=== PATIENT | male | born 1935 | race Caucasian/White ===

== ENCOUNTER 2016-07-10 10:49 | Outpatient (CLI) | payer MEDICARE, OTHER ==
[2016-07-10 12:33] LABS: HEMATOCRIT 23.4 % (37.9-51.0); HGB HCT DIFFERENCE 0.3; MEAN CORPUSCULAR HEMOGLOBIN 34.2 pg (27.0-33.4); MEAN CORPUSCULAR HGB CONC 33.7 g/dL (32.0-36.0); MEAN CORPUSCULAR VOLUME 101 fl (80-97); RED BLOOD COUNT 2.31 10^6/uL (4.35-5.55); RED CELL DISTRIBUTION WIDTH 24.7 % (11.5-14.0)
[2016-07-10 12:42] LABS: ANION GAP 11 (5-19); BLOOD UREA NITROGEN 20 mg/dL (7-20); CALCIUM 9.1 mg/dL (8.4-10.2); CARBON DIOXIDE 27 mmol/L (22-30); CHLORIDE 107 mmol/L (98-107); CREATININE RESULT 0.95 mg/dL (0.52-1.25); GLUCOSE 103 mg/dL (75-110); POTASSIUM 4.7 mmol/L (3.6-5.0); SODIUM 144.7 mmol/L (137-145)
[2016-07-10 12:49] LABS: HEMOGLOBIN 7.9 g/dL (13.5-17.0); WHITE BLOOD COUNT 1.2 10^3/uL (4.0-10.5)
[2016-07-11] MEDS ORDERED: ACETAMINOPHEN 325 MG TABLET PO PRN (05:00)
[2016-07-11] MEDS ORDERED: FUROSEMIDE INJ/PF 20 MG/2 ML SDV IV PRN (05:00)
[2016-07-11] MEDS ORDERED: NORMAL SALINE 250 ML IV PRN (07:00)
[2016-07-11] MEDS ORDERED: DIPHENHYDRAMINE HCL 25 MG CAPSULE PO PRN (07:00)
[2016-07-11] MEDS ORDERED: ACETAMINOPHEN 325 MG TABLET ONE (10:00)
[2016-07-11] MEDS ORDERED: DIPHENHYDRAMINE HCL 25 MG CAPSULE ONE (10:00)
[2016-07-11 13:34] VITALS: BP 100/41
== END 2016-07-11 13:54 | disposition hospice, home (50) ==
LOC: OD 10:49 → 5TH 07-11 08:51 → II 07-11 13:54
PROVIDERS: ATTEND Internal Medicine
PROC: 30233N1 Transfusion of Nonautologous Red Blood Cells into Peripheral Vein, Percutaneous Approach (ICD-10-PCS; principal; 2016-07-10)
DX: D64.81 Anemia due to antineoplastic chemotherapy (principal)
CPT/HCPCS: 86900; 86901; 36415; 36430; 86850; 82728; 83540; 83550; 80048; 86920; P9016; A9270 ×2

== ENCOUNTER 2016-08-21 11:22 | Outpatient (CLI) | payer MEDICARE, OTHER ==
[2016-08-21 12:03] LABS: HEMATOCRIT 21.3 % (37.9-51.0); HGB HCT DIFFERENCE 0.3; MEAN CORPUSCULAR HEMOGLOBIN 33.6 pg (27.0-33.4); MEAN CORPUSCULAR HGB CONC 33.8 g/dL (32.0-36.0); MEAN CORPUSCULAR VOLUME 99 fl (80-97); RED BLOOD COUNT 2.14 10^6/uL (4.35-5.55); RED CELL DISTRIBUTION WIDTH 25.2 % (11.5-14.0)
[2016-08-21] MEDS ORDERED: DIPHENHYDRAMINE HCL 25 MG CAPSULE PO PRN (12:04)
[2016-08-21] MEDS ORDERED: ACETAMINOPHEN 325 MG TABLET PO PRN (12:04)
[2016-08-21] MEDS ORDERED: FUROSEMIDE INJ/PF 20 MG/2 ML SDV IV PRN (12:04)
[2016-08-21 12:38] LABS: HEMOGLOBIN 7.2 g/dL (13.5-17.0)
[2016-08-22 08:19] VITALS: BP 112/51
== END 2016-08-22 09:10 | disposition home or self-care (01) ==
LOC: II 11:22 → 2N 11:25 → II 08-22 09:10
PROVIDERS: ATTEND Specialist
PROC: 30243N1 Transfusion of Nonautologous Red Blood Cells into Central Vein, Percutaneous Approach (ICD-10-PCS; principal; 2016-08-21)
DX: D64.81 Anemia due to antineoplastic chemotherapy (principal); C92.00 Acute myeloblastic leukemia, not having achieved remission
CPT/HCPCS: 86900; 86901; 36415; 36430; 86850; 86920; P9016; A9270 ×2; J1940

== ENCOUNTER 2016-09-25 13:34 | Inpatient (IN) | payer MEDICARE, OTHER ==
--- NOTE | 2016-09-25 14:06 | ER Document Report ---
ED Medical Screen (RME) - General Chief Complaint: Chest Congestion Stated Complaint: COUGH,CONGESTION,WHEEZING,FEVER Notes: This 81-year-old male with history of leukemia, receiving chemotherapy for the past year or more, last dose chemotherapy last week. He is frequently neutropenic and anemic. One week ago he began having URI symptoms which got much worse 3 days ago. He had a chest x-ray today at [facility] reportedly showing pneumonia and was referred here by Dr. Schneider. I have greeted and performed a rapid initial assessment of this patient. A comprehensive ED assessment and evaluation of the patient, analysis of test results and completion of the medical decision making process will be conducted by additional ED providers. TRAVEL OUTSIDE OF THE [place] 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 Denies: Hx Cerebrovascular Accident Renal/ Medical History: Reports: Hx Benign Prostatic Hyperplasia. Denies: Hx Peritoneal Dialysis Malignancy Medical History: Reports Hx Leukemia GI Medical History: Reports: Hx Gastroesophageal Reflux Disease. 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 Denies: Hx Open Heart Surgery, Hx Pacemaker - Immunizations Hx Diphtheria, Pertussis, Tetanus Vaccination: No Physical Exam - Vital signs Vitals: Temp Pulse Resp BP Pulse Ox 99.0 F 71 16 106/52 L 95 09/25/16 13:39 09/25/16 13:39 09/25/16 13:39 09/25/16 13:39 09/25/16 13:39 Course - Vital Signs Vital signs: Temp Pulse Resp BP Pulse Ox 99.0 F 71 16 106/52 L 95 09/25/16 13:39 09/25/16 13:39 09/25/16 13:39 09/25/16 13:39 09/25/16 13:39
[2016-09-25 14:48] LABS: HEMOGLOBIN 8.5 g/dL (13.5-17.0); HGB HCT DIFFERENCE 1.5; MEAN CORPUSCULAR HEMOGLOBIN 32.9 pg (27.0-33.4); MEAN CORPUSCULAR HGB CONC 35.2 g/dL (32.0-36.0); MEAN CORPUSCULAR VOLUME 94 fl (80-97); RED BLOOD COUNT 2.57 10^6/uL (4.35-5.55)
[2016-09-25 15:02] LABS: APPEARANCE,URINE CLEAR; BILIRUBIN,URINE NEGATIVE (NEGATIVE); GLUCOSE, URINE NEGATIVE (NEGATIVE); KETONES,URINE NEGATIVE (NEGATIVE); LEUKOCYTE ESTERASE,URINE NEGATIVE (NEGATIVE); NITRITE,URINE NEGATIVE (NEGATIVE); PROTEIN,URINE NEGATIVE (NEGATIVE); URINE SPECIFIC GRAVITY 1.016; UROBILINOGEN,URINE NEGATIVE mg/dL (<2.0)
[2016-09-25 15:05] LABS: ALANINE AMINOTRANSFERASE 50 U/L (21-72); ALBUMIN 4.3 g/dL (3.5-5.0); ALKALINE PHOSPHATASE 96 U/L (38-126); ANION GAP 13 (5-19); ASPARTATE AMINO TRANSFERASE 35 U/L (17-59); BILIRUBIN,DIRECT 0.3 mg/dL (0.0-0.4); BILIRUBIN,TOTAL 1.4 mg/dL (0.2-1.3); BLOOD UREA NITROGEN 16 mg/dL (7-20); CALCIUM 9.2 mg/dL (8.4-10.2); CARBON DIOXIDE 26 mmol/L (22-30); CHLORIDE 104 mmol/L (98-107); CREATININE RESULT 0.99 mg/dL (0.52-1.25); GLUCOSE 100 mg/dL (75-110); POTASSIUM 4.6 mmol/L (3.6-5.0); SODIUM 142.9 mmol/L (137-145); TOTAL PROTEIN 6.8 g/dL (6.3-8.2)
[2016-09-25 15:29] LABS: BAND NEUTROPHILS % (MANUAL) 3 % (3-5); BASOPHILS % (MANUAL) 0 % (0-2); EOSINOPHILS % (MANUAL) 2 % (0-6); TOTAL CELLS COUNTED 100
[2016-09-25 15:31] LABS: ANISOCYTOSIS 3+; HYPOCHROMASIA SLIGHT; OVALOCYTES 2+; POIKILOCYTOSIS 2+; POLYCHROMASIA 1+; SCHISTOCYTES 1+; TEAR DROP CELLS 1+
--- NOTE | 2016-09-25 16:06 | ER Document Report ---
ED Respiratory Problem - General Chief Complaint: Chest Congestion Stated Complaint: COUGH,CONGESTION,WHEEZING,FEVER Time seen by provider: 16:05 Mode of Arrival: Ambulatory Information source: Patient TRAVEL OUTSIDE OF THE [place] IN LAST 30 DAYS: No - HPI Patient complains to provider of: Cough, Short of breath Onset: Last week Duration: Worse/persistent Quality of pain: Achy Severity: Mild Pain Level: 1 Short of Breath: Mild Chest pain/discomfort: Tightness Cough: Productive Sputum amount: Small Sputum color: Yellow Sputum consistency: Mucoid Associated symptoms: Congestion, Cough, Fever, Short of breath Notes: Patient is an 81-year-old male who was sent by his oncologist for complaints of fever with productive cough and body aches 1 week, he had an x-ray performed at as an outpatient which reported pneumonia bilaterally, he is a history of leukemia and is currently getting weekly chemotherapy, he denies any shortness of breath at present time, no vomiting or diarrhea - Related Data Allergies/Adverse Reactions: adenosine * [adenosine] Allergy (Verified 09/25/16 13:38) Passed out Past Medical History - General Information source: Patient - Social History Smoking Status: Unknown if Ever Smoked Family History: Reviewed & Not Pertinent Patient has suicidal ideation: No Patient has homicidal ideation: No - Past Medical History Cardiac Medical History: Reports: Hx Congestive Heart Failure, Hx Hypercholesterolemia, Hx Hypertension Denies: Hx Coronary Artery Disease, Hx Heart Attack Pulmonary Medical History: Denies: Hx Asthma, Hx Bronchitis, Hx COPD, Hx Pneumonia Neurological Medical History: Reports: 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 Denies: Hx Cerebrovascular Accident Renal/ Medical History: Reports: Hx Benign Prostatic Hyperplasia. Denies: Hx Peritoneal Dialysis Malignancy Medical History: Reports Hx Leukemia GI Medical History: Reports: Hx Gastroesophageal Reflux Disease. 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 Denies: Hx Open Heart Surgery, Hx Pacemaker - Immunizations Hx Diphtheria, Pertussis, Tetanus Vaccination: No Hx Pneumococcal Vaccination: 05/11/12 Review of Systems - Review of Systems Constitutional: Fever EENT: No symptoms reported Cardiovascular: No symptoms reported Respiratory: See HPI Gastrointestinal: No symptoms reported Genitourinary: No symptoms reported Male Genitourinary: No symptoms reported Musculoskeletal: No symptoms reported Skin: No symptoms reported Hematologic/Lymphatic: No symptoms reported Neurological/Psychological: No symptoms reported -: Yes All other systems reviewed and negative Physical Exam - Vital signs Vitals: Temp Pulse Resp BP Pulse Ox 99.0 F 71 16 106/52 L 95 09/25/16 13:39 09/25/16 13:39 09/25/16 13:39 09/25/16 13:39 09/25/16 13:39 Interpretation: Normal - General General appearance: Appears well, Alert - HEENT Head: Normocephalic, Atraumatic Eyes: Normal Pupils: PERRL - Respiratory Respiratory status: No respiratory distress Chest status: Nontender Breath sounds: Normal Chest palpation: Normal - Cardiovascular Rhythm: Regular Heart sounds: Normal auscultation Murmur: No - Abdominal Inspection: Normal Distension: No distension Bowel sounds: Normal Tenderness: Nontender Organomegaly: No organomegaly - Back Back: Normal, Nontender - Extremities General upper extremity: Normal inspection, Nontender, Normal color, Normal ROM , Normal temperature General lower extremity: Normal inspection, Nontender, Normal color, Normal ROM , Normal temperature, Normal weight bearing. No: Jodi's sign - Neurological Neuro grossly intact: Yes Cognition: Normal Orientation: AAOx4 Arrey Coma Scale Eye Opening: Spontaneous Arrey Coma Scale Verbal: Oriented Lee Coma Scale Motor: Obeys Commands Arrey Coma Scale Total: 15 Speech: Normal Motor strength normal: LUE, RUE, LLE, RLE Sensory: Normal - Psychological Associated symptoms: Normal affect, Normal mood - Skin Skin Temperature: Warm Skin Moisture: Dry Skin Color: Normal Course - Re-evaluation Re-evalutation: 09/25/16 18:35 Patient lab work with pancytopenia, x-ray does not show evidence of pneumonia, however clinically patient appears to have pneumonia versus bronchitis, since he is pancytopenic, currently active with chemotherapy and febrile, he was discussed with the hospitalist who agrees to admit for further evaluation and treatment - Vital Signs Vital signs: Temp Pulse Resp BP Pulse Ox 99.0 F 71 18 141/68 H 96 09/25/16 13:39 09/25/16 13:39 09/25/16 18:13 09/25/16 18:13 09/25/16 18:13 - Laboratory Result Diagrams: 09/25/16 14:22 09/25/16 14:22 Laboratory results interpreted by me: 09/25/16 09/25/16 09/25/16 14:22 14:22 14:22 WBC 1.0 L* RBC 2.57 L Hgb 8.5 L Hct 24.0 L RDW 27.0 H Plt Count 61 L Seg Neuts % (Manual) 31 L Lymphocytes % (Manual) 55 H Abs Neuts (Manual) 0.3 L Total Bilirubin 1.4 H Urine Blood SMALL H Urine Ascorbic Acid 20 H - Diagnostic Test Radiology reviewed: Image reviewed, Reports reviewed Discharge - Discharge Clinical Impression: Pancytopenia Pneumonia Qualifiers: Pneumonia type: due to unspecified organism Laterality: bilateral Lung location : unspecified part of lung Qualified Code(s): J18.9 - Pneumonia, unspecified organism Condition: Fair Disposition: ADMITTED INPATIENT Admitting Provider: Hospitalist Unit Admitted: [facility]
[2016-09-25] MEDS ORDERED: VANCOMYCIN HCL INJ 1000 MG VIAL IV ONE (16:07)
[2016-09-25] MEDS ORDERED: CEFEPIME 2 GM/D5W RTU 50 ML IV ONE (16:07)
--- NOTE | 2016-09-25 17:38 | PDOC H&P ---
History of Present Illness Admission Date/PCP: 09/25/16 17:03 DALIA MENDOZA MD Patient complains of: Cough and wheezing History of Present Illness: DAVIDR Gladys JOSHUA is a 81 year old male Who is undergoing chemotherapy for leukemia presents in [facility] today with fever and cough The white blood count was extremely low at 1000 He was referred to the emergency room for admission and further care Upon questioning patient states that he has no shortness of breath he admits to cough is persistent hacking nonproductive He has no nausea vomiting or diarrhea , Past Medical History Cardiac Medical History: Reports: Congestive Heart Failure, Hyperlipidema, Hypertension Denies: Coronary Artery Disease, Myocardial Infarction Pulmonary Medical History: Denies: Asthma, Bronchitis, Chronic Obstructive Pulmonary Disease (COPD), Pneumonia Neurological Medical History: Reports: Seizures - CHILD Malignancy Medical History: Reports: Leukemia GI Medical History: Reports: Gastroesophageal Reflux Disease Denies: Hepatitis, Hiatal Hernia Musculoskeltal Medical History: 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 Psychiatric Medical History: Denies: Depression Hematology: Reports: Anemia, Bleeding Tendencies Denies: Sickle Cell Disease Past Surgical History Past Surgical History: Reports: Appendectomy, Cardiac Catheterization, Orthopedic Surgery Denies: Pacemaker Social History Smoking Status: Never Smoker Frequency of Alcohol Use: None Hx Recreational Drug Use: No Drugs: None Hx Prescription Drug Abuse: No - Advance Directive Resuscitation Status: Do Not Resuscitate Surrogate healthcare decision maker:: Geraldine Pickett Family History Family History: Reviewed & Not Pertinent Parental Family History Reviewed: Yes Children Family History Reviewed: Yes Sibling(s) Family History Reviewed.: Yes Medication/Allergy Allergies/Adverse Reactions: adenosine * [adenosine] Allergy (Verified 09/25/16 13:38) Passed out Physical Exam Vital Signs: Temp Pulse Resp BP Pulse Ox 99.0 F 71 14 122/75 94 09/25/16 13:39 09/25/16 13:39 09/25/16 17:01 09/25/16 17:01 09/25/16 17:01 General appearance: PRESENT: no acute distress, cooperative, well-nourished Head exam: PRESENT: atraumatic, normocephalic Eye exam: PRESENT: conjunctiva pink, EOMI, PERRLA. ABSENT: scleral icterus Neck exam: ABSENT: carotid bruit, JVD, lymphadenopathy, thyromegaly Respiratory exam: PRESENT: wheezes - end expiratory bilaterally. ABSENT: rales , rhonchi Cardiovascular exam: PRESENT: RRR. ABSENT: diastolic murmur, rubs, systolic murmur Vascular exam: PRESENT: normal capillary refill GI/Abdominal exam: PRESENT: normal bowel sounds, soft. ABSENT: distended, guarding, mass, organolmegaly, rebound, tenderness Rectal exam: PRESENT: deferred Musculoskeletal exam: PRESENT: ambulatory, full ROM, normal inspection. ABSENT : deformity Neurological exam: PRESENT: alert, awake, oriented to person, oriented to place , oriented to time, oriented to situation, CN II-XII grossly intact. ABSENT: motor sensory deficit Skin exam: PRESENT: dry, intact, warm. ABSENT: cyanosis, rash Results Laboratory Results: 09/25/16 14:22 09/25/16 14:22 MCV 94 fl (80-97) 09/25/16 14:22 MCH 32.9 pg (27.0-33.4) 09/25/16 14:22 MCHC 35.2 g/dL (32.0-36.0) 09/25/16 14:22 RDW 27.0 % (11.5-14.0) H 09/25/16 14:22 Seg Neutrophils % Not Reportable 09/25/16 14:22 Lymphocytes % Not Reportable 09/25/16 14:22 Monocytes % Not Reportable 09/25/16 14:22 Eosinophils % Not Reportable 09/25/16 14:22 Basophils % Not Reportable 09/25/16 14:22 Absolute Neutrophils Not Reportable 09/25/16 14:22 Absolute Lymphocytes Not Reportable 09/25/16 14:22 Absolute Monocytes Not Reportable 09/25/16 14:22 Absolute Eosinophils Not Reportable 09/25/16 14:22 Absolute Basophils Not Reportable 09/25/16 14:22 Chloride 104 mmol/L (98-107) 09/25/16 14:22 Carbon Dioxide 26 mmol/L (22-30) 09/25/16 14:22 Anion Gap 13 (5-19) 09/25/16 14:22 Est GFR ( Amer) > 60 (>60) 09/25/16 14:22 Est GFR (Non-Af Amer) > 60 (>60) 09/25/16 14:22 Glucose 100 mg/dL (75-110) 09/25/16 14:22 Calcium 9.2 mg/dL (8.4-10.2) 09/25/16 14:22 Total Bilirubin 1.4 mg/dL (0.2-1.3) H 09/25/16 14:22 AST 35 U/L (17-59) 09/25/16 14:22 ALT 50 U/L (21-72) 09/25/16 14:22 Alkaline Phosphatase 96 U/L (38-126) 09/25/16 14:22 Total Protein 6.8 g/dL (6.3-8.2) 09/25/16 14:22 Albumin 4.3 g/dL (3.5-5.0) 09/25/16 14:22 Urine Color YELLOW 09/25/16 14:22 Urine Appearance CLEAR 09/25/16 14:22 Urine pH 5.0 (5.0-9.0) 09/25/16 14:22 Ur Specific [place] 1.016 09/25/16 14:22 Urine Protein NEGATIVE mg/dL (NEGATIVE) 09/25/16 14:22 Urine Glucose (UA) NEGATIVE mg/dL (NEGATIVE) 09/25/16 14:22 Urine Ketones NEGATIVE mg/dL (NEGATIVE) 09/25/16 14:22 Urine Blood SMALL (NEGATIVE) H 09/25/16 14:22 Urine Nitrite NEGATIVE (NEGATIVE) 09/25/16 14:22 Ur Leukocyte Esterase NEGATIVE (NEGATIVE) 09/25/16 14:22 Urine WBC (Auto) 1 /HPF 09/25/16 14:22 Urine RBC (Auto) 1 /HPF 09/25/16 14:22 Impressions: Chest X-Ray 09/25/16 14:03 IMPRESSION: NO SIGNIFICANT RADIOGRAPHIC FINDING IN THE CHEST. Assessment & Plan - Diagnosis (1) Neutropenia Qualifiers: Neutropenia type: secondary to cancer chemotherapy Qualified Code(s) : D70.1 - Agranulocytosis secondary to cancer chemotherapy Is this a current diagnosis for this admission?: YesPlan: We will place the patient on reverse isolation Initiate broad-spectrum antibiotic coverage (2) Pneumonia Qualifiers: Pneumonia type: due to unspecified organism Laterality: bilateral Lung location: unspecified part of lung Qualified Code(s): J18.9 - Pneumonia, unspecified organism Is this a current diagnosis for this admission?: YesPlan: Treat with cefepime and vancomycin (3) Bronchospasm with bronchitis, acute Is this a current diagnosis for this admission?: YesPlan: We will treat with nebs Cough suppressants (4) Thrombocytopenia Is this a current diagnosis for this admission?: YesPlan: Follow up closely There is no evidence of bleeding No need to transfuse platelets (5) Anemia Qualifiers: Other causes of anemia: antineoplastic chemotherapy Is this a current diagnosis for this admission?: YesPlan: Follow-up H&H - Time Time Spent: 50 to 70 Minutes
[2016-09-25] MEDS ORDERED: VANCOMYCIN HCL 0 MG in DEXTROSE 5%-WATER 250 ML IV NR (17:45)
[2016-09-25] MEDS: NORMAL SALINE 1000 ML 1,000 ML IV PRN ×2 (20:30→22:03)
[2016-09-25] MEDS: IPRATROPIUM/ALBUTEROL 0.5-2.5 MG/3 ML AMPUL NEB SCH (20:35)
[2016-09-25 20:52] LABS: APPEARANCE,URINE CLEAR; BILIRUBIN,URINE NEGATIVE (NEGATIVE); GLUCOSE, URINE NEGATIVE (NEGATIVE); KETONES,URINE NEGATIVE (NEGATIVE); LEUKOCYTE ESTERASE,URINE NEGATIVE (NEGATIVE); NITRITE,URINE NEGATIVE (NEGATIVE); PROTEIN,URINE NEGATIVE (NEGATIVE); URINE SPECIFIC GRAVITY 1.015; UROBILINOGEN,URINE NEGATIVE mg/dL (<2.0)
[2016-09-25] MEDS: CEFEPIME 1 GM/D5W RTU 50 ML IV SCH (22:02)
[2016-09-25] MEDS: FAMOTIDINE INJ/PF 20 MG/2 ML SDV IV SCH (22:03)
[2016-09-26] MEDS: ACETAMINOPHEN 325 MG TABLET PO PRN (05:35)
[2016-09-26] MEDS: VANCOMYCIN HCL 1,500 MG in DEXTROSE 5%-WATER 250 ML IV SCH ×2 (06:12→17:19)
[2016-09-26 06:43] LABS: HGB HCT DIFFERENCE 0.8; MEAN CORPUSCULAR HEMOGLOBIN 31.7 pg (27.0-33.4); MEAN CORPUSCULAR HGB CONC 34.5 g/dL (32.0-36.0); MEAN CORPUSCULAR VOLUME 92 fl (80-97); RED BLOOD COUNT 2.39 10^6/uL (4.35-5.55); RED CELL DISTRIBUTION WIDTH 26.3 % (11.5-14.0)
[2016-09-26 06:44] LABS: ANION GAP 11 (5-19); BLOOD UREA NITROGEN 15 mg/dL (7-20); CALCIUM 8.6 mg/dL (8.4-10.2); CARBON DIOXIDE 24 mmol/L (22-30); CHLORIDE 106 mmol/L (98-107); CREATININE RESULT 0.79 mg/dL (0.52-1.25); GLUCOSE 103 mg/dL (75-110); POTASSIUM 4.3 mmol/L (3.6-5.0); SODIUM 140.9 mmol/L (137-145)
[2016-09-26 07:30] LABS: HEMOGLOBIN 7.6 g/dL (13.5-17.0)
[2016-09-26 07:44] LABS: BAND NEUTROPHILS % (MANUAL) 3 % (3-5); BASOPHILS % (MANUAL) 0 % (0-2); EOSINOPHILS % (MANUAL) 3 % (0-6); LYMPHOCYTES % (MANUAL) 59 % (13-45); NUCLEATED RED BLOOD CELLS 18 /100 WBC (0); OVALOCYTES 2+; POIKILOCYTOSIS 3+; POLYCHROMASIA SLIGHT; SCHISTOCYTES SLIGHT; TEAR DROP CELLS SLIGHT; TOTAL CELLS COUNTED 100
[2016-09-26] MEDS: IPRATROPIUM/ALBUTEROL 0.5-2.5 MG/3 ML AMPUL NEB SCH ×3 (08:16→20:57)
--- NOTE | 2016-09-26 08:47 | PDOC CONSULTATION ---
Consultation Consult Date: 09/26/16 Attending physician:: NISHI RECIO Consult reason:: Neutropenia, MDS/AML, severe bilateral pneumonia History of Present Illness Admission Date/PCP: 09/25/16 17:38 DALIA MENDOZA MD Patient complains of: Cough, congestion, shortness of breath, pneumonia History of Present Illness: 81-year-old male who we have been following now for about 2 years in our oncology clinic with diagnosis of MDS/AML. Initially, he was on a drug called VIDAZA, unfortunately this did not improve his transfusion requirements and he continues to require blood transfusion about every 4-6 weeks. Therefore, we decided on his continuation of drug now about 4 months ago. He has seemed to done better off drug. He has had some mild infections over the last 2 years that only required outpatient antibiotic therapy. I actually saw him last week he seemed to be doing quite well but her over the preceding 72 hours prior to admission he began having cough congestion likely it began causing distinct shortness of breath. Yesterday, he went to an urgent care center, he had chest x-ray which indicated bilateral infiltrates right greater than left. We saw him in our office yesterday, and he appeared short of breath, weak, dehydrated. In review of his blood counts he was neutropenic with an ANC of 300, hemoglobin was in the 8 range and platelets were in the 70 range. We sent and the ED for direct admission for IV antibiotics. He received blood cultures and was started on broad-spectrum antibiotics with cefepime and vancomycin. Past Medical History Cardiac Medical History: Reports: Congestive Heart Failure, Hyperlipidema, Hypertension Denies: Coronary Artery Disease, Myocardial Infarction Pulmonary Medical History: Denies: Asthma, Bronchitis, Chronic Obstructive Pulmonary Disease (COPD), Pneumonia Neurological Medical History: Reports: Seizures - CHILD Malignancy Medical History: Reports: Leukemia GI Medical History: Reports: Gastroesophageal Reflux Disease Denies: Hepatitis, Hiatal Hernia Musculoskeltal Medical History: 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 Psychiatric Medical History: Denies: Depression Hematology: Reports: Anemia, Bleeding Tendencies Denies: Sickle Cell Disease Past Surgical History Past Surgical History: Reports: Appendectomy, Cardiac Catheterization, Orthopedic Surgery Denies: Pacemaker Social History Smoking Status: Never Smoker Frequency of Alcohol Use: None Hx Recreational Drug Use: No Drugs: None Hx Prescription Drug Abuse: No - Advance Directive Resuscitation Status: Do Not Resuscitate Family History Family History: Reviewed & Not Pertinent Parental Family History Reviewed: Yes Children Family History Reviewed: Yes Sibling(s) Family History Reviewed.: Yes Medication/Allergy Home Medications: Alfuzosin HCl [Uroxatral] 10 mg PO QPM 09/25/16 Allopurinol [Zyloprim 300 mg Tablet] 300 mg PO QHS 09/25/16 Atorvastatin Calcium [Lipitor 20 mg Tablet] 20 mg PO QHS 09/25/16 Docusate Sodium [Colace 100 mg Capsule] 100 mg PO BID 09/25/16 Finasteride [Proscar 5 mg Tablet] 5 mg PO DAILY 09/25/16 Gabapentin [Neurontin 300 mg Capsule] 300 mg PO Q8HP PRN 09/25/16 Metoprolol Tartrate [Lopressor 25 mg Tablet] 12.5 mg PO Q12 09/25/16 Allergies/Adverse Reactions: adenosine * [adenosine] Allergy (Verified 09/25/16 13:38) Passed out Review of Systems Constitutional: PRESENT: chills, weakness Cardiovascular: PRESENT: dyspnea on exertion Respiratory: PRESENT: cough, dyspnea, sputum Gastrointestinal: ABSENT: abdominal pain, constipation, diarrhea, hematemesis, hematochezia, nausea, vomiting Musculoskeletal: ABSENT: joint swelling Neurological: ABSENT: abnormal gait, abnormal speech, confusion, dizziness, focal weakness, syncope Physical Exam Vital Signs: Temp Pulse Resp BP Pulse Ox 98.4 F 71 24 H 130/70 H 97 09/26/16 06:10 09/26/16 06:34 09/26/16 06:10 09/26/16 06:10 09/26/16 06:10 Intake & Output 09/25/16 09/26/16 09/27/16 06:59 06:59 06:59 Intake Total 930 Output Total 100 Balance 830 Weight 89.1 kg General appearance: PRESENT: no acute distress, well-developed, well-nourished Head exam: PRESENT: atraumatic, normocephalic Eye exam: PRESENT: conjunctiva pink, EOMI, PERRLA. ABSENT: scleral icterus Ear exam: PRESENT: normal external ear exam Mouth exam: PRESENT: moist, tongue midline Neck exam: ABSENT: carotid bruit, JVD, lymphadenopathy, thyromegaly Respiratory exam: PRESENT: clear to auscultation jane. ABSENT: rales, rhonchi, wheezes Cardiovascular exam: PRESENT: RRR. ABSENT: diastolic murmur, rubs, systolic murmur Pulses: PRESENT: normal dorsalis pedis pul Vascular exam: PRESENT: normal capillary refill GI/Abdominal exam: PRESENT: normal bowel sounds, soft. ABSENT: distended, guarding, mass, organolmegaly, rebound, tenderness Rectal exam: PRESENT: deferred Extremities exam: PRESENT: full ROM. ABSENT: calf tenderness, clubbing, pedal edema Neurological exam: PRESENT: alert, awake, oriented to person, oriented to place , oriented to time, oriented to situation, CN II-XII grossly intact. ABSENT: motor sensory deficit Psychiatric exam: PRESENT: appropriate affect, normal mood. ABSENT: homicidal ideation, suicidal ideation Skin exam: PRESENT: dry, intact, warm. ABSENT: cyanosis, rash Results Laboratory Results: 09/26/16 06:21 09/26/16 06:21 09/25/16 09/26/16 09/26/16 20:20 06:21 06:21 WBC 1.0 L* RBC 2.39 L Hgb 7.6 L Hct 22.0 L MCV 92 MCH 31.7 MCHC 34.5 RDW 26.3 H Plt Count 68 L Seg Neutrophils % Not Reportable Lymphocytes % Not Reportable Monocytes % Not Reportable Eosinophils % Not Reportable Basophils % Not Reportable Absolute Neutrophils Not Reportable Absolute Lymphocytes Not Reportable Absolute Monocytes Not Reportable Absolute Eosinophils Not Reportable Absolute Basophils Not Reportable Sodium 140.9 Potassium 4.3 Chloride 106 Carbon Dioxide 24 Anion Gap 11 BUN 15 Creatinine 0.79 Est GFR ( Amer) > 60 Est GFR (Non-Af Amer) > 60 Glucose 103 Calcium 8.6 TSH Urine Color YELLOW Urine Appearance CLEAR Urine pH 5.0 Ur Specific [place] 1.015 Urine Protein NEGATIVE Urine Glucose (UA) NEGATIVE Urine Ketones NEGATIVE Urine Blood NEGATIVE Urine Nitrite NEGATIVE Ur Leukocyte Esterase NEGATIVE Urine WBC (Auto) 0 09/26/16 06:21 WBC RBC Hgb Hct MCV MCH MCHC RDW Plt Count Seg Neutrophils % Lymphocytes % Monocytes % Eosinophils % Basophils % Absolute Neutrophils Absolute Lymphocytes Absolute Monocytes Absolute Eosinophils Absolute Basophils Sodium Potassium Chloride Carbon Dioxide Anion Gap BUN Creatinine Est GFR ( Amer) Est GFR (Non-Af Amer) Glucose Calcium TSH 2.24 Urine Color Urine Appearance Urine pH Ur Specific [place] Urine Protein Urine Glucose (UA) Urine Ketones Urine Blood Urine Nitrite Ur Leukocyte Esterase Urine WBC (Auto) Impressions: Chest X-Ray 09/25/16 14:03 IMPRESSION: NO SIGNIFICANT RADIOGRAPHIC FINDING IN THE CHEST. Assessment & Plan - Diagnosis (1) Pneumonia Qualifiers: Pneumonia type: due to unspecified organism Laterality: bilateral Lung location: lower lobe of lung Qualified Code(s): J18.9 - Pneumonia, unspecified organism Is this a current diagnosis for this admission?: YesPlan: Patient does have what appears to be pneumonia, most likely bacterial, blood cultures are pending. At present we would hold on growth factor support, he does have splenic megaly in patients with MDS can have splenic infarcts and splenic rupture when we give growth factor support. To that extent we would hold on that. Continue both with cefepime and vancomycin until we have negative cultures for 48 hours. Then the vancomycin could be discontinued and continue cefepime alone until we decide to transition to oral antibiotics. I believe and another 24-48 hours of IV antibiotics are necessary. (2) Pancytopenia Is this a current diagnosis for this admission?: YesPlan: Related to MDS/AML, at present we would like to hold on transfusion hemoglobin is in the 7 range as he will be hospitalized for another 24-48 hours we can transfuse as the hemoglobin gets lower. 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 - Time Time Spent: Greater than 70 Minutes Critical Time spent with patient: 35 or more minutes - Inpatient Certification Based on my medical assessment, after consideration of the patient's comorbidities, presenting symptoms, or acuity I expect that the services needed warrant INPATIENT care.: Yes I certify that my determination is in accordance with my understanding of Medicare's requirements for reasonable and necessary INPATIENT services [42 CFR 412.3e].: Yes Medical Necessity: Need For Continuous Telemetry Monitoring, Need for IV Antibiotics
[2016-09-26] MEDS: FAMOTIDINE INJ/PF 20 MG/2 ML SDV IV SCH ×2 (09:40→21:23)
[2016-09-26] MEDS: CEFEPIME 1 GM/D5W RTU 50 ML IV SCH ×2 (09:42→21:23)
[2016-09-26] MEDS ORDERED: BENZONATATE 100 MG CAPSULE PO PRN (14:47)
[2016-09-26 14:53] LABS: LYMPHOCYTES % (MANUAL) 60 % (13-45); NUCLEATED RED BLOOD CELLS 9 /100 WBC (0)
[2016-09-26 14:55] LABS: PATH REVIEW PATHOLOGIST REVIEWED
[2016-09-26] MEDS: NORMAL SALINE 1000 ML 1,000 ML IV PRN (15:26)
--- NOTE | 2016-09-26 16:53 | PDOC PROGRESS REPORT ---
Subjective Progress Note for:: 09/26/16 Physical Exam Vital Signs: Temp Pulse Resp BP Pulse Ox 98.5 F 80 16 122/55 L 96 09/26/16 11:29 09/26/16 14:18 09/26/16 14:18 09/26/16 11:29 09/26/16 14:18 Intake & Output 09/25/16 09/26/16 09/27/16 06:59 06:59 06:59 Intake Total 930 600 Output Total 100 Balance 830 600 Weight 89.1 kg General appearance: PRESENT: no acute distress, well-developed, well-nourished Head exam: PRESENT: atraumatic, normocephalic Eye exam: PRESENT: conjunctiva pale. ABSENT: scleral icterus Mouth exam: PRESENT: moist Respiratory exam: PRESENT: decreased breath sounds - At the bases bilaterally. Repeated coughing at the bedside. No sputum brought up, unlabored. ABSENT: rhonchi, wheezes Cardiovascular exam: PRESENT: RRR. ABSENT: gallop, rubs Pulses: PRESENT: +1 pedal pulses bilateral GI/Abdominal exam: PRESENT: normal bowel sounds, soft. ABSENT: distended, tenderness Extremities exam: ABSENT: clubbing - No cyanosis, pedal edema Neurological exam: PRESENT: alert, awake, oriented to person, oriented to place , oriented to time, oriented to situation, CN II-XII grossly intact Psychiatric exam: PRESENT: normal mood Skin exam: PRESENT: dry, pallor, warm Results Laboratory Results: 09/26/16 06:21 09/26/16 06:21 09/25/16 09/26/16 09/26/16 20:20 06:21 06:21 WBC 1.0 L* RBC 2.39 L Hgb 7.6 L Hct 22.0 L MCV 92 MCH 31.7 MCHC 34.5 RDW 26.3 H Plt Count 68 L Seg Neutrophils % Not Reportable Lymphocytes % Not Reportable Monocytes % Not Reportable Eosinophils % Not Reportable Basophils % Not Reportable Absolute Neutrophils Not Reportable Absolute Lymphocytes Not Reportable Absolute Monocytes Not Reportable Absolute Eosinophils Not Reportable Absolute Basophils Not Reportable Sodium 140.9 Potassium 4.3 Chloride 106 Carbon Dioxide 24 Anion Gap 11 BUN 15 Creatinine 0.79 Est GFR ( Amer) > 60 Est GFR (Non-Af Amer) > 60 Glucose 103 Calcium 8.6 TSH Urine Color YELLOW Urine Appearance CLEAR Urine pH 5.0 Ur Specific Beggs 1.015 Urine Protein NEGATIVE Urine Glucose (UA) NEGATIVE Urine Ketones NEGATIVE Urine Blood NEGATIVE Urine Nitrite NEGATIVE Ur Leukocyte Esterase NEGATIVE Urine WBC (Auto) 0 09/26/16 06:21 WBC RBC Hgb Hct MCV MCH MCHC RDW Plt Count Seg Neutrophils % Lymphocytes % Monocytes % Eosinophils % Basophils % Absolute Neutrophils Absolute Lymphocytes Absolute Monocytes Absolute Eosinophils Absolute Basophils Sodium Potassium Chloride Carbon Dioxide Anion Gap BUN Creatinine Est GFR ( Amer) Est GFR (Non-Af Amer) Glucose Calcium TSH 2.24 Urine Color Urine Appearance Urine pH Ur Specific Beggs Urine Protein Urine Glucose (UA) Urine Ketones Urine Blood Urine Nitrite Ur Leukocyte Esterase Urine WBC (Auto) Impressions: Chest X-Ray 09/25/16 14:03 IMPRESSION: NO SIGNIFICANT RADIOGRAPHIC FINDING IN THE CHEST. Assessment & Plan - Diagnosis (1) Bronchospasm with bronchitis, acute Is this a current diagnosis for this admission?: YesPlan: Continue current antibiotic therapy. Add on Tessalon Perles for cough. 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 (3) Pancytopenia Is this a current diagnosis for this admission?: YesPlan: Secondary to #2. Continue neutropenic precautions. ANC today is 300. Will monitor. Hold any transfusions for now. If H&H of fall below 7 and we can consider this then., Cytopenia stable for now will monitor. - Time Time Spent with patient: 15-24 minutes - Inpatient Certification Medical Necessity: Need for IV Antibiotics
[2016-09-27] MEDS ORDERED: DIPHENHYDRAMINE HCL 25 MG CAPSULE PO PRN ×2 (05:00→08:20)
[2016-09-27] MEDS ORDERED: FUROSEMIDE INJ/PF 20 MG/2 ML SDV IV PRN (05:00)
[2016-09-27] MEDS ORDERED: ACETAMINOPHEN 325 MG TABLET PO PRN (05:00)
[2016-09-27] MEDS: VANCOMYCIN HCL 1,500 MG in DEXTROSE 5%-WATER 250 ML IV SCH ×2 (05:45→17:10)
[2016-09-27 06:22] LABS: ANION GAP 10 (5-19); BLOOD UREA NITROGEN 12 mg/dL (7-20); CALCIUM 8.4 mg/dL (8.4-10.2); CARBON DIOXIDE 25 mmol/L (22-30); CHLORIDE 106 mmol/L (98-107); CREATININE RESULT 0.76 mg/dL (0.52-1.25); GLUCOSE 97 mg/dL (75-110); MAGNESIUM 1.8 mg/dL (1.6-2.3); POTASSIUM 4.2 mmol/L (3.6-5.0); SODIUM 140.5 mmol/L (137-145)
[2016-09-27 06:30] LABS: HEMATOCRIT 20.7 % (37.9-51.0); HGB HCT DIFFERENCE 0.9; MEAN CORPUSCULAR HEMOGLOBIN 32.1 pg (27.0-33.4); MEAN CORPUSCULAR HGB CONC 34.7 g/dL (32.0-36.0); MEAN CORPUSCULAR VOLUME 93 fl (80-97); RED BLOOD COUNT 2.24 10^6/uL (4.35-5.55); RED CELL DISTRIBUTION WIDTH 27.6 % (11.5-14.0)
[2016-09-27 06:56] LABS: BASOPHILS % (MANUAL) 0 % (0-2); EOSINOPHILS % (MANUAL) 4 % (0-6); LYMPHOCYTES % (MANUAL) 50 % (13-45); TOTAL CELLS COUNTED 50
[2016-09-27 06:57] LABS: ANISOCYTOSIS 4+; HYPOCHROMASIA SLIGHT; POLYCHROMASIA SLIGHT; TOXIC GRANULATION SLIGHT
[2016-09-27 06:58] LABS: BURR CELLS SLIGHT; OVALOCYTES SLIGHT; POIKILOCYTOSIS SLIGHT; SCHISTOCYTES SLIGHT; TEAR DROP CELLS SLIGHT
[2016-09-27 07:00] LABS: WHITE BLOOD COUNT 1.1 10^3/uL (4.0-10.5)
[2016-09-27 07:02] LABS: HEMOGLOBIN 7.2 g/dL (13.5-17.0)
[2016-09-27] MEDS ORDERED: GABAPENTIN 300 MG CAPSULE PO PRN (07:36)
[2016-09-27] MEDS: IPRATROPIUM/ALBUTEROL 0.5-2.5 MG/3 ML AMPUL NEB SCH ×3 (08:03→20:15)
--- NOTE | 2016-09-27 08:46 | PDOC PROGRESS REPORT ---
Subjective Progress Note for:: 09/27/16 Subjective:: Feeling better but still w significant cough Physical Exam Vital Signs: Temp Pulse Resp BP Pulse Ox 97.8 F 87 18 147/63 H 95 09/27/16 07:03 09/27/16 08:03 09/27/16 08:03 09/27/16 07:03 09/27/16 08:03 Intake & Output 09/26/16 09/27/16 09/28/16 06:59 06:59 06:59 Intake Total 930 3159 Output Total 100 Balance 830 3159 Weight 89.1 kg 90.1 kg General appearance: PRESENT: no acute distress, well-developed, well-nourished Head exam: PRESENT: atraumatic, normocephalic Eye exam: PRESENT: conjunctiva pink, EOMI, PERRLA. ABSENT: scleral icterus Ear exam: PRESENT: normal external ear exam Mouth exam: PRESENT: moist, tongue midline Neck exam: ABSENT: carotid bruit, JVD, lymphadenopathy, thyromegaly Respiratory exam: PRESENT: clear to auscultation jane. ABSENT: rales, rhonchi, wheezes Cardiovascular exam: PRESENT: RRR. ABSENT: diastolic murmur, rubs, systolic murmur Pulses: PRESENT: normal dorsalis pedis pul Vascular exam: PRESENT: normal capillary refill GI/Abdominal exam: PRESENT: normal bowel sounds, soft. ABSENT: distended, guarding, mass, organolmegaly, rebound, tenderness Rectal exam: PRESENT: deferred Extremities exam: PRESENT: full ROM. ABSENT: calf tenderness, clubbing, pedal edema Neurological exam: PRESENT: alert, awake, oriented to person, oriented to place , oriented to time, oriented to situation, CN II-XII grossly intact. ABSENT: motor sensory deficit Psychiatric exam: PRESENT: appropriate affect, normal mood. ABSENT: homicidal ideation, suicidal ideation Skin exam: PRESENT: dry, intact, warm. ABSENT: cyanosis, rash Results Laboratory Results: 09/27/16 05:40 09/27/16 05:40 09/27/16 09/27/16 09/27/16 05:40 05:40 05:40 WBC 1.1 L* RBC 2.24 L Hgb 7.2 L Hct 20.7 L MCV 93 MCH 32.1 MCHC 34.7 RDW 27.6 H Plt Count 53 L Seg Neutrophils % Not Reportable Lymphocytes % Not Reportable Monocytes % Not Reportable Eosinophils % Not Reportable Basophils % Not Reportable Absolute Neutrophils Not Reportable Absolute Lymphocytes Not Reportable Absolute Monocytes Not Reportable Absolute Eosinophils Not Reportable Absolute Basophils Not Reportable Sodium 140.5 Potassium 4.2 Chloride 106 Carbon Dioxide 25 Anion Gap 10 BUN 12 Creatinine 0.76 Cancelled Est GFR ( Amer) > 60 Cancelled Est GFR (Non-Af Amer) > 60 Cancelled Glucose 97 Calcium 8.4 Magnesium 1.8 Impressions: Chest X-Ray 09/25/16 14:03 IMPRESSION: NO SIGNIFICANT RADIOGRAPHIC FINDING IN THE CHEST. Assessment & Plan - Diagnosis (1) Pneumonia Qualifiers: Pneumonia type: due to unspecified organism Laterality: bilateral Lung location: lower lobe of lung Qualified Code(s): J18.9 - Pneumonia, unspecified organism Is this a current diagnosis for this admission?: YesPlan: Improving, con't IV atbx x 24 more hours and reassess tomorrow, added incentive spirometry (2) Pancytopenia Is this a current diagnosis for this admission?: YesPlan: Hb drop to 7.2, transfuse today 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 Qualified Code(s ): C92.00 - Acute myeloblastic leukemia, not having achieved remission Is this a current diagnosis for this admission?: YesPlan: Con't to monitor (4) Anemia Qualifiers: Anemia type: other cause Other causes of anemia: chronic disease, neoplastic Qualified Code(s): D63.0 - Anemia in neoplastic disease Is this a current diagnosis for this admission?: YesPlan: 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 - Time Time Spent with patient: 35 or more minutes Critical Time spent with patient: 35 or more minutes - Inpatient Certification Based on my medical assessment, after consideration of the patient's comorbidities, presenting symptoms, or acuity I expect that the services needed warrant INPATIENT care.: Yes I certify that my determination is in accordance with my understanding of Medicare's requirements for reasonable and necessary INPATIENT services [42 CFR 412.3e].: Yes Medical Necessity: Need for IV Antibiotics
[2016-09-27] MEDS: FAMOTIDINE INJ/PF 20 MG/2 ML SDV IV SCH ×2 (09:09→21:13)
[2016-09-27] MEDS: DOCUSATE SODIUM 100 MG CAPSULE PO SCH ×2 (09:10→17:09)
[2016-09-27] MEDS: METOPROLOL TARTRATE 25 MG TABLET PO SCH ×2 (09:10→21:14)
[2016-09-27] MEDS: CEFEPIME 1 GM/D5W RTU 50 ML IV SCH ×2 (09:10→21:13)
[2016-09-27] MEDS: FINASTERIDE 5 MG TABLET PO SCH (09:10)
[2016-09-27] MEDS ORDERED: CODEINE SULF 30 MG TABLET PO PRN (13:11)
[2016-09-27] MEDS: TAMSULOSIN HCL 0.4 MG CAP.SR.24H PO SCH (17:09)
[2016-09-27 20:12] LABS: HEMATOCRIT 25.6 % (37.9-51.0); HEMOGLOBIN 8.8 g/dL (13.5-17.0); HGB HCT DIFFERENCE 0.8; MEAN CORPUSCULAR HEMOGLOBIN 30.9 pg (27.0-33.4); MEAN CORPUSCULAR HGB CONC 34.4 g/dL (32.0-36.0); MEAN CORPUSCULAR VOLUME 90 fl (80-97); RED BLOOD COUNT 2.86 10^6/uL (4.35-5.55)
[2016-09-27 20:52] LABS: WHITE BLOOD COUNT 1.4 10^3/uL (4.0-10.5)
[2016-09-27] MEDS: ALLOPURINOL 300 MG TABLET PO SCH (21:13)
[2016-09-27] MEDS: ATORVASTATIN CALCIUM 20 MG TABLET PO SCH (21:13)
[2016-09-28] MEDS: VANCOMYCIN HCL 1,500 MG in DEXTROSE 5%-WATER 250 ML IV SCH (05:31)
[2016-09-28 06:44] LABS: ANION GAP 13 (5-19); BLOOD UREA NITROGEN 17 mg/dL (7-20); CALCIUM 8.6 mg/dL (8.4-10.2); CARBON DIOXIDE 23 mmol/L (22-30); CHLORIDE 105 mmol/L (98-107); CREATININE RESULT 0.79 mg/dL (0.52-1.25); GLUCOSE 95 mg/dL (75-110); SODIUM 141.1 mmol/L (137-145)
[2016-09-28 06:49] LABS: HEMATOCRIT 25.6 % (37.9-51.0); HEMOGLOBIN 8.8 g/dL (13.5-17.0); HGB HCT DIFFERENCE 0.8; MEAN CORPUSCULAR HGB CONC 34.4 g/dL (32.0-36.0); MEAN CORPUSCULAR VOLUME 90 fl (80-97); RED BLOOD COUNT 2.85 10^6/uL (4.35-5.55); RED CELL DISTRIBUTION WIDTH 25.6 % (11.5-14.0)
--- NOTE | 2016-09-28 08:01 | PDOC PROGRESS REPORT ---
Subjective Progress Note for:: 09/28/16 Subjective:: Patient feeling better, still having significant cough, reviewed microbiology and urine culture did come back as GPC's Physical Exam Vital Signs: Temp Pulse Resp BP Pulse Ox 97.9 F 61 20 112/42 L 97 09/28/16 04:13 09/28/16 04:13 09/28/16 04:13 09/28/16 04:13 09/28/16 04:13 Intake & Output 09/27/16 09/28/16 09/29/16 06:59 06:59 06:59 Intake Total 3159 3295 Output Total 700 Balance 3159 2595 Weight 90.1 kg 88.1 kg General appearance: PRESENT: no acute distress, well-developed, well-nourished Head exam: PRESENT: atraumatic, normocephalic Eye exam: PRESENT: conjunctiva pink, EOMI, PERRLA. ABSENT: scleral icterus Ear exam: PRESENT: normal external ear exam Mouth exam: PRESENT: moist, tongue midline Neck exam: ABSENT: carotid bruit, JVD, lymphadenopathy, thyromegaly Respiratory exam: PRESENT: clear to auscultation jane. ABSENT: rales, rhonchi, wheezes Cardiovascular exam: PRESENT: RRR. ABSENT: diastolic murmur, rubs, systolic murmur Pulses: PRESENT: normal dorsalis pedis pul Vascular exam: PRESENT: normal capillary refill GI/Abdominal exam: PRESENT: normal bowel sounds, soft. ABSENT: distended, guarding, mass, organolmegaly, rebound, tenderness Rectal exam: PRESENT: deferred Extremities exam: PRESENT: full ROM. ABSENT: calf tenderness, clubbing, pedal edema Neurological exam: PRESENT: alert, awake, oriented to person, oriented to place , oriented to time, oriented to situation, CN II-XII grossly intact. ABSENT: motor sensory deficit Psychiatric exam: PRESENT: appropriate affect, normal mood. ABSENT: homicidal ideation, suicidal ideation Skin exam: PRESENT: dry, intact, warm. ABSENT: cyanosis, rash Results Laboratory Results: 09/28/16 05:15 09/27/16 09/28/16 20:03 05:15 WBC 1.4 L* RBC 2.86 L Hgb 8.8 L Hct 25.6 L MCV 90 MCH 30.9 MCHC 34.4 RDW 24.0 H Plt Count 62 L Sodium 141.1 Potassium 4.0 Chloride 105 Carbon Dioxide 23 Anion Gap 13 BUN 17 Creatinine 0.79 Est GFR ( Amer) > 60 Est GFR (Non-Af Amer) > 60 Glucose 95 Calcium 8.6 Impressions: Chest X-Ray 09/25/16 14:03 IMPRESSION: NO SIGNIFICANT RADIOGRAPHIC FINDING IN THE CHEST. Assessment & Plan - Diagnosis (1) Pneumonia Qualifiers: Pneumonia type: due to group B Streptococcus Laterality: bilateral Lung location: lower lobe of lung Qualified Code(s): J15.3 - Pneumonia due to streptococcus, group B Is this a current diagnosis for this admission?: YesPlan: GPC's in urine, so probable source is a gram-positive organism, continue on current therapy with both cefepime and vancomycin until we have id of organism. (2) Pancytopenia Is this a current diagnosis for this admission?: YesPlan: Stable, transfusion yesterday 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 Qualified Code(s ): C92.00 - Acute myeloblastic leukemia, not having achieved remission Is this a current diagnosis for this admission?: YesPlan: This is the cause of pancytopenia and immunosuppression probably resulting in the severe pneumonia, continue to monitor (4) Anemia Qualifiers: Anemia type: other cause Other causes of anemia: chronic disease, neoplastic Qualified Code(s): D63.0 - Anemia in neoplastic disease Is this a current diagnosis for this admission?: YesPlan: Secondary to bone marrow failure, transfusion given yesterday awaiting CBC from today. - Time Time Spent with patient: 25-34 minutes Critical Time spent with patient: 25-34 minutes - Inpatient Certification Based on my medical assessment, after consideration of the patient's comorbidities, presenting symptoms, or acuity I expect that the services needed warrant INPATIENT care.: Yes I certify that my determination is in accordance with my understanding of Medicare's requirements for reasonable and necessary INPATIENT services [42 CFR 412.3e].: Yes Medical Necessity: Need for IV Antibiotics
[2016-09-28 08:19] LABS: WHITE BLOOD COUNT 1.2 10^3/uL (4.0-10.5)
[2016-09-28] MEDS: IPRATROPIUM/ALBUTEROL 0.5-2.5 MG/3 ML AMPUL NEB SCH ×3 (08:25→20:19)
[2016-09-28 08:27] LABS: ANISOCYTOSIS 3+; BAND NEUTROPHILS % (MANUAL) 2 % (3-5); BASOPHILS % (MANUAL) 3 % (0-2); EOSINOPHILS % (MANUAL) 1 % (0-6); LYMPHOCYTES % (MANUAL) 56 % (13-45); NUCLEATED RED BLOOD CELLS 13 /100 WBC (0); OVALOCYTES 2+; POIKILOCYTOSIS 3+; POLYCHROMASIA 1+; SCHISTOCYTES 1+; TEAR DROP CELLS 1+; TOTAL CELLS COUNTED 100; TOXIC GRANULATION SLIGHT
--- NOTE | 2016-09-28 09:52 | PDOC PROGRESS REPORT ---
Subjective Progress Note for:: 09/27/16 Subjective:: Patient was seen and still complains of cough at bedside. He was seen by oncology earlier this morning and is preparing to be transfused today. He denies any chest pain or shortness of breath Physical Exam Vital Signs: Temp Pulse Resp BP Pulse Ox 98.7 F 79 16 121/61 94 09/27/16 14:19 09/27/16 14:19 09/27/16 14:19 09/27/16 14:19 09/27/16 14:19 Intake & Output 09/26/16 09/27/16 09/28/16 06:59 06:59 06:59 Intake Total 930 3159 300 Output Total 100 Balance 830 3159 300 Weight 89.1 kg 90.1 kg PHYSICAL EXAM: GENERAL: This is a well-developed well-nourished white male resting in no acute distress. HEART: Regular rate and rhythm. No murmurs rubs or gallops. LUNGS: Diminished at the bases bilaterally with equal rise and fall of the chest. ABDOMEN: Soft, nontender, nondistended with normoactive bowel sounds EXTREMITIES: No clubbing cyanosis or edema. 2+ peripheral pulses. NEURO: Awake, alert, oriented x-3. Cranial nerves II through XII grossly intact. PSYCH: Normal affect. Results Laboratory Results: 09/27/16 05:40 09/27/16 05:40 09/27/16 09/27/16 09/27/16 05:40 05:40 05:40 WBC 1.1 L* RBC 2.24 L Hgb 7.2 L Hct 20.7 L MCV 93 MCH 32.1 MCHC 34.7 RDW 27.6 H Plt Count 53 L Seg Neutrophils % Not Reportable Lymphocytes % Not Reportable Monocytes % Not Reportable Eosinophils % Not Reportable Basophils % Not Reportable Absolute Neutrophils Not Reportable Absolute Lymphocytes Not Reportable Absolute Monocytes Not Reportable Absolute Eosinophils Not Reportable Absolute Basophils Not Reportable Sodium 140.5 Potassium 4.2 Chloride 106 Carbon Dioxide 25 Anion Gap 10 BUN 12 Creatinine 0.76 Cancelled Est GFR ( Amer) > 60 Cancelled Est GFR (Non-Af Amer) > 60 Cancelled Glucose 97 Calcium 8.4 Magnesium 1.8 Impressions: Chest X-Ray 09/25/16 14:03 IMPRESSION: NO SIGNIFICANT RADIOGRAPHIC FINDING IN THE CHEST. Assessment & Plan - Diagnosis (1) Bronchospasm with bronchitis, acute Is this a current diagnosis for this admission?: YesPlan: Continue current antibiotic therapy. Add on Tessalon Perles for cough. Chest x -ray done does not support presence of pneumonia. There is no infiltrate seen. Likely this is acute bronchitis. Will add on codeine sulfate when necessary for cough. 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 Patient's anemia is secondary to this diagnosis (3) Pancytopenia Is this a current diagnosis for this admission?: YesPlan: Secondary to #2. Continue neutropenic precautions. ANC today is 400. Will monitor. Transfuse as per oncology orders. Thrombocytopenia stable for now will monitor. (4) Anemia Qualifiers: Anemia type: other cause Other causes of anemia: chronic disease, neoplastic Qualified Code(s): D63.0 - Anemia in neoplastic disease Is this a current diagnosis for this admission?: YesPlan: Secondary to AML. Patient is being transfused as above. (5) UTI (urinary tract infection) Qualifiers: Urinary tract infection type: acute cystitis Plan: Gram-positive cocci seen in chains. 20-30 colony-forming units. Patient is already on empiric antibiotics. Will await finalization of cultures. - Time Time Spent with patient: 15-24 minutes - Inpatient Certification Medical Necessity: Need Close Monitoring Due to Risk of Patient Decompensation
[2016-09-28] MEDS: CEFEPIME 1 GM/D5W RTU 50 ML IV SCH (10:52)
[2016-09-28] MEDS: METOPROLOL TARTRATE 25 MG TABLET PO SCH ×2 (10:56→21:59)
[2016-09-28] MEDS: FINASTERIDE 5 MG TABLET PO SCH (10:57)
[2016-09-28] MEDS: DOCUSATE SODIUM 100 MG CAPSULE PO SCH ×2 (10:57→16:31)
[2016-09-28] MEDS: FAMOTIDINE INJ/PF 20 MG/2 ML SDV IV SCH ×2 (11:17→21:58)
--- NOTE | 2016-09-28 14:16 | PDOC PROGRESS REPORT ---
Subjective Progress Note for:: 09/28/16 Subjective:: Patient was seen and still complains of cough at bedside. It has gotten a little bit better. He denies any chest pain or shortness of breath Physical Exam Vital Signs: Temp Pulse Resp BP Pulse Ox 98.1 F 74 18 142/64 H 94 09/28/16 07:54 09/28/16 08:25 09/28/16 08:25 09/28/16 07:54 09/28/16 08:25 Intake & Output 09/27/16 09/28/16 09/29/16 06:59 06:59 06:59 Intake Total 3159 3295 Output Total 700 Balance 3159 2595 Weight 90.1 kg 88.1 kg PHYSICAL EXAM: GENERAL: This is a well-developed well-nourished white male resting in no acute distress. HEART: Regular rate and rhythm. No murmurs rubs or gallops. LUNGS: Diminished at the bases bilaterally with equal rise and fall of the chest. ABDOMEN: Soft, nontender, nondistended with normoactive bowel sounds EXTREMITIES: No clubbing cyanosis or edema. 2+ peripheral pulses. NEURO: Awake, alert, oriented x-3. Cranial nerves II through XII grossly intact. PSYCH: Normal affect. Results Laboratory Results: 09/28/16 05:15 09/28/16 05:15 09/27/16 09/28/16 09/28/16 20:03 05:15 05:15 WBC 1.4 L* 1.2 L* RBC 2.86 L 2.85 L Hgb 8.8 L 8.8 L Hct 25.6 L 25.6 L MCV 90 90 MCH 30.9 31.0 MCHC 34.4 34.4 RDW 24.0 H 25.6 H Plt Count 62 L 60 L Seg Neutrophils % Not Reportable Lymphocytes % Not Reportable Monocytes % Not Reportable Eosinophils % Not Reportable Basophils % Not Reportable Absolute Neutrophils Not Reportable Absolute Lymphocytes Not Reportable Absolute Monocytes Not Reportable Absolute Eosinophils Not Reportable Absolute Basophils Not Reportable Sodium 141.1 Potassium 4.0 Chloride 105 Carbon Dioxide 23 Anion Gap 13 BUN 17 Creatinine 0.79 Est GFR ( Amer) > 60 Est GFR (Non-Af Amer) > 60 Glucose 95 Calcium 8.6 09/25/16 20:20 Clean Catch Midstream Urine Culture - Final Enterococcus Faecalis(Group D) Impressions: Chest X-Ray 09/25/16 14:03 IMPRESSION: NO SIGNIFICANT RADIOGRAPHIC FINDING IN THE CHEST. Assessment & Plan - Diagnosis (1) Bronchospasm with bronchitis, acute Plan: Continue current antibiotic therapy. Continue Tessalon Perles and codeine for cough. Chest x-ray done does not support presence of pneumonia. There is no infiltrate seen. Likely this is acute bronchitis. Enterococcus was grown on and sputum samples we will narrow antibiotic coverage to ampicillin. 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 Patient's anemia is secondary to this diagnosis. He is status post transfusion yesterday (3) Pancytopenia Is this a current diagnosis for this admission?: YesPlan: Secondary to #2. Continue neutropenic precautions. ANC today is 500. Will monitor. Thrombocytopenia stable for now will monitor. (4) Anemia Qualifiers: Anemia type: other cause Other causes of anemia: chronic disease, neoplastic Qualified Code(s): D63.0 - Anemia in neoplastic disease Plan: Secondary to AML. Improved hemoglobin. (5) UTI (urinary tract infection) Qualifiers: Urinary tract infection type: acute cystitis Plan: Enterococcus faecalis UTI. Change to ampicillin with plans for Augmentin as an outpatient. - Time Time Spent with patient: 15-24 minutes - Inpatient Certification Medical Necessity: Need Close Monitoring Due to Risk of Patient Decompensation - Hopefully we can discharge in the morning.
[2016-09-28] MEDS: AMPICILLIN SODIUM 500 MG in NORMAL SALINE 25 ML IV SCH ×2 (15:53→21:57)
[2016-09-28] MEDS: TAMSULOSIN HCL 0.4 MG CAP.SR.24H PO SCH (16:32)
[2016-09-28] MEDS: ACETAMINOPHEN 325 MG TABLET PO PRN (16:32)
[2016-09-28] MEDS: ATORVASTATIN CALCIUM 20 MG TABLET PO SCH (21:58)
[2016-09-28] MEDS: ALLOPURINOL 300 MG TABLET PO SCH (21:58)
[2016-09-29] MEDS: AMPICILLIN SODIUM 500 MG in NORMAL SALINE 25 ML IV SCH ×2 (03:23→09:53)
[2016-09-29] MEDS: IPRATROPIUM/ALBUTEROL 0.5-2.5 MG/3 ML AMPUL NEB SCH (07:46)
--- NOTE | 2016-09-29 07:55 | PDOC PROGRESS REPORT ---
Subjective Progress Note for:: 09/29/16 Subjective:: Patient doing well today, we have cultures back now, urine culture and indicated Enterococcus faecalis. Pansensitive. Physical Exam Vital Signs: Temp Pulse Resp BP Pulse Ox 98.0 F 65 20 116/50 L 97 09/29/16 04:25 09/29/16 04:25 09/29/16 04:25 09/29/16 04:25 09/29/16 04:25 Intake & Output 09/28/16 09/29/16 09/30/16 06:59 06:59 06:59 Intake Total 3295 2616 Output Total 700 250 Balance 2595 2366 Weight 88.1 kg 91.4 kg General appearance: PRESENT: no acute distress, well-developed, well-nourished Head exam: PRESENT: atraumatic, normocephalic Eye exam: PRESENT: conjunctiva pink, EOMI, PERRLA. ABSENT: scleral icterus Ear exam: PRESENT: normal external ear exam Mouth exam: PRESENT: moist, tongue midline Neck exam: ABSENT: carotid bruit, JVD, lymphadenopathy, thyromegaly Respiratory exam: PRESENT: clear to auscultation jane. ABSENT: rales, rhonchi, wheezes Cardiovascular exam: PRESENT: RRR. ABSENT: diastolic murmur, rubs, systolic murmur Pulses: PRESENT: normal dorsalis pedis pul Vascular exam: PRESENT: normal capillary refill GI/Abdominal exam: PRESENT: normal bowel sounds, soft. ABSENT: distended, guarding, mass, organolmegaly, rebound, tenderness Rectal exam: PRESENT: deferred Extremities exam: PRESENT: full ROM. ABSENT: calf tenderness, clubbing, pedal edema Neurological exam: PRESENT: alert, awake, oriented to person, oriented to place , oriented to time, oriented to situation, CN II-XII grossly intact. ABSENT: motor sensory deficit Psychiatric exam: PRESENT: appropriate affect, normal mood. ABSENT: homicidal ideation, suicidal ideation Skin exam: PRESENT: dry, intact, warm. ABSENT: cyanosis, rash Results Laboratory Results: 09/28/16 05:15 09/28/16 05:15 09/28/16 05:15 WBC 1.2 L* RBC 2.85 L Hgb 8.8 L Hct 25.6 L MCV 90 MCH 31.0 MCHC 34.4 RDW 25.6 H Plt Count 60 L Seg Neutrophils % Not Reportable Lymphocytes % Not Reportable Monocytes % Not Reportable Eosinophils % Not Reportable Basophils % Not Reportable Absolute Neutrophils Not Reportable Absolute Lymphocytes Not Reportable Absolute Monocytes Not Reportable Absolute Eosinophils Not Reportable Absolute Basophils Not Reportable 09/25/16 20:20 Clean Catch Midstream Urine Culture - Final Enterococcus Faecalis(Group D) Impressions: Chest X-Ray 09/25/16 14:03 IMPRESSION: NO SIGNIFICANT RADIOGRAPHIC FINDING IN THE CHEST. Assessment & Plan - Diagnosis (1) Pneumonia Qualifiers: Pneumonia type: due to group B Streptococcus Laterality: bilateral Lung location: lower lobe of lung Qualified Code(s): J15.3 - Pneumonia due to streptococcus, group B Is this a current diagnosis for this admission?: YesPlan: Secondary to enterococcus, patient is doing well enough to go home now. We can discharge him with Levaquin as well as Tessalon Perles for cough. (2) Pancytopenia Is this a current diagnosis for this admission?: YesPlan: Secondary to AML and MDS, 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 Qualified Code(s ): C92.00 - Acute myeloblastic leukemia, not having achieved remission Is this a current diagnosis for this admission?: YesPlan: Plan for follow-up in our office in one week (4) Anemia Qualifiers: Anemia type: other cause Other causes of anemia: chronic disease, neoplastic Qualified Code(s): D63.0 - Anemia in neoplastic disease Is this a current diagnosis for this admission?: YesPlan: Hemoglobin stable after transfusion, we will monitor in our office next week. - Time Time Spent with patient: 25-34 minutes Critical Time spent with patient: 25-34 minutes Anticipated discharge: Home
[2016-09-29] MEDS: DOCUSATE SODIUM 100 MG CAPSULE PO SCH (09:54)
[2016-09-29] MEDS: FINASTERIDE 5 MG TABLET PO SCH (09:54)
[2016-09-29] MEDS: METOPROLOL TARTRATE 25 MG TABLET PO SCH (09:54)
[2016-09-29 10:31] LABS: HEMATOCRIT 25.1 % (37.9-51.0); HEMOGLOBIN 8.6 g/dL (13.5-17.0); HGB HCT DIFFERENCE 0.7; MEAN CORPUSCULAR HEMOGLOBIN 31.2 pg (27.0-33.4); MEAN CORPUSCULAR HGB CONC 34.1 g/dL (32.0-36.0); MEAN CORPUSCULAR VOLUME 91 fl (80-97); RED BLOOD COUNT 2.75 10^6/uL (4.35-5.55)
[2016-09-29 11:13] LABS: BAND NEUTROPHILS % (MANUAL) 7 % (3-5); BASOPHILS % (MANUAL) 0 % (0-2); EOSINOPHILS % (MANUAL) 2 % (0-6); LYMPHOCYTES % (MANUAL) 48 % (13-45); NUCLEATED RED BLOOD CELLS 6 /100 WBC (0); TOTAL CELLS COUNTED 100
[2016-09-29 11:20] LABS: ANISOCYTOSIS 3+; OVALOCYTES 1+; POIKILOCYTOSIS 2+; POLYCHROMASIA SLIGHT; TARGET CELLS SLIGHT; TEAR DROP CELLS 1+
[2016-09-29 11:23] LABS: TOXIC GRANULATION SLIGHT
--- NOTE | 2016-09-29 12:05 | PDOC DISCHARGE SUMMARY ---
General - Admit/Disc Date/PCP Admission Date/Primary Care Provider: 09/25/16 17:38 DALIA MENDOZA MD Discharge Date: 09/29/16 - Discharge Diagnosis (1) Bronchospasm with bronchitis, acute Summary: Infiltrates on chest x-ray. Unfortunately he was not able to produce any sputum. Discharged on Levaquin for UTI. Hopefully this will cover any organisms in the lung. Follow-up with PCP next week as instructed. (2) AML (acute myeloid leukemia) Summary: Patient neutropenic while here. He is to follow-up with his oncologist next week. (3) Pancytopenia Summary: ANC 500 yesterday and 400 at discharge. Seen his oncologist this morning already and the plan is for him to be discharged to follow-up in the office next week. (4) Anemia Summary: He is status post transfusion and is stable. (5) UTI (urinary tract infection) Summary: He will have 7-10 days of Levaquin. - Additional Information Resuscitation Status: Do Not Resuscitate Discharge Diet: Regular Discharge Activity: Activity As Tolerated, Balance Activity w/Rest, Energy Conservation Home Medications: Alfuzosin HCl [Uroxatral] 10 mg PO QPM 09/25/16 Allopurinol [Zyloprim 300 mg Tablet] 300 mg PO QHS 09/25/16 Atorvastatin Calcium [Lipitor 20 mg Tablet] 20 mg PO QHS 09/25/16 Docusate Sodium [Colace 100 mg Capsule] 100 mg PO BID 09/25/16 Finasteride [Proscar 5 mg Tablet] 5 mg PO DAILY 09/25/16 Gabapentin [Neurontin 300 mg Capsule] 300 mg PO Q8HP PRN 09/25/16 Metoprolol Tartrate [Lopressor 25 mg Tablet] 12.5 mg PO Q12 09/25/16 Benzonatate [Tessalon Perles 100 mg Capsule] 200 mg PO TIDP PRN #30 capsule Levofloxacin [Levaquin 750 mg Tablet] 750 mg PO DAILY #10 tab 09/29/16 History of Present Illness History of Present Illness: This is the patient's history of present illness as per Dr. Wilkerson: Patient complains of: Cough and wheezing History of Present Illness: HOMER Gladys JOSHUA is a 81 year old male Who is undergoing chemotherapy for leukemia presents in [facility] today with fever and cough The white blood count was extremely low at 1000 He was referred to the emergency room for admission and further care Upon questioning patient states that he has no shortness of breath he admits to cough is persistent hacking nonproductive He has no nausea vomiting or diarrhea Hospital Course Hospital Course: patient did well while here in the hospital. He was placed on neutropenic precautions. His A1c came up as high as 500. He was treated with IV vancomycin and Zosyn. Ulcers of his urine ultimately grew out Enterococcus faecalis. Patient was changed to 1. Ultimately he was discharged on Levaquin as per oncology request. He was here was followed by his outpatient oncologist. Chest x-ray was done which did not show any infiltrate and is presumed that he likely had acute bronchitis. He did have a cough which was treated with Tessalon Perles and codeine. He is provided a prescription for both Levaquin and Tessalon Perles. He will need to follow-up with his oncologist next week as scheduled. Physical Exam Vital Signs: Temp Pulse Resp BP Pulse Ox 98.5 F 82 18 141/48 H 91 L 09/29/16 11:39 09/29/16 11:39 09/29/16 11:39 09/29/16 11:39 09/29/16 11:39 Intake & Output 09/28/16 09/29/16 09/30/16 06:59 06:59 06:59 Intake Total 3295 2616 Output Total 700 250 Balance 2595 2366 Weight 88.1 kg 91.4 kg PHYSICAL EXAM: GENERAL: This is a well-developed well-nourished white male resting in no acute distress. HEART: Regular rate and rhythm. No murmurs rubs or gallops. LUNGS: Diminished at the bases bilaterally with equal rise and fall of the chest. ABDOMEN: Soft, nontender, nondistended with normoactive bowel sounds EXTREMITIES: No clubbing cyanosis or edema. 2+ peripheral pulses. NEURO: Awake, alert, oriented x-3. Cranial nerves II through XII grossly intact. PSYCH: Normal affect. Results Laboratory Results: 09/29/16 10:12 09/28/16 05:15 09/29/16 10:12 WBC 1.0 L* RBC 2.75 L Hgb 8.6 L Hct 25.1 L MCV 91 MCH 31.2 MCHC 34.1 RDW 25.0 H Plt Count 58 L Seg Neutrophils % Not Reportable Lymphocytes % Not Reportable Monocytes % Not Reportable Eosinophils % Not Reportable Basophils % Not Reportable Absolute Neutrophils Not Reportable Absolute Lymphocytes Not Reportable Absolute Monocytes Not Reportable Absolute Eosinophils Not Reportable Absolute Basophils Not Reportable 09/25/16 20:20 Clean Catch Midstream Urine Culture - Final Enterococcus Faecalis(Group D) Impressions: Chest X-Ray 09/25/16 14:03 IMPRESSION: NO SIGNIFICANT RADIOGRAPHIC FINDING IN THE CHEST. Qualifiers PATEINT BEING DISCHARGED WITH ANY OF THE FOLLOWING DIAGNOSIS?: No Plan Discharge Plan: FU with Triage Rn as directed next week. Time Spent: Less than 30 Minutes
[2016-09-29] MEDS: FAMOTIDINE INJ/PF 20 MG/2 ML SDV IV SCH (12:50)
[2016-09-29 13:33] VITALS: BP 132/61
== END 2016-09-29 13:33 | disposition home or self-care (01) | DRG 808 ==
LOC: ER 13:34 → EH 17:03 → UNDOADMIN 17:03 → EH 17:38 → 3W 09-26 05:50
PROC: 3E0F73Z Introduction of Anti-inflammatory into Respiratory Tract, Via Natural or Artificial Opening (ICD-10-PCS; 2016-09-25)
PROC: 30233N1 Transfusion of Nonautologous Red Blood Cells into Peripheral Vein, Percutaneous Approach (ICD-10-PCS; principal; 2016-09-26)
DX: D70.1 Agranulocytosis secondary to cancer chemotherapy (principal); J15.3 Pneumonia due to streptococcus, group B; C92.00 Acute myeloblastic leukemia, not having achieved remission; N30.00 Acute cystitis without hematuria; R50.81 Fever presenting with conditions classified elsewhere; J20.9 Acute bronchitis, unspecified; I50.9 Heart failure, unspecified; I11.0 Hypertensive heart disease with heart failure; E78.5 Hyperlipidemia, unspecified; K21.9 Gastro-esophageal reflux disease without esophagitis; D64.81 Anemia due to antineoplastic chemotherapy; M46.90 Unspecified inflammatory spondylopathy, site unspecified; N40.0 Benign prostatic hyperplasia without lower urinary tract symptoms; Z66 Do not resuscitate; Z79.899 Other long term (current) drug therapy; Z88.8 Allergy status to other drugs, medicaments and biological substances
CPT/HCPCS: 36415; 36430; 71020; 80048; 80053; 80202; 81001; 83735; 84443; 85025; 85027; 86850; 86900; 86901; 86920; 87040; 87086; 87088; 87186; 94799; 99284; J0290; J0692; J1940; J3370; J3490; J7030; J7050; J7060; J7620; P9016; S0028

== ENCOUNTER → 2016-10-12 | Outpatient (CLI) | payer MEDICARE, OTHER | LOC: RAD 09:51 | PROVIDERS: ATTEND Family Medicine | DX: J15.4 Pneumonia due to other streptococci (principal); M79.604 Pain in right leg; C92.00 Acute myeloblastic leukemia, not having achieved remission; R91.8 Other nonspecific abnormal finding of lung field | CPT/HCPCS: 36415; 71250; 85379 ==

== ENCOUNTER 2016-10-19 10:33 | Outpatient (CLI) | payer MEDICARE, OTHER ==
[2016-10-19 11:17] LABS: HEMATOCRIT 21.3 % (37.9-51.0); HGB HCT DIFFERENCE 0.3; MEAN CORPUSCULAR HEMOGLOBIN 31.5 pg (27.0-33.4); MEAN CORPUSCULAR HGB CONC 33.7 g/dL (32.0-36.0); MEAN CORPUSCULAR VOLUME 93 fl (80-97); RED BLOOD COUNT 2.28 10^6/uL (4.35-5.55); RED CELL DISTRIBUTION WIDTH 25.7 % (11.5-14.0)
[2016-10-19] MEDS ORDERED: NORMAL SALINE 250 ML IV PRN (11:30)
[2016-10-19] MEDS ORDERED: DIPHENHYDRAMINE HCL 25 MG CAPSULE PO PRN (11:31)
[2016-10-19] MEDS ORDERED: ACETAMINOPHEN 325 MG TABLET PO PRN (11:31)
[2016-10-19] MEDS ORDERED: FUROSEMIDE INJ/PF 20 MG/2 ML SDV IV PRN (11:32)
[2016-10-19 11:59] LABS: HEMOGLOBIN 7.2 g/dL (13.5-17.0)
[2016-10-19 14:43] VITALS: BP 122/52
== END 2016-10-19 15:23 | disposition home or self-care (01) ==
LOC: II 10:33 → 5TH 10:59 → II 15:23
PROVIDERS: ATTEND Internal Medicine
PROC: 30233N1 Transfusion of Nonautologous Red Blood Cells into Peripheral Vein, Percutaneous Approach (ICD-10-PCS; principal; 2016-10-19)
DX: D64.81 Anemia due to antineoplastic chemotherapy (principal); C92.00 Acute myeloblastic leukemia, not having achieved remission
CPT/HCPCS: 86900; 86901; 36415; 36430; 86850; 86920; P9016; A9270 ×2

== ENCOUNTER → 2016-10-25 | Outpatient (CLI) | payer MEDICARE, OTHER | LOC: RAD 10:26 | PROVIDERS: ATTEND Family Medicine | DX: M54.5 Low back pain (principal) | CPT/HCPCS: 72110; 72170 ==

== ENCOUNTER → 2016-10-26 | Outpatient (CLI) | payer MEDICARE, OTHER | LOC: RAD 08:23 | PROVIDERS: ATTEND Family Medicine | DX: M54.5 Low back pain (principal) | CPT/HCPCS: 72148; 72195 ==

== ENCOUNTER 2016-11-13 21:13 | Inpatient (IN) | payer MEDICARE, OTHER ==
--- NOTE | 2016-11-13 21:26 | ER Document Report ---
ED Fever - General Chief Complaint: Nausea/Vomiting/Diarrhea Stated Complaint: WEAKNESS Time Seen by Provider: 11/13/16 21:25 Notes: The patient is an 81-year-old male, past medical history leukemia (follower by Dr. Schneider, last chemo 2 weeks ago), presents with 2 days of nausea, vomiting, dry cough and fever up to 102.7. He was given 1 L normal saline bolus, 4 mg Zofran, 25 mg of Phenergan and 1 g of Tylenol by EMS. He vomited up the Tylenol prior to arrival. Denies hematemesis, rash, urinary symptoms, chest pain or shortness of breath. TRAVEL OUTSIDE OF THE [place] IN LAST 30 DAYS: No - Related Data Allergies/Adverse Reactions: adenosine * [adenosine] Allergy (Verified 09/25/16 13:38) Passed out Past Medical History - General Information source: Patient - Social History Smoking Status: Unknown if Ever Smoked Family History: Reviewed & Not Pertinent - Past Medical History Cardiac Medical History: Reports: Hx Congestive Heart Failure, Hx Hypercholesterolemia, Hx Hypertension Denies: Hx Coronary Artery Disease, Hx Heart Attack Pulmonary Medical History: Denies: Hx Asthma, Hx Bronchitis, Hx COPD, Hx Pneumonia Neurological Medical History: Reports: 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 Denies: Hx Cerebrovascular Accident Renal/ Medical History: Reports: Hx Benign Prostatic Hyperplasia. Denies: Hx Peritoneal Dialysis Malignancy Medical History: Reports Hx Leukemia GI Medical History: Reports: Hx Gastroesophageal Reflux Disease. 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 Denies: Hx Open Heart Surgery, Hx Pacemaker - Immunizations Hx Diphtheria, Pertussis, Tetanus Vaccination: No Hx Pneumococcal Vaccination: 05/11/12 Review of Systems - Review of Systems Notes: REVIEW OF SYSTEMS: CONSTITUTIONAL: +fevers, -chills EENT: -eye pain, -difficulty swallowing, -nasal congestion CARDIOVASCULAR:-chest pain, -syncope. RESPIRATORY: +cough, -SOB GASTROINTESTINAL: +abdominal pain, +nausea, +vomiting, +diarrhea GENITOURINARY: -dysuria, -hematuria MUSCULOSKELETAL: -back pain, -neck pain SKIN: -rash or skin lesions. HEMATOLOGIC: -easy bruising or bleeding. LYMPHATIC: -swollen, enlarged glands. NEUROLOGICAL: -altered mental status or loss of consciousness, -headache, - neurologic symptoms PSYCHIATRIC: -anxiety, -depression. ALL OTHER SYSTEMS REVIEWED AND NEGATIVE. Physical Exam - Vital signs Vitals: Resp Pulse Ox 23 H 95 11/13/16 21:19 11/13/16 21:19 - Notes Notes: PHYSICAL EXAMINATION: GENERAL: Well-appearing, well-nourished and in no acute distress. HEAD: Atraumatic, normocephalic. EYES: Pupils equal round and reactive to light, extraocular movements intact, sclera anicteric, conjunctiva are normal. ENT: nares patent, oropharynx clear without exudates. Moist mucous membranes. NECK: Normal range of motion, supple without lymphadenopathy LUNGS: No respiratory distress. Crackles in left lower lobe. HEART: Tachycardic. Regular rhythm. ABDOMEN: Soft, mild lower abdominal tenderness, normoactive bowel sounds. No guarding, no rebound. No masses appreciated. EXTREMITIES: Normal range of motion, no pitting or edema. No cyanosis. NEUROLOGICAL: Cranial nerves grossly intact. Normal speech, normal gait. Normal sensory and motor exams. PSYCH: Normal mood, normal affect. SKIN: Warm, Dry, normal turgor, no rashes or lesions noted. Course - Re-evaluation Re-evalutation: Pt with fever and neutropenia. Chest x-ray/CT A/P shows a possible infiltrate and no acute pathology in his abdomen or pelvis. He has had no nausea or vomiting while in the emergency room. His pulse ox has remained >92% on RA and he is mildly tachypneic, but does not appear to be in any respiratory distress. Broad-spectrum antibiotics started. His primary care physician is Jyoti Burgos and his Oncologist is Dr. Schneider. Dr. Cynthia Chun is aware patient is in the ED. Will admit patient as Inpatient for further evaluation and treatment of his pneumonia and neutropenic fever. 11/14/16 01:[address] Chavez and will admit patient to Inpatient Tele. - Vital Signs Vital signs: Temp Pulse Resp BP Pulse Ox 99.8 F 107 H 30 H 120/56 L 95 11/13/16 21:24 11/13/16 21:24 11/13/16 23:01 11/13/16 23:00 11/13/16 23:01 - Laboratory Result Diagrams: 11/13/16 22:00 11/13/16 22:00 Laboratory results interpreted by me: 11/13/16 11/13/16 11/13/16 22:00 22:00 22:00 WBC 0.5 L* RBC 2.36 L Hgb 7.4 L Hct 22.3 L RDW 23.0 H Plt Count 67 L Absolute Neutrophils 0.2 L Absolute Lymphocytes 0.2 L PT 17.1 H Carbon Dioxide 21 L BUN 23 H Glucose 132 H Creatine Kinase 28 L Urine Blood 11/13/16 23:35 WBC RBC Hgb Hct RDW Plt Count Absolute Neutrophils Absolute Lymphocytes PT Carbon Dioxide BUN Glucose Creatine Kinase Urine Blood SMALL H - Diagnostic Test Radiology reviewed: Image reviewed, Reports reviewed Radiology results interpreted by me: CT A/P: 1. Worsened small airspace opacity and nodularity of the left lower lobe. Infectious, inflammatory, and neoplastic processes are in the differential diagnosis. Surveillance CT of the chest recommended within 7-12 weeks with clinically warranted therapy. 2. No acute lkxho-qrctoelqy-uehmjx finding. - EKG Interpretation by Me EKG shows normal: Sinus rhythm, [place], Intervals, QRS Complexes, ST-T Waves Rate: Tachycardia Additional EKG results interpreted by me: ST Depressions in lateral leads Critical Care Note - Critical Care Note Total time excluding time spent on procedures (mins): 40 Discharge - Discharge Clinical Impression: Neutropenic fever, Nausea vomiting and diarrhea, Infiltrate of lung present on imaging of chest, Pancytopenia Condition: Stable Disposition: ADMITTED INPATIENT Admitting Provider: [facility] Admitted: Telemetry
[2016-11-13] MEDS ORDERED: NORMAL SALINE 1000 ML 1,000 ML IV ONE (21:49)
[2016-11-13] MEDS ORDERED: CEFEPIME 2 GM/D5W RTU 50 ML IV ONE (21:57)
[2016-11-13] MEDS ORDERED: VANCOMYCIN HCL INJ 1000 MG VIAL IV ONE (21:58)
--- NOTE | 2016-11-13 22:11 | RADIOLOGY REPORT (SQ) ---
EXAM DESCRIPTION: CHEST SINGLE VIEW COMPLETED DATE/TIME: 11/13/2016 9:47 pm REASON FOR STUDY: fever COMPARISON: Chest CT scan 10/12/2016 EXAM PARAMETERS: NUMBER OF VIEWS: One view. TECHNIQUE: Single frontal radiographic view of the chest acquired. RADIATION DOSE: NA LIMITATIONS: None. FINDINGS: LUNGS AND PLEURA: There is some increased density in the left retrocardiac area which coul d represent atelectatic changes or minimal infiltrate. Remaining lung espinosa are clear. MEDIASTINUM AND HILAR STRUCTURES: There is some prominence of the superior mediastinum which is due t o tortuous brachiocephalic vessels on the basis of the CT scan. HEART AND VASCULAR STRUCTURES: Heart normal in size. Normal vasculature. BONES: No acute findings. HARDWARE: None in the chest. OTHER: No other significant finding. IMPRESSION: Increased density in the left retrocardiac area which could represent atelectatic change s or a minimal infiltrate. Remaining lung espinosa are clear. TECHNICAL DOCUMENTATION: JOB ID: [id number]
[2016-11-13 22:22] LABS: ABSOLUTE LYMPHOCYTES (AUTO) 0.2 10^3/uL (0.5-4.7); ABSOLUTE MONOCYTES (AUTO) 0.1 10^3/uL (0.1-1.4); ABSOLUTE NEUT (AUTO) 0.2 10^3/uL (1.7-8.2); EOSINOPHILS % (AUTO) 2.1 % (0-6); HEMATOCRIT 22.3 % (37.9-51.0); HGB HCT DIFFERENCE -0.1; MEAN CORPUSCULAR HEMOGLOBIN 31.3 pg (27.0-33.4); MEAN CORPUSCULAR VOLUME 95 fl (80-97); MONOCYTES % (AUTO) 10.7 % (3-13); RED BLOOD COUNT 2.36 10^6/uL (4.35-5.55); SEGMENTED NEUTROPHILS % (AUTO) 44.2 % (42-78)
[2016-11-13 22:25] LABS: PROTHROMBIN TIME 17.1 SEC (11.4-15.4)
[2016-11-13 22:32] LABS: ALANINE AMINOTRANSFERASE 64 U/L (21-72); ALBUMIN 3.8 g/dL (3.5-5.0); ALKALINE PHOSPHATASE 87 U/L (38-126); ANION GAP 14 (5-19); ASPARTATE AMINO TRANSFERASE 43 U/L (17-59); BILIRUBIN,DIRECT 0.2 mg/dL (0.0-0.4); BILIRUBIN,TOTAL 1.3 mg/dL (0.2-1.3); BLOOD UREA NITROGEN 23 mg/dL (7-20); CALCIUM 8.8 mg/dL (8.4-10.2); CARBON DIOXIDE 21 mmol/L (22-30); CHLORIDE 106 mmol/L (98-107); CREATINE KINASE 28 U/L (55-170); CREATININE RESULT 0.93 mg/dL (0.52-1.25); GLUCOSE 132 mg/dL (75-110); POTASSIUM 3.8 mmol/L (3.6-5.0); SODIUM 141.4 mmol/L (137-145); TOTAL PROTEIN 6.5 g/dL (6.3-8.2)
[2016-11-13 23:00] LABS: HEMOGLOBIN 7.4 g/dL (13.5-17.0); WHITE BLOOD COUNT 0.5 10^3/uL (4.0-10.5)
[2016-11-13 23:07] LABS: ANISOCYTOSIS 3+; OVALOCYTES 1+; POIKILOCYTOSIS 1+; POLYCHROMASIA SLIGHT; TARGET CELLS SLIGHT; TEAR DROP CELLS 1+
[2016-11-13 23:26] LABS: VENOUS BLOOD BASE EXCESS -1.4 mmol/L; VENOUS BLOOD HCO3 23.2 mmol/L (20-32); VENOUS BLOOD PCO2 38.3 mmHg (35-63); VENOUS BLOOD PH 7.4 (7.30-7.42)
--- NOTE | 2016-11-14 00:20 | RADIOLOGY REPORT (SQ) ---
EXAM DESCRIPTION: CT ABD/PELVIS WITH IV ONLY COMPLETED DATE/TIME: 11/13/2016 11:53 pm REASON FOR STUDY: lower abdominal pain; N/V COMPARISON: None. TECHNIQUE: CT scan of the abdomen and pelvis performed using helical scanning technique with dynamic intravenous contrast injection. No oral contrast. Images reviewed with lung, soft tissue, and bone windows. Reconstructed coronal and sagittal MPR images reviewed. Delayed images for evaluation of the urinary system also acquired. All images stored on PACS. All CT scanners at this facility use dose modulation, iterative reconstruction, and/or weight based d osing when appropriate to reduce radiation dose to as low as reasonably achievable (ALARA). [facility]: Dose Right [facility]: CareDose [facility]: Dose Right [facility]: Teradose 4D [facility]: LIQUITY CONTRAST TYPE AND DOSE: 100mL Isovue 370- low osmolar. RENAL FUNCTION: Cr 0.9 RADIATION DOSE: 25.72mGy. LIMITATIONS: None. FINDINGS: LOWER CHEST: Small airspace opacity of the left lung base, new compared with prior CT from 10/12/2016. Small atelectasis or scar bilateral lower lobes. 0.3 cm likely benign noncalcified nodul e of the right lung base stable compared with prior CT from 10/12/2016 new 0.6 cm noncalcified pleural- based pulmonary nodule of the left lower lobe, image 22 of series 3. LIVER: 2 low-attenuation lesions of the liver, likely benign not definitively characterized. Nodular contour of the liver surface may indicate cirrhosis. SPLEEN: Normal size. No focal lesions. PANCREAS: No masses. No significant calcifications. No adjacent inflammation or peripancreatic fluid collections. Pancreatic duct not dilated. GALLBLADDER: No identified stones by CT criteria. No inflammatory changes to suggest cholecystitis. ADRENAL GLANDS: No significant masses or asymmetry. RIGHT KIDNEY AND URETER: No solid masses. No significant calcifications. No hydronephrosis or hyd roureter. LEFT KIDNEY AND URETER: No solid masses. No significant calcifications. No hydronephrosis or hydr oureter. AORTA AND VESSELS: No aneurysm. No dissection. Renal arteries, SMA, celiac without stenosis. RETROPERITONEUM: No retroperitoneal adenopathy, hemorrhage or masses. BOWEL AND PERITONEAL CAVITY: No masses or inflammatory changes. No free fluid or peritoneal masses. APPENDIX: No evidence of appendicitis. PELVIS: 7 cm diameter prostate. ABDOMINAL WALL: No masses. No hernias. BONES: 0.2 cm degenerative L4 anterolisthesis. Moderate -severe multilevel thoracolumbar disc desicc ation. Moderate anterior bridging osteophytes. Bilateral L5 spondylolysis. Euur-lk-qacununj osteoa rthritis. Small avulsive fragmentation at the posterior ischium bilaterally. OTHER: No other significant finding. IMPRESSION: 1. Worsened small airspace opacity and nodularity of the left lower lobe. Infectious, inflammatory, and neoplastic processes are in the differential diagnosis. Surveillance CT of the jes st recommended within 7-12 weeks with clinically warranted therapy. 2. No acute miptr-smfgsslnl-oor julia finding. TECHNICAL DOCUMENTATION: JOB ID: [id number] Quality ID # [id number]: Final reports with documentation of one or more dose reduction techniques (e.g., Au tomated exposure control, adjustment of the mA and/or kV according to patient size, use of iterative reconstruction technique) 2010 [employer]- All Rights Reserved
[2016-11-14 00:27] LABS: APPEARANCE,URINE CLEAR; BILIRUBIN,URINE NEGATIVE (NEGATIVE); GLUCOSE, URINE NEGATIVE (NEGATIVE); KETONES,URINE NEGATIVE (NEGATIVE); LEUKOCYTE ESTERASE,URINE NEGATIVE (NEGATIVE); NITRITE,URINE NEGATIVE (NEGATIVE); PROTEIN,URINE NEGATIVE (NEGATIVE); URINE SPECIFIC GRAVITY 1.013; UROBILINOGEN,URINE NEGATIVE mg/dL (<2.0)
[2016-11-14] MEDS ORDERED: ACETAMINOPHEN 325 MG TABLET PO ONE (01:18)
[2016-11-14 02:16] LABS: ADD ON TESTING BLD IN LAB ACKNOWLEDGE
[2016-11-14 02:40] LABS: MAGNESIUM 1.6 mg/dL (1.6-2.3)
[2016-11-14] MEDS ORDERED: GUAIFENESIN SYRP 200 MG/10 ML UDC PO PRN (02:44)
[2016-11-14] MEDS ORDERED: ACETAMINOPHEN 325 MG TABLET PO PRN ×2 (02:44→07:51)
[2016-11-14] MEDS ORDERED: IPRATROPIUM/ALBUTEROL 0.5-2.5 MG/3 ML AMPUL NEB PRN (02:44)
[2016-11-14] MEDS ORDERED: POTASSI CL 20 MEQ/NS 1L 1,000 ML IV PRN (02:50)
[2016-11-14] MEDS ORDERED: VANCOMYCIN HCL 0 MG in DEXTROSE 5%-WATER 250 ML IV NR (03:00)
--- NOTE | 2016-11-14 03:08 | PDOC H&P ---
History of Present Illness Admission Date/PCP: 11/14/16 01:[address] 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 He spoke to on-call physician for his oncologist, Dr. Chun, who told him to come to the emergency room. Denies hematemesis, dysuria, rash, chest pain, or shortness of breath. Fever to 103 in the emergency room. Patient has been discussed with emergency room physician who evaluated the patient. . Laboratory results are listed in [facility] and are reviewed. X-ray summary results are listed below, with full report(s) reviewed. . Social history/personal habits: . Lives alone. Retired. Has children. Never smoked. No alcohol or illicit drug use. Allergies/adverse reactions are listed in [facility] and are reviewed. Home medications initially autopopulated into [facility] may not accurately reflect patient's true medications, dosages, and/or frequencies. mri tech to reconcile medications. Unfortunately, patient not certain of all medications/dosages/frequencies. REVIEW OF SYSTEMS: Constitutional: See history and present illness. Eyes: Wears glasses ENT: No swallowing problems or complaints. Denies hearing loss. Pulmonary: See history and present illness. Cardiovascular: No current complaints, including chest pain. Gastrointestinal: See history and present illness. Skin: No current complaints, including rashes. Hematologic: Easy bruising. Neurologic: No current complaints, including numbness or tingling. Musculoskeletal: Joint pain from arthritis. Psychiatric: Denies anxiety or depression. Endocrine: No current complaints, including polyuria. Genitourinary: No current complaints, including dysuria. PHYSICAL EXAMINATION: 5 feet 11 inches tall. 88.5 kg. BMI 27.2 kg/m. Blood pressure 121/53. Pulse 110 and regular. 92% saturation on 1 L oxygen per nasal cannula. Temperature 103.0. Slightly overweight otherwise well-nourished well-developed male who appears a fair number of years younger than his stated age. Appears not to feel very well. Otherwise, pleasant awake alert and cooperative. Female emergency room [employer] is present. Skin is warm and dry. No grossly obvious evidence of rash in areas of skin examined. No subcutaneous nodules palpated. ENT: Hearing grossly normal to normal conversation. Tongue midline on protrusion pink and slightly tacky. Eyes: No scleral icterus. Pupils equal and reactive to light at 4 mm. [place] conjunctivae. Neck is supple and nontender to gentle active range of motion and palpation. Midline trachea. No palpable thyroid nodule mass enlargement or tenderness. Lymphatic: No palpable cervical or clavicular nodes. Neck and lymphatic exams limited by patient body habitus. Psychiatric: Reasonable insight into acute and chronic medical issues. Oriented to time location and why here. Lungs: Auscultation reveals clear and equal breath sounds bilaterally. No use of accessory respiratory muscles. Cardiovascular: Heart regular rate and rhythm, without gallop murmur or rub. No carotid or abdominal aortic bruits. No ankle or pedal edema. Faintly palpable dorsalis pedis pulses. Abdomen:soft slightly distended nontender with positive bowel sounds. Unable to adequately evaluate abdomen for masses or organomegaly due to distention. Extremities: Feet are warm and dry. No calf tenderness to compression. No grossly obvious visual evidence of calf swelling. Gentle manipulation of lower extremities fails to reveal any obvious evidence of injury or instability to knees hips or ankles. Neurologic: Moves upper extremities grossly normally. Patellar reflexes absent. Absent Babinski. Light touch is intact at feet. Dorsiflexion and plantarflexion of feet 5 / 5 and symmetric. Past Medical History Cardiac Medical History: Reports: Hyperlipidema, Hypertension Denies: Congestive Heart Failure, Coronary Artery Disease, DVT, Myocardial Infarction, Pulmonary Embolism Pulmonary Medical History: Denies: Asthma, Bronchitis, Chronic Obstructive Pulmonary Disease (COPD), Pneumonia, Sleep Apnea EENT Medical History: Reports: Eyes - Glasses Denies: Ears, Throat Neurological Medical History: Reports: Seizures - CHILD Denies: Hemorrhagic CVA, Ischemic CVA, Migraine Endocrine Medical History: Denies: Diabetes Mellitus Type 1, Diabetes Mellitus Type 2, Hyperthyroidism, Hypothyroidism Renal/ Medical History: Reports: Other - Prostatic hypertrophy. 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 Skin Medical History: Reports: None Psychiatric Medical History: Denies: Alcohol Dependency, Depression, General Anxiety Disorder, Substance Abuse, Tobacco Dependency Hematology: Reports: Anemia - Chronic pancytopenia, Bleeding Tendencies, Other - Easy bruising Denies: Sickle Cell Disease Infectious Medical History: Denies: Clostridium Difficile, Hepatitis B, Hepatitis C, Methicillin- Resistant Staph Aureus Past Surgical History Past Surgical History: Reports: Appendectomy, Cardiac Catheterization, Orthopedic Surgery Denies: Pacemaker Social History Information Source: Patient, Emergency Med Personnel, [facility] Records Lives with: Alone Smoking Status: Never Smoker Frequency of Alcohol Use: None Hx Recreational Drug Use: No Drugs: None Hx Prescription Drug Abuse: No - Advance Directive Resuscitation Status: Do Not Resuscitate Surrogate healthcare decision maker:: His children Family History Family History: Reviewed & Not Pertinent Parental Family History Reviewed: Yes - Parents of cancer Children Family History Reviewed: Yes - Healthy Sibling(s) Family History Reviewed.: Yes - Medication/Allergy Home Medications: RX: Alfuzosin HCl [Uroxatral] 10 mg PO DAILY 11/14/16 RX: Allopurinol [Zyloprim 300 mg Tablet] 300 mg PO DAILY 11/14/16 RX: Docusate Sodium [Colace 100 mg Capsule] 100 mg PO BID 11/14/16 RX: Esomeprazole Magnesium [Nexium] 40 mg PO ASDIR PRN 11/14/16 RX: Finasteride [Proscar 5 mg Tablet] 5 mg PO DAILY 11/14/16 RX: Gabapentin [Neurontin 300 mg Capsule] 300 mg PO Q8HP PRN 11/14/16 RX: Metoprolol Tartrate [Lopressor 25 mg Tablet] 25 mg PO Q12 11/14/16 RX: Montelukast Sodium [Singulair 10 mg Tablet] 10 mg PO QHS 11/14/16 RX: [place] Xtr/Zinc Picolin [[place] Ext 160 mg Cap] 200 mg PO DAILY 11/14/16 RX: Sertraline HCl [Zoloft] 25 mg PO DAILY 11/14/16 RX: Tramadol HCl [Ultram 50 mg Tablet] 50 mg PO ASDIR PRN 11/14/16 RX: Vitamin B Complex [B Complex] 1 each PO DAILY 11/14/16 RX: Docusate Sodium [Colace 100 mg Capsule] 100 mg PO BID capsule 11/17/16 RX: Polyethylene Glycol 3350 [Miralax Powder 17 gm/Packet] 17 gm PO DAILYP PRN powd.pack 11/17/16 Allergies/Adverse Reactions: adenosine * [adenosine] Allergy (Verified 09/25/16 13:38) Passed out Physical Exam Vital Signs: Temp Pulse Resp BP Pulse Ox 103.0 F H 107 H 24 H 121/53 L 89 L 11/14/16 01:24 11/13/16 21:24 11/14/16 01:01 11/14/16 01:01 11/14/16 01:01 Intake & Output 11/13/16 11/14/16 11/15/16 00:59 00:59 00:59 Weight 88.451 kg Results Laboratory Results: 11/14/16 11/14/16 02:09 02:09 Lactic Acid 2.5 H Magnesium 1.6 Impressions: Chest X-Ray 11/13/16 21:15 IMPRESSION: Increased density in the left retrocardiac area which could represent atelectatic changes or a minimal infiltrate. Remaining lung espinosa are clear. Abdomen/Pelvis CT 11/13/16 21:49 IMPRESSION: 1. Worsened small airspace opacity and nodularity of the left lower lobe. Infectious, inflammatory, and neoplastic processes are in the differential diagnosis. Surveillance CT of the chest recommended within 7-12 weeks with clinically warranted therapy. 2. No acute zsgbu-xbewhxgvy-fvfufq finding. Assessment & Plan - Diagnosis (1) DNR (do not resuscitate) Is this a current diagnosis for this admission?: YesPlan: Implications of DO NOT RESUSCITATE/DO NOT INTUBATE status discussed with patient. Discussed in layperson's terms. Implications understood. Patient is the health care decision maker. Patient conversation is lucid and appropriate. Patient desires DO NOT RESUSCITATE/DO NOT INTUBATE status. Will honor patient wishes. (2) Nodule of left lung Is this a current diagnosis for this admission?: YesPlan: Outpatient follow-up (3) LLL pneumonia Qualifiers: Pneumonia type: due to Pseudomonas Qualified Code(s): J15.1 - Pneumonia due to Pseudomonas Is this a current diagnosis for this admission?: YesPlan: Patient will be admitted under pneumonia protocol. Incentive spirometry twice a day. As needed DuoNeb's. Oncology consult. Antibiotics will consist of cefepime, vancomycin, and intravenous doxycycline. I strongly encouraged patient to notify staff should patient feel that breathing is worsening. Patient is a full code. I have strongly encouraged patient not to get out of bed without notifying staff , to avoid a fall with injury. Knee high SCDs for DVT prophylaxis; we will forego Lovenox or heparin given his thrombocytopenia. Impression and plans were discussed with patient who concurs. Time spent in evaluation and management of patient: 65 minutes. (4) Pancytopenia Is this a current diagnosis for this admission?: YesPlan: Neutropenic precautions. Oncology consult. (5) AML (acute myeloid leukemia) Qualifiers: Leukemia Active/Remission status: without remission Qualified Code(s ): C92.00 - Acute myeloblastic leukemia, not having achieved remission Is this a current diagnosis for this admission?: Yes (6) Neutropenic fever Is this a current diagnosis for this admission?: Yes (7) Nausea vomiting and diarrhea Is this a current diagnosis for this admission?: YesPlan: Stool for C. difficile. - Inpatient Certification Based on my medical assessment, after consideration of the patient's comorbidities, presenting symptoms, or acuity I expect that the services needed warrant INPATIENT care.: Yes I certify that my determination is in accordance with my understanding of Medicare's requirements for reasonable and necessary INPATIENT services [42 CFR 412.3e].: Yes Medical Necessity: Significant Comorbidiites Make Outpatient Treatment Too Risky , Need Close Monitoring Due to Risk of Patient Decompensation, Need For IV Fluids, Need for IV Antibiotics, Risk of Complication if Not Cared For in Hospital, Risk of Diagnosis Which Will Require Inpatient Eval/Care/Monitoring Post Hospital Care: D/C or Transfer Summary
[2016-11-14] MEDS ORDERED: DOXYCYCLINE HYCLATE INJ 100 MG VIAL IV PRN (03:52)
[2016-11-14] MEDS ORDERED: DOXYCYCLINE HYCLATE 100 MG in DEXTROSE 5%-WATER 250 ML IV ONE (04:00)
[2016-11-14] MEDS ORDERED: DOXYCYCLINE HYCLATE INJ 100 MG VIAL ONE (06:04)
[2016-11-14 06:32] LABS: HEMATOCRIT 22.6 % (37.9-51.0); HGB HCT DIFFERENCE -0.1; MEAN CORPUSCULAR HEMOGLOBIN 31.5 pg (27.0-33.4); MEAN CORPUSCULAR HGB CONC 33.1 g/dL (32.0-36.0); MEAN CORPUSCULAR VOLUME 95 fl (80-97); RED BLOOD COUNT 2.38 10^6/uL (4.35-5.55); RED CELL DISTRIBUTION WIDTH 23.7 % (11.5-14.0)
[2016-11-14 06:46] LABS: ANION GAP 11 (5-19); BLOOD UREA NITROGEN 24 mg/dL (7-20); CALCIUM 8.6 mg/dL (8.4-10.2); CARBON DIOXIDE 22 mmol/L (22-30); CHLORIDE 108 mmol/L (98-107); CREATININE RESULT 1.03 mg/dL (0.52-1.25); GLUCOSE 112 mg/dL (75-110); POTASSIUM 4.1 mmol/L (3.6-5.0)
[2016-11-14 07:17] LABS: BAND NEUTROPHILS % (MANUAL) 4 % (3-5); BASOPHILS % (MANUAL) 0 % (0-2); EOSINOPHILS % (MANUAL) 0 % (0-6); LYMPHOCYTES % (MANUAL) 42 % (13-45); TOTAL CELLS COUNTED 50
[2016-11-14 07:31] LABS: NUCLEATED RED BLOOD CELLS 16 /100 WBC (0)
[2016-11-14] MEDS ORDERED: NORMAL SALINE 1000 ML 1,000 ML IV PRN (07:31)
[2016-11-14] MEDS ORDERED: LEVALBUTEROL HCL NEB 1.25 MG/3 ML AMPUL NEB PRN (07:32)
[2016-11-14 07:34] LABS: HEMOGLOBIN 7.5 g/dL (13.5-17.0)
[2016-11-14] MEDS ORDERED: DIPHENHYDRAMINE HCL 25 MG CAPSULE PO PRN (07:50)
[2016-11-14] MEDS ORDERED: FUROSEMIDE INJ/PF 20 MG/2 ML SDV IV PRN (07:56)
[2016-11-14 08:03] LABS: WHITE BLOOD COUNT 1.2 10^3/uL (4.0-10.5)
--- NOTE | 2016-11-14 08:36 | PDOC CONSULTATION ---
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 He has had several bouts of severe pneumonia, because he has been persistently neutropenic now for almost 2 years. Once again he presented with fever chills weakness, increasing shortness of breath, chest x-ray indicated new opacities, consistent with a pneumonia, he is currently on broad-spectrum antibiotics, his hemoglobin 7.4. He is feeling better today already. Past Medical History Cardiac Medical History: Reports: Hyperlipidema, Hypertension Denies: Congestive Heart Failure, Coronary Artery Disease, DVT, Myocardial Infarction, Pulmonary Embolism Pulmonary Medical History: Denies: Asthma, Bronchitis, Chronic Obstructive Pulmonary Disease (COPD), Pneumonia, Sleep Apnea EENT Medical History: Reports: Eyes - Glasses, Other - Easy bruising Denies: Ears, Throat Neurological Medical History: Reports: Seizures - CHILD Denies: Hemorrhagic CVA, Ischemic CVA, Migraine Endocrine Medical History: Denies: Diabetes Mellitus Type 1, Diabetes Mellitus Type 2, Hyperthyroidism, Hypothyroidism Renal/ Medical History: Reports: Other - Prostatic hypertrophy. 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 Skin Medical History: Reports: None Psychiatric Medical History: Denies: Alcohol Dependency, Depression, General Anxiety Disorder, Substance Abuse, Tobacco Dependency Hematology: Reports: Anemia - Chronic pancytopenia, Bleeding Tendencies, Other - Easy bruising Denies: Sickle Cell Disease Infectious Medical History: Denies: Clostridium Difficile, Hepatitis B, Hepatitis C, Methicillin- Resistant Staph Aureus Past Surgical History Past Surgical History: Reports: Appendectomy, Cardiac Catheterization, Orthopedic Surgery Denies: Pacemaker Social History Lives with: Alone Smoking Status: Never Smoker Frequency of Alcohol Use: None Hx Recreational Drug Use: No Drugs: None Hx Prescription Drug Abuse: No - Advance Directive Resuscitation Status: Do Not Resuscitate Family History Family History: Reviewed & Not Pertinent Parental Family History Reviewed: Yes Children Family History Reviewed: Yes Sibling(s) Family History Reviewed.: Yes Medication/Allergy Allergies/Adverse Reactions: adenosine * [adenosine] Allergy (Verified 09/25/16 13:38) Passed out Review of Systems Constitutional: ABSENT: chills, fever(s), headache(s), weight gain, weight loss Eyes: ABSENT: visual disturbances Ears: ABSENT: hearing changes Cardiovascular: ABSENT: chest pain, dyspnea on exertion, edema, orthropnea, palpitations Respiratory: ABSENT: cough, hemoptysis Gastrointestinal: ABSENT: abdominal pain, constipation, diarrhea, hematemesis, hematochezia, nausea, vomiting Genitourinary: ABSENT: dysuria, hematuria Musculoskeletal: ABSENT: joint swelling Integumentary: ABSENT: rash, wounds Neurological: ABSENT: abnormal gait, abnormal speech, confusion, dizziness, focal weakness, syncope Psychiatric: ABSENT: anxiety, depression, homidical ideation, suicidal ideation Endocrine: ABSENT: cold intolerance, heat intolerance, polydipsia, polyuria Hematologic/Lymphatic: ABSENT: easy bleeding, easy bruising Physical Exam Vital Signs: Temp Pulse Resp BP Pulse Ox 99.7 F 92 17 111/48 L 100 11/14/16 03:30 11/14/16 07:00 11/14/16 03:30 11/14/16 03:30 11/14/16 03:30 Intake & Output 11/13/16 11/14/16 11/15/16 06:59 06:59 06:59 Intake Total 10 Balance 10 Weight 88.451 kg General appearance: PRESENT: no acute distress, well-developed, well-nourished Head exam: PRESENT: atraumatic, normocephalic Eye exam: PRESENT: conjunctiva pink, EOMI, PERRLA. ABSENT: scleral icterus Ear exam: PRESENT: normal external ear exam Mouth exam: PRESENT: moist, tongue midline Neck exam: ABSENT: carotid bruit, JVD, lymphadenopathy, thyromegaly Respiratory exam: PRESENT: clear to auscultation jane. ABSENT: rales, rhonchi, wheezes Cardiovascular exam: PRESENT: RRR. ABSENT: diastolic murmur, rubs, systolic murmur Pulses: PRESENT: normal dorsalis pedis pul Vascular exam: PRESENT: normal capillary refill GI/Abdominal exam: PRESENT: normal bowel sounds, soft. ABSENT: distended, guarding, mass, organolmegaly, rebound, tenderness Rectal exam: PRESENT: deferred Extremities exam: PRESENT: full ROM. ABSENT: calf tenderness, clubbing, pedal edema Neurological exam: PRESENT: alert, awake, oriented to person, oriented to place , oriented to time, oriented to situation, CN II-XII grossly intact. ABSENT: motor sensory deficit Psychiatric exam: PRESENT: appropriate affect, normal mood. ABSENT: homicidal ideation, suicidal ideation Skin exam: PRESENT: dry, intact, warm. ABSENT: cyanosis, rash Results Laboratory Results: 11/14/16 06:22 11/14/16 06:22 11/14/16 11/14/16 11/14/16 03:30 06:22 06:22 WBC 1.2 L* RBC 2.38 L Hgb 7.5 L Hct 22.6 L MCV 95 MCH 31.5 MCHC 33.1 RDW 23.7 H Plt Count 65 L Seg Neutrophils % Not Reportable Lymphocytes % Not Reportable Monocytes % Not Reportable Eosinophils % Not Reportable Basophils % Not Reportable Absolute Neutrophils Not Reportable Absolute Lymphocytes Not Reportable Absolute Monocytes Not Reportable Absolute Eosinophils Not Reportable Absolute Basophils Not Reportable Sodium 141.0 Potassium 4.1 Chloride 108 H Carbon Dioxide 22 Anion Gap 11 BUN 24 H Creatinine 1.03 Est GFR ( Amer) > 60 Est GFR (Non-Af Amer) > 60 Glucose 112 H Calcium 8.6 Blood Type B NEGATIVE Antibody Screen NEGATIVE Impressions: Chest X-Ray 11/13/16 21:15 IMPRESSION: Increased density in the left retrocardiac area which could represent atelectatic changes or a minimal infiltrate. Remaining lung espinosa are clear. Abdomen/Pelvis CT 11/13/16 21:49 IMPRESSION: 1. Worsened small airspace opacity and nodularity of the left lower lobe. Infectious, inflammatory, and neoplastic processes are in the differential diagnosis. Surveillance CT of the chest recommended within 7-12 weeks with clinically warranted therapy. 2. No acute rabus-imshefvgj-cazkgz finding. Assessment & Plan - Diagnosis (1) Neutropenic fever Is this a current diagnosis for this admission?: YesPlan: History of AML, here with neutropenic fever, continue with broad-spectrum antibiotics, patient is doing a little bit better today. We will not use growth factor support as this can stimulate the leukemia. Await cultures, adjust antibiotics based upon cultures. (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 Qualified Code(s ): C92.00 - Acute myeloblastic leukemia, not having achieved remission Is this a current diagnosis for this admission?: YesPlan: Patient with known history of AML, not on current therapy, on supportive measures only, will follow. (3) Anemia Qualifiers: Anemia type: other cause Other causes of anemia: chronic disease, neoplastic Qualified Code(s): D63.0 - Anemia in neoplastic disease Plan: Anemia secondary to cancer, will transfuse 2 units of packed red blood cells today, he is on growth factor support as well with Procrit. - Time Time Spent: Greater than 70 Minutes Critical Time spent with patient: 35 or more minutes - Inpatient Certification Based on my medical assessment, after consideration of the patient's comorbidities, presenting symptoms, or acuity I expect that the services needed warrant INPATIENT care.: Yes I certify that my determination is in accordance with my understanding of Medicare's requirements for reasonable and necessary INPATIENT services [42 CFR 412.3e].: Yes Medical Necessity: Need for IV Antibiotics
[2016-11-14] MEDS: IPRATROPIUM/ALBUTEROL 0.5-2.5 MG/3 ML AMPUL NEB SCH ×2 (09:08→17:08)
[2016-11-14] MEDS ORDERED: CEFEPIME 2 GM/D5W RTU 50 ML IV SCH (10:00)
[2016-11-14] MEDS ORDERED: DOXYCYCLINE HYCLATE 100 MG in DEXTROSE 5%-WATER 250 ML IV SCH (10:00)
[2016-11-14] MEDS ORDERED: VANCOMYCIN HCL 750 MG in DEXTROSE 5%-WATER 250 ML IV SCH (10:00)
[2016-11-14] MEDS: GUAIFENESIN 600 MG TABLET.SA PO SCH ×2 (10:06→22:22)
[2016-11-14] MEDS: CEFEPIME HCL 2 GM in DEXTROSE 5%-WATER 50 ML IV SCH ×2 (10:07→22:21)
[2016-11-14] MEDS: DOCUSATE SODIUM 100 MG CAPSULE PO SCH ×2 (10:07→19:32)
[2016-11-14 11:34] LABS: PATH REVIEW PATHOLOGIST REVIEWED
--- NOTE | 2016-11-14 12:16 | EKG REPORT ---
SEVERITY:- ABNORMAL ECG - SINUS TACHYCARDIA LOW VOLTAGE IN FRONTAL LEADS REPOL ABNRM SUGGESTS ISCHEMIA, ANT-LAT LEADS : Confirmed by: Raven Beard MD 14-Nov-2016 12:14:59
[2016-11-14] MEDS ORDERED: SODIUM CHLORIDE 3% FOR INHALATION 15 ML AMPUL NEB ONE (12:21)
[2016-11-14] MEDS: GABAPENTIN 300 MG CAPSULE PO SCH ×2 (14:10→22:21)
[2016-11-14] MEDS: TAMSULOSIN HCL 0.4 MG CAP.SR.24H PO SCH (19:31)
[2016-11-14] MEDS: DOXYCYCLINE HYCLATE 100 MG in DEXTROSE 5%-WATER 250 ML IV SCH (19:54)
--- NOTE | 2016-11-14 21:51 | PDOC PROGRESS REPORT ---
Subjective Progress Note for:: 11/14/16 Subjective:: Patient reports he is feeling improved. Patient denies chest pain, shortness of breath, abdominal pain, diarrhea, lower extremity swelling, rash. Nursing reports a soft stool. Physical Exam Vital Signs: Temp Pulse Resp BP Pulse Ox 99.7 F 92 17 111/48 L 100 11/14/16 03:30 11/14/16 07:00 11/14/16 03:30 11/14/16 03:30 11/14/16 03:30 Intake & Output 11/13/16 11/14/16 11/15/16 06:59 06:59 06:59 Intake Total 10 Balance 10 Weight 88.451 kg Exam: General:, Alert, awake, oriented 3 in no acute distress HEENT: AT/NC, PERRL, oropharynx is moist, pink, no scleral icterus, no conjunctival injection Neck: No JVD, trachea midline Chest: LLL rhonchi CV: regular rate and rhythm, normal S1 and S2, no rub, or gallop Abdomen: Soft, nontender to palpation, nondistended, hyperactive bowel sounds; no rebound, rigidity, or guarding Extremities: No cyanosis, clubbing or edema Neuro: Cranial nerves are grossly intact without focal deficits, alert and oriented to person/place/year Psych: Normal mood and affect Skin: No rash or lesion Results Laboratory Results: 11/14/16 06:22 11/14/16 11/14/16 11/14/16 03:30 06:22 06:22 Seg Neutrophils % Not Reportable Lymphocytes % Not Reportable Monocytes % Not Reportable Eosinophils % Not Reportable Basophils % Not Reportable Absolute Neutrophils Not Reportable Absolute Lymphocytes Not Reportable Absolute Monocytes Not Reportable Absolute Eosinophils Not Reportable Absolute Basophils Not Reportable Sodium 141.0 Potassium 4.1 Chloride 108 H Carbon Dioxide 22 Anion Gap 11 BUN 24 H Creatinine 1.03 Est GFR ( Amer) > 60 Est GFR (Non-Af Amer) > 60 Glucose 112 H Calcium 8.6 Blood Type B NEGATIVE Antibody Screen NEGATIVE Impressions: Chest X-Ray 11/13/16 21:15 IMPRESSION: Increased density in the left retrocardiac area which could represent atelectatic changes or a minimal infiltrate. Remaining lung espinosa are clear. Abdomen/Pelvis CT 11/13/16 21:49 IMPRESSION: 1. Worsened small airspace opacity and nodularity of the left lower lobe. Infectious, inflammatory, and neoplastic processes are in the differential diagnosis. Surveillance CT of the chest recommended within 7-12 weeks with clinically warranted therapy. 2. No acute xmehh-ezbnzdubz-bxhaab finding. Assessment & Plan - Diagnosis (1) LLL pneumonia Qualifiers: Pneumonia type: due to unspecified organism Qualified Code(s): J18.1 - Lobar pneumonia, unspecified organism Is this a current diagnosis for this admission?: YesPlan: Broad-spectrum antibiotic coverage pending culture and sensitivity. Continue nebulized treatments. (2) Neutropenic fever Is this a current diagnosis for this admission?: YesPlan: Plan broad-spectrum antibiotic coverage pending cultures. Continue reverse isolation precautions (3) Nodule of left lung Is this a current diagnosis for this admission?: Yes (4) Pancytopenia Is this a current diagnosis for this admission?: YesPlan: Beta MDS (5) Hypotension Is this a current diagnosis for this admission?: YesPlan: Antihypertensives and continue gentle hydration (6) MDS (myelodysplastic syndrome) Is this a current diagnosis for this admission?: YesPlan: Defer to hematology oncology (7) DNR (do not resuscitate) Is this a current diagnosis for this admission?: Yes - Time Time Spent with patient: 35 or more minutes Medications reviewed and adjusted accordingly: Yes Anticipated discharge: Home with Homehealth
[2016-11-14] MEDS ORDERED: ATORVASTATIN CALCIUM 10 MG TABLET PO SCH (22:00)
[2016-11-14] MEDS: MONTELUKAST SODIUM 10 MG TABLET PO SCH (22:21)
[2016-11-14] MEDS: METOPROLOL TARTRATE 25 MG TABLET PO SCH (22:22)
[2016-11-14] MEDS: SERTRALINE HCL 50 MG TABLET PO SCH (22:23)
[2016-11-15] MEDS: IPRATROPIUM/ALBUTEROL 0.5-2.5 MG/3 ML AMPUL NEB SCH ×4 (00:59→23:54)
[2016-11-15] MEDS: DOXYCYCLINE HYCLATE 100 MG in DEXTROSE 5%-WATER 250 ML IV SCH (05:10)
[2016-11-15] MEDS: GABAPENTIN 300 MG CAPSULE PO SCH ×3 (05:18→23:12)
--- NOTE | 2016-11-15 08:25 | PDOC PROGRESS REPORT ---
Subjective Progress Note for:: 11/15/16 Subjective:: No fevers for 24 hours, BCx x 2 with GNRs, pt feels better Physical Exam Vital Signs: Temp Pulse Resp BP Pulse Ox 97.9 F 70 14 113/60 95 11/15/16 07:26 11/15/16 07:59 11/15/16 07:59 11/15/16 07:26 11/15/16 07:59 Intake & Output 11/14/16 11/15/16 11/16/16 06:59 06:59 06:59 Intake Total 10 450 300 Output Total 900 Balance 10 -450 300 Weight 88.451 kg General appearance: PRESENT: no acute distress, well-developed, well-nourished Head exam: PRESENT: atraumatic, normocephalic Eye exam: PRESENT: conjunctiva pink, EOMI, PERRLA. ABSENT: scleral icterus Ear exam: PRESENT: normal external ear exam Mouth exam: PRESENT: moist, tongue midline Neck exam: ABSENT: carotid bruit, JVD, lymphadenopathy, thyromegaly Respiratory exam: PRESENT: clear to auscultation jane. ABSENT: rales, rhonchi, wheezes Cardiovascular exam: PRESENT: RRR. ABSENT: diastolic murmur, rubs, systolic murmur Pulses: PRESENT: normal dorsalis pedis pul Vascular exam: PRESENT: normal capillary refill GI/Abdominal exam: PRESENT: normal bowel sounds, soft. ABSENT: distended, guarding, mass, organolmegaly, rebound, tenderness Rectal exam: PRESENT: deferred Extremities exam: PRESENT: full ROM. ABSENT: calf tenderness, clubbing, pedal edema Neurological exam: PRESENT: alert, awake, oriented to person, oriented to place , oriented to time, oriented to situation, CN II-XII grossly intact. ABSENT: motor sensory deficit Psychiatric exam: PRESENT: appropriate affect, normal mood. ABSENT: homicidal ideation, suicidal ideation Skin exam: PRESENT: dry, intact, warm. ABSENT: cyanosis, rash Results Laboratory Results: 11/14/16 06:22 11/14/16 06:22 11/14/16 11/14/16 03:30 06:22 WBC 1.2 L* RBC 2.38 L Hgb 7.5 L Hct 22.6 L MCV 95 MCH 31.5 MCHC 33.1 RDW 23.7 H Plt Count 65 L Blood Type B NEGATIVE Antibody Screen NEGATIVE Impressions: Chest X-Ray 11/13/16 21:15 IMPRESSION: Increased density in the left retrocardiac area which could represent atelectatic changes or a minimal infiltrate. Remaining lung espinosa are clear. Abdomen/Pelvis CT 11/13/16 21:49 IMPRESSION: 1. Worsened small airspace opacity and nodularity of the left lower lobe. Infectious, inflammatory, and neoplastic processes are in the differential diagnosis. Surveillance CT of the chest recommended within 7-12 weeks with clinically warranted therapy. 2. No acute xbgsl-hrruntpix-nadyjl finding. Assessment & Plan - Diagnosis (1) Neutropenic fever Is this a current diagnosis for this admission?: YesPlan: Con't cefepime but could d/c vanc now that we have GNRs noted in blood. 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 - Time Time Spent with patient: 15-24 minutes Critical Time spent with patient: 15-24 minutes Anticipated discharge: Home - Inpatient Certification Based on my medical assessment, after consideration of the patient's comorbidities, presenting symptoms, or acuity I expect that the services needed warrant INPATIENT care.: Yes I certify that my determination is in accordance with my understanding of Medicare's requirements for reasonable and necessary INPATIENT services [42 CFR 412.3e].: Yes Medical Necessity: Need for IV Antibiotics
[2016-11-15] MEDS: CEFEPIME HCL 2 GM in DEXTROSE 5%-WATER 50 ML IV SCH ×2 (09:24→23:13)
[2016-11-15] MEDS: DOCUSATE SODIUM 100 MG CAPSULE PO SCH ×2 (09:24→16:58)
[2016-11-15] MEDS: METOPROLOL TARTRATE 25 MG TABLET PO SCH ×2 (09:25→23:13)
[2016-11-15] MEDS: FINASTERIDE 5 MG TABLET PO SCH (09:25)
[2016-11-15] MEDS: ALLOPURINOL 300 MG TABLET PO SCH (09:25)
[2016-11-15] MEDS: GUAIFENESIN 600 MG TABLET.SA PO SCH ×2 (09:26→23:13)
[2016-11-15 09:27] LABS: HEMATOCRIT 23.7 % (37.9-51.0); HEMOGLOBIN 8.2 g/dL (13.5-17.0); HGB HCT DIFFERENCE 0.9; MEAN CORPUSCULAR HEMOGLOBIN 31.9 pg (27.0-33.4); MEAN CORPUSCULAR HGB CONC 34.5 g/dL (32.0-36.0); MEAN CORPUSCULAR VOLUME 93 fl (80-97); RED BLOOD COUNT 2.56 10^6/uL (4.35-5.55); RED CELL DISTRIBUTION WIDTH 20.1 % (11.5-14.0)
[2016-11-15 09:45] LABS: ANION GAP 9 (5-19); BLOOD UREA NITROGEN 22 mg/dL (7-20); CALCIUM 8.3 mg/dL (8.4-10.2); CARBON DIOXIDE 23 mmol/L (22-30); CHLORIDE 107 mmol/L (98-107); GLUCOSE 105 mg/dL (75-110); POTASSIUM 3.4 mmol/L (3.6-5.0); SODIUM 138.9 mmol/L (137-145)
[2016-11-15] MEDS ORDERED: ZINC PICOLIN PO SCH (10:00)
[2016-11-15] MEDS ORDERED: SAW PALMETTO XTR PO SCH (10:00)
[2016-11-15] MEDS ORDERED: (PENDING PHARMACY ID) (Sertraline Hcl [Zoloft] 25 MG) PO SCH (10:00)
[2016-11-15 10:17] LABS: WHITE BLOOD COUNT 1.2 10^3/uL (4.0-10.5)
[2016-11-15 10:27] LABS: TOTAL CELLS COUNTED 50
[2016-11-15 10:28] LABS: BAND NEUTROPHILS % (MANUAL) 10 % (3-5); BASOPHILS % (MANUAL) 0 % (0-2); EOSINOPHILS % (MANUAL) 2 % (0-6); LYMPHOCYTES % (MANUAL) 52 % (13-45)
[2016-11-15 10:33] LABS: ANISOCYTOSIS 2+; BURR CELLS SLIGHT; OVALOCYTES 1+; POIKILOCYTOSIS 1+; POLYCHROMASIA SLIGHT; TARGET CELLS SLIGHT; TEAR DROP CELLS SLIGHT; TOXIC GRANULATION SLIGHT
--- NOTE | 2016-11-15 14:18 | PDOC PROGRESS REPORT ---
Subjective Progress Note for:: 11/15/16 Subjective:: Patient reports he is feeling improved. Patient denies chest pain, shortness of breath, abdominal pain, diarrhea, lower extremity swelling, rash. Physical Exam Vital Signs: Temp Pulse Resp BP Pulse Ox 98.0 F 73 17 107/48 L 94 11/15/16 03:58 11/15/16 03:58 11/15/16 03:58 11/15/16 03:58 11/15/16 03:58 Intake & Output 11/14/16 11/15/16 11/16/16 06:59 06:59 06:59 Intake Total 10 450 Output Total 900 Balance 10 -450 Weight 88.451 kg Exam: General:, Alert, awake, oriented 3 in no acute distress HEENT: AT/NC, PERRL, oropharynx is moist, pink, no scleral icterus, no conjunctival injection Neck: No JVD, trachea midline Chest: LLL rhonchi CV: regular rate and rhythm, normal S1 and S2, no rub, or gallop Abdomen: Soft, nontender to palpation, nondistended, hyperactive bowel sounds; no rebound, rigidity, or guarding Extremities: No cyanosis, clubbing or edema Neuro: Cranial nerves are grossly intact without focal deficits, alert and oriented to person/place/year Psych: Normal mood and affect Skin: No rash or lesion Results Laboratory Results: 11/14/16 06:22 11/14/16 06:22 11/14/16 11/14/16 03:30 06:22 WBC 1.2 L* RBC 2.38 L Hgb 7.5 L Hct 22.6 L MCV 95 MCH 31.5 MCHC 33.1 RDW 23.7 H Plt Count 65 L Blood Type B NEGATIVE Antibody Screen NEGATIVE Impressions: Chest X-Ray 11/13/16 21:15 IMPRESSION: Increased density in the left retrocardiac area which could represent atelectatic changes or a minimal infiltrate. Remaining lung espinosa are clear. Abdomen/Pelvis CT 11/13/16 21:49 IMPRESSION: 1. Worsened small airspace opacity and nodularity of the left lower lobe. Infectious, inflammatory, and neoplastic processes are in the differential diagnosis. Surveillance CT of the chest recommended within 7-12 weeks with clinically warranted therapy. 2. No acute rljff-gmpjjezqu-qibxea finding. Assessment & Plan - Diagnosis (1) LLL pneumonia Qualifiers: Pneumonia type: due to unspecified organism Qualified Code(s): J18.1 - Lobar pneumonia, unspecified organism Is this a current diagnosis for this admission?: YesPlan: Patient currently with gram-negative rods in both bottles of blood culture. Have discontinued vancomycin and doxycycline. Continue nebulized treatments and cefepime pending ID and sensitivity. Patient on cefepime day #2. Pending sputum culture. Continue incentive spirometry and flutter valve. Encourage patient out of bed to chair 3 times daily. (2) Neutropenic fever Is this a current diagnosis for this admission?: YesPlan: Continue reverse isolation precautions (3) Nodule of left lung Is this a current diagnosis for this admission?: Yes (4) Pancytopenia Is this a current diagnosis for this admission?: Yes (5) Hypotension Is this a current diagnosis for this admission?: YesPlan: Improving not yet back to baseline. We will re-add antihypertensives as tolerated. Stop IV fluids. (6) MDS (myelodysplastic syndrome) Is this a current diagnosis for this admission?: YesPlan: Defer to hematology oncology (7) DNR (do not resuscitate) Is this a current diagnosis for this admission?: Yes - Time Time Spent with patient: 25-34 minutes Medications reviewed and adjusted accordingly: Yes Anticipated discharge: Home with Homehealth Within: within 48 hours - Inpatient Certification Based on my medical assessment, after consideration of the patient's comorbidities, presenting symptoms, or acuity I expect that the services needed warrant INPATIENT care.: Yes I certify that my determination is in accordance with my understanding of Medicare's requirements for reasonable and necessary INPATIENT services [42 CFR 412.3e].: Yes Medical Necessity: Need for IV Antibiotics, Risk of Complication if Not Cared For in Hospital Post Hospital Care: D/C Life Support Technician Documentation
[2016-11-15] MEDS: TAMSULOSIN HCL 0.4 MG CAP.SR.24H PO SCH (16:58)
[2016-11-15] MEDS: MONTELUKAST SODIUM 10 MG TABLET PO SCH (23:13)
[2016-11-15] MEDS: SERTRALINE HCL 50 MG TABLET PO SCH (23:14)
--- NOTE | 2016-11-16 05:51 | Physician Advisory Note ---
Physician Advisor ProgressNote .: Pursuant to the plan for [facility], I have reviewed the medical record for this patient. Physician Advisor Statement: Please: 1. explicitly state you feel the LLL PNA is due to GNR 2. explicitly state the cause of pancytopenia Thanks! CK
[2016-11-16] MEDS: GABAPENTIN 300 MG CAPSULE PO SCH ×3 (06:52→21:26)
[2016-11-16] MEDS: IPRATROPIUM/ALBUTEROL 0.5-2.5 MG/3 ML AMPUL NEB SCH ×2 (08:21→16:09)
--- NOTE | 2016-11-16 08:48 | PDOC PROGRESS REPORT ---
Subjective Progress Note for:: 11/16/16 Subjective:: No acute events overnight Physical Exam Vital Signs: Temp Pulse Resp BP Pulse Ox 98.3 F 62 16 139/62 H 95 11/16/16 07:33 11/16/16 08:21 11/16/16 08:21 11/16/16 07:33 11/16/16 08:21 Intake & Output 11/15/16 11/16/16 11/17/16 06:59 06:59 06:59 Intake Total 450 1126 Output Total 900 Balance -450 1126 Weight 88.5 kg General appearance: PRESENT: no acute distress, well-developed, well-nourished Head exam: PRESENT: atraumatic, normocephalic Eye exam: PRESENT: conjunctiva pink, EOMI, PERRLA. ABSENT: scleral icterus Ear exam: PRESENT: normal external ear exam Mouth exam: PRESENT: moist, tongue midline Neck exam: ABSENT: carotid bruit, JVD, lymphadenopathy, thyromegaly Respiratory exam: PRESENT: clear to auscultation jane. ABSENT: rales, rhonchi, wheezes Cardiovascular exam: PRESENT: RRR. ABSENT: diastolic murmur, rubs, systolic murmur Pulses: PRESENT: normal dorsalis pedis pul Vascular exam: PRESENT: normal capillary refill GI/Abdominal exam: PRESENT: normal bowel sounds, soft. ABSENT: distended, guarding, mass, organolmegaly, rebound, tenderness Rectal exam: PRESENT: deferred Extremities exam: PRESENT: full ROM. ABSENT: calf tenderness, clubbing, pedal edema Neurological exam: PRESENT: alert, awake, oriented to person, oriented to place , oriented to time, oriented to situation, CN II-XII grossly intact. ABSENT: motor sensory deficit Psychiatric exam: PRESENT: appropriate affect, normal mood. ABSENT: homicidal ideation, suicidal ideation Skin exam: PRESENT: dry, intact, warm. ABSENT: cyanosis, rash Results Laboratory Results: 11/15/16 08:36 11/15/16 08:36 11/15/16 11/15/16 08:36 08:36 WBC 1.2 L* RBC 2.56 L Hgb 8.2 L Hct 23.7 L MCV 93 MCH 31.9 MCHC 34.5 RDW 20.1 H Plt Count 42 L Seg Neutrophils % Not Reportable Lymphocytes % Not Reportable Monocytes % Not Reportable Eosinophils % Not Reportable Basophils % Not Reportable Absolute Neutrophils Not Reportable Absolute Lymphocytes Not Reportable Absolute Monocytes Not Reportable Absolute Eosinophils Not Reportable Absolute Basophils Not Reportable Sodium 138.9 Potassium 3.4 L Chloride 107 Carbon Dioxide 23 Anion Gap 9 BUN 22 H Creatinine 0.90 Est GFR ( Amer) > 60 Est GFR (Non-Af Amer) > 60 Glucose 105 Calcium 8.3 L Impressions: Chest X-Ray 11/13/16 21:15 IMPRESSION: Increased density in the left retrocardiac area which could represent atelectatic changes or a minimal infiltrate. Remaining lung espinosa are clear. Abdomen/Pelvis CT 11/13/16 21:49 IMPRESSION: 1. Worsened small airspace opacity and nodularity of the left lower lobe. Infectious, inflammatory, and neoplastic processes are in the differential diagnosis. Surveillance CT of the chest recommended within 7-12 weeks with clinically warranted therapy. 2. No acute mizev-tffrepzqd-vnsyxa finding. 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 Qualified Code(s ): C92.00 - Acute myeloblastic leukemia, not having achieved remission Is this a current diagnosis for this admission?: YesPlan: This is cause of pancytopenia, no treatment for now, supportive care only (3) Anemia Qualifiers: Anemia type: other cause Other causes of anemia: chronic disease, neoplastic Qualified Code(s): D63.0 - Anemia in neoplastic disease Plan: 2nd to AML, s/p tx, good response, hold on further tx for now - Time Time Spent with patient: 35 or more minutes Critical Time spent with patient: 35 or more minutes Within: within 48 hours Disposition: Spent >35 min updating daughter on pts progress. Will be here until ID on org noted and abx can by tapered to oral - Inpatient Certification Based on my medical assessment, after consideration of the patient's comorbidities, presenting symptoms, or acuity I expect that the services needed warrant INPATIENT care.: Yes I certify that my determination is in accordance with my understanding of Medicare's requirements for reasonable and necessary INPATIENT services [42 CFR 412.3e].: Yes Medical Necessity: Need for IV Antibiotics
[2016-11-16] MEDS: METOPROLOL TARTRATE 25 MG TABLET PO SCH ×2 (10:12→21:26)
[2016-11-16] MEDS: ALLOPURINOL 300 MG TABLET PO SCH (10:12)
[2016-11-16] MEDS: FINASTERIDE 5 MG TABLET PO SCH (10:12)
[2016-11-16] MEDS: DOCUSATE SODIUM 100 MG CAPSULE PO SCH ×2 (10:13→17:59)
[2016-11-16] MEDS: CEFEPIME HCL 2 GM in DEXTROSE 5%-WATER 50 ML IV SCH ×2 (10:13→21:26)
[2016-11-16] MEDS: GUAIFENESIN 600 MG TABLET.SA PO SCH ×2 (10:13→21:26)
[2016-11-16 10:20] LABS: HEMATOCRIT 23.7 % (37.9-51.0); HGB HCT DIFFERENCE 0.3; MEAN CORPUSCULAR HEMOGLOBIN 31.3 pg (27.0-33.4); MEAN CORPUSCULAR HGB CONC 33.7 g/dL (32.0-36.0); MEAN CORPUSCULAR VOLUME 93 fl (80-97); RED BLOOD COUNT 2.55 10^6/uL (4.35-5.55); RED CELL DISTRIBUTION WIDTH 20.4 % (11.5-14.0)
[2016-11-16 11:34] LABS: ANISOCYTOSIS 2+; BURR CELLS SLIGHT; OVALOCYTES 2+; POIKILOCYTOSIS 1+; POLYCHROMASIA SLIGHT; TARGET CELLS SLIGHT; TEAR DROP CELLS 1+
--- NOTE | 2016-11-16 11:35 | RADIOLOGY REPORT (SQ) ---
EXAM DESCRIPTION: PICC INSERTION; U/S GUIDE FOR VASCULAR ACCESS; FLUORO/CV PLACEMENT; CHEST PA/LAT COMPLETED DATE/TIME: 11/16/2016 11:16 am REASON FOR STUDY: pseudomonas bacteremia, neutropenia; IV ABX; LLL pna COMPARISON: None. FLUOROSCOPY TIME: 10 seconds 2 Images saved to PACS. TECHNIQUE: Fluoroscopic and ultrasound guided PICC placement. LIMITATIONS: None. PROCEDURE: After written consent and assessment were obtained, the patient was brought into the fluo roscopy room and place supine on the table. Ultrasound was used on the patient's left arm for PICC a ccess. The left arm was prepped and draped in a sterile fashion along with the ultrasound probe. The entry site was anesthetized with 1% lidocaine. A 21 gauge 7 cm needle was advanced through the skin a nd into the basilic vein under live ultrasound guidance. An ultrasound image was saved to PACS confi rming access site. A .018 guide wire was then inserted through the needle and into the venous system . The needle was the removed and an 11 blade scalpel was used to make a 1cm skin incision. A 5 fr pe el-away sheath was advanced over the wire and into the venous system. A measurement was then made usi ng the existing wire and live fluoroscopic guidance. The wire was then removed and the trimmed. The P ICC was advanced through the peel-away sheath and into the venous system. The peel-away sheath was re moved and the catheter was adhered to the patients arm with a stat lock. The catheter was then aspira faraz and flushed and a sterile bandage was placed over the access site. A fluoroscopic spot image was saved to PACS confirming the catheter tip within the SVC. IMPRESSION: SUCCESSFUL PLACEMENT OF A 5 FR DUAL LUMEN 44 CM PICC IN THE left basilic VEIN. COMMENT: Patient medication list reviewed: Yes- Quality ID# [id number]:Eligible professional attests to doc umenting in the medical record they obtained, updated, or reviewed the patient's current medications. . Quality ID 145: Final reports for procedures using fluoroscopy that document radiation exposure marcia nany, or exposure time and number of fluorographic images (if radiation exposure indices are not avail able) Quality ID #76: The patient was prepped and draped using maximum sterile barrier technique including cap, mask, sterile gown, sterile gloves, a large sterile sheet, hand hygiene, and 2% Chlorhexidine fo r cutaneous antisepsis. When ultrasound is used, sterile ultrasound techniques are followed requiring sterile gel and sterile probes. TECHNICAL DOCUMENTATION: JOB ID: [id number] 1700 [employer]- All Rights Reserved
[2016-11-16 11:42] LABS: BASOPHILS % (MANUAL) 1 % (0-2); EOSINOPHILS % (MANUAL) 1 % (0-6); LYMPHOCYTES % (MANUAL) 44 % (13-45); TOTAL CELLS COUNTED 100
[2016-11-16 11:44] LABS: WHITE BLOOD COUNT 0.9 10^3/uL (4.0-10.5)
--- NOTE | 2016-11-16 16:49 | PDOC PROGRESS REPORT ---
Subjective Progress Note for:: 11/16/16 Subjective:: Patient reports he is feeling improved. Patient denies chest pain, shortness of breath, abdominal pain, diarrhea, lower extremity swelling, rash. Patient reports that he is slightly constipated. Physical Exam Vital Signs: Temp Pulse Resp BP Pulse Ox 98.2 F 61 17 117/60 98 11/16/16 12:01 11/16/16 14:00 11/16/16 12:01 11/16/16 12:01 11/16/16 12:01 Intake & Output 11/15/16 11/16/16 11/17/16 06:59 06:59 06:59 Intake Total 450 1126 Output Total 900 Balance -450 1126 Weight 88.5 kg Exam: General:, Alert, awake, oriented 3 in no acute distress HEENT: AT/NC, PERRL, oropharynx is moist, pink, no scleral icterus, no conjunctival injection Neck: No JVD, trachea midline Chest: Clear to Auscultation bilaterally CV: regular rate and rhythm, normal S1 and S2, no rub, or gallop Abdomen: Soft, nontender to palpation, nondistended, active bowel sounds; no rebound, rigidity, or guarding Extremities: No cyanosis, clubbing or edema Neuro: Cranial nerves are grossly intact without focal deficits, alert and oriented to person/place/year Psych: Normal mood and affect Skin: No rash or lesion Results Laboratory Results: 11/16/16 09:53 11/15/16 08:36 11/16/16 09:53 WBC 0.9 L* RBC 2.55 L Hgb 8.0 L Hct 23.7 L MCV 93 MCH 31.3 MCHC 33.7 RDW 20.4 H Plt Count 53 L Seg Neutrophils % Not Reportable Lymphocytes % Not Reportable Monocytes % Not Reportable Eosinophils % Not Reportable Basophils % Not Reportable Absolute Neutrophils Not Reportable Absolute Lymphocytes Not Reportable Absolute Monocytes Not Reportable Absolute Eosinophils Not Reportable Absolute Basophils Not Reportable Impressions: Abdomen/Pelvis CT 11/13/16 21:49 IMPRESSION: 1. Worsened small airspace opacity and nodularity of the left lower lobe. Infectious, inflammatory, and neoplastic processes are in the differential diagnosis. Surveillance CT of the chest recommended within 7-12 weeks with clinically warranted therapy. 2. No acute ymsfd-iylgmmwjd-sboicw finding. Chest X-Ray 11/16/16 00:00 IMPRESSION: SUCCESSFUL PLACEMENT OF A 5 FR DUAL LUMEN 44 CM PICC IN THE left basilic VEIN. Guidance Fluoroscopy 11/16/16 00:00 IMPRESSION: SUCCESSFUL PLACEMENT OF A 5 FR DUAL LUMEN 44 CM PICC IN THE left basilic VEIN. Interventional Vascular Procedure 11/16/16 00:00 IMPRESSION: SUCCESSFUL PLACEMENT OF A 5 FR DUAL LUMEN 44 CM PICC IN THE left basilic VEIN. PICC Line Insertion 11/16/16 00:00 IMPRESSION: SUCCESSFUL PLACEMENT OF A 5 FR DUAL LUMEN 44 CM PICC IN THE left basilic VEIN. Assessment & Plan - Diagnosis (1) LLL pneumonia Qualifiers: Pneumonia type: due to Pseudomonas Qualified Code(s): J15.1 - Pneumonia due to Pseudomonas Is this a current diagnosis for this admission?: YesPlan: Patient currently with Pseudomonas aeruginosa in both bottles of blood culture. Patient on cefepime day #2/14. Patient is unable to provide a sputum. Continue incentive spirometry and flutter valve. Encourage patient out of bed to chair 3 times daily. There is a likely source for bacteremia given that patient has no wounds or indwelling catheters. Discussed this with Dr. Loera, ID fellow of [facility], is in agreement with this plan. (2) Neutropenic fever Is this a current diagnosis for this admission?: YesPlan: Continue reverse isolation precautions (3) Nodule of left lung Is this a current diagnosis for this admission?: Yes (4) Pancytopenia Is this a current diagnosis for this admission?: YesPlan: Due to MDS and infection (5) MDS (myelodysplastic syndrome) Is this a current diagnosis for this admission?: YesPlan: Defer to hematology oncology (6) DNR (do not resuscitate) Is this a current diagnosis for this admission?: Yes - Time Time Spent with patient: 25-34 minutes Medications reviewed and adjusted accordingly: Yes
[2016-11-16] MEDS: TAMSULOSIN HCL 0.4 MG CAP.SR.24H PO SCH (17:59)
[2016-11-16] MEDS: SERTRALINE HCL 50 MG TABLET PO SCH (21:26)
[2016-11-16] MEDS: MONTELUKAST SODIUM 10 MG TABLET PO SCH (21:26)
[2016-11-17] MEDS: IPRATROPIUM/ALBUTEROL 0.5-2.5 MG/3 ML AMPUL NEB SCH ×3 (00:15→16:22)
[2016-11-17] MEDS: GABAPENTIN 300 MG CAPSULE PO SCH ×2 (06:03→14:58)
[2016-11-17 06:29] LABS: PROTHROMBIN TIME 15.8 SEC (11.4-15.4)
[2016-11-17 06:30] LABS: HEMATOCRIT 21.7 % (37.9-51.0); HGB HCT DIFFERENCE 0.2; MEAN CORPUSCULAR HEMOGLOBIN 31.3 pg (27.0-33.4); MEAN CORPUSCULAR HGB CONC 33.5 g/dL (32.0-36.0); MEAN CORPUSCULAR VOLUME 94 fl (80-97); RED BLOOD COUNT 2.32 10^6/uL (4.35-5.55); RED CELL DISTRIBUTION WIDTH 20.4 % (11.5-14.0)
[2016-11-17 06:31] LABS: PARTIAL THROMBOPLASTIN TIME 42.4 SEC (23.5-35.8)
[2016-11-17 06:35] LABS: ANION GAP 8 (5-19); BLOOD UREA NITROGEN 19 mg/dL (7-20); CALCIUM 8.5 mg/dL (8.4-10.2); CARBON DIOXIDE 22 mmol/L (22-30); CHLORIDE 109 mmol/L (98-107); CREATININE RESULT 0.77 mg/dL (0.52-1.25); GLUCOSE 92 mg/dL (75-110); MAGNESIUM 1.9 mg/dL (1.6-2.3)
[2016-11-17 06:46] LABS: BAND NEUTROPHILS % (MANUAL) 4 % (3-5); BASOPHILS % (MANUAL) 0 % (0-2); EOSINOPHILS % (MANUAL) 2 % (0-6); LYMPHOCYTES % (MANUAL) 52 % (13-45); NUCLEATED RED BLOOD CELLS 4 /100 WBC (0); TOTAL CELLS COUNTED 50
[2016-11-17 06:49] LABS: ANISOCYTOSIS 2+; OVALOCYTES 1+; POIKILOCYTOSIS 1+; POLYCHROMASIA SLIGHT; TEAR DROP CELLS SLIGHT
[2016-11-17 06:50] LABS: WHITE BLOOD COUNT 0.9 10^3/uL (4.0-10.5)
[2016-11-17 06:51] LABS: HEMOGLOBIN 7.3 g/dL (13.5-17.0)
[2016-11-17] MEDS: ALLOPURINOL 300 MG TABLET PO SCH (09:26)
[2016-11-17] MEDS: DOCUSATE SODIUM 100 MG CAPSULE PO SCH ×2 (09:26→18:02)
[2016-11-17] MEDS: FINASTERIDE 5 MG TABLET PO SCH (09:26)
[2016-11-17] MEDS: GUAIFENESIN 600 MG TABLET.SA PO SCH (09:27)
[2016-11-17] MEDS: METOPROLOL TARTRATE 25 MG TABLET PO SCH (09:27)
[2016-11-17] MEDS: CEFEPIME HCL 2 GM in DEXTROSE 5%-WATER 50 ML IV SCH ×2 (09:28→18:24)
[2016-11-17] MEDS ORDERED: NORMAL SALINE 250 ML IV PRN ×2 (09:52)
--- NOTE | 2016-11-17 10:18 | PDOC PROGRESS REPORT ---
Subjective Progress Note for:: 11/17/16 Subjective:: Patient doing well this morning, cultures came back and he has 2 of 2 positive cultures for Pseudomonas. Pansensitive. He had a PICC line placed and this plan for IV antibiotics with cefepime twice daily at home. Physical Exam Vital Signs: Temp Pulse Resp BP Pulse Ox 98.2 F 78 16 134/95 H 97 11/17/16 08:19 11/17/16 08:19 11/17/16 08:19 11/17/16 08:19 11/17/16 08:19 Intake & Output 11/16/16 11/17/16 11/18/16 06:59 06:59 06:59 Intake Total 1126 940 Balance 1126 940 Weight 88.5 kg General appearance: PRESENT: no acute distress, well-developed, well-nourished Head exam: PRESENT: atraumatic, normocephalic Eye exam: PRESENT: conjunctiva pink, EOMI, PERRLA. ABSENT: scleral icterus Ear exam: PRESENT: normal external ear exam Mouth exam: PRESENT: moist, tongue midline Neck exam: ABSENT: carotid bruit, JVD, lymphadenopathy, thyromegaly Respiratory exam: PRESENT: clear to auscultation jane. ABSENT: rales, rhonchi, wheezes Cardiovascular exam: PRESENT: RRR. ABSENT: diastolic murmur, rubs, systolic murmur Pulses: PRESENT: normal dorsalis pedis pul Vascular exam: PRESENT: normal capillary refill GI/Abdominal exam: PRESENT: normal bowel sounds, soft. ABSENT: distended, guarding, mass, organolmegaly, rebound, tenderness Rectal exam: PRESENT: deferred Extremities exam: PRESENT: full ROM. ABSENT: calf tenderness, clubbing, pedal edema Neurological exam: PRESENT: alert, awake, oriented to person, oriented to place , oriented to time, oriented to situation, CN II-XII grossly intact. ABSENT: motor sensory deficit Psychiatric exam: PRESENT: appropriate affect, normal mood. ABSENT: homicidal ideation, suicidal ideation Skin exam: PRESENT: dry, intact, warm. ABSENT: cyanosis, rash Results Laboratory Results: 11/17/16 06:00 11/17/16 06:00 11/16/16 11/17/16 11/17/16 09:53 06:00 06:00 WBC 0.9 L* 0.9 L* RBC 2.55 L 2.32 L Hgb 8.0 L 7.3 L Hct 23.7 L 21.7 L MCV 93 94 MCH 31.3 31.3 MCHC 33.7 33.5 RDW 20.4 H 20.4 H Plt Count 53 L 49 L Seg Neutrophils % Not Reportable Not Reportable Lymphocytes % Not Reportable Not Reportable Monocytes % Not Reportable Not Reportable Eosinophils % Not Reportable Not Reportable Basophils % Not Reportable Not Reportable Absolute Neutrophils Not Reportable Not Reportable Absolute Lymphocytes Not Reportable Not Reportable Absolute Monocytes Not Reportable Not Reportable Absolute Eosinophils Not Reportable Not Reportable Absolute Basophils Not Reportable Not Reportable Sodium 139.0 Potassium 4.0 Chloride 109 H Carbon Dioxide 22 Anion Gap 8 BUN 19 Creatinine 0.77 Est GFR ( Amer) > 60 Est GFR (Non-Af Amer) > 60 Glucose 92 Calcium 8.5 Magnesium 1.9 Impressions: Abdomen/Pelvis CT 11/13/16 21:49 IMPRESSION: 1. Worsened small airspace opacity and nodularity of the left lower lobe. Infectious, inflammatory, and neoplastic processes are in the differential diagnosis. Surveillance CT of the chest recommended within 7-12 weeks with clinically warranted therapy. 2. No acute fqhlw-aiodmliqt-doztuu finding. Chest X-Ray 11/16/16 00:00 IMPRESSION: SUCCESSFUL PLACEMENT OF A 5 FR DUAL LUMEN 44 CM PICC IN THE left basilic VEIN. Guidance Fluoroscopy 11/16/16 00:00 IMPRESSION: SUCCESSFUL PLACEMENT OF A 5 FR DUAL LUMEN 44 CM PICC IN THE left basilic VEIN. Interventional Vascular Procedure 11/16/16 00:00 IMPRESSION: SUCCESSFUL PLACEMENT OF A 5 FR DUAL LUMEN 44 CM PICC IN THE left basilic VEIN. PICC Line Insertion 11/16/16 00:00 IMPRESSION: SUCCESSFUL PLACEMENT OF A 5 FR DUAL LUMEN 44 CM PICC IN THE left basilic VEIN. Assessment & Plan - Diagnosis (1) Neutropenic fever Is this a current diagnosis for this admission?: YesPlan: He has neutropenic sepsis, now resolving, Pseudomonas, will need IV antibiotics at home, arrangements are being made. 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 - Time Time Spent with patient: 25-34 minutes Critical Time spent with patient: 25-34 minutes - Inpatient Certification Based on my medical assessment, after consideration of the patient's comorbidities, presenting symptoms, or acuity I expect that the services needed warrant INPATIENT care.: Yes I certify that my determination is in accordance with my understanding of Medicare's requirements for reasonable and necessary INPATIENT services [42 CFR 412.3e].: Yes Medical Necessity: Need for IV Antibiotics
[2016-11-17] MEDS ORDERED: FUROSEMIDE 20 MG TABLET PO ONE ×2 (11:00→16:00)
[2016-11-17] MEDS ORDERED: ACETAMINOPHEN 325 MG TABLET PO ONE (11:00)
[2016-11-17] MEDS ORDERED: DIPHENHYDRAMINE HCL 25 MG CAPSULE PO ONE (11:00)
[2016-11-17 14:17] LABS: PATH REVIEW PATHOLOGIST REVIEWED
[2016-11-17] MEDS ORDERED: POLYETHYLENE GLYCOL 3350 POWDER 17 GM/1 PACKET PO ONE (14:35)
[2016-11-17] MEDS ORDERED: POLYETHYLENE GLYCOL 3350 POWDER 17 GM/1 PACKET PO PRN (14:35)
--- NOTE | 2016-11-17 14:40 | PDOC PROGRESS REPORT ---
Subjective Progress Note for:: 11/17/16 Subjective:: Patient reports he is feeling improved. Patient denies chest pain, shortness of breath, abdominal pain, diarrhea, lower extremity swelling, rash. Patient reports that he is slightly constipated still. Patient dyspnea on exertion and generalized fatigue, neither of which are new or worse per normal. Physical Exam Vital Signs: Temp Pulse Resp BP Pulse Ox 97.8 F 68 16 129/62 H 96 11/17/16 06:00 11/17/16 06:00 11/17/16 06:00 11/17/16 06:00 11/17/16 06:00 Intake & Output 11/16/16 11/17/16 11/18/16 06:59 06:59 06:59 Intake Total 1126 940 Balance 1126 940 Weight 88.5 kg Exam: General:, Alert, awake, oriented 3 in no acute distress HEENT: AT/NC, PERRL, oropharynx is moist, pink, no scleral icterus, no conjunctival injection Neck: No JVD, trachea midline Chest: Clear to Auscultation bilaterally CV: regular rate and rhythm, normal S1 and S2, no rub, or gallop Abdomen: Soft, nontender to palpation, nondistended, active bowel sounds; no rebound, rigidity, or guarding Extremities: No cyanosis, clubbing or edema Neuro: Cranial nerves are grossly intact without focal deficits, alert and oriented to person/place/year Psych: Normal mood and affect Skin: No rash or lesion Results Laboratory Results: 11/17/16 06:00 11/17/16 06:00 11/16/16 11/17/16 11/17/16 09:53 06:00 06:00 WBC 0.9 L* 0.9 L* RBC 2.55 L 2.32 L Hgb 8.0 L 7.3 L Hct 23.7 L 21.7 L MCV 93 94 MCH 31.3 31.3 MCHC 33.7 33.5 RDW 20.4 H 20.4 H Plt Count 53 L 49 L Seg Neutrophils % Not Reportable Not Reportable Lymphocytes % Not Reportable Not Reportable Monocytes % Not Reportable Not Reportable Eosinophils % Not Reportable Not Reportable Basophils % Not Reportable Not Reportable Absolute Neutrophils Not Reportable Not Reportable Absolute Lymphocytes Not Reportable Not Reportable Absolute Monocytes Not Reportable Not Reportable Absolute Eosinophils Not Reportable Not Reportable Absolute Basophils Not Reportable Not Reportable Sodium 139.0 Potassium 4.0 Chloride 109 H Carbon Dioxide 22 Anion Gap 8 BUN 19 Creatinine 0.77 Est GFR ( Amer) > 60 Est GFR (Non-Af Amer) > 60 Glucose 92 Calcium 8.5 Magnesium 1.9 Impressions: Abdomen/Pelvis CT 11/13/16 21:49 IMPRESSION: 1. Worsened small airspace opacity and nodularity of the left lower lobe. Infectious, inflammatory, and neoplastic processes are in the differential diagnosis. Surveillance CT of the chest recommended within 7-12 weeks with clinically warranted therapy. 2. No acute cfwpc-zjafftmcm-cquhxz finding. Chest X-Ray 11/16/16 00:00 IMPRESSION: SUCCESSFUL PLACEMENT OF A 5 FR DUAL LUMEN 44 CM PICC IN THE left basilic VEIN. Guidance Fluoroscopy 11/16/16 00:00 IMPRESSION: SUCCESSFUL PLACEMENT OF A 5 FR DUAL LUMEN 44 CM PICC IN THE left basilic VEIN. Interventional Vascular Procedure 11/16/16 00:00 IMPRESSION: SUCCESSFUL PLACEMENT OF A 5 FR DUAL LUMEN 44 CM PICC IN THE left basilic VEIN. PICC Line Insertion 11/16/16 00:00 IMPRESSION: SUCCESSFUL PLACEMENT OF A 5 FR DUAL LUMEN 44 CM PICC IN THE left basilic VEIN. Assessment & Plan - Diagnosis (1) LLL pneumonia Qualifiers: Pneumonia type: due to Pseudomonas Qualified Code(s): J15.1 - Pneumonia due to Pseudomonas Is this a current diagnosis for this admission?: YesPlan: Patient currently with Pseudomonas aeruginosa in both bottles of blood culture. Patient on cefepime day #3/14. Patient is unable to provide a sputum. Continue incentive spirometry and flutter valve. Encourage patient out of bed to chair 3 times daily. There is a likely source for bacteremia given that patient has no wounds or indwelling catheters. Discussed this with Dr. Loera, ID fellow of [facility], is in agreement with this plan. PICC line in place. (2) Neutropenic fever Is this a current diagnosis for this admission?: YesPlan: Continue reverse isolation precautions (3) Nodule of left lung Is this a current diagnosis for this admission?: Yes (4) Pancytopenia Is this a current diagnosis for this admission?: Yes (5) MDS (myelodysplastic syndrome) Is this a current diagnosis for this admission?: Yes (6) DNR (do not resuscitate) Is this a current diagnosis for this admission?: Yes (7) Anemia Qualifiers: Anemia type: other cause Other causes of anemia: chronic disease, neoplastic Qualified Code(s): D63.0 - Anemia in neoplastic disease Is this a current diagnosis for this admission?: YesPlan: Give an additional unit of PRBC today (8) Constipation Is this a current diagnosis for this admission?: YesPlan: on colace initiate miralax - Time Time Spent with patient: 25-34 minutes Medications reviewed and adjusted accordingly: Yes Anticipated discharge: Home Within: when bed available
[2016-11-17] MEDS: TAMSULOSIN HCL 0.4 MG CAP.SR.24H PO SCH (18:02)
[2016-11-17 18:29] LABS: HEMATOCRIT 24.7 % (37.9-51.0); HEMOGLOBIN 8.3 g/dL (13.5-17.0); HGB HCT DIFFERENCE 0.2; MEAN CORPUSCULAR HEMOGLOBIN 31.1 pg (27.0-33.4); MEAN CORPUSCULAR HGB CONC 33.7 g/dL (32.0-36.0); MEAN CORPUSCULAR VOLUME 92 fl (80-97); RED BLOOD COUNT 2.68 10^6/uL (4.35-5.55); RED CELL DISTRIBUTION WIDTH 18.9 % (11.5-14.0)
[2016-11-17 19:03] LABS: WHITE BLOOD COUNT 1.1 10^3/uL (4.0-10.5)
[2016-11-17 20:06] VITALS: BP 140/82
--- NOTE | 2016-12-03 17:15 | PDOC DISCHARGE SUMMARY ---
General - Admit/Disc Date/PCP Admission Date/Primary Care Provider: 11/14/16 02:44 Discharge Date: 11/17/16 - Discharge Diagnosis (1) LLL pneumonia Is this a current diagnosis for this admission?: Yes (2) Neutropenic fever Is this a current diagnosis for this admission?: Yes (3) Nodule of left lung Is this a current diagnosis for this admission?: Yes (4) Pancytopenia Is this a current diagnosis for this admission?: Yes (5) MDS (myelodysplastic syndrome) Is this a current diagnosis for this admission?: Yes (6) Anemia Is this a current diagnosis for this admission?: Yes (7) Constipation Is this a current diagnosis for this admission?: Yes - Additional Information Resuscitation Status: Do Not Resuscitate Discharge Diet: Regular Discharge Activity: Activity As Tolerated Home Medications: Alfuzosin HCl [Uroxatral] 10 mg PO DAILY 11/14/16 Allopurinol [Zyloprim 300 mg Tablet] 300 mg PO DAILY 11/14/16 Docusate Sodium [Colace 100 mg Capsule] 100 mg PO BID 11/14/16 Esomeprazole Magnesium [Nexium] 40 mg PO ASDIR PRN 11/14/16 Finasteride [Proscar 5 mg Tablet] 5 mg PO DAILY 11/14/16 Gabapentin [Neurontin 300 mg Capsule] 300 mg PO Q8HP PRN 11/14/16 Metoprolol Tartrate [Lopressor 25 mg Tablet] 25 mg PO Q12 11/14/16 Montelukast Sodium [Singulair 10 mg Tablet] 10 mg PO QHS 11/14/16 Saw Counce Xtr/Zinc Picolin [Saw Counce Ext 160 mg Cap] 200 mg PO DAILY 11/25 Sertraline HCl [Zoloft] 25 mg PO DAILY 11/14/16 Tramadol HCl [Ultram 50 mg Tablet] 50 mg PO ASDIR PRN 11/14/16 Vitamin B Complex [B Complex] 1 each PO DAILY 11/14/16 Docusate Sodium [Colace 100 mg Capsule] 100 mg PO BID capsule 11/17/16 Polyethylene Glycol 3350 [Miralax Powder 17 gm/Packet] 17 gm PO DAILYP PRN powd.pack 11/17/16 History of Present Illness History of Present Illness: See H&P for full HPI Hospital Course Hospital Course: Patient is a 81yo WM with a history of MDS/AML who presented with neutropenia and fever 102.7. Patient was found to have a left lower lobe pneumonia by CXR. Patient's blood cultures grew out Pseudomonas aeruginosa in both sets. Patient had already been empirically started on Cefepime. Patient had a PICC line placed and has had home health established for 14 total days of antibiotics ending on 11/27/16. Patient received several blood transfusions for his anemia which is chronic due to his MDS. Patient is feeling improved and requesting discharge. Physical Exam Vital Signs: Temp Pulse Resp BP Pulse Ox 98.8 F 54 L 18 129/57 H 100 11/17/16 15:00 11/17/16 16:22 11/17/16 16:22 11/17/16 15:00 11/17/16 16:22 Intake & Output 11/16/16 11/17/16 11/18/16 06:59 06:59 06:59 Intake Total 8709 725 3336 Output Total 300 Balance 1126 940 840 Weight 88.5 kg Exam: General:, Alert, awake, oriented 3 in no acute distress HEENT: AT/NC, PERRL, oropharynx is moist, pink, no scleral icterus, no conjunctival injection Neck: No JVD, trachea midline Chest: Clear to Auscultation bilaterally CV: regular rate and rhythm, normal S1 and S2, no rub, or gallop Abdomen: Soft, nontender to palpation, nondistended, active bowel sounds; no rebound, rigidity, or guarding Extremities: No cyanosis, clubbing or edema Neuro: Cranial nerves are grossly intact without focal deficits, alert and oriented to person/place/year Psych: Normal mood and affect Skin: No rash or lesion Results Laboratory Results: 11/17/16 06:00 11/17/16 06:00 11/14/16 11/15/16 11/17/16 03:30 08:36 06:00 WBC 1.2 L* RBC 2.56 L Hgb 8.2 L Hct 23.7 L MCV 93 MCH 31.9 MCHC 34.5 RDW 20.1 H Plt Count 42 L Seg Neutrophils % Lymphocytes % Monocytes % Eosinophils % Basophils % Absolute Neutrophils Absolute Lymphocytes Absolute Monocytes Absolute Eosinophils Absolute Basophils Sodium 139.0 Potassium 4.0 Chloride 109 H Carbon Dioxide 22 Anion Gap 8 BUN 19 Creatinine 0.77 Est GFR ( Amer) > 60 Est GFR (Non-Af Amer) > 60 Glucose 92 Calcium 8.5 Magnesium 1.9 Blood Type B NEGATIVE Antibody Screen NEGATIVE 11/17/16 11/17/16 06:00 10:33 WBC 0.9 L* RBC 2.32 L Hgb 7.3 L Hct 21.7 L MCV 94 MCH 31.3 MCHC 33.5 RDW 20.4 H Plt Count 49 L Seg Neutrophils % Not Reportable Lymphocytes % Not Reportable Monocytes % Not Reportable Eosinophils % Not Reportable Basophils % Not Reportable Absolute Neutrophils Not Reportable Absolute Lymphocytes Not Reportable Absolute Monocytes Not Reportable Absolute Eosinophils Not Reportable Absolute Basophils Not Reportable Sodium Potassium Chloride Carbon Dioxide Anion Gap BUN Creatinine Est GFR ( Amer) Est GFR (Non-Af Amer) Glucose Calcium Magnesium Blood Type B NEGATIVE Antibody Screen NEGATIVE Impressions: Abdomen/Pelvis CT 11/13/16 21:49 IMPRESSION: 1. Worsened small airspace opacity and nodularity of the left lower lobe. Infectious, inflammatory, and neoplastic processes are in the differential diagnosis. Surveillance CT of the chest recommended within 7-12 weeks with clinically warranted therapy. 2. No acute yqzxv-gprxtwbwo-ghnjgf finding. Chest X-Ray 11/16/16 00:00 IMPRESSION: SUCCESSFUL PLACEMENT OF A 5 FR DUAL LUMEN 44 CM PICC IN THE left basilic VEIN. Guidance Fluoroscopy 11/16/16 00:00 IMPRESSION: SUCCESSFUL PLACEMENT OF A 5 FR DUAL LUMEN 44 CM PICC IN THE left basilic VEIN. Interventional Vascular Procedure 11/16/16 00:00 IMPRESSION: SUCCESSFUL PLACEMENT OF A 5 FR DUAL LUMEN 44 CM PICC IN THE left basilic VEIN. PICC Line Insertion 11/16/16 00:00 IMPRESSION: SUCCESSFUL PLACEMENT OF A 5 FR DUAL LUMEN 44 CM PICC IN THE left basilic VEIN. Qualifiers PATEINT BEING DISCHARGED WITH ANY OF THE FOLLOWING DIAGNOSIS?: No Plan Time Spent: Less than 30 Minutes
== END 2016-11-17 20:00 | disposition home health service (06) | DRG 177 ==
LOC: ER 21:13 → EH 11-14 01:25 → UNDOADMIN 11-14 01:25 → EH 11-14 02:44 → 4N 11-14 03:22 → EH 11-14 03:22
PROVIDERS: ADMIT Family Medicine; ATTEND Family Medicine
PROC: 02HV33Z Insertion of Infusion Device into Superior Vena Cava, Percutaneous Approach (ICD-10-PCS; principal; 2016-11-16)
PROC: B548ZZA Ultrasonography of Superior Vena Cava, Guidance (ICD-10-PCS; 2016-11-16)
DX: J15.1 Pneumonia due to Pseudomonas (principal); D61.810 Antineoplastic chemotherapy induced pancytopenia; C92.00 Acute myeloblastic leukemia, not having achieved remission; R91.1 Solitary pulmonary nodule; D63.0 Anemia in neoplastic disease; E78.5 Hyperlipidemia, unspecified; I10 Essential (primary) hypertension; M46.90 Unspecified inflammatory spondylopathy, site unspecified; Z79.899 Other long term (current) drug therapy; Z88.8 Allergy status to other drugs, medicaments and biological substances; Z66 Do not resuscitate
CPT/HCPCS: 36415; 36430; 36569; 71010; 71020; 74177; 76937; 77001; 80048; 80053; 80202; 81001; 82550; 82803; 83605; 83735; 84484; 85025; 85027; 85610; 85730; 86850; 86900; 86901; 86920; 87040; 87077; 87086; 87186; 93005; 93010; 94640; 94799; 96365; 96366; 96368; 99291; J0692; J1642; J1940; J3370; J3480; J3490; J7030; J7060; J7620; P9016

== ENCOUNTER → 2016-11-27 | Outpatient (CLI) | payer MEDICARE, OTHER ==
--- NOTE | 2016-11-27 15:36 | RADIOLOGY REPORT (SQ) ---
EXAM DESCRIPTION: CHEST PA/LAT COMPLETED DATE/TIME: 11/27/2016 3:25 pm REASON FOR STUDY: PNEUMONIA DUE TO PSEUDOMONAS COMPARISON: 11/16/2016. EXAM PARAMETERS: NUMBER OF VIEWS: two views TECHNIQUE: Digital Frontal and Lateral radiographic views of the chest acquired. RADIATION DOSE: NA LIMITATIONS: none FINDINGS: LUNGS AND PLEURA: Improved aeration in the left base with decrease in size of the retrocar diac infiltrate. Right lung clear. Incidental azygos lobe. No pleural effusion or pneumothorax. MEDIASTINUM AND HILAR STRUCTURES: No masses or contour abnormalities. HEART AND VASCULAR STRUCTURES: Heart normal size. No evidence for failure. BONES: No acute findings. HARDWARE: PICC line. OTHER: No other significant finding. IMPRESSION: LEFT BASILAR INFILTRATE HAS IMPROVED. TECHNICAL DOCUMENTATION: JOB ID: [id number] [employer]- All Rights Reserved
== END ==
LOC: RAD 15:07
PROVIDERS: ATTEND Family Medicine
DX: J15.1 Pneumonia due to Pseudomonas (principal)
CPT/HCPCS: 71020; 80069; 85025

== ENCOUNTER 2016-12-07 11:41 | Outpatient (CLI) | payer MEDICARE, OTHER ==
[~2016-12-07 11:41] MED LIST: ACETAMINOPHEN 325 MG TABLET PO PRN; DIPHENHYDRAMINE HCL 25 MG CAPSULE PO PRN; FUROSEMIDE INJ/PF 20 MG/2 ML SDV IV PRN
[2016-12-07 12:06] LABS: HEMATOCRIT 20.4 % (37.9-51.0); HGB HCT DIFFERENCE 0.3; MEAN CORPUSCULAR HEMOGLOBIN 30.9 pg (27.0-33.4); MEAN CORPUSCULAR HGB CONC 33.7 g/dL (32.0-36.0); MEAN CORPUSCULAR VOLUME 92 fl (80-97); RED BLOOD COUNT 2.22 10^6/uL (4.35-5.55); RED CELL DISTRIBUTION WIDTH 18.7 % (11.5-14.0)
[2016-12-07 12:59] LABS: HEMOGLOBIN 6.9 g/dL (13.5-17.0); WHITE BLOOD COUNT 0.6 10^3/uL (4.0-10.5)
[2016-12-07] MEDS ORDERED: NORMAL SALINE 250 ML IV PRN (12:59)
[2016-12-07] MEDS ORDERED: DIPHENHYDRAMINE HCL 25 MG CAPSULE ONE (13:00)
[2016-12-07] MEDS ORDERED: ACETAMINOPHEN 325 MG TABLET ONE (13:00)
[2016-12-07 16:49] VITALS: BP 126/57
== END 2016-12-07 16:49 | disposition home or self-care (01) ==
LOC: II 11:41 → 5TH 11:44 → II 16:49
PROVIDERS: ATTEND Internal Medicine
PROC: 30233N1 Transfusion of Nonautologous Red Blood Cells into Peripheral Vein, Percutaneous Approach (ICD-10-PCS; principal; 2016-12-07)
DX: D64.9 Anemia, unspecified (principal)
CPT/HCPCS: 86900; 86901; 36415; 36430; 86850; 86920; P9016; A9270 ×2

== ENCOUNTER 2016-12-21 13:58 | Outpatient (CLI) | payer MEDICARE, OTHER ==
[2016-12-21] MEDS ORDERED: NORMAL SALINE 250 ML IV PRN (14:44)
[2016-12-21 14:54] LABS: HEMATOCRIT 21.3 % (37.9-51.0); HGB HCT DIFFERENCE 0.3; MEAN CORPUSCULAR HEMOGLOBIN 30.4 pg (27.0-33.4); MEAN CORPUSCULAR HGB CONC 33.6 g/dL (32.0-36.0); MEAN CORPUSCULAR VOLUME 90 fl (80-97); RED BLOOD COUNT 2.36 10^6/uL (4.35-5.55); RED CELL DISTRIBUTION WIDTH 17.7 % (11.5-14.0)
[2016-12-21 15:32] LABS: WHITE BLOOD COUNT 1.1 10^3/uL (4.0-10.5)
[2016-12-21 15:37] LABS: HEMOGLOBIN 7.2 g/dL (13.5-17.0)
[2016-12-21 22:15] VITALS: BP 154/60
== END 2016-12-21 22:20 | disposition home or self-care (01) ==
LOC: II 13:58 → 3N 14:03 → II 22:20
PROVIDERS: ATTEND Internal Medicine
PROC: 30233N1 Transfusion of Nonautologous Red Blood Cells into Peripheral Vein, Percutaneous Approach (ICD-10-PCS; principal; 2016-12-21)
DX: D64.81 Anemia due to antineoplastic chemotherapy (principal); C92.00 Acute myeloblastic leukemia, not having achieved remission
CPT/HCPCS: 96374; 86900; 86901; 36415; 36430; 86850; 86920; P9016; A9270 ×2; J1940

== ENCOUNTER 2017-01-04 10:43 | Outpatient (CLI) | payer MEDICARE, OTHER ==
[2017-01-04 11:21] LABS: HEMATOCRIT 21.6 % (37.9-51.0); HGB HCT DIFFERENCE 0.6; MEAN CORPUSCULAR HEMOGLOBIN 31.6 pg (27.0-33.4); MEAN CORPUSCULAR HGB CONC 34.2 g/dL (32.0-36.0); MEAN CORPUSCULAR VOLUME 92 fl (80-97); RED BLOOD COUNT 2.34 10^6/uL (4.35-5.55); RED CELL DISTRIBUTION WIDTH 17.1 % (11.5-14.0)
[2017-01-04 12:04] LABS: HEMOGLOBIN 7.4 g/dL (13.5-17.0); WHITE BLOOD COUNT 0.8 10^3/uL (4.0-10.5)
[2017-01-04] MEDS ORDERED: NORMAL SALINE 250 ML IV PRN (12:28)
[2017-01-04 18:57] VITALS: BP 138/62
== END 2017-01-04 19:46 | disposition home or self-care (01) ==
LOC: II 10:43 → 5 10:44 → II 19:46
PROVIDERS: ATTEND Internal Medicine
PROC: 30233N1 Transfusion of Nonautologous Red Blood Cells into Peripheral Vein, Percutaneous Approach (ICD-10-PCS; principal; 2017-01-04)
DX: D64.9 Anemia, unspecified (principal)
CPT/HCPCS: 86900; 86901; 36415; 36430; 86850; 86920; P9016; A9270 ×2; J1940; 96374

== ENCOUNTER 2017-01-17 11:05 | Outpatient (CLI) | payer MEDICARE, OTHER ==
[2017-01-17] MEDS ORDERED: NORMAL SALINE 250 ML IV PRN (11:50)
[2017-01-17 12:12] LABS: HEMATOCRIT 22.3 % (37.9-51.0); HGB HCT DIFFERENCE 1.1; MEAN CORPUSCULAR HEMOGLOBIN 32.2 pg (27.0-33.4); MEAN CORPUSCULAR HGB CONC 34.7 g/dL (32.0-36.0); MEAN CORPUSCULAR VOLUME 93 fl (80-97); RED BLOOD COUNT 2.41 10^6/uL (4.35-5.55); RED CELL DISTRIBUTION WIDTH 15.9 % (11.5-14.0)
[2017-01-17 12:32] LABS: HEMOGLOBIN 7.8 g/dL (13.5-17.0); WHITE BLOOD COUNT 0.7 10^3/uL (4.0-10.5)
[2017-01-17 19:17] VITALS: BP 136/59
[2017-01-18 10:03] LABS: PATH REVIEW PATHOLOGIST REVIEWED
== END 2017-01-17 19:33 | disposition home or self-care (01) ==
LOC: II 11:05 → 2N 11:10 → II 19:33
PROVIDERS: ATTEND Internal Medicine
PROC: 30233N1 Transfusion of Nonautologous Red Blood Cells into Peripheral Vein, Percutaneous Approach (ICD-10-PCS; principal; 2017-01-17)
DX: D64.9 Anemia, unspecified (principal)
CPT/HCPCS: 86900; 86901; 36415; 36430; 86850; 86920; P9016; J1940

== ENCOUNTER 2017-01-29 10:38 | Inpatient (IN) | payer MEDICARE, OTHER ==
--- NOTE | 2017-01-29 11:19 | ER Document Report ---
ED Medical Screen (RME) - General Chief Complaint: Productive Cough Stated Complaint: COUGH/SHORTNESS OF BREATH Time Seen by Provider: 01/29/17 11:10 Notes: The patient is an 81-year-old male, past medical history leukemia (last chemo ~ 1 year ago), chronic anemia (receives transfusions about every 2 weeks) ( followed by Dr. Hancock), presents with a few days of increasing shortness of breath and dry cough. He has had multiple episodes of pseudomonal pneumonia. He only has chest pain when he coughs. He denies fevers, leg swelling, nausea, vomiting, rash or headache. PE: No respiratory distress. Coarse breath sounds in LLL. Frequent coughing. RRR. No peripheral edema. I have greeted and performed a rapid initial assessment of this patient. A comprehensive ED assessment and evaluation of the patient, analysis of test results and completion of the medical decision making process will be conducted by additional ED providers. TRAVEL OUTSIDE OF THE [place] IN LAST 30 DAYS: No - Related Data Allergies/Adverse Reactions: adenosine * [adenosine] Allergy (Verified 09/25/16 13:38) Passed out Past Medical History - Past Medical History Cardiac Medical History: Reports: Hx Hypercholesterolemia, Hx Hypertension Denies: Hx Congestive Heart Failure, Hx Coronary Artery Disease, Hx DVT, Hx Heart Attack, Hx Pulmonary Embolism Pulmonary Medical History: Denies: Hx Asthma, Hx Bronchitis, Hx COPD, Hx Pneumonia, Hx Sleep Apnea Neurological Medical History: Reports: 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 Denies: Hx Cerebrovascular Accident, Hx Migraine Endocrine Medical History: Denies: Hx Diabetes Mellitus Type 1, Hx Diabetes Mellitus Type 2, Hx Hyperthyroidism, Hx Hypothyroidism Renal/ Medical History: Reports: Hx Benign Prostatic Hyperplasia. 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 Denies: Hx Open Heart Surgery, Hx Pacemaker - Immunizations Hx Diphtheria, Pertussis, Tetanus Vaccination: No Physical Exam - Vital signs Vitals: Temp Pulse Resp BP Pulse Ox 98.1 F 97 20 104/60 97 01/29/17 10:54 01/29/17 10:54 01/29/17 10:54 01/29/17 10:54 01/29/17 10:54 Course - Vital Signs Vital signs: Temp Pulse Resp BP Pulse Ox 98.1 F 97 20 104/60 97 01/29/17 10:54 01/29/17 10:54 01/29/17 10:54 01/29/17 10:54 01/29/17 10:54
[2017-01-29 11:52] LABS: HEMATOCRIT 26.1 % (37.9-51.0); HEMOGLOBIN 8.9 g/dL (13.5-17.0); HGB HCT DIFFERENCE 0.6; MEAN CORPUSCULAR HEMOGLOBIN 31.5 pg (27.0-33.4); MEAN CORPUSCULAR HGB CONC 34.3 g/dL (32.0-36.0); MEAN CORPUSCULAR VOLUME 92 fl (80-97); RED BLOOD COUNT 2.84 10^6/uL (4.35-5.55); RED CELL DISTRIBUTION WIDTH 14.8 % (11.5-14.0)
--- NOTE | 2017-01-29 12:03 | ER Document Report ---
ED Respiratory Problem - General Mode of Arrival: Wheelchair Information source: Patient TRAVEL OUTSIDE OF THE [place] IN LAST 30 DAYS: No - HPI Patient complains to provider of: Cough, Short of breath Cough: Productive Sputum color: Yellow Associated symptoms: Wheezing - see above, Other <DHARMESH MORGAN - Last Filed: 01/29/17 13:16> <MARY TOURE - Last Filed: 01/29/17 13:24> - General Chief Complaint: Productive Cough Stated Complaint: COUGH/SHORTNESS OF BREATH Time Seen by Provider: 01/29/17 11:10 Notes: Patient is an 81 year old male who presents to the ED with complaints of worsening productive cough and SOB. Patient states he has yellow sputum production and states he has some chest pain when he coughs. Patient is weak and states his appetite is not great. Patient denies a fever. Patient was admitted to the hospital on November 14, 2016 with left lower lobe pneumonia and blood cultures grew out pseudomonas. Patient states his symptoms resolved after treatment an this is a new problems. Patient had AML and his last chemo was sometime last year. He receives blood transfusions every 2 weeks due to chronic anemia. (DHARMESH MORGAN) - Related Data Allergies/Adverse Reactions: adenosine * [adenosine] Allergy (Verified 09/25/16 13:38) Passed out Past Medical History - General Information source: Patient - Social History Smoking Status: Unknown if Ever Smoked Family History: Reviewed & Not Pertinent - Past Medical History Cardiac Medical History: Reports: Hx Hypercholesterolemia, Hx Hypertension Pulmonary Medical History: Reports: Hx Pneumonia - pseudomonas Neurological Medical History: Reports: Hx Seizures - CHILD Renal/ Medical History: Reports: Hx Benign Prostatic Hyperplasia Malignancy Medical History: 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 denies: Fever EENT: No symptoms reported Cardiovascular: See HPI, Chest pain - with coughing Respiratory: See HPI, Cough, Short of breath, Sputum Gastrointestinal: See HPI, Poor appetite Genitourinary: No symptoms reported Male Genitourinary: No symptoms reported Musculoskeletal: No symptoms reported Skin: No symptoms reported Hematologic/Lymphatic: No symptoms reported Neurological/Psychological: No symptoms reported <DHARMESH MORGAN - Last Filed: 01/29/17 13:16> Physical Exam - General General appearance: Appears well, Alert - HEENT Head: Normocephalic, Atraumatic Eyes: Normal Extraocular movements intact: Yes Pupils: PERRL - Respiratory Respiratory status: Other - breathing a little fast Breath sounds: Rales - in right lung base and some in left lung base, Rhonchi - in bases - Cardiovascular Rhythm: Regular Heart sounds: Normal auscultation Murmur: No - Abdominal Inspection: Normal Distension: No distension Tenderness: Nontender - Back Back: Normal - Extremities General upper extremity: Normal inspection, Normal ROM General lower extremity: Normal inspection, Normal ROM. No: Edema - Neurological Neuro grossly intact: Yes - Psychological Associated symptoms: Normal affect, Normal mood - Skin Skin Temperature: Warm Skin Moisture: Dry Skin Color: Normal <DHARMESH MORGAN - Last Filed: 01/29/17 13:16> - Vital signs Vitals: Temp Pulse Resp BP Pulse Ox 98.1 F 97 20 104/60 97 01/29/17 10:54 01/29/17 10:54 01/29/17 10:54 01/29/17 10:54 01/29/17 10:54 Course - Laboratory Result Diagrams: 01/29/17 11:30 01/29/17 11:30 - Consults Dr. Stringer Time consulted: 13:16 Consulted provider: will come to ER, follow-up in office, will see as inpatient <DHARMESH MORGAN - Last Filed: 01/29/17 13:16> - Laboratory Result Diagrams: 01/29/17 11:30 01/29/17 11:30 - Diagnostic Test Radiology reviewed: Image reviewed, Reports reviewed - Bibasilar densities, subsegmental atelectasis versus infiltrates - EKG Interpretation by [facility] EKG shows normal: Sinus rhythm, [place], Intervals, QRS Complexes, ST-T Waves Rate: Normal - 78 Rhythm: NSR Voltage: Decreased voltage <MARY TOURE - Last Filed: 01/29/17 13:24> - Vital Signs Vital signs: Temp Pulse Resp BP Pulse Ox 98.1 F 97 20 104/60 97 01/29/17 10:54 01/29/17 10:54 01/29/17 10:54 01/29/17 10:54 01/29/17 10:54 - Laboratory Laboratory results interpreted by me: 01/29/17 01/29/17 11:30 11:30 WBC 0.9 L* RBC 2.84 L Hgb 8.9 L Hct 26.1 L RDW 14.8 H Plt Count 77 L Seg Neuts % (Manual) 28 L Lymphocytes % (Manual) 60 H Abs Neuts (Manual) 0.3 L Total Bilirubin 1.7 H Creatine Kinase < 20 L - Consults Dr. Stringer Reason for consultation: 01/29/17 13:16 Discussed patient. Patient accepted for admission. (DHARMESH MORGAN) 01/29/17 13:23 Telemetry admit, start cefepime, vancomycin, and Levaquin. (MARY TOURE) Discharge <DHARMESH MORGAN - Last Filed: 01/29/17 13:16> - Discharge Admitting Provider: Hospitalist Unit Admitted: Telemetry <MARY TOURE - Last Filed: 01/29/17 13:24> - Discharge Clinical Impression: Thrombocytopenia, Pancytopenia Neutropenia Qualifiers: Neutropenia type: unspecified Qualified Code(s): D70.9 - Neutropenia, unspecified Pneumonia Qualifiers: Pneumonia type: due to unspecified organism Laterality: bilateral Lung location : lower lobe of lung Qualified Code(s): J18.9 - Pneumonia, unspecified organism AML (acute myeloid leukemia) Qualifiers: Leukemia Active/Remission status: in remission Qualified Code(s): C92.01 - Acute myeloblastic leukemia, in remission; C92.61 - Acute myeloid leukemia with [id number] in remission; 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 (MARY TOURE) Scribe Documentation - Scribe Written by Raegan:: raegan Mahmood, 01/29/2017, 1207 acting as scribe for :: Guillermina <DHARMESH MORGAN - Last Filed: 01/29/17 13:16>
[2017-01-29 12:05] LABS: ALANINE AMINOTRANSFERASE 49 U/L (21-72); ALBUMIN 4.4 g/dL (3.5-5.0); ALKALINE PHOSPHATASE 102 U/L (38-126); ANION GAP 13 (5-19); ASPARTATE AMINO TRANSFERASE 33 U/L (17-59); BILIRUBIN,DIRECT 0.4 mg/dL (0.0-0.4); BILIRUBIN,TOTAL 1.7 mg/dL (0.2-1.3); BLOOD UREA NITROGEN 18 mg/dL (7-20); CALCIUM 9.1 mg/dL (8.4-10.2); CARBON DIOXIDE 25 mmol/L (22-30); CHLORIDE 103 mmol/L (98-107); CREATININE RESULT 0.82 mg/dL (0.52-1.25); GLUCOSE 107 mg/dL (75-110); POTASSIUM 4.1 mmol/L (3.6-5.0); SODIUM 141.3 mmol/L (137-145); TOTAL PROTEIN 7.1 g/dL (6.3-8.2)
[2017-01-29 12:06] LABS: CREATINE KINASE < 20 U/L (55-170)
[2017-01-29 12:18] LABS: TROPONIN I < 0.012 ng/mL
[2017-01-29 12:28] LABS: BASOPHILS % (MANUAL) 0 % (0-2); EOSINOPHILS % (MANUAL) 0 % (0-6); LYMPHOCYTES % (MANUAL) 60 % (13-45); NUCLEATED RED BLOOD CELLS 4 /100 WBC (0); TOTAL CELLS COUNTED 50
[2017-01-29 12:30] LABS: ANISOCYTOSIS SLIGHT; OVALOCYTES 1+; POIKILOCYTOSIS 1+; SCHISTOCYTES SLIGHT; TEAR DROP CELLS SLIGHT
--- NOTE | 2017-01-29 12:33 | RADIOLOGY REPORT (SQ) ---
EXAM DESCRIPTION: CHEST PA/LAT COMPLETED DATE/TIME: 01/29/2017 11:53 am REASON FOR STUDY: SOB COMPARISON: None. EXAM PARAMETERS: NUMBER OF VIEWS: two views TECHNIQUE: Digital Frontal and Lateral radiographic views of the chest acquired. RADIATION DOSE: NA LIMITATIONS: none FINDINGS: LUNGS AND PLEURA: There are some minimal predominately linear basilar densities which coul d represent subsegmental atelectasis or minimal infiltrates. The there is some blunting of the costo phrenic angles which could represent tiny effusions or pleural reaction. The remaining lung espinosa a re clear. MEDIASTINUM AND HILAR STRUCTURES: No masses or contour abnormalities. HEART AND VASCULAR STRUCTURES: Heart normal size. No evidence for failure. BONES: No acute findings. HARDWARE: None in the chest. OTHER: No other significant finding. IMPRESSION: Bibasilar densities as noted above TECHNICAL DOCUMENTATION: JOB ID: [id number] [employer]- All Rights Reserved
[2017-01-29 12:35] LABS: WHITE BLOOD COUNT 0.9 10^3/uL (4.0-10.5)
[2017-01-29] MEDS ORDERED: LEVOFLOXACIN 750 MG/D5W RTU 750 MG/150 ML RTUPB IV ONE (13:19)
[2017-01-29] MEDS ORDERED: VANCOMYCIN HCL INJ 1000 MG VIAL IV ONE (13:19)
[2017-01-29] MEDS ORDERED: CEFEPIME 1 GM/D5W RTU 1 GM/50 ML RTUPB IV ONE (13:19)
[2017-01-29] MEDS ORDERED: IPRATROPIUM/ALBUTEROL 0.5-2.5 MG/3 ML AMPUL NEB PRN (13:20)
[2017-01-29] MEDS ORDERED: LEVALBUTEROL HCL NEB 1.25 MG/3 ML AMPUL NEB PRN (13:20)
[2017-01-29] MEDS ORDERED: ACETAMINOPHEN 325 MG TABLET PO PRN (13:20)
[2017-01-29] MEDS ORDERED: GENTAMICIN SULFATE 0 MG in DEXTROSE 5%-WATER 100 ML IV NR (13:30)
[2017-01-29] MEDS ORDERED: VANCOMYCIN HCL 0 MG in DEXTROSE 5%-WATER 250 ML IV NR (13:30)
[2017-01-29] MEDS ORDERED: BACITRACIN ZINC OINTMENT 15 GM TP ONE (15:00)
[2017-01-29] MEDS ORDERED: POLYETHYLENE GLYCOL 3350 POWDER 17 GM/1 PACKET PO PRN (16:46)
[2017-01-29] MEDS: NORMAL SALINE 1000 ML 1,000 ML IV PRN (16:49)
--- NOTE | 2017-01-29 17:00 | PDOC H&P ---
History of Present Illness Admission Date/PCP: 01/29/17 13:20 DALIA MENDOZA MD History of Present Illness: DINA JOSHUA is a 81 year old male with a history of MDS/AML and prior recent admission approximately 2 months ago for neutropenic fever during which time he was found to have pseudomonal bacteremia and Enterococcus faecalis group D and his urine who presents with approximately 2 weeks of feeling poorly. He reports occasional sputum production with associated shortness of breath. He reports significant dyspnea on exertion. He reports a lack of energy and chills but no overt fever. He reports that he has not been eating or drinking as well as he normally does. Upon presentation the emergency department he has found to have bilateral lower lobe infiltrates is referred to the hospitalist service for sepsis with neutropenia and bilateral pneumonia. 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 GI Medical History: Reports: Gastroesophageal Reflux Disease, Other Denies: Cirrhosis, Hepatitis, Hiatal Hernia Musculoskeltal Medical History: 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 Psychiatric Medical History: Denies: Depression Hematology: Reports: Anemia, Bleeding Tendencies Denies: Sickle Cell Disease Infectious Medical History: Denies: Clostridium Difficile, Methicillin-Resistant Staph Aureus Past Surgical History Past Surgical History: Reports: Appendectomy, Cardiac Catheterization, Orthopedic Surgery Denies: Pacemaker Social History Smoking Status: Never Smoker Frequency of Alcohol Use: None Hx Recreational Drug Use: No Drugs: None Hx Prescription Drug Abuse: No - Advance Directive Resuscitation Status: Do Not Resuscitate Surrogate healthcare decision maker:: Mare Pickett, daughter Family History Family History: CAD Parental Family History Reviewed: Yes Children Family History Reviewed: Yes Sibling(s) Family History Reviewed.: Yes Medication/Allergy Home Medications: Alfuzosin HCl [Uroxatral] 10 mg PO DAILY 11/14/16 Allopurinol [Zyloprim 300 mg Tablet] 300 mg PO DAILY 11/14/16 Docusate Sodium [Colace 100 mg Capsule] 100 mg PO BID 11/14/16 Finasteride [Proscar 5 mg Tablet] 5 mg PO DAILY 11/14/16 Gabapentin [Neurontin 300 mg Capsule] 300 mg PO Q8 11/14/16 Metoprolol Tartrate [Lopressor 25 mg Tablet] 25 mg PO Q12 11/14/16 Montelukast Sodium [Singulair 10 mg Tablet] 10 mg PO QHS 11/14/16 Sertraline HCl [Zoloft] 25 mg PO DAILY 11/14/16 Pantoprazole Sodium 40 mg PO DAILY 01/29/17 Polyethylene Glycol 3350 [Miralax Powder 17 gm/Packet] 17 gm PO DAILYP PRN 01/29 Allergies/Adverse Reactions: adenosine * [adenosine] Allergy (Verified 01/29/17 14:57) Passed out Review of Systems Constitutional: PRESENT: as per HPI, anorexia, chills, fatigue, weakness, weight loss. ABSENT: fever(s), headache(s), weight gain Eyes: ABSENT: visual disturbances Ears: ABSENT: hearing changes Nose, Mouth, and Throat: ABSENT: headache(s), mouth pain Cardiovascular: ABSENT: chest pain, dyspnea on exertion, edema, orthropnea, palpitations Respiratory: PRESENT: cough, sputum. ABSENT: hemoptysis Gastrointestinal: PRESENT: constipation. ABSENT: abdominal pain, coffee ground emesis, diarrhea, hematemesis, hematochezia, melena, nausea, vomiting Genitourinary: ABSENT: dysuria, hematuria Musculoskeletal: ABSENT: joint swelling Integumentary: ABSENT: rash, wounds Neurological: ABSENT: abnormal gait, abnormal speech, confusion, dizziness, focal weakness, syncope Psychiatric: ABSENT: anxiety, depression, homidical ideation, suicidal ideation Endocrine: ABSENT: cold intolerance, heat intolerance, polydipsia, polyuria Hematologic/Lymphatic: ABSENT: easy bleeding, easy bruising Physical Exam Vital Signs: Temp Pulse Resp BP Pulse Ox 98.1 F 97 19 130/73 H 97 01/29/17 10:54 01/29/17 10:54 01/29/17 14:01 01/29/17 14:01 01/29/17 14:01 General appearance: PRESENT: mild distress, well-developed, well-nourished Head exam: PRESENT: atraumatic, normocephalic Eye exam: PRESENT: conjunctiva pale, EOMI, PERRLA. ABSENT: scleral icterus Ear exam: PRESENT: normal external ear exam Mouth exam: PRESENT: moist, tongue midline Neck exam: ABSENT: JVD, lymphadenopathy, thyromegaly, tracheal deviation Respiratory exam: PRESENT: rhonchi - bilateral lower lobe, symmetrical, unlabored. ABSENT: clear to auscultation jane, rales, retraction, tachypnea, wheezes Cardiovascular exam: PRESENT: RRR, +S1, +S2. ABSENT: diastolic murmur, rubs, systolic murmur Pulses: PRESENT: normal dorsalis pedis pul Vascular exam: PRESENT: normal capillary refill GI/Abdominal exam: PRESENT: normal bowel sounds, soft. ABSENT: distended, firm , guarding, mass, organolmegaly, rebound, rigid, tenderness Rectal exam: PRESENT: deferred Extremities exam: PRESENT: full ROM. ABSENT: calf tenderness, clubbing, pedal edema Neurological exam: PRESENT: alert, awake, oriented to person, oriented to place , oriented to time, oriented to situation, CN II-XII grossly intact. ABSENT: motor sensory deficit Psychiatric exam: PRESENT: appropriate affect, normal mood. ABSENT: homicidal ideation, suicidal ideation Skin exam: PRESENT: dry, intact, warm. ABSENT: cyanosis, rash Results Laboratory Results: 01/29/17 01/29/17 01/29/17 11:30 11:30 11:30 WBC 0.9 L* Hgb 8.9 L Hct 26.1 L Plt Count 77 L Lymphocytes % (Manual) 60 H Sodium 141.3 BUN 18 Creatinine 0.82 Lactic Acid Total Bilirubin 1.7 H Troponin I < 0.012 NT-Pro-B Natriuret Pep 239 Albumin 4.4 01/29/17 12:52 WBC Hgb Hct Plt Count Lymphocytes % (Manual) Sodium BUN Creatinine Lactic Acid 1.5 Total Bilirubin Troponin I NT-Pro-B Natriuret Pep Albumin Impressions: Chest X-Ray 01/29/17 11:11 IMPRESSION: Bibasilar densities as noted above Status: Imported from PACS Assessment & Plan - Diagnosis (1) Pancytopenia Is this a current diagnosis for this admission?: Yes Plan: For the neutropenic aspect of this, will panculture patient and put him on broad -spectrum antibiotics. He is not a candidate for an Neupogen based on his AML. For the thrombocytopenia aspect of this, No pharmacologic anticoagulation will monitor his platelets. For the anemia aspect of this, will type and screen and likely anticipate the patient will end up receiving a transfusion this admission. Patient has in the last 4 years received 37 units of blood from this hospital alone and is at high risk for antibodies. Will monitor closely. (2) Pneumonia Qualifiers: Pneumonia type: due to unspecified organism Laterality: bilateral Lung location: lower lobe of lung Qualified Code(s): J18.9 - Pneumonia, unspecified organism Is this a current diagnosis for this admission?: Yes Plan: Place patient on cefepime, vancomycin, gentamicin, and Levaquin. Patient is immune compromised and has a history of prior pseudomonal infection. Aggressive pulmonary toileting and obtain cultures. Continue to monitor empirically. 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, in remission Is this a current diagnosis for this admission?: Yes Plan: Consult patient's oncologist (4) Constipation Qualifiers: Constipation type: unspecified constipation type Qualified Code(s): K59.00 - Constipation, unspecified Is this a current diagnosis for this admission?: Yes Plan: Continue cathartics (5) DNR (do not resuscitate) Is this a current diagnosis for this admission?: Yes - Time Time Spent: 50 to 70 Minutes Medications reviewed and adjusted accordingly: Yes - Inpatient Certification Based on my medical assessment, after consideration of the patient's comorbidities, presenting symptoms, or acuity I expect that the services needed warrant INPATIENT care.: Yes I certify that my determination is in accordance with my understanding of Medicare's requirements for reasonable and necessary INPATIENT services [42 CFR 412.3e].: Yes Medical Necessity: Need for IV Antibiotics Post Hospital Care: D/[facility] Documentation
[2017-01-29] MEDS ORDERED: BACITRACIN ZINC OINTMENT 15 GM TP SCH (18:00)
[2017-01-29] MEDS: GENTAMICIN SULFATE 200 MG in DEXTROSE 5%-WATER 100 ML IV SCH (18:02)
[2017-01-29] MEDS: BACITRACIN ZINC OINTMENT 15 GM TP SCH (18:09)
[2017-01-29] MEDS: DOCUSATE SODIUM 100 MG CAPSULE PO SCH (18:11)
--- NOTE | 2017-01-29 20:08 | EKG REPORT ---
SEVERITY:- OTHERWISE NORMAL ECG - SINUS RHYTHM LOW VOLTAGE IN FRONTAL LEADS CAN NOT R/O INF NM OLD : Confirmed by: Hanane Sears 29-Jan-2017 20:07:38
[2017-01-29] MEDS: MONTELUKAST SODIUM 10 MG TABLET PO SCH (21:57)
[2017-01-29] MEDS: GABAPENTIN 300 MG CAPSULE PO SCH (21:57)
[2017-01-29] MEDS: FAMOTIDINE 20 MG TABLET PO SCH (21:57)
[2017-01-29] MEDS: GUAIFENESIN 600 MG TABLET.SA PO SCH (21:57)
[2017-01-29] MEDS: CEFEPIME 2 GM/D5W RTU 2 GM/50 ML RTUPB IV SCH (21:58)
[2017-01-29] MEDS: METOPROLOL TARTRATE 25 MG TABLET PO SCH (21:58)
[2017-01-29 22:36] LABS: APPEARANCE,URINE CLEAR; BILIRUBIN,URINE NEGATIVE (NEGATIVE); GLUCOSE, URINE NEGATIVE (NEGATIVE); KETONES,URINE NEGATIVE (NEGATIVE); LEUKOCYTE ESTERASE,URINE NEGATIVE (NEGATIVE); NITRITE,URINE NEGATIVE (NEGATIVE); PROTEIN,URINE NEGATIVE (NEGATIVE); URINE SPECIFIC GRAVITY 1.016; UROBILINOGEN,URINE NEGATIVE mg/dL (<2.0)
[2017-01-30] MEDS: NORMAL SALINE 1000 ML 1,000 ML IV PRN ×2 (02:48→19:38)
[2017-01-30] MEDS: VANCOMYCIN HCL 1,000 MG in DEXTROSE 5%-WATER 250 ML IV SCH ×2 (02:48→14:35)
[2017-01-30 05:36] LABS: HEMATOCRIT 19.7 % (37.9-51.0); MEAN CORPUSCULAR HEMOGLOBIN 31.7 pg (27.0-33.4); MEAN CORPUSCULAR HGB CONC 34.9 g/dL (32.0-36.0); MEAN CORPUSCULAR VOLUME 91 fl (80-97); RED BLOOD COUNT 2.17 10^6/uL (4.35-5.55); RED CELL DISTRIBUTION WIDTH 14.9 % (11.5-14.0)
[2017-01-30 05:42] LABS: ALANINE AMINOTRANSFERASE 33 U/L (21-72); ALBUMIN 3.1 g/dL (3.5-5.0); ALKALINE PHOSPHATASE 84 U/L (38-126); ANION GAP 7 (5-19); ASPARTATE AMINO TRANSFERASE 27 U/L (17-59); BILIRUBIN,DIRECT 0.3 mg/dL (0.0-0.4); BLOOD UREA NITROGEN 18 mg/dL (7-20); CALCIUM 8.6 mg/dL (8.4-10.2); CARBON DIOXIDE 25 mmol/L (22-30); CHLORIDE 107 mmol/L (98-107); CREATININE RESULT 0.83 mg/dL (0.52-1.25); GLUCOSE 111 mg/dL (75-110); POTASSIUM 3.9 mmol/L (3.6-5.0); SODIUM 139.1 mmol/L (137-145); TOTAL PROTEIN 5.5 g/dL (6.3-8.2)
[2017-01-30] MEDS: GABAPENTIN 300 MG CAPSULE PO SCH ×3 (06:19→22:36)
[2017-01-30 06:32] LABS: WHITE BLOOD COUNT 0.9 10^3/uL (4.0-10.5)
[2017-01-30 06:34] LABS: HEMOGLOBIN 6.9 g/dL (13.5-17.0)
[2017-01-30 06:35] LABS: BAND NEUTROPHILS % (MANUAL) 8 % (3-5); BASOPHILS % (MANUAL) 0 % (0-2); EOSINOPHILS % (MANUAL) 0 % (0-6); LYMPHOCYTES % (MANUAL) 62 % (13-45); NUCLEATED RED BLOOD CELLS 3 /100 WBC (0); TOTAL CELLS COUNTED 50
[2017-01-30 06:39] LABS: ANISOCYTOSIS SLIGHT; OVALOCYTES SLIGHT; POIKILOCYTOSIS SLIGHT; TEAR DROP CELLS SLIGHT
[2017-01-30] MEDS ORDERED: FUROSEMIDE INJ/PF 20 MG/2 ML SDV IV PRN (07:57)
[2017-01-30] MEDS ORDERED: DIPHENHYDRAMINE HCL 25 MG CAPSULE PO PRN (07:58)
[2017-01-30] MEDS ORDERED: ACETAMINOPHEN 325 MG TABLET PO PRN (07:58)
--- NOTE | 2017-01-30 08:03 | PDOC CONSULTATION ---
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 He has required on average 4 units PRBC/month, he has had recent freq admits for neutropenic sepsis, pneumonia, and recently had pseudomonas sepsis. He presents w/ 2 wk hx of worsening cough, SOB, weakness, CXR indicated b/l opacities c/w pneumonia, pt was admitted now on cefepime/vanc for neutropenic sepsis/fever coverage and levaquin/gent for double coverage pseudomas and pt prev had enterobacter UTI. Cultures now pending. Hb on admit 8 range, today down to 6 range. 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 GI Medical History: Reports: Gastroesophageal Reflux Disease, Other Denies: Cirrhosis, Hepatitis, Hiatal Hernia Musculoskeltal Medical History: 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 Psychiatric Medical History: Denies: Depression Hematology: Reports: Anemia, Bleeding Tendencies Denies: Sickle Cell Disease Infectious Medical History: Denies: Clostridium Difficile, Methicillin-Resistant Staph Aureus Past Surgical History Past Surgical History: Reports: Appendectomy, Cardiac Catheterization, Orthopedic Surgery Denies: Pacemaker Social History Smoking Status: Never Smoker Frequency of Alcohol Use: None Hx Recreational Drug Use: No Drugs: None Hx Prescription Drug Abuse: No - Advance Directive Resuscitation Status: Do Not Resuscitate Family History Family History: CAD Parental Family History Reviewed: Yes Children Family History Reviewed: Yes Sibling(s) Family History Reviewed.: Yes Medication/Allergy Home Medications: Alfuzosin HCl [Uroxatral] 10 mg PO DAILY 11/14/16 Allopurinol [Zyloprim 300 mg Tablet] 300 mg PO DAILY 11/14/16 Docusate Sodium [Colace 100 mg Capsule] 100 mg PO BID 11/14/16 Finasteride [Proscar 5 mg Tablet] 5 mg PO DAILY 11/14/16 Gabapentin [Neurontin 300 mg Capsule] 300 mg PO Q8 11/14/16 Metoprolol Tartrate [Lopressor 25 mg Tablet] 25 mg PO Q12 11/14/16 Montelukast Sodium [Singulair 10 mg Tablet] 10 mg PO QHS 11/14/16 Sertraline HCl [Zoloft] 25 mg PO DAILY 11/14/16 Pantoprazole Sodium 40 mg PO DAILY 01/29/17 Polyethylene Glycol 3350 [Miralax Powder 17 gm/Packet] 17 gm PO DAILYP PRN 01/29 Allergies/Adverse Reactions: adenosine * [adenosine] Allergy (Verified 01/29/17 14:57) Passed out Review of Systems Constitutional: ABSENT: chills, fever(s), headache(s), weight gain, weight loss Eyes: ABSENT: visual disturbances Ears: ABSENT: hearing changes Cardiovascular: ABSENT: chest pain, dyspnea on exertion, edema, orthropnea, palpitations Respiratory: ABSENT: cough, hemoptysis Gastrointestinal: ABSENT: abdominal pain, constipation, diarrhea, hematemesis, hematochezia, nausea, vomiting Genitourinary: ABSENT: dysuria, hematuria Musculoskeletal: ABSENT: joint swelling Integumentary: ABSENT: rash, wounds Neurological: ABSENT: abnormal gait, abnormal speech, confusion, dizziness, focal weakness, syncope Psychiatric: ABSENT: anxiety, depression, homidical ideation, suicidal ideation Endocrine: ABSENT: cold intolerance, heat intolerance, polydipsia, polyuria Hematologic/Lymphatic: ABSENT: easy bleeding, easy bruising Physical Exam Vital Signs: Temp Pulse Resp BP Pulse Ox 98.3 F 59 L 16 106/50 L 93 01/30/17 03:00 01/30/17 07:00 01/30/17 03:00 01/30/17 03:00 01/30/17 03:00 Intake & Output 01/29/17 01/30/17 01/31/17 06:59 06:59 06:59 Intake Total 1935 Output Total 125 Balance 1810 Weight 86.1 kg General appearance: PRESENT: no acute distress, well-developed, well-nourished Head exam: PRESENT: atraumatic, normocephalic Eye exam: PRESENT: conjunctiva pink, EOMI, PERRLA. ABSENT: scleral icterus Ear exam: PRESENT: normal external ear exam Mouth exam: PRESENT: moist, tongue midline Neck exam: ABSENT: carotid bruit, JVD, lymphadenopathy, thyromegaly Respiratory exam: PRESENT: clear to auscultation jane. ABSENT: rales, rhonchi, wheezes Cardiovascular exam: PRESENT: RRR. ABSENT: diastolic murmur, rubs, systolic murmur Pulses: PRESENT: normal dorsalis pedis pul Vascular exam: PRESENT: normal capillary refill GI/Abdominal exam: PRESENT: normal bowel sounds, soft. ABSENT: distended, guarding, mass, organolmegaly, rebound, tenderness Rectal exam: PRESENT: deferred Extremities exam: PRESENT: full ROM. ABSENT: calf tenderness, clubbing, pedal edema Neurological exam: PRESENT: alert, awake, oriented to person, oriented to place , oriented to time, oriented to situation, CN II-XII grossly intact. ABSENT: motor sensory deficit Psychiatric exam: PRESENT: appropriate affect, normal mood. ABSENT: homicidal ideation, suicidal ideation Skin exam: PRESENT: dry, intact, warm. ABSENT: cyanosis, rash Results Laboratory Results: 01/30/17 04:36 01/30/17 04:36 01/29/17 01/29/17 01/30/17 17:29 22:10 04:36 WBC 0.9 L* RBC 2.17 L Hgb 6.9 L Hct 19.7 L MCV 91 MCH 31.7 MCHC 34.9 RDW 14.9 H Plt Count 57 L Seg Neutrophils % Not Reportable Lymphocytes % Not Reportable Monocytes % Not Reportable Eosinophils % Not Reportable Basophils % Not Reportable Absolute Neutrophils Not Reportable Absolute Lymphocytes Not Reportable Absolute Monocytes Not Reportable Absolute Eosinophils Not Reportable Absolute Basophils Not Reportable Sodium Potassium Chloride Carbon Dioxide Anion Gap BUN Creatinine Est GFR ( Amer) Est GFR (Non-Af Amer) Glucose Calcium Total Bilirubin AST ALT Alkaline Phosphatase Total Protein Albumin Urine Color YELLOW Urine Appearance CLEAR Urine pH 5.0 Ur Specific [place] 1.016 Urine Protein NEGATIVE Urine Glucose (UA) NEGATIVE Urine Ketones NEGATIVE Urine Blood NEGATIVE Urine Nitrite NEGATIVE Ur Leukocyte Esterase NEGATIVE Urine WBC (Auto) 0 Urine RBC (Auto) 1 Blood Type B NEGATIVE Antibody Screen NEGATIVE 01/30/17 04:36 WBC RBC Hgb Hct MCV MCH MCHC RDW Plt Count Seg Neutrophils % Lymphocytes % Monocytes % Eosinophils % Basophils % Absolute Neutrophils Absolute Lymphocytes Absolute Monocytes Absolute Eosinophils Absolute Basophils Sodium 139.1 Potassium 3.9 Chloride 107 Carbon Dioxide 25 Anion Gap 7 BUN 18 Creatinine 0.83 Est GFR ( Amer) > 60 Est GFR (Non-Af Amer) > 60 Glucose 111 H Calcium 8.6 Total Bilirubin 1.0 AST 27 ALT 33 Alkaline Phosphatase 84 Total Protein 5.5 L Albumin 3.1 L Urine Color Urine Appearance Urine pH Ur Specific [place] Urine Protein Urine Glucose (UA) Urine Ketones Urine Blood Urine Nitrite Ur Leukocyte Esterase Urine WBC (Auto) Urine RBC (Auto) Blood Type Antibody Screen Impressions: Chest X-Ray 01/29/17 11:11 IMPRESSION: Bibasilar densities as noted above Assessment & Plan - Diagnosis (1) LLL pneumonia Qualifiers: Pneumonia type: due to unspecified organism Qualified Code(s): J18.1 - Lobar pneumonia, unspecified organism Is this a current diagnosis for this admission?: Yes Plan: Awaiting cultures, if negative x 48 hours would taper antbx quickly, con't per hospitalist team. 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 (3) Neutropenia Qualifiers: Neutropenia type: other Qualified Code(s): D70.8 - Other neutropenia Is this a current diagnosis for this admission?: Yes Plan: 2nd AML/MDS, no neupogen possible, con't to monitor (4) Anemia Qualifiers: Anemia type: other cause Other causes of anemia: chronic disease, neoplastic Qualified Code(s): D63.0 - Anemia in neoplastic disease Is this a current diagnosis for this admission?: Yes Plan: 2nd to MDS/AML, will give 2 units prbc today - Time Time Spent: Greater than 70 Minutes Critical Time spent with patient: 35 or more minutes - Inpatient Certification Based on my medical assessment, after consideration of the patient's comorbidities, presenting symptoms, or acuity I expect that the services needed warrant INPATIENT care.: Yes I certify that my determination is in accordance with my understanding of Medicare's requirements for reasonable and necessary INPATIENT services [42 CFR 412.3e].: Yes Medical Necessity: Failure to Improve With Outpatient Therapy, Need For IV Fluids, Need for IV Antibiotics
[2017-01-30] MEDS ORDERED: (PENDING PHARMACY ID) (Sertraline Hcl [Zoloft] 25 MG) PO SCH (10:00)
[2017-01-30] MEDS: FINASTERIDE 5 MG TABLET PO SCH (11:01)
[2017-01-30] MEDS: DOCUSATE SODIUM 100 MG CAPSULE PO SCH ×2 (11:04→17:08)
[2017-01-30] MEDS: LANSOPRAZOLE 30 MG TAB.RAP.DR PO SCH (11:04)
[2017-01-30] MEDS: GUAIFENESIN 600 MG TABLET.SA PO SCH ×2 (11:05→22:37)
[2017-01-30] MEDS: FAMOTIDINE 20 MG TABLET PO SCH ×2 (11:05→22:36)
[2017-01-30] MEDS: SERTRALINE HCL 50 MG TABLET PO SCH (11:06)
[2017-01-30] MEDS: TAMSULOSIN HCL 0.4 MG CAP.SR.24H PO SCH (11:06)
[2017-01-30] MEDS: METOPROLOL TARTRATE 25 MG TABLET PO SCH ×2 (11:07→22:32)
[2017-01-30] MEDS: ALLOPURINOL 300 MG TABLET PO SCH (11:08)
[2017-01-30] MEDS: CEFEPIME 2 GM/D5W RTU 2 GM/50 ML RTUPB IV SCH ×2 (11:09→22:37)
[2017-01-30] MEDS: BACITRACIN ZINC OINTMENT 15 GM TP SCH ×2 (11:10→17:32)
[2017-01-30] MEDS: LEVOFLOXACIN 750 MG/D5W RTU 750 MG/150 ML RTUPB IV SCH (13:00)
--- NOTE | 2017-01-30 16:55 | PDOC PROGRESS REPORT ---
Subjective Progress Note for:: 01/30/17 Subjective:: Patient is currently receiving blood transfusion due to his hemoglobin dropping to 6.9. Patient reports he is feeling significantly better today. He does report his cough is productive of sputum. Patient does report some diarrhea. He denies hematochezia or not melena Patient denies chest pain, shortness of breath, abdominal pain, nausea, vomiting , fevers, chills, constipation, headache, new onset weakness. Physical Exam Vital Signs: Temp Pulse Resp BP Pulse Ox 98.3 F 59 L 16 106/50 L 93 01/30/17 03:00 01/30/17 07:00 01/30/17 03:00 01/30/17 03:00 01/30/17 03:00 Intake & Output 01/29/17 01/30/17 01/31/17 06:59 06:59 06:59 Intake Total 1935 Output Total 125 Balance 1810 Weight 86.1 kg Exam: General: Awake alert and oriented x3, no acute respiratory distress HEENT: AT/NC, PERRL, EOMI, oropharynx is moist, pale pink, no scleral icterus, no conjunctival injection Neck: No JVD, trachea midline Chest: rhonchi bilateral lower lobes CV: Regular rate and rhythm, normal S1 and S2, no murmur, rub, or gallop Abdomen: Soft, nontender to palpation, nondistended, active bowel sounds; no rebound, rigidity, or guarding Extremities: No cyanosis, clubbing or edema Neuro: Cranial nerves II through XII are grossly intact without focal deficits; awake alert and oriented x3 Psych: Normal mood and affect Results Laboratory Results: 01/30/17 04:36 01/30/17 04:36 01/29/17 01/29/17 01/30/17 17:29 22:10 04:36 WBC 0.9 L* RBC 2.17 L Hgb 6.9 L Hct 19.7 L MCV 91 MCH 31.7 MCHC 34.9 RDW 14.9 H Plt Count 57 L Seg Neutrophils % Not Reportable Lymphocytes % Not Reportable Monocytes % Not Reportable Eosinophils % Not Reportable Basophils % Not Reportable Absolute Neutrophils Not Reportable Absolute Lymphocytes Not Reportable Absolute Monocytes Not Reportable Absolute Eosinophils Not Reportable Absolute Basophils Not Reportable Sodium Potassium Chloride Carbon Dioxide Anion Gap BUN Creatinine Est GFR ( Amer) Est GFR (Non-Af Amer) Glucose Calcium Total Bilirubin AST ALT Alkaline Phosphatase Total Protein Albumin Urine Color YELLOW Urine Appearance CLEAR Urine pH 5.0 Ur Specific [place] 1.016 Urine Protein NEGATIVE Urine Glucose (UA) NEGATIVE Urine Ketones NEGATIVE Urine Blood NEGATIVE Urine Nitrite NEGATIVE Ur Leukocyte Esterase NEGATIVE Urine WBC (Auto) 0 Urine RBC (Auto) 1 Blood Type B NEGATIVE Antibody Screen NEGATIVE 01/30/17 04:36 WBC RBC Hgb Hct MCV MCH MCHC RDW Plt Count Seg Neutrophils % Lymphocytes % Monocytes % Eosinophils % Basophils % Absolute Neutrophils Absolute Lymphocytes Absolute Monocytes Absolute Eosinophils Absolute Basophils Sodium 139.1 Potassium 3.9 Chloride 107 Carbon Dioxide 25 Anion Gap 7 BUN 18 Creatinine 0.83 Est GFR ( Amer) > 60 Est GFR (Non-Af Amer) > 60 Glucose 111 H Calcium 8.6 Total Bilirubin 1.0 AST 27 ALT 33 Alkaline Phosphatase 84 Total Protein 5.5 L Albumin 3.1 L Urine Color Urine Appearance Urine pH Ur Specific [place] Urine Protein Urine Glucose (UA) Urine Ketones Urine Blood Urine Nitrite Ur Leukocyte Esterase Urine WBC (Auto) Urine RBC (Auto) Blood Type Antibody Screen Impressions: Chest X-Ray 01/29/17 11:11 IMPRESSION: Bibasilar densities as noted above Assessment & Plan - Diagnosis (1) Pancytopenia Is this a current diagnosis for this admission?: Yes Plan: For the neutropenic aspect of this, will panculture patient and put him on broad -spectrum antibiotics. He is not a candidate for an Neupogen based on his AML. For the thrombocytopenia aspect of this, no pharmacologic anticoagulation will monitor his platelets. For the anemia aspect of this, patient is receiving 2UPRBC. Will follow and transfuse if below 8 (2) Pneumonia Qualifiers: Pneumonia type: due to unspecified organism Laterality: bilateral Lung location: lower lobe of lung Qualified Code(s): J18.9 - Pneumonia, unspecified organism Is this a current diagnosis for this admission?: Yes Plan: Place patient on cefepime, vancomycin, gentamicin, and Levaquin. Patient is immune compromised and has a history of prior pseudomonal infection. Aggressive pulmonary toileting and pending cultures. 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 Qualified Code(s): C92.00 - Acute myeloblastic leukemia, not having achieved remission Is this a current diagnosis for this admission?: Yes (4) Constipation Qualifiers: Constipation type: unspecified constipation type Qualified Code(s): K59.00 - Constipation, unspecified Is this a current diagnosis for this admission?: Yes Plan: hold cathartics Patient reports diarrhea and will check for C. difficile. (5) DNR (do not resuscitate) Is this a current diagnosis for this admission?: Yes (6) Anemia Qualifiers: Anemia type: other cause Other causes of anemia: chronic disease, neoplastic Qualified Code(s): D63.0 - Anemia in neoplastic disease Is this a current diagnosis for this admission?: Yes Plan: See above - Time Time Spent with patient: 25-34 minutes Medications reviewed and adjusted accordingly: Yes
[2017-01-30] MEDS: GENTAMICIN SULFATE 200 MG in DEXTROSE 5%-WATER 100 ML IV SCH (17:32)
[2017-01-30] MEDS: MONTELUKAST SODIUM 10 MG TABLET PO SCH (22:36)
[2017-01-31] MEDS: NORMAL SALINE 1000 ML 1,000 ML IV PRN ×2 (02:04→11:56)
[2017-01-31] MEDS: VANCOMYCIN HCL 1,000 MG in DEXTROSE 5%-WATER 250 ML IV SCH ×2 (02:04→14:13)
[2017-01-31 05:33] LABS: HEMATOCRIT 25.5 % (37.9-51.0); HEMOGLOBIN 8.9 g/dL (13.5-17.0); HGB HCT DIFFERENCE 1.2; MEAN CORPUSCULAR HEMOGLOBIN 30.9 pg (27.0-33.4); MEAN CORPUSCULAR HGB CONC 34.8 g/dL (32.0-36.0); MEAN CORPUSCULAR VOLUME 89 fl (80-97); RED BLOOD COUNT 2.88 10^6/uL (4.35-5.55); RED CELL DISTRIBUTION WIDTH 14.1 % (11.5-14.0)
[2017-01-31] MEDS: GABAPENTIN 300 MG CAPSULE PO SCH ×3 (05:34→22:01)
[2017-01-31 05:59] LABS: BAND NEUTROPHILS % (MANUAL) 6 % (3-5); BASOPHILS % (MANUAL) 0 % (0-2); EOSINOPHILS % (MANUAL) 0 % (0-6); LYMPHOCYTES % (MANUAL) 46 % (13-45); NUCLEATED RED BLOOD CELLS 2 /100 WBC (0); TOTAL CELLS COUNTED 50
[2017-01-31 06:05] LABS: ANISOCYTOSIS SLIGHT; BURR CELLS SLIGHT; OVALOCYTES SLIGHT; POIKILOCYTOSIS SLIGHT; POLYCHROMASIA SLIGHT; SCHISTOCYTES SLIGHT; TEAR DROP CELLS SLIGHT; TOXIC GRANULATION SLIGHT
[2017-01-31 06:07] LABS: WHITE BLOOD COUNT 1.1 10^3/uL (4.0-10.5)
--- NOTE | 2017-01-31 07:48 | PDOC PROGRESS REPORT ---
Subjective Progress Note for:: 01/31/17 Subjective:: Pt doing better this am, less cough, feels better Physical Exam Vital Signs: Temp Pulse Resp BP Pulse Ox 97.5 F 55 L 16 122/61 95 01/31/17 04:56 01/31/17 07:00 01/31/17 04:56 01/31/17 04:56 01/31/17 04:56 Intake & Output 01/30/17 01/31/17 02/01/17 06:59 06:59 06:59 Intake Total 1935 3905 Output Total 125 700 Balance 1810 3205 Weight 86.1 kg 87.4 kg General appearance: PRESENT: no acute distress, well-developed, well-nourished Head exam: PRESENT: atraumatic, normocephalic Eye exam: PRESENT: conjunctiva pink, EOMI, PERRLA. ABSENT: scleral icterus Ear exam: PRESENT: normal external ear exam Mouth exam: PRESENT: moist, tongue midline Neck exam: ABSENT: carotid bruit, JVD, lymphadenopathy, thyromegaly Respiratory exam: PRESENT: clear to auscultation jane. ABSENT: rales, rhonchi, wheezes Cardiovascular exam: PRESENT: RRR. ABSENT: diastolic murmur, rubs, systolic murmur Pulses: PRESENT: normal dorsalis pedis pul Vascular exam: PRESENT: normal capillary refill GI/Abdominal exam: PRESENT: normal bowel sounds, soft. ABSENT: distended, guarding, mass, organolmegaly, rebound, tenderness Rectal exam: PRESENT: deferred Extremities exam: PRESENT: full ROM. ABSENT: calf tenderness, clubbing, pedal edema Neurological exam: PRESENT: alert, awake, oriented to person, oriented to place , oriented to time, oriented to situation, CN II-XII grossly intact. ABSENT: motor sensory deficit Psychiatric exam: PRESENT: appropriate affect, normal mood. ABSENT: homicidal ideation, suicidal ideation Skin exam: PRESENT: dry, intact, warm. ABSENT: cyanosis, rash Results Laboratory Results: 01/31/17 04:29 01/30/17 04:36 01/29/17 01/31/17 17:29 04:29 WBC 1.1 L* RBC 2.88 L Hgb 8.9 L Hct 25.5 L MCV 89 MCH 30.9 MCHC 34.8 RDW 14.1 H Plt Count 52 L Seg Neutrophils % Not Reportable Lymphocytes % Not Reportable Monocytes % Not Reportable Eosinophils % Not Reportable Basophils % Not Reportable Absolute Neutrophils Not Reportable Absolute Lymphocytes Not Reportable Absolute Monocytes Not Reportable Absolute Eosinophils Not Reportable Absolute Basophils Not Reportable Blood Type B NEGATIVE Antibody Screen NEGATIVE Impressions: Chest X-Ray 01/29/17 11:11 IMPRESSION: Bibasilar densities as noted above Assessment & Plan - Diagnosis (1) LLL pneumonia Qualifiers: Pneumonia type: due to unspecified organism Qualified Code(s): J18.1 - Lobar pneumonia, unspecified organism Is this a current diagnosis for this admission?: Yes Plan: Cont broad spec atbx, taper when we have culture negativity, pt doing clinically better (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 But otherwise monitor. - Time Time Spent with patient: 25-34 minutes Critical Time spent with patient: 25-34 minutes - Inpatient Certification Based on my medical assessment, after consideration of the patient's comorbidities, presenting symptoms, or acuity I expect that the services needed warrant INPATIENT care.: Yes I certify that my determination is in accordance with my understanding of Medicare's requirements for reasonable and necessary INPATIENT services [42 CFR 412.3e].: Yes Medical Necessity: Need for IV Antibiotics
[2017-01-31] MEDS: CEFEPIME 2 GM/D5W RTU 2 GM/50 ML RTUPB IV SCH ×2 (09:35→22:00)
[2017-01-31] MEDS: FINASTERIDE 5 MG TABLET PO SCH (09:36)
[2017-01-31] MEDS: SERTRALINE HCL 50 MG TABLET PO SCH (09:36)
[2017-01-31] MEDS: FAMOTIDINE 20 MG TABLET PO SCH ×2 (09:36→22:00)
[2017-01-31] MEDS: METOPROLOL TARTRATE 25 MG TABLET PO SCH ×2 (09:36→22:01)
[2017-01-31] MEDS: DOCUSATE SODIUM 100 MG CAPSULE PO SCH ×2 (09:36→17:55)
[2017-01-31] MEDS: TAMSULOSIN HCL 0.4 MG CAP.SR.24H PO SCH (09:36)
[2017-01-31] MEDS: BACITRACIN ZINC OINTMENT 15 GM TP SCH ×2 (09:37→18:02)
[2017-01-31] MEDS: LANSOPRAZOLE 30 MG TAB.RAP.DR PO SCH (09:37)
[2017-01-31] MEDS: ALLOPURINOL 300 MG TABLET PO SCH (09:37)
[2017-01-31] MEDS: GUAIFENESIN 600 MG TABLET.SA PO SCH ×2 (09:37→22:00)
[2017-01-31] MEDS: LEVOFLOXACIN 750 MG/D5W RTU 750 MG/150 ML RTUPB IV SCH (11:56)
[2017-01-31] MEDS: GENTAMICIN SULFATE 200 MG in DEXTROSE 5%-WATER 100 ML IV SCH (17:56)
--- NOTE | 2017-01-31 18:54 | PDOC PROGRESS REPORT ---
Subjective Progress Note for:: 01/31/17 Subjective:: Patient reports he is feeling significantly better today. He does report his cough is productive of sputum. Patient denies chest pain, shortness of breath, abdominal pain, nausea, vomiting , fevers, chills, constipation, headache, new onset weakness. Physical Exam Vital Signs: Temp Pulse Resp BP Pulse Ox 98.0 F 69 17 109/51 L 97 01/31/17 07:41 01/31/17 07:41 01/31/17 07:41 01/31/17 07:41 01/31/17 07:41 Intake & Output 01/30/17 01/31/17 02/01/17 06:59 06:59 06:59 Intake Total 1935 3905 Output Total 125 700 Balance 1810 3205 Weight 86.1 kg 87.4 kg Exam: General: Awake alert and oriented x3, no acute respiratory distress HEENT: AT/NC, PERRL, EOMI, oropharynx is moist, pale pink, no scleral icterus, no conjunctival injection Neck: No JVD, trachea midline Chest: rhonchi bilateral lower lobes CV: Regular rate and rhythm, normal S1 and S2, no murmur, rub, or gallop Abdomen: Soft, nontender to palpation, nondistended, active bowel sounds; no rebound, rigidity, or guarding Extremities: No cyanosis, clubbing or edema Neuro: Cranial nerves II through XII are grossly intact without focal deficits; awake alert and oriented x3 Psych: Normal mood and affect Results Laboratory Results: 01/31/17 04:29 01/30/17 04:36 01/29/17 01/31/17 17:29 04:29 WBC 1.1 L* RBC 2.88 L Hgb 8.9 L Hct 25.5 L MCV 89 MCH 30.9 MCHC 34.8 RDW 14.1 H Plt Count 52 L Seg Neutrophils % Not Reportable Lymphocytes % Not Reportable Monocytes % Not Reportable Eosinophils % Not Reportable Basophils % Not Reportable Absolute Neutrophils Not Reportable Absolute Lymphocytes Not Reportable Absolute Monocytes Not Reportable Absolute Eosinophils Not Reportable Absolute Basophils Not Reportable Blood Type B NEGATIVE Antibody Screen NEGATIVE 01/29/17 22:10 Clean Catch Midstream Urine Culture - Final NO GROWTH 2 DAYS Impressions: Chest X-Ray 01/29/17 11:11 IMPRESSION: Bibasilar densities as noted above Assessment & Plan - Diagnosis (1) Pancytopenia Is this a current diagnosis for this admission?: Yes Plan: For the neutropenic aspect of this, will panculture patient and put him on broad -spectrum antibiotics. He is not a candidate for an Neupogen based on his AML. For the thrombocytopenia aspect of this, no pharmacologic anticoagulation will monitor his platelets. For the anemia aspect of this, patient is received 2UPRBC. Will follow and transfuse if below 8 (2) Pneumonia Qualifiers: Pneumonia type: due to unspecified organism Laterality: bilateral Lung location: lower lobe of lung Qualified Code(s): J18.9 - Pneumonia, unspecified organism Is this a current diagnosis for this admission?: Yes Plan: Place patient on cefepime, vancomycin, gentamicin, and Levaquin. Patient is immune compromised and has a history of prior pseudomonal infection. Aggressive pulmonary toileting and pending cultures. 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 Qualified Code(s): C92.00 - Acute myeloblastic leukemia, not having achieved remission Is this a current diagnosis for this admission?: Yes Plan: Appreciate oncologist (4) Constipation Qualifiers: Constipation type: unspecified constipation type Qualified Code(s): K59.00 - Constipation, unspecified Is this a current diagnosis for this admission?: Yes (5) Anemia Qualifiers: Anemia type: other cause Other causes of anemia: chronic disease, neoplastic Qualified Code(s): D63.0 - Anemia in neoplastic disease Is this a current diagnosis for this admission?: Yes (6) DNR (do not resuscitate) Is this a current diagnosis for this admission?: Yes - Time Time Spent with patient: 25-34 minutes Medications reviewed and adjusted accordingly: Yes Anticipated discharge: Home - Inpatient Certification Medical Necessity: Need for IV Antibiotics
[2017-01-31] MEDS: MONTELUKAST SODIUM 10 MG TABLET PO SCH (22:00)
[2017-02-01] MEDS: VANCOMYCIN HCL 1,000 MG in DEXTROSE 5%-WATER 250 ML IV SCH (03:10)
[2017-02-01 04:51] LABS: HEMATOCRIT 27.8 % (37.9-51.0); HEMOGLOBIN 9.6 g/dL (13.5-17.0); MEAN CORPUSCULAR HEMOGLOBIN 31.1 pg (27.0-33.4); MEAN CORPUSCULAR HGB CONC 34.5 g/dL (32.0-36.0); MEAN CORPUSCULAR VOLUME 90 fl (80-97); RED BLOOD COUNT 3.08 10^6/uL (4.35-5.55); RED CELL DISTRIBUTION WIDTH 14.5 % (11.5-14.0)
[2017-02-01 05:18] LABS: WHITE BLOOD COUNT 1.3 10^3/uL (4.0-10.5)
[2017-02-01 05:19] LABS: BASOPHILS % (MANUAL) 0 % (0-2); EOSINOPHILS % (MANUAL) 0 % (0-6); LYMPHOCYTES % (MANUAL) 64 % (13-45); TOTAL CELLS COUNTED 50
[2017-02-01 05:20] LABS: ANISOCYTOSIS SLIGHT; BURR CELLS SLIGHT; NUCLEATED RED BLOOD CELLS 4 /100 WBC (0); OVALOCYTES SLIGHT; POIKILOCYTOSIS SLIGHT; POLYCHROMASIA SLIGHT; SCHISTOCYTES SLIGHT; TEAR DROP CELLS SLIGHT; TOXIC GRANULATION SLIGHT
[2017-02-01] MEDS: GABAPENTIN 300 MG CAPSULE PO SCH ×3 (05:29→21:19)
--- NOTE | 2017-02-01 08:10 | PDOC PROGRESS REPORT ---
Subjective Progress Note for:: 02/01/17 Subjective:: Doing much better today, cultures so far negative. Physical Exam Vital Signs: Temp Pulse Resp BP Pulse Ox 97.9 F 62 16 130/66 H 97 02/01/17 03:17 02/01/17 03:17 02/01/17 03:17 02/01/17 03:17 02/01/17 03:17 Intake & Output 01/31/17 02/01/17 02/02/17 06:59 06:59 06:59 Intake Total 3905 2640 Output Total 700 1375 Balance 3205 1265 Weight 87.4 kg 87.1 kg General appearance: PRESENT: no acute distress, well-developed, well-nourished Head exam: PRESENT: atraumatic, normocephalic Eye exam: PRESENT: conjunctiva pink, EOMI, PERRLA. ABSENT: scleral icterus Ear exam: PRESENT: normal external ear exam Mouth exam: PRESENT: moist, tongue midline Neck exam: ABSENT: carotid bruit, JVD, lymphadenopathy, thyromegaly Respiratory exam: PRESENT: clear to auscultation jane. ABSENT: rales, rhonchi, wheezes Cardiovascular exam: PRESENT: RRR. ABSENT: diastolic murmur, rubs, systolic murmur Pulses: PRESENT: normal dorsalis pedis pul Vascular exam: PRESENT: normal capillary refill GI/Abdominal exam: PRESENT: normal bowel sounds, soft. ABSENT: distended, guarding, mass, organolmegaly, rebound, tenderness Rectal exam: PRESENT: deferred Extremities exam: PRESENT: full ROM. ABSENT: calf tenderness, clubbing, pedal edema Neurological exam: PRESENT: alert, awake, oriented to person, oriented to place , oriented to time, oriented to situation, CN II-XII grossly intact. ABSENT: motor sensory deficit Psychiatric exam: PRESENT: appropriate affect, normal mood. ABSENT: homicidal ideation, suicidal ideation Skin exam: PRESENT: dry, intact, warm. ABSENT: cyanosis, rash Results Laboratory Results: 02/01/17 04:27 01/30/17 04:36 02/01/17 04:27 WBC 1.3 L* RBC 3.08 L Hgb 9.6 L Hct 27.8 L MCV 90 MCH 31.1 MCHC 34.5 RDW 14.5 H Plt Count 56 L Seg Neutrophils % Not Reportable Lymphocytes % Not Reportable Monocytes % Not Reportable Eosinophils % Not Reportable Basophils % Not Reportable Absolute Neutrophils Not Reportable Absolute Lymphocytes Not Reportable Absolute Monocytes Not Reportable Absolute Eosinophils Not Reportable Absolute Basophils Not Reportable 01/30/17 08:35 Sputum Gram Stain - Final 01/30/17 08:35 Sputum Sputum Culture - Final 01/29/17 22:10 Clean Catch Midstream Urine Culture - Final NO GROWTH 2 DAYS Impressions: Chest X-Ray 01/29/17 11:11 IMPRESSION: Bibasilar densities as noted above Assessment & Plan - Diagnosis (1) LLL pneumonia Qualifiers: Pneumonia type: due to unspecified organism Qualified Code(s): J18.1 - Lobar pneumonia, unspecified organism Is this a current diagnosis for this admission?: Yes Plan: Cont atbx per hospitalist team, 1 more day for cultures to mature (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 Qualified Code(s): C92.00 - Acute myeloblastic leukemia, not having achieved remission Is this a current diagnosis for this admission?: Yes Plan: Stable, no rx at present (3) Neutropenia Qualifiers: Neutropenia type: other Qualified Code(s): D70.8 - Other neutropenia Is this a current diagnosis for this admission?: Yes Plan: stable (4) Anemia Qualifiers: Anemia type: other cause Other causes of anemia: chronic disease, neoplastic Qualified Code(s): D63.0 - Anemia in neoplastic disease Is this a current diagnosis for this admission?: Yes Plan: hb stable, transfuse if hb <7 - Time Time Spent with patient: 15-24 minutes Critical Time spent with patient: 15-24 minutes
[2017-02-01] MEDS: METOPROLOL TARTRATE 25 MG TABLET PO SCH ×2 (10:18→21:19)
[2017-02-01] MEDS: SERTRALINE HCL 50 MG TABLET PO SCH (10:18)
[2017-02-01] MEDS: LANSOPRAZOLE 30 MG TAB.RAP.DR PO SCH (10:18)
[2017-02-01] MEDS: FINASTERIDE 5 MG TABLET PO SCH (10:18)
[2017-02-01] MEDS: DOCUSATE SODIUM 100 MG CAPSULE PO SCH ×2 (10:18→18:17)
[2017-02-01] MEDS: ALLOPURINOL 300 MG TABLET PO SCH (10:18)
[2017-02-01] MEDS: FAMOTIDINE 20 MG TABLET PO SCH ×2 (10:19→21:19)
[2017-02-01] MEDS: GUAIFENESIN 600 MG TABLET.SA PO SCH ×2 (10:19→21:19)
[2017-02-01] MEDS: CEFEPIME 2 GM/D5W RTU 2 GM/50 ML RTUPB IV SCH ×2 (10:19→21:19)
[2017-02-01] MEDS: TAMSULOSIN HCL 0.4 MG CAP.SR.24H PO SCH (10:19)
[2017-02-01] MEDS: BACITRACIN ZINC OINTMENT 15 GM TP SCH ×2 (10:19→18:17)
[2017-02-01] MEDS: LEVOFLOXACIN 750 MG/D5W RTU 750 MG/150 ML RTUPB IV SCH (13:29)
--- NOTE | 2017-02-01 17:58 | PDOC PROGRESS REPORT ---
Subjective Progress Note for:: 02/01/17 Subjective:: Patient seen earlier today on morning rounds. He reports he is feeling significantly better. Patient denies chest pain, shortness of breath, abdominal pain, nausea, vomiting , fevers, chills, diarrhea, constipation, headache, new onset weakness. Physical Exam Vital Signs: Temp Pulse Resp BP Pulse Ox 98.1 F 52 L 17 162/67 H 100 02/01/17 15:32 02/01/17 15:32 02/01/17 15:32 02/01/17 15:32 02/01/17 15:32 Intake & Output 01/31/17 02/01/17 02/02/17 06:59 06:59 06:59 Intake Total 3905 2640 Output Total 700 1375 Balance 3205 1265 Weight 87.4 kg 87.1 kg Exam: General: Awake alert and oriented x3, no acute respiratory distress HEENT: AT/NC, PERRL, EOMI, oropharynx is moist, pale pink, no scleral icterus, no conjunctival injection Neck: No JVD, trachea midline Chest: CTAB CV: Regular rate and rhythm, normal S1 and S2, no murmur, rub, or gallop Abdomen: Soft, nontender to palpation, nondistended, active bowel sounds; no rebound, rigidity, or guarding Extremities: No cyanosis, clubbing or edema Neuro: Cranial nerves II through XII are grossly intact without focal deficits; awake alert and oriented x3 Psych: Normal mood and affect Results Laboratory Results: 02/01/17 04:27 01/30/17 04:36 02/01/17 04:27 WBC 1.3 L* RBC 3.08 L Hgb 9.6 L Hct 27.8 L MCV 90 MCH 31.1 MCHC 34.5 RDW 14.5 H Plt Count 56 L Seg Neutrophils % Not Reportable Lymphocytes % Not Reportable Monocytes % Not Reportable Eosinophils % Not Reportable Basophils % Not Reportable Absolute Neutrophils Not Reportable Absolute Lymphocytes Not Reportable Absolute Monocytes Not Reportable Absolute Eosinophils Not Reportable Absolute Basophils Not Reportable 01/30/17 08:35 Sputum AFB Smear Concentration - Final 01/30/17 08:35 Sputum Acid Fast Bacilli Smear - Final Impressions: Chest X-Ray 01/29/17 11:11 IMPRESSION: Bibasilar densities as noted above Assessment & Plan - Diagnosis (1) Pancytopenia Is this a current diagnosis for this admission?: Yes Plan: For the neutropenic aspect of this, will panculture patient and put him on broad -spectrum antibiotics. He is not a candidate for an Neupogen based on his AML. For the thrombocytopenia aspect of this, no pharmacologic anticoagulation will monitor his platelets. For the anemia aspect of this, patient received 2UPRBC. Will follow and transfuse if below 8 (2) Pneumonia Qualifiers: Pneumonia type: due to unspecified organism Laterality: bilateral Lung location: lower lobe of lung Qualified Code(s): J18.9 - Pneumonia, unspecified organism Is this a current diagnosis for this admission?: Yes Plan: Currently cultures are negative and he is unable to provide an additional sputum specimen. Remove gentamicin and vancomycin. We will begin to de-escalate antibiotics and monitor for worsening of condition or counts. Will use extreme caution with this patient due to his immune compromise status and he will continue to require IV antibiotics and nebulized treatments. We will change these to as needed. 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 Qualified Code(s): C92.00 - Acute myeloblastic leukemia, not having achieved remission Is this a current diagnosis for this admission?: Yes Plan: Appreciate oncologist (4) Constipation Qualifiers: Constipation type: unspecified constipation type Qualified Code(s): K59.00 - Constipation, unspecified Is this a current diagnosis for this admission?: Yes (5) Anemia Qualifiers: Anemia type: other cause Other causes of anemia: chronic disease, neoplastic Qualified Code(s): D63.0 - Anemia in neoplastic disease Is this a current diagnosis for this admission?: Yes (6) DNR (do not resuscitate) Is this a current diagnosis for this admission?: Yes - Time Time Spent with patient: 25-34 minutes Medications reviewed and adjusted accordingly: Yes Anticipated discharge: Home Within: within 48 hours
[2017-02-01 18:29] LABS: CREATININE RESULT 0.78 mg/dL (0.52-1.25)
[2017-02-01 18:31] LABS: GENTAMICIN-TROUGH 0.9 ug/mL (<2.0)
[2017-02-01] MEDS: MONTELUKAST SODIUM 10 MG TABLET PO SCH (21:19)
[2017-02-02 05:16] LABS: ANION GAP 8 (5-19); BLOOD UREA NITROGEN 19 mg/dL (7-20); CARBON DIOXIDE 24 mmol/L (22-30); CHLORIDE 109 mmol/L (98-107); CREATININE RESULT 0.85 mg/dL (0.52-1.25); GLUCOSE 105 mg/dL (75-110); POTASSIUM 4.1 mmol/L (3.6-5.0)
[2017-02-02 05:34] LABS: ABSOLUTE LYMPHOCYTES (AUTO) 0.6 10^3/uL (0.5-4.7); ABSOLUTE MONOCYTES (AUTO) 0.1 10^3/uL (0.1-1.4); ABSOLUTE NEUT (AUTO) 0.3 10^3/uL (1.7-8.2); BASOPHILS % (AUTO) 0.3 % (0-2); EOSINOPHILS % (AUTO) 3.9 % (0-6); HEMATOCRIT 25.7 % (37.9-51.0); HGB HCT DIFFERENCE 1.3; LYMPHOCYTES % (AUTO) 60.9 % (13-45); MEAN CORPUSCULAR HEMOGLOBIN 31.1 pg (27.0-33.4); MEAN CORPUSCULAR HGB CONC 35.1 g/dL (32.0-36.0); MEAN CORPUSCULAR VOLUME 89 fl (80-97); MONOCYTES % (AUTO) 7.6 % (3-13); RED BLOOD COUNT 2.89 10^6/uL (4.35-5.55); RED CELL DISTRIBUTION WIDTH 14.1 % (11.5-14.0); SEGMENTED NEUTROPHILS % (AUTO) 27.3 % (42-78)
[2017-02-02 05:36] LABS: WHITE BLOOD COUNT 0.9 10^3/uL (4.0-10.5)
[2017-02-02 05:39] LABS: ANISOCYTOSIS SLIGHT; BURR CELLS SLIGHT; POIKILOCYTOSIS SLIGHT; TEAR DROP CELLS SLIGHT; TOXIC GRANULATION SLIGHT
[2017-02-02] MEDS: GABAPENTIN 300 MG CAPSULE PO SCH ×3 (05:47→22:43)
--- NOTE | 2017-02-02 08:32 | PDOC PROGRESS REPORT ---
Subjective Progress Note for:: 02/02/17 Subjective:: Doing better Physical Exam Vital Signs: Temp Pulse Resp BP Pulse Ox 97.7 F 46 L 20 136/57 H 97 02/02/17 04:00 02/02/17 07:00 02/02/17 04:00 02/02/17 04:00 02/02/17 04:00 Intake & Output 02/01/17 02/02/17 02/03/17 06:59 06:59 06:59 Intake Total 2640 475 Output Total 1375 925 Balance 1265 -450 Weight 87.1 kg 85.3 kg General appearance: PRESENT: no acute distress, well-developed, well-nourished Head exam: PRESENT: atraumatic, normocephalic Eye exam: PRESENT: conjunctiva pink, EOMI, PERRLA. ABSENT: scleral icterus Ear exam: PRESENT: normal external ear exam Mouth exam: PRESENT: moist, tongue midline Neck exam: ABSENT: carotid bruit, JVD, lymphadenopathy, thyromegaly Respiratory exam: PRESENT: clear to auscultation jane. ABSENT: rales, rhonchi, wheezes Cardiovascular exam: PRESENT: RRR. ABSENT: diastolic murmur, rubs, systolic murmur Pulses: PRESENT: normal dorsalis pedis pul Vascular exam: PRESENT: normal capillary refill GI/Abdominal exam: PRESENT: normal bowel sounds, soft. ABSENT: distended, guarding, mass, organolmegaly, rebound, tenderness Rectal exam: PRESENT: deferred Extremities exam: PRESENT: full ROM. ABSENT: calf tenderness, clubbing, pedal edema Neurological exam: PRESENT: alert, awake, oriented to person, oriented to place , oriented to time, oriented to situation, CN II-XII grossly intact. ABSENT: motor sensory deficit Psychiatric exam: PRESENT: appropriate affect, normal mood. ABSENT: homicidal ideation, suicidal ideation Skin exam: PRESENT: dry, intact, warm. ABSENT: cyanosis, rash Results Laboratory Results: 02/02/17 04:18 02/02/17 04:18 02/01/17 02/02/17 02/02/17 17:54 04:18 04:18 WBC 0.9 L* RBC 2.89 L Hgb 9.0 L Hct 25.7 L MCV 89 MCH 31.1 MCHC 35.1 RDW 14.1 H Plt Count 51 L Seg Neutrophils % 27.3 L Lymphocytes % 60.9 H Monocytes % 7.6 Eosinophils % 3.9 Basophils % 0.3 Absolute Neutrophils 0.3 L Absolute Lymphocytes 0.6 Absolute Monocytes 0.1 Absolute Eosinophils 0.0 Absolute Basophils 0.0 Sodium 141.0 Potassium 4.1 Chloride 109 H Carbon Dioxide 24 Anion Gap 8 BUN 19 Creatinine 0.78 0.85 Est GFR ( Amer) > 60 > 60 Est GFR (Non-Af Amer) > 60 > 60 Glucose 105 Calcium 9.0 01/30/17 08:35 Sputum AFB Smear Concentration - Final 01/30/17 08:35 Sputum Acid Fast Bacilli Smear - Final Impressions: Chest X-Ray 01/29/17 11:11 IMPRESSION: Bibasilar densities as noted above Assessment & Plan - Diagnosis (1) LLL pneumonia Qualifiers: Pneumonia type: due to unspecified organism Qualified Code(s): J18.1 - Lobar pneumonia, unspecified organism Is this a current diagnosis for this admission?: Yes Plan: Improved, atbx tapered per hospitalist team (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
[2017-02-02] MEDS: CEFEPIME 2 GM/D5W RTU 2 GM/50 ML RTUPB IV SCH ×2 (09:54→22:43)
[2017-02-02] MEDS: LEVOFLOXACIN 750 MG TABLET PO SCH (09:55)
[2017-02-02] MEDS: METOPROLOL TARTRATE 25 MG TABLET PO SCH ×2 (09:55→22:43)
[2017-02-02] MEDS: FINASTERIDE 5 MG TABLET PO SCH (09:55)
[2017-02-02] MEDS: TAMSULOSIN HCL 0.4 MG CAP.SR.24H PO SCH (09:55)
[2017-02-02] MEDS: GUAIFENESIN 600 MG TABLET.SA PO SCH ×2 (09:55→22:43)
[2017-02-02] MEDS: DOCUSATE SODIUM 100 MG CAPSULE PO SCH ×2 (09:55→17:57)
[2017-02-02] MEDS: ALLOPURINOL 300 MG TABLET PO SCH (09:55)
[2017-02-02] MEDS: SERTRALINE HCL 50 MG TABLET PO SCH (09:56)
[2017-02-02] MEDS: FAMOTIDINE 20 MG TABLET PO SCH ×2 (09:56→22:43)
[2017-02-02] MEDS: LANSOPRAZOLE 30 MG TAB.RAP.DR PO SCH (09:56)
[2017-02-02] MEDS: BACITRACIN ZINC OINTMENT 15 GM TP SCH ×2 (10:00→17:58)
--- NOTE | 2017-02-02 17:11 | PDOC PROGRESS REPORT ---
Subjective Progress Note for:: 02/02/17 Subjective:: Patient reports he is feeling significantly better today. Patient admits to mild constipation. Patient denies chest pain, shortness of breath, abdominal pain, nausea, vomiting, fevers, chills, diarrhea, headache, new onset weakness. Physical Exam Vital Signs: Temp Pulse Resp BP Pulse Ox 97.7 F 46 L 20 136/57 H 97 02/02/17 04:00 02/02/17 07:00 02/02/17 04:00 02/02/17 04:00 02/02/17 04:00 Intake & Output 02/01/17 02/02/17 02/03/17 06:59 06:59 06:59 Intake Total 2640 475 Output Total 1375 925 Balance 1265 -450 Weight 87.1 kg 85.3 kg Exam: General: Awake alert and oriented x3, no acute respiratory distress HEENT: AT/NC, PERRL, EOMI, oropharynx is moist, pale pink, no scleral icterus, no conjunctival injection Neck: No JVD, trachea midline Chest: CTAB CV: Regular rate and rhythm, normal S1 and S2, no murmur, rub, or gallop Abdomen: Soft, nontender to palpation, nondistended, active bowel sounds; no rebound, rigidity, or guarding Extremities: No cyanosis, clubbing or edema Neuro: Cranial nerves II through XII are grossly intact without focal deficits; awake alert and oriented x3 Psych: Normal mood and affect Results Laboratory Results: 02/02/17 04:18 02/02/17 04:18 02/01/17 02/02/17 02/02/17 17:54 04:18 04:18 WBC 0.9 L* RBC 2.89 L Hgb 9.0 L Hct 25.7 L MCV 89 MCH 31.1 MCHC 35.1 RDW 14.1 H Plt Count 51 L Seg Neutrophils % 27.3 L Lymphocytes % 60.9 H Monocytes % 7.6 Eosinophils % 3.9 Basophils % 0.3 Absolute Neutrophils 0.3 L Absolute Lymphocytes 0.6 Absolute Monocytes 0.1 Absolute Eosinophils 0.0 Absolute Basophils 0.0 Sodium 141.0 Potassium 4.1 Chloride 109 H Carbon Dioxide 24 Anion Gap 8 BUN 19 Creatinine 0.78 0.85 Est GFR ( Amer) > 60 > 60 Est GFR (Non-Af Amer) > 60 > 60 Glucose 105 Calcium 9.0 01/30/17 08:35 Sputum AFB Smear Concentration - Final 01/30/17 08:35 Sputum Acid Fast Bacilli Smear - Final Impressions: Chest X-Ray 01/29/17 11:11 IMPRESSION: Bibasilar densities as noted above Assessment & Plan - Diagnosis (1) Pancytopenia Is this a current diagnosis for this admission?: Yes Plan: For the neutropenic aspect of this, patient was initially started on broad- spectrum antibiotics, but today I will taper him down to Levaquin alone. He is not a candidate for an Neupogen based on his AML. For the thrombocytopenia aspect of this, no pharmacologic anticoagulation will monitor his platelets. For the anemia aspect of this, patient received 2UPRBC. Will follow and transfuse if below 8. Currently stable. (2) Pneumonia Qualifiers: Pneumonia type: due to unspecified organism Laterality: bilateral Lung location: lower lobe of lung Qualified Code(s): J18.9 - Pneumonia, unspecified organism Is this a current diagnosis for this admission?: Yes Plan: Currently cultures are negative and he is unable to provide an additional sputum specimen. Stop cefepime today. Continue Levaquin alone. De-escalate antibiotics and monitor for worsening of condition or counts. If patient remains afebrile for the next 24 hours may be discharged on an additional 2 days of Levaquin. 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 Qualified Code(s): C92.00 - Acute myeloblastic leukemia, not having achieved remission Is this a current diagnosis for this admission?: Yes Plan: Appreciate oncologist (4) Constipation Qualifiers: Constipation type: unspecified constipation type Qualified Code(s): K59.00 - Constipation, unspecified Is this a current diagnosis for this admission?: Yes Plan: Resume MiraLAX (5) Anemia Qualifiers: Anemia type: other cause Other causes of anemia: chronic disease, neoplastic Qualified Code(s): D63.0 - Anemia in neoplastic disease Is this a current diagnosis for this admission?: Yes (6) DNR (do not resuscitate) Is this a current diagnosis for this admission?: Yes - Time Time Spent with patient: 25-34 minutes Medications reviewed and adjusted accordingly: Yes Anticipated discharge: Home Within: within 24 hours
[2017-02-02] MEDS: MONTELUKAST SODIUM 10 MG TABLET PO SCH (22:43)
[2017-02-03] MEDS: GABAPENTIN 300 MG CAPSULE PO SCH (06:54)
[2017-02-03] MEDS: TAMSULOSIN HCL 0.4 MG CAP.SR.24H PO SCH (11:08)
[2017-02-03] MEDS: CEFEPIME 2 GM/D5W RTU 2 GM/50 ML RTUPB IV SCH (11:08)
[2017-02-03] MEDS: ALLOPURINOL 300 MG TABLET PO SCH (11:09)
[2017-02-03] MEDS: SERTRALINE HCL 50 MG TABLET PO SCH (11:09)
[2017-02-03] MEDS: DOCUSATE SODIUM 100 MG CAPSULE PO SCH (11:09)
[2017-02-03] MEDS: LEVOFLOXACIN 750 MG TABLET PO SCH (11:09)
[2017-02-03] MEDS: LANSOPRAZOLE 30 MG TAB.RAP.DR PO SCH (11:10)
[2017-02-03] MEDS: FINASTERIDE 5 MG TABLET PO SCH (11:10)
[2017-02-03] MEDS: FAMOTIDINE 20 MG TABLET PO SCH (11:10)
[2017-02-03] MEDS: GUAIFENESIN 600 MG TABLET.SA PO SCH (11:10)
[2017-02-03] MEDS: METOPROLOL TARTRATE 25 MG TABLET PO SCH (11:27)
[2017-02-03 13:14] VITALS: BP 108/68
--- NOTE | 2017-02-03 14:23 | PDOC DISCHARGE SUMMARY ---
General - Admit/Disc Date/PCP Admission Date/Primary Care Provider: 01/29/17 13:20 DALIA MENDOZA MD Discharge Date: 02/03/17 - Discharge Diagnosis (1) Pneumonia Is this a current diagnosis for this admission?: Yes Summary: Patient was admitted to the hospital where he was placed on cefepime. Patient was de-escalated to Levaquin alone. Patient has done well and cough has decreased. (2) Neutropenia Is this a current diagnosis for this admission?: Yes Summary: Secondary to patient's underlying malignancy AML. Patient is not a candidate for Neupogen due to AML. (3) Pancytopenia Is this a current diagnosis for this admission?: Yes Summary: Patient had blood cultures and urine cultures that demonstrated no growth. 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 (6) Constipation Is this a current diagnosis for this admission?: Yes (7) Hypotension Is this a current diagnosis for this admission?: Yes Summary: Patient encouraged to have good p.o. intake. - Additional Information Resuscitation Status: Do Not Resuscitate Discharge Diet: Regular Discharge Activity: Activity As Tolerated Home Medications: Alfuzosin HCl [Uroxatral] 10 mg PO DAILY 11/14/16 Allopurinol [Zyloprim 300 mg Tablet] 300 mg PO DAILY 11/14/16 Docusate Sodium [Colace 100 mg Capsule] 100 mg PO BID 11/14/16 Finasteride [Proscar 5 mg Tablet] 5 mg PO DAILY 11/14/16 Gabapentin [Neurontin 300 mg Capsule] 300 mg PO Q8 11/14/16 Metoprolol Tartrate [Lopressor 25 mg Tablet] 25 mg PO Q12 11/14/16 Montelukast Sodium [Singulair 10 mg Tablet] 10 mg PO QHS 11/14/16 Sertraline HCl [Zoloft] 25 mg PO DAILY 11/14/16 Pantoprazole Sodium 40 mg PO DAILY 01/29/17 Polyethylene Glycol 3350 [Miralax Powder 17 gm/Packet] 17 gm PO DAILYP PRN 01/29 Levofloxacin [Levaquin 750 mg Tablet] 750 mg PO DAILY #7 tablet 08/26/17 History of Present Illness Patient complains of: Feeling poorly History of Present Illness: DAVIDR Gladys JOSHUA is a 81 year old male Hospital Course Hospital Course: 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 Patient states he has had productive cough and shortness of breath for a few days. Patient also reports that he has very decreased energy level. Patient was admitted to the hospital where he was put on cefepime due to patient being pancytopenic/neutropenic. Blood cultures were negative and urine culture was negative. Patient was then treated for presumed gram-negative pneumonia and antibiotics were de-escalated to Levaquin. Patient did receive 2 packs of RBCs due to hemoglobin being below 8. On day of discharge patient was well ambulating around room without oxygen. Physical Exam Vital Signs: Temp Pulse Resp BP Pulse Ox 98.0 F 64 12 108/68 99 02/03/17 12:01 02/03/17 12:01 02/03/17 12:01 02/03/17 12:01 02/03/17 12:01 Intake & Output 02/02/17 02/03/17 02/04/17 06:59 06:59 06:59 Intake Total 475 1370 Output Total 925 1500 Balance -450 -130 Weight 85.3 kg 85.3 kg General appearance: PRESENT: no acute distress, well-developed, well-nourished Head exam: PRESENT: atraumatic, normocephalic Eye exam: PRESENT: conjunctiva pink, EOMI, PERRLA. ABSENT: scleral icterus Ear exam: PRESENT: normal external ear exam Mouth exam: PRESENT: moist, tongue midline Neck exam: ABSENT: carotid bruit, JVD, lymphadenopathy, thyromegaly Respiratory exam: PRESENT: other - Good breath sounds heard bilaterally slightly diminished at bases Cardiovascular exam: PRESENT: RRR. ABSENT: diastolic murmur, rubs, systolic murmur Pulses: PRESENT: normal dorsalis pedis pul Vascular exam: PRESENT: normal capillary refill GI/Abdominal exam: PRESENT: normal bowel sounds, soft. ABSENT: distended, guarding, mass, organolmegaly, rebound, tenderness Rectal exam: PRESENT: deferred Extremities exam: PRESENT: full ROM. ABSENT: calf tenderness, clubbing, pedal edema Neurological exam: PRESENT: alert, awake, oriented to person, oriented to place , oriented to time, oriented to situation, CN II-XII grossly intact. ABSENT: motor sensory deficit Psychiatric exam: PRESENT: appropriate affect, normal mood. ABSENT: homicidal ideation, suicidal ideation Skin exam: PRESENT: dry, intact, warm. ABSENT: cyanosis, rash Results Laboratory Results: 02/02/17 04:18 02/02/17 04:18 Impressions: Chest X-Ray 01/29/17 11:11 IMPRESSION: Bibasilar densities as noted above Plan Time Spent: Less than 30 Minutes
== END 2017-02-03 15:08 | disposition home or self-care (01) | DRG 178 ==
LOC: ER 10:38 → EH 13:20 → UNDOADMIN 13:58 → 4N 16:18
PROVIDERS: ADMIT Family Medicine; ATTEND Family Medicine
PROC: 30233N1 Transfusion of Nonautologous Red Blood Cells into Peripheral Vein, Percutaneous Approach (ICD-10-PCS; principal; 2017-01-30)
DX: J15.6 Pneumonia due to other Gram-negative bacteria (principal); D61.818 Other pancytopenia; C92.01 Acute myeloblastic leukemia, in remission; Z79.899 Other long term (current) drug therapy; D46.9 Myelodysplastic syndrome, unspecified; E78.5 Hyperlipidemia, unspecified; D63.0 Anemia in neoplastic disease; I10 Essential (primary) hypertension; K21.9 Gastro-esophageal reflux disease without esophagitis; M19.90 Unspecified osteoarthritis, unspecified site; R91.1 Solitary pulmonary nodule; K59.00 Constipation, unspecified; Z90.49 Acquired absence of other specified parts of digestive tract; Z82.49 Family history of ischemic heart disease and other diseases of the circulatory system; Z66 Do not resuscitate
CPT/HCPCS: 36415; 36430; 71020; 80048; 80053; 80170; 80202; 81001; 82550; 82565; 83605; 83880; 84484; 85025; 86850; 86900; 86901; 86920; 87015; 87040; 87070; 87086; 87101; 87116; 87205; 87206; 93005; 93010; 94799; 99285; J0692; J1580; J1940; J1956; J3370; J3490; J7030; J7060; P9016

== ENCOUNTER 2017-02-13 14:12 | Outpatient (CLI) | payer MEDICARE, OTHER ==
[~2017-02-13 14:12] MED LIST changes: -FUROSEMIDE INJ/PF 20 MG/2 ML SDV IV PRN
[2017-02-13 14:47] LABS: HEMATOCRIT 22.7 % (37.9-51.0); MEAN CORPUSCULAR HEMOGLOBIN 31.5 pg (27.0-33.4); MEAN CORPUSCULAR HGB CONC 34.8 g/dL (32.0-36.0); MEAN CORPUSCULAR VOLUME 90 fl (80-97); RED BLOOD COUNT 2.51 10^6/uL (4.35-5.55); RED CELL DISTRIBUTION WIDTH 13.8 % (11.5-14.0)
[2017-02-13] MEDS ORDERED: NORMAL SALINE 250 ML IV PRN (14:52)
[2017-02-13] MEDS ORDERED: FUROSEMIDE INJ/PF 20 MG/2 ML SDV IV PRN (15:02)
[2017-02-13 15:18] LABS: HEMOGLOBIN 7.9 g/dL (13.5-17.0)
[2017-02-13 15:19] LABS: WHITE BLOOD COUNT 0.7 10^3/uL (4.0-10.5)
[2017-02-13 22:43] VITALS: BP 133/58
== END 2017-02-13 22:33 | disposition home or self-care (01) ==
LOC: II 14:12 → 2N 14:15 → II 22:33
PROVIDERS: ATTEND Internal Medicine
PROC: 30233N1 Transfusion of Nonautologous Red Blood Cells into Peripheral Vein, Percutaneous Approach (ICD-10-PCS; principal; 2017-02-13)
DX: D64.9 Anemia, unspecified (principal)
CPT/HCPCS: 86900; 86901; 36415; 36430; 86850; 86920; P9016; A9270 ×2

== ENCOUNTER 2017-02-28 11:02 | Outpatient (CLI) | payer MEDICARE, OTHER ==
[2017-02-28] MEDS ORDERED: ACETAMINOPHEN 325 MG TABLET PO PRN (11:46)
[2017-02-28] MEDS ORDERED: NORMAL SALINE 250 ML IV PRN (11:46)
[2017-02-28] MEDS ORDERED: DIPHENHYDRAMINE HCL 25 MG CAPSULE PO PRN (11:47)
[2017-02-28 11:52] LABS: HEMATOCRIT 21.3 % (37.9-51.0); HGB HCT DIFFERENCE 1.2; MEAN CORPUSCULAR HEMOGLOBIN 31.4 pg (27.0-33.4); MEAN CORPUSCULAR HGB CONC 35.3 g/dL (32.0-36.0); MEAN CORPUSCULAR VOLUME 89 fl (80-97); RED CELL DISTRIBUTION WIDTH 14.9 % (11.5-14.0)
[2017-02-28 12:15] LABS: HEMOGLOBIN 7.5 g/dL (13.5-17.0); WHITE BLOOD COUNT 0.8 10^3/uL (4.0-10.5)
[2017-02-28 15:17] VITALS: BP 131/67
== END 2017-02-28 15:32 | disposition home or self-care (01) ==
LOC: II 11:02 → 5TH 11:25 → II 15:32
PROVIDERS: ATTEND Internal Medicine
PROC: 30233N1 Transfusion of Nonautologous Red Blood Cells into Peripheral Vein, Percutaneous Approach (ICD-10-PCS; principal; 2017-02-28)
DX: Z76.89 Persons encountering health services in other specified circumstances (principal)
CPT/HCPCS: 86900; 86901; 36415; 36430; 86850; 86920; P9016; A9270 ×2

== ENCOUNTER 2017-03-08 13:28 | Outpatient (CLI) | payer MEDICARE, OTHER ==
[2017-03-08] MEDS ORDERED: NORMAL SALINE 250 ML IV PRN (14:31)
[2017-03-08] MEDS ORDERED: DIPHENHYDRAMINE HCL 25 MG CAPSULE PO PRN (14:33)
[2017-03-08] MEDS ORDERED: ACETAMINOPHEN 325 MG TABLET PO PRN (14:33)
[2017-03-08 15:11] LABS: HEMATOCRIT 24.3 % (37.9-51.0); HEMOGLOBIN 8.5 g/dL (13.5-17.0); HGB HCT DIFFERENCE 1.2; MEAN CORPUSCULAR HEMOGLOBIN 31.1 pg (27.0-33.4); MEAN CORPUSCULAR HGB CONC 35.1 g/dL (32.0-36.0); MEAN CORPUSCULAR VOLUME 89 fl (80-97); RED BLOOD COUNT 2.74 10^6/uL (4.35-5.55)
[2017-03-08 19:20] VITALS: BP 112/70
[2017-03-12 16:25] LABS: PATH REVIEW PATHOLOGIST REVIEWED
== END 2017-03-08 19:22 | disposition home or self-care (01) ==
LOC: II 13:28 → 3W 13:52 → II 19:22
PROVIDERS: ATTEND Internal Medicine
PROC: 30233N1 Transfusion of Nonautologous Red Blood Cells into Peripheral Vein, Percutaneous Approach (ICD-10-PCS; principal; 2017-03-08)
DX: C92.00 Acute myeloblastic leukemia, not having achieved remission (principal); D64.9 Anemia, unspecified; D69.6 Thrombocytopenia, unspecified; D46.Z Other myelodysplastic syndromes
CPT/HCPCS: 86900; 86901; 36415; 36430; 86850; 86920; P9016; A9270 ×2; J7050

== ENCOUNTER 2017-03-15 19:03 | Emergency (ER) | payer MEDICARE, OTHER | END 2017-03-15 19:10 | disposition left against medical advice (07) | LOC: ER 19:03 | DX: Z53.21 Procedure and treatment not carried out due to patient leaving prior to being seen by health care provider (principal) ==

== ENCOUNTER 2017-03-19 12:49 | Observation (INO) | payer MEDICARE, OTHER ==
--- NOTE | 2017-03-19 13:11 | ER Document Report ---
ED Medical Screen (RME) - General Chief Complaint: Shortness Of Breath Stated Complaint: SHORTNESS OF BREATH Time Seen by Provider: 03/19/17 13:08 Notes: Patient has a history of acute myeloid leukemia. He states is been very weak for the last 3 days and his caregiver agrees. He states he is also been short of breath. He saw his primary physician today who referred him to the emergency department for evaluation for possible admission. Patient has been receiving transfusions when his hemoglobin is less than 8 but his hemoglobin today was 8.1 at the primary care physician's office. Patient states that other than shortness of breath and weakness he has no significant new symptoms. He denies any new pain. No new vomiting or diarrhea. His temperature has not been higher than 99.6 per caregiver. No new cough or congestion. Patient has had a sore on his foot that is been being followed by podiatry and has been drained several times but he states surgery cannot be performed due to his low platelet count. TRAVEL OUTSIDE OF THE [place] 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 Denies: Hx Cerebrovascular Accident, Hx Migraine Endocrine Medical History: Denies: Hx Diabetes Mellitus Type 1, Hx Diabetes Mellitus Type 2, Hx Hyperthyroidism, Hx Hypothyroidism Renal/ Medical History: Reports: Hx Benign Prostatic Hyperplasia. 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 Denies: Hx Open Heart Surgery, Hx Pacemaker - Immunizations Hx Diphtheria, Pertussis, Tetanus Vaccination: No Physical Exam - Vital signs Vitals: Temp Pulse Resp BP Pulse Ox 97.6 F 77 20 133/58 H 98 03/19/17 12:55 03/19/17 12:55 03/19/17 12:55 03/19/17 12:55 03/19/17 12:55 Course - Vital Signs Vital signs: Temp Pulse Resp BP Pulse Ox 97.6 F 77 20 133/58 H 98 03/19/17 12:55 03/19/17 12:55 03/19/17 12:55 03/19/17 12:55 03/19/17 12:55
[2017-03-19 13:55] LABS: HEMATOCRIT 25.5 % (37.9-51.0); HEMOGLOBIN 8.6 g/dL (13.5-17.0); HGB HCT DIFFERENCE 0.3; MEAN CORPUSCULAR HEMOGLOBIN 30.3 pg (27.0-33.4); MEAN CORPUSCULAR HGB CONC 33.8 g/dL (32.0-36.0); MEAN CORPUSCULAR VOLUME 89 fl (80-97); RED BLOOD COUNT 2.86 10^6/uL (4.35-5.55); RED CELL DISTRIBUTION WIDTH 14.9 % (11.5-14.0)
[2017-03-19 13:57] LABS: APPEARANCE,URINE CLEAR; BILIRUBIN,URINE NEGATIVE (NEGATIVE); GLUCOSE, URINE NEGATIVE (NEGATIVE); KETONES,URINE NEGATIVE (NEGATIVE); LEUKOCYTE ESTERASE,URINE NEGATIVE (NEGATIVE); NITRITE,URINE NEGATIVE (NEGATIVE); PROTEIN,URINE NEGATIVE (NEGATIVE); URINE SPECIFIC GRAVITY 1.019
[2017-03-19 14:00] LABS: PROTHROMBIN TIME 15.2 SEC (11.4-15.4)
[2017-03-19 14:10] LABS: ALANINE AMINOTRANSFERASE 60 U/L (21-72); ALBUMIN 4.3 g/dL (3.5-5.0); ALKALINE PHOSPHATASE 97 U/L (38-126); ANION GAP 14 (5-19); ASPARTATE AMINO TRANSFERASE 42 U/L (17-59); BILIRUBIN,DIRECT 0.4 mg/dL (0.0-0.4); BILIRUBIN,TOTAL 1.6 mg/dL (0.2-1.3); BLOOD UREA NITROGEN 22 mg/dL (7-20); CALCIUM 9.4 mg/dL (8.4-10.2); CARBON DIOXIDE 27 mmol/L (22-30); CHLORIDE 104 mmol/L (98-107); CREATININE RESULT 0.93 mg/dL (0.52-1.25); GLUCOSE 123 mg/dL (75-110); POTASSIUM 4.1 mmol/L (3.6-5.0); SODIUM 144.8 mmol/L (137-145); TOTAL PROTEIN 7.1 g/dL (6.3-8.2)
--- NOTE | 2017-03-19 14:16 | RADIOLOGY REPORT (SQ) ---
EXAM DESCRIPTION: CHEST PA/LAT COMPLETED DATE/TIME: 03/19/2017 1:54 pm REASON FOR STUDY: hx aml/sob COMPARISON: CT chest 10/12/2016 Chest films 11/13/2016, 11/16/2016, 01/29/2017 EXAM PARAMETERS: NUMBER OF VIEWS: two views TECHNIQUE: Digital Frontal and Lateral radiographic views of the chest acquired. RADIATION DOSE: NA LIMITATIONS: none FINDINGS: LUNGS AND PLEURA: Surgical clips at the right lung base are present. Mild increased interstitial markings at the left lateral costophrenic sulcus, stable. No acute infiltrates worrisome for pulmonary edema or pneumonia. No pleural effusions. No pneumotho rax. MEDIASTINUM AND HILAR STRUCTURES: No masses or contour abnormalities. HEART AND VASCULAR STRUCTURES: Heart normal size. No evidence for failure. BONES: Osteoporotic with diffuse thoracic spondylotic change and bilateral shoulder joint space narro wing and bony spurring HARDWARE: None in the chest. OTHER: No other significant finding. IMPRESSION: No acute findings TECHNICAL DOCUMENTATION: JOB ID: [id number] [employer]- All Rights Reserved
[2017-03-19 14:26] LABS: BAND NEUTROPHILS % (MANUAL) 2 % (3-5); BASOPHILS % (MANUAL) 0 % (0-2); EOSINOPHILS % (MANUAL) 2 % (0-6); LYMPHOCYTES % (MANUAL) 52 % (13-45); NUCLEATED RED BLOOD CELLS 4 /100 WBC (0); TOTAL CELLS COUNTED 50
[2017-03-19 14:30] LABS: ANISOCYTOSIS SLIGHT; HYPOCHROMASIA 1+; OVALOCYTES 1+; POIKILOCYTOSIS 1+
[2017-03-19 14:31] LABS: POLYCHROMASIA SLIGHT
[2017-03-19 14:32] LABS: WHITE BLOOD COUNT 1.1 10^3/uL (4.0-10.5)
[2017-03-19] MEDS ORDERED: NORMAL SALINE 1000 ML 1,000 ML IV ONE (14:55)
--- NOTE | 2017-03-19 15:16 | ER Document Report ---
ED Respiratory Problem - General Chief Complaint: Shortness Of Breath Stated Complaint: SHORTNESS OF BREATH Time Seen by Provider: 03/19/17 13:08 Mode of Arrival: Ambulatory Information source: Patient Notes: Patient is an 81-year-old male with leukemia who presents to the ER today for generalized weakness and shortness of breath 4 days. Patient received a blood transfusion for low hemoglobin last week. He did see his oncologist today who sent him here to the emergency department to be admitted for his generalized weakness and shortness of breath. Patient denies any chest pain, chest tightness, wheezing, cough, fevers, chills, body aches. TRAVEL OUTSIDE OF THE [place] IN LAST 30 DAYS: No - Related Data Allergies/Adverse Reactions: adenosine * [adenosine] Allergy (Verified 01/29/17 14:57) Passed out Past Medical History - General Information source: Patient - Social History Smoking Status: Unknown if Ever Smoked Chew tobacco use (# tins/day): No Frequency of alcohol use: None Drug Abuse: None Family History: CAD Patient has suicidal ideation: No Patient has homicidal ideation: No - Past Medical History Cardiac Medical History: Reports: Hx Hypercholesterolemia, Hx Hypertension Denies: Hx Congestive Heart Failure, Hx Coronary Artery Disease, Hx DVT, Hx Heart Attack, Hx Pulmonary Embolism Pulmonary Medical History: Reports: Hx Pneumonia - pseudomonas Denies: Hx Asthma, Hx Bronchitis, Hx COPD, Hx Sleep Apnea Neurological Medical History: Reports: 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 Denies: Hx Cerebrovascular Accident, Hx Migraine Endocrine Medical History: Denies: Hx Diabetes Mellitus Type 1, Hx Diabetes Mellitus Type 2, Hx Hyperthyroidism, Hx Hypothyroidism Renal/ Medical History: Reports: Hx Benign Prostatic Hyperplasia. 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 Denies: Hx Open Heart Surgery, Hx Pacemaker - Immunizations Hx Diphtheria, Pertussis, Tetanus Vaccination: No Hx Pneumococcal Vaccination: 05/11/12 Review of Systems - Review of Systems Constitutional: See HPI EENT: No symptoms reported Cardiovascular: No symptoms reported Respiratory: See HPI Gastrointestinal: No symptoms reported Genitourinary: No symptoms reported Male Genitourinary: No symptoms reported Musculoskeletal: No symptoms reported Skin: No symptoms reported Hematologic/Lymphatic: No symptoms reported Neurological/Psychological: No symptoms reported Physical Exam - Vital signs Vitals: Temp Pulse Resp BP Pulse Ox 97.6 F 77 20 133/58 H 98 03/19/17 12:55 03/19/17 12:55 03/19/17 12:55 03/19/17 12:55 03/19/17 12:55 - Notes Notes: PHYSICAL EXAMINATION: GENERAL: Chronically ill-appearing, but in no acute distress. HEAD: Atraumatic, normocephalic. EYES: Pupils equal round and reactive to light, extraocular movements intact, sclera anicteric, conjunctiva are normal. ENT: ear canals without erythema or foreign body, TMs pearly goff with good bony landmarks, nares patent, oropharynx clear without exudates. Moist mucous membranes. Airway patent NECK: Normal range of motion, supple without lymphadenopathy LUNGS: CTAB and equal. No wheezes rales or rhonchi. HEART: Regular rate and rhythm without murmurs ABDOMEN: Soft, no tenderness. No guarding, no rebound BACK: no vertebral tenderness, normal ROM GI/: no CVA tenderness EXTREMITIES: Normal range of motion, no pitting edema. No cyanosis. NEUROLOGICAL: Cranial nerves grossly intact. Normal sensory/motor exams. PSYCH: Normal mood, normal affect. SKIN: Warm, Dry, normal turgor, no rashes or lesions noted Course - Re-evaluation Re-evalutation: 03/19/17 15:16 Patient in no acute distress, does not appear to be short of breath at all. Vital signs are all normal, not hypoxic or tachycardic. Due to patient's current cancer diagnosis and treatment I have ordered a CTA of the chest, however patient states that he has some type of allergy that he thinks caused a cardiac arrest last time he had IV contrast for a CAT scan. Because of this and lack of documentation on this I will order a VQ scan instead. Lab work is actually pretty much at patient's baseline without any obvious abnormalities for him in his condition today. Patient's hemoglobin is 8.6 which is better than it was when he did the blood transfusion. - Vital Signs Vital signs: Temp Pulse Resp BP Pulse Ox 97.6 F 77 19 133/58 H 98 03/19/17 12:55 03/19/17 12:55 03/19/17 14:15 03/19/17 12:55 03/19/17 12:55 - Laboratory Result Diagrams: 03/19/17 13:30 03/19/17 13:30 Laboratory results interpreted by me: 03/19/17 03/19/17 03/19/17 13:30 13:30 13:30 WBC 1.1 L* RBC 2.86 L Hgb 8.6 L Hct 25.5 L RDW 14.9 H Plt Count 54 L Seg Neuts % (Manual) 34 L Band Neutrophils % 2 L Lymphocytes % (Manual) 52 H Abs Neuts (Manual) 0.4 L BUN 22 H Glucose 123 H Total Bilirubin 1.6 H Urine Urobilinogen 2.0 H Discharge - Discharge Clinical Impression: Weakness, SOB (shortness of breath) Neutropenia Qualifiers: Neutropenia type: unspecified Qualified Code(s): D70.9 - Neutropenia, unspecified AML (acute myeloid leukemia) Qualifiers: Leukemia Active/Remission status: without remission Qualified Code(s): C92.00 - Acute myeloblastic leukemia, not having achieved remission Condition: Stable Disposition: ADMITTED INPATIENT Admitting Provider: Hospitalist Unit Admitted: Medical Floor Referrals: DALIA MENDOZA MD [Primary Care Provider] - Follow up as needed
[2017-03-19 16:51] LABS: VENOUS BLOOD BASE EXCESS 1.9 mmol/L; VENOUS BLOOD HCO3 27.4 mmol/L (20-32); VENOUS BLOOD PCO2 46.9 mmHg (35-63); VENOUS BLOOD PH 7.39 (7.30-7.42)
[2017-03-19] MEDS ORDERED: OXYCODONE HCL IR 5 MG TABLET PO PRN (17:52)
[2017-03-19] MEDS ORDERED: ONDANSETRON HCL INJ/PF 4 MG/2 ML SDV IV PRN (17:57)
[2017-03-19] MEDS ORDERED: MONTELUKAST SODIUM 10 MG TABLET PO SCH (18:00)
--- NOTE | 2017-03-19 18:16 | EKG REPORT ---
SEVERITY:- OTHERWISE NORMAL ECG - SINUS RHYTHM LOW VOLTAGE IN FRONTAL LEADS : Confirmed by: Garland Noriega MD 19-Mar-2017 18:15:41
--- NOTE | 2017-03-19 18:17 | PDOC H&P ---
History of Present Illness Admission Date/PCP: 03/19/17 15:41 DALIA MENDOZA MD Patient complains of: Generalized fatigue History of Present Illness: DAVIDR Gladys JOSHUA is a 81 year old male, with AML receiving blood transfusions every other week outpatient schafer doing well up until today the patient has generalized malaise and fatigue reportedly with no energy. Patient has pancytopenia and has recently received blood transfusion without significant improvement in the hematocrit. Patient was sent to the hospital for further evaluation and management by his oncologist. In the emergency room the patient was anemic with a hemoglobin of 8.6, thrombocytopenic and neutropenic. Otherwise the patient voiced no specific complaints at all. The patient has a pending VQ scan. Patient did receive 1 L of IV fluid and have symptomatic improvement. 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 GI Medical History: Reports: Gastroesophageal Reflux Disease Denies: Cirrhosis, Hepatitis, Hiatal Hernia Musculoskeltal Medical History: 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 Psychiatric Medical History: Denies: Depression Hematology: Reports: Anemia, Bleeding Tendencies Denies: Sickle Cell Disease Infectious Medical History: Denies: Clostridium Difficile, Methicillin-Resistant Staph Aureus Past Surgical History Past Surgical History: Reports: Appendectomy, Cardiac Catheterization, Orthopedic Surgery Denies: Pacemaker Social History Information Source: Patient Smoking Status: Former Smoker Frequency of Alcohol Use: None Hx Recreational Drug Use: No Drugs: None Hx Prescription Drug Abuse: No Family History Family History: CAD Parental Family History Reviewed: Yes Children Family History Reviewed: Yes Sibling(s) Family History Reviewed.: Yes Medication/Allergy Home Medications: Alfuzosin HCl [Uroxatral] 10 mg PO QHS 03/19/17 Allopurinol [Zyloprim 300 mg Tablet] 300 mg PO QHS 03/19/17 Aspirin [Aspirin 81 mg Chewable Tablet] 81 mg PO DAILY 03/19/17 Atorvastatin Calcium [Lipitor 20 mg Tablet] 20 mg PO QHS 03/19/17 Docusate Sodium [Colace 100 mg Capsule] 100 mg PO BID 03/19/17 Ezetimibe [Zetia 10 mg Tablet] 10 mg PO DAILY 03/19/17 Finasteride [Proscar 5 mg Tablet] 5 mg PO DAILY 03/19/17 Gabapentin [Neurontin 300 mg Capsule] 300 mg PO Q8HP PRN 03/19/17 Metoprolol Succinate [Toprol Xl 25 mg Tab.sr] 25 mg PO Q12 03/19/17 Montelukast Sodium [Singulair 10 mg Tablet] 10 mg PO Q2D 03/19/17 Oxycodone HCl [Oxy-Ir 5 mg Tablet] 5 mg PO Q8HP PRN 03/19/17 Pantoprazole Sodium [Protonix] 40 mg PO DAILY 03/19/17 Polyethylene Glycol 3350 [Miralax Powder 17 gm/Packet] 17 gm PO DAILY 03/19/17 [place] Fruit [Saw [place]] 450 mg PO BID 03/19/17 Sertraline HCl [Zoloft] 25 mg PO DAILY 03/19/17 Telmisartan [Micardis 20 mg Tablet] 20 mg PO DAILY 03/19/17 Allergies/Adverse Reactions: adenosine * [adenosine] Allergy (Verified 01/29/17 14:57) Passed out Review of Systems Constitutional: PRESENT: chills. ABSENT: fever(s), headache(s), weight gain, weight loss Eyes: ABSENT: visual disturbances Ears: ABSENT: hearing changes Nose, Mouth, and Throat: ABSENT: mouth pain, sore throat Cardiovascular: PRESENT: dyspnea on exertion. ABSENT: chest pain, edema, orthropnea, palpitations Respiratory: PRESENT: cough - Chronic. ABSENT: dyspnea, hemoptysis, sputum Gastrointestinal: ABSENT: abdominal pain, constipation, diarrhea, hematemesis, hematochezia, melena, nausea, vomiting Genitourinary: ABSENT: dysuria, hematuria Musculoskeletal: ABSENT: joint swelling Integumentary: ABSENT: pruritus, rash, wounds Neurological: ABSENT: abnormal gait, abnormal speech, confusion, dizziness, focal weakness, syncope Psychiatric: ABSENT: anxiety, depression, homidical ideation, suicidal ideation Endocrine: ABSENT: cold intolerance, heat intolerance, polydipsia, polyphagia, polyuria Hematologic/Lymphatic: ABSENT: easy bleeding, easy bruising Physical Exam Vital Signs: Temp Pulse Resp BP Pulse Ox 97.6 F 77 17 121/71 94 03/19/17 12:55 03/19/17 12:55 03/19/17 17:01 03/19/17 17:01 03/19/17 17:01 General appearance: PRESENT: no acute distress, cooperative Head exam: PRESENT: atraumatic, normocephalic Eye exam: PRESENT: conjunctiva pale, EOMI, PERRLA. ABSENT: scleral icterus Ear exam: PRESENT: normal external ear exam. ABSENT: drainage Mouth exam: PRESENT: dry mucosa, neck supple, tongue midline Throat exam: ABSENT: post pharyngeal erythema, tonsillar erythema Neck exam: ABSENT: carotid bruit, JVD, lymphadenopathy, thyromegaly Respiratory exam: PRESENT: clear to auscultation jane, unlabored. ABSENT: rales , rhonchi, wheezes Cardiovascular exam: PRESENT: RRR. ABSENT: diastolic murmur, rubs, systolic murmur Pulses: PRESENT: normal dorsalis pedis pul Vascular exam: PRESENT: normal capillary refill GI/Abdominal exam: PRESENT: normal bowel sounds, soft. ABSENT: distended, guarding, mass, organolmegaly, rebound, tenderness Rectal exam: PRESENT: deferred Extremities exam: PRESENT: full ROM. ABSENT: calf tenderness, clubbing, pedal edema Neurological exam: PRESENT: alert, awake, oriented to person, oriented to place , oriented to time, oriented to situation Psychiatric exam: PRESENT: appropriate affect, normal mood. ABSENT: homicidal ideation, suicidal ideation Skin exam: PRESENT: dry, intact, warm. ABSENT: cyanosis, rash Results Laboratory Results: 03/19/17 16:41 VBG pH 7.39 VBG pCO2 46.9 VBG HCO3 27.4 VBG Base Excess 1.9 Impressions: Chest X-Ray 03/19/17 13:09 IMPRESSION: No acute findings Assessment & Plan - Time Time Spent: 30 to 50 Minutes Within: within 24 hours - Plan Summary Plan Summary: We are going to admit the patient to observation. We will hydrate the patient with saline. I will discontinue his medications for cholesterol, as well as the ARB. I will keep the beta-mode to avoid rebound tachycardia. Patient will be on CHENG hose and SCDs. We will have physical therapy evaluate the patient. If patient improves in the morning patient can be discharged home.
--- NOTE | 2017-03-19 19:09 | RADIOLOGY REPORT (SQ) ---
EXAM DESCRIPTION: NM LUNG VENT/PERF SCAN COMPLETED DATE/TIME: 03/19/2017 4:30 pm REASON FOR STUDY: sob, leukemia, allergy to contrast COMPARISON: Chest radiograph RADIONUCLIDE AND DOSE: 5.13 millicuries TC-99m MAA Intravenous 29.6 millicuries TC-99m DTPA Inhaled aerosol TECHNIQUE: Eight views of the lungs acquired post ventilation of DTPA aerosol. Eight matching views of the lungs acquired following injection of MAA. LIMITATIONS: None. FINDINGS: VENTILATION: At trapping and lack of ventilation at the lung bases particularly. PERFUSION: Matching subsegmental perfusion defects. OTHER: No other significant finding. IMPRESSION: Low probability pulmonary embolus with matching V/Q defects. TECHNICAL DOCUMENTATION: JOB ID: [id number] [employer]- All Rights Reserved
[2017-03-19] MEDS: TAMSULOSIN HCL 0.4 MG CAP.SR.24H PO SCH (21:17)
[2017-03-19] MEDS: DOCUSATE SODIUM 100 MG CAPSULE PO SCH (21:17)
[2017-03-19] MEDS: ALLOPURINOL 300 MG TABLET PO SCH (21:18)
[2017-03-19] MEDS: METOPROLOL SUCCINATE 25 MG TAB.SR.24H PO SCH (21:18)
[2017-03-20] MEDS: NORMAL SALINE 1000 ML 1,000 ML IV PRN (01:59)
[2017-03-20] MEDS ORDERED: INFLUENZA ADLT QUAD (36MOS+) 2017-18 VAC 0.5 ML SYR IM PRN (05:07)
[2017-03-20 07:07] LABS: HEMATOCRIT 22.2 % (37.9-51.0); HGB HCT DIFFERENCE 1.2; MEAN CORPUSCULAR HEMOGLOBIN 31.4 pg (27.0-33.4); MEAN CORPUSCULAR HGB CONC 35.2 g/dL (32.0-36.0); MEAN CORPUSCULAR VOLUME 89 fl (80-97); RED BLOOD COUNT 2.49 10^6/uL (4.35-5.55)
[2017-03-20 08:00] LABS: HEMOGLOBIN 7.8 g/dL (13.5-17.0)
[2017-03-20] MEDS ORDERED: FUROSEMIDE 40 MG TABLET PO PRN (08:42)
[2017-03-20] MEDS ORDERED: NORMAL SALINE 250 ML IV PRN ×2 (08:42)
[2017-03-20] MEDS ORDERED: FINASTERIDE 5 MG TABLET PO SCH (10:00)
[2017-03-20] MEDS ORDERED: ASPIRIN 81 MG TABLET, CHEWABLE PO SCH (10:00)
[2017-03-20] MEDS ORDERED: POLYETHYLENE GLYCOL 3350 POWDER 17 GM/1 PACKET PO SCH (10:00)
[2017-03-20] MEDS ORDERED: LANSOPRAZOLE 30 MG TAB.RAP.DR PO SCH (10:00)
[2017-03-20] MEDS: DOCUSATE SODIUM 100 MG CAPSULE PO SCH ×2 (13:03→18:58)
[2017-03-20] MEDS: METOPROLOL SUCCINATE 25 MG TAB.SR.24H PO SCH ×2 (13:03→22:01)
--- NOTE | 2017-03-20 18:43 | PDOC PROGRESS REPORT ---
Subjective Progress Note for:: 03/20/17 Subjective:: Complains of fatigue. Hemoglobin is down to 7.8 this morning. Physical Exam Vital Signs: Temp Pulse Resp BP Pulse Ox 98.6 F 55 L 16 121/54 L 100 03/20/17 03:32 03/20/17 03:32 03/20/17 03:32 03/20/17 03:32 03/20/17 03:32 Intake & Output 03/19/17 03/20/17 03/21/17 06:59 06:59 06:59 Intake Total 1404 400 Output Total 1000 Balance 404 400 Weight 84.5 kg General appearance: PRESENT: no acute distress Eye exam: PRESENT: conjunctiva pink. ABSENT: scleral icterus Mouth exam: PRESENT: moist, tongue midline Neck exam: ABSENT: JVD Respiratory exam: PRESENT: clear to auscultation jane. ABSENT: rales, rhonchi, wheezes Cardiovascular exam: PRESENT: RRR. ABSENT: diastolic murmur, rubs, systolic murmur GI/Abdominal exam: PRESENT: normal bowel sounds, soft. ABSENT: distended, guarding, mass, organolmegaly, rebound, tenderness Extremities exam: ABSENT: calf tenderness, clubbing, pedal edema Neurological exam: PRESENT: alert, awake, oriented to person, oriented to place , oriented to time, oriented to situation, CN II-XII grossly intact. ABSENT: motor sensory deficit Psychiatric exam: PRESENT: appropriate affect Skin exam: PRESENT: dry, intact, warm. ABSENT: cyanosis, rash Results Laboratory Results: 03/20/17 06:20 03/20/17 03/20/17 03/20/17 06:20 06:20 10:14 WBC 1.0 L* RBC 2.49 L Hgb 7.8 L Hct 22.2 L MCV 89 MCH 31.4 MCHC 35.2 RDW 15.0 H Plt Count 43 L TSH 1.77 Blood Type B NEGATIVE Antibody Screen NEGATIVE Impressions: Chest X-Ray 03/19/17 13:09 IMPRESSION: No acute findings Lung Scan-VQ NM 03/19/17 15:12 IMPRESSION: Low probability pulmonary embolus with matching V/Q defects. Assessment & Plan - Diagnosis (1) Anemia Qualifiers: Anemia type: other cause Other causes of anemia: chronic disease, neoplastic Qualified Code(s): D63.0 - Anemia in neoplastic disease Is this a current diagnosis for this admission?: Yes Plan: Patient is symptomatic with the anemia. Will transfuse 2 units of packed red blood cells. 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 He has required frequent transfusions. (3) Pancytopenia Is this a current diagnosis for this admission?: Yes Plan: Secondary to acute myelogenous leukemia. (4) DNR (do not resuscitate) Is this a current diagnosis for this admission?: Yes - Time Time Spent with patient: 15-24 minutes - Plan Summary Plan Summary: Patient is to get 2 units packed red blood cells. Depending on how long this takes we may have to wait until tomorrow to discharge him to home.
[2017-03-20] MEDS: TAMSULOSIN HCL 0.4 MG CAP.SR.24H PO SCH (22:01)
[2017-03-20] MEDS: ALLOPURINOL 300 MG TABLET PO SCH (22:01)
[2017-03-21 00:47] LABS: HEMATOCRIT 28.2 % (37.9-51.0); HEMOGLOBIN 9.6 g/dL (13.5-17.0); HGB HCT DIFFERENCE 0.6; MEAN CORPUSCULAR HEMOGLOBIN 29.8 pg (27.0-33.4); MEAN CORPUSCULAR VOLUME 88 fl (80-97); RED BLOOD COUNT 3.22 10^6/uL (4.35-5.55); RED CELL DISTRIBUTION WIDTH 14.5 % (11.5-14.0)
[2017-03-21 01:14] LABS: BAND NEUTROPHILS % (MANUAL) 6 % (3-5); BASOPHILS % (MANUAL) 0 % (0-2); EOSINOPHILS % (MANUAL) 4 % (0-6); LYMPHOCYTES % (MANUAL) 58 % (13-45); NUCLEATED RED BLOOD CELLS 4 /100 WBC (0); TOTAL CELLS COUNTED 50
[2017-03-21] MEDS: NORMAL SALINE 1000 ML 1,000 ML IV PRN (01:15)
[2017-03-21 01:18] LABS: ANISOCYTOSIS SLIGHT; BURR CELLS SLIGHT; OVALOCYTES SLIGHT; POIKILOCYTOSIS SLIGHT; TEAR DROP CELLS SLIGHT; TOXIC GRANULATION SLIGHT; TOXIC VACUOLATION PRESENT
[2017-03-21 01:26] LABS: WHITE BLOOD COUNT 1.3 10^3/uL (4.0-10.5)
[2017-03-21 06:45] LABS: HEMATOCRIT 26.8 % (37.9-51.0); HEMOGLOBIN 9.3 g/dL (13.5-17.0); HGB HCT DIFFERENCE 1.1; MEAN CORPUSCULAR HEMOGLOBIN 30.7 pg (27.0-33.4); MEAN CORPUSCULAR HGB CONC 34.9 g/dL (32.0-36.0); MEAN CORPUSCULAR VOLUME 88 fl (80-97); RED BLOOD COUNT 3.04 10^6/uL (4.35-5.55); RED CELL DISTRIBUTION WIDTH 14.7 % (11.5-14.0)
[2017-03-21 07:15] LABS: BASOPHILS % (MANUAL) 0 % (0-2); EOSINOPHILS % (MANUAL) 0 % (0-6); NUCLEATED RED BLOOD CELLS 4 /100 WBC (0); TOTAL CELLS COUNTED 50
[2017-03-21 07:17] LABS: POLYCHROMASIA SLIGHT
[2017-03-21 07:18] LABS: ROULEAUX 1+
[2017-03-21 07:20] LABS: BAND NEUTROPHILS % (MANUAL) 6 % (3-5); LYMPHOCYTES % (MANUAL) 58 % (13-45)
[2017-03-21 07:22] LABS: WHITE BLOOD COUNT 1.3 10^3/uL (4.0-10.5)
[2017-03-21 09:29] VITALS: BP 111/56
--- NOTE | 2017-03-21 11:24 | PDOC DISCHARGE SUMMARY ---
General - Admit/Disc Date/PCP Admission Date/Primary Care Provider: 03/19/17 15:41 DALIA MENDOZA MD Discharge Date: 03/21/17 - Discharge Diagnosis (1) Anemia Is this a current diagnosis for this admission?: Yes Summary: Status post transfusion of 2 units packed red blood cells. Hemoglobin was 9.3 on the day of discharge. (2) AML (acute myeloid leukemia) Is this a current diagnosis for this admission?: Yes (3) Pancytopenia Is this a current diagnosis for this admission?: Yes (4) DNR (do not resuscitate) Is this a current diagnosis for this admission?: Yes - Additional Information Discharge Diet: Regular Discharge Activity: Activity As Tolerated Home Medications: Alfuzosin HCl [Uroxatral] 10 mg PO QHS 03/19/17 Allopurinol [Zyloprim 300 mg Tablet] 300 mg PO QHS 03/19/17 Aspirin [Aspirin 81 mg Chewable Tablet] 81 mg PO DAILY 03/19/17 Atorvastatin Calcium [Lipitor 20 mg Tablet] 20 mg PO QHS 03/19/17 Docusate Sodium [Colace 100 mg Capsule] 100 mg PO BID 03/19/17 Ezetimibe [Zetia 10 mg Tablet] 10 mg PO DAILY 03/19/17 Finasteride [Proscar 5 mg Tablet] 5 mg PO DAILY 03/19/17 Gabapentin [Neurontin 300 mg Capsule] 300 mg PO Q8HP PRN 03/19/17 Metoprolol Succinate [Toprol Xl 25 mg Tab.sr] 25 mg PO Q12 03/19/17 Montelukast Sodium [Singulair 10 mg Tablet] 10 mg PO Q2D 03/19/17 Oxycodone HCl [Oxy-Ir 5 mg Tablet] 5 mg PO Q8HP PRN 03/19/17 Pantoprazole Sodium [Protonix] 40 mg PO DAILY 03/19/17 Polyethylene Glycol 3350 [Miralax Powder 17 gm/Packet] 17 gm PO DAILY 03/19/17 Saw Orford Fruit [Saw Orford] 450 mg PO BID 03/19/17 Sertraline HCl [Zoloft] 25 mg PO DAILY 03/19/17 Telmisartan [Micardis 20 mg Tablet] 20 mg PO DAILY 03/19/17 Flu Vacc [id number] 36Mos Up/Pf [Fluzone Adlt Quad 1425-5644 Vac 0.5 ml Syr] 0.5 ml IM .AT DISCHARGE PRN disp.dickin 03/21/17 History of Present Illness History of Present Illness: DINA JOSHUA is a 81 year old male with a history of AML who is been receiving blood transfusions every other week as an outpatient who presented on the day of admission with generalized weakness and fatigue. Patient does have pancytopenia and at his last transfusion had minimal improvement. The patient admission was found to have a hemoglobin of 8.6 along with pancytopenia and neutropenia. Patient is admitted for IV fluids and monitoring of the hemoglobin. Hospital Course Hospital Course: 81-year-old male with history of acute myelogenous leukemia has been getting blood transfusion every other week who presented with malaise and fatigue. Patient was given IV fluids initially and his hemoglobin was 8.6. Overnight his hemoglobin dropped down to 7.8 and he was transfused 2 units of packed red blood cells with an increase in his hemoglobin up to 9.3. The patient reported he felt much better and was back to his baseline. Was felt that he can be discharged home to follow-up with an outpatient. The other patient's other problems including hypertension, hyperlipidemia were stable during this hospitalization. Physical Exam Vital Signs: Temp Pulse Resp BP Pulse Ox 98.3 F 55 L 18 111/56 L 96 03/21/17 09:13 03/21/17 09:13 03/21/17 09:13 03/21/17 09:13 03/21/17 09:13 Intake & Output 03/20/17 03/21/17 03/22/17 06:59 06:59 06:59 Intake Total 1404 3110 Output Total 1000 1100 Balance 404 2009 Weight 84.5 kg 84.5 kg General appearance: PRESENT: no acute distress Eye exam: PRESENT: conjunctiva pink. ABSENT: scleral icterus Mouth exam: PRESENT: moist, tongue midline Neck exam: ABSENT: JVD Respiratory exam: PRESENT: clear to auscultation jane. ABSENT: rales, rhonchi, wheezes Cardiovascular exam: PRESENT: RRR. ABSENT: diastolic murmur, rubs, systolic murmur GI/Abdominal exam: PRESENT: normal bowel sounds, soft. ABSENT: distended, guarding, mass, organolmegaly, rebound, tenderness Extremities exam: ABSENT: calf tenderness, clubbing, pedal edema Neurological exam: PRESENT: alert, awake, oriented to person, oriented to place , oriented to time, oriented to situation, CN II-XII grossly intact. ABSENT: motor sensory deficit Psychiatric exam: PRESENT: appropriate affect Skin exam: PRESENT: dry, intact, warm. ABSENT: cyanosis, rash Results Laboratory Results: 03/21/17 05:50 03/20/17 03/21/17 03/21/17 10:14 00:35 05:50 WBC 1.3 L* 1.3 L* RBC 3.22 L 3.04 L Hgb 9.6 L 9.3 L Hct 28.2 L 26.8 L MCV 88 88 MCH 29.8 30.7 MCHC 34.0 34.9 RDW 14.5 H 14.7 H Plt Count 44 L 36 L Seg Neutrophils % Not Reportable Not Reportable Lymphocytes % Not Reportable Not Reportable Monocytes % Not Reportable Not Reportable Eosinophils % Not Reportable Not Reportable Basophils % Not Reportable Not Reportable Absolute Neutrophils Not Reportable Not Reportable Absolute Lymphocytes Not Reportable Not Reportable Absolute Monocytes Not Reportable Not Reportable Absolute Eosinophils Not Reportable Not Reportable Absolute Basophils Not Reportable Not Reportable Blood Type B NEGATIVE Antibody Screen NEGATIVE Impressions: Chest X-Ray 03/19/17 13:09 IMPRESSION: No acute findings Lung Scan-VQ NM 03/19/17 15:12 IMPRESSION: Low probability pulmonary embolus with matching V/Q defects. Qualifiers PATEINT BEING DISCHARGED WITH ANY OF THE FOLLOWING DIAGNOSIS?: No Plan Discharge Plan: Patient is discharged home in stable condition. He will follow-up with his primary care and oncology in the next 1-2 weeks. Time Spent: Less than 30 Minutes
== END 2017-03-21 11:10 | disposition home or self-care (01) ==
LOC: ER 12:49 → INTOOBSV 15:41 → EH 15:41 → 4N 18:27
PROC: 30233N1 Transfusion of Nonautologous Red Blood Cells into Peripheral Vein, Percutaneous Approach (ICD-10-PCS; principal; 2017-03-19)
DX: C92.00 Acute myeloblastic leukemia, not having achieved remission (principal); D63.0 Anemia in neoplastic disease; D61.818 Other pancytopenia; Z66 Do not resuscitate; E78.5 Hyperlipidemia, unspecified; I10 Essential (primary) hypertension; Z79.899 Other long term (current) drug therapy; Z79.82 Long term (current) use of aspirin; Z90.49 Acquired absence of other specified parts of digestive tract; Z82.49 Family history of ischemic heart disease and other diseases of the circulatory system; Z87.891 Personal history of nicotine dependence; R05 Cough; Z86.74 Personal history of sudden cardiac arrest
CPT/HCPCS: 93005; 99285; 86900; 86901; 36415 ×3; 87040; 87086; 36430; 86850; 84443; 85025 ×2; 85027; 85610; 80053; 81001; 86920; 82803; 83605; 71020; 78582; 93010; 97163; G0378 ×3; P9016; A9540; A9567; A9270 ×11; J3490 ×3; J7030 ×2; Q9969; G8978; G8979

== ENCOUNTER 2017-04-02 11:16 | Outpatient (CLI) | payer MEDICARE, OTHER ==
[2017-04-02] MEDS ORDERED: ACETAMINOPHEN 325 MG TABLET PO PRN (11:58)
[2017-04-02] MEDS ORDERED: DIPHENHYDRAMINE HCL 25 MG CAPSULE PO PRN (11:59)
[2017-04-02 12:00] LABS: HEMATOCRIT 23.4 % (37.9-51.0); HEMOGLOBIN 8.1 g/dL (13.5-17.0); HGB HCT DIFFERENCE 0.9; MEAN CORPUSCULAR HEMOGLOBIN 30.8 pg (27.0-33.4); MEAN CORPUSCULAR HGB CONC 34.7 g/dL (32.0-36.0); MEAN CORPUSCULAR VOLUME 89 fl (80-97); RED BLOOD COUNT 2.63 10^6/uL (4.35-5.55); RED CELL DISTRIBUTION WIDTH 15.1 % (11.5-14.0)
[2017-04-02] MEDS ORDERED: NORMAL SALINE 250 ML IV PRN (13:01)
[2017-04-02 13:45] VITALS: BP 134/58
== END 2017-04-02 16:30 | disposition home or self-care (01) ==
LOC: II 11:16 → 2N 11:18 → II 16:30
PROVIDERS: ATTEND Internal Medicine
PROC: 30233N1 Transfusion of Nonautologous Red Blood Cells into Peripheral Vein, Percutaneous Approach (ICD-10-PCS; principal; 2017-04-02)
DX: D64.9 Anemia, unspecified (principal); C92.00 Acute myeloblastic leukemia, not having achieved remission; D46.Z Other myelodysplastic syndromes
CPT/HCPCS: 86900; 86901; 36415; 36430; 86850; 86920; P9016; A9270 ×2

== ENCOUNTER → 2017-04-27 | Outpatient (CLI) | payer MEDICARE, OTHER ==
--- NOTE | 2017-04-27 15:51 | RADIOLOGY REPORT (SQ) ---
EXAM DESCRIPTION: ANKLE LEFT COMPLETE COMPLETED DATE/TIME: 04/27/2017 3:40 pm REASON FOR STUDY: M86.172 OTHER ACUTE OSTEOMYLITIS M86.172 OTHER ACUTE OSTEOMYELITIS, LEFT ANKLE AN D FOOT COMPARISON: None. NUMBER OF VIEWS: Three views. TECHNIQUE: AP, lateral, and oblique radiographic images acquired of the left ankle. LIMITATIONS: None. FINDINGS: MINERALIZATION: Normal. BONES: No acute fracture or dislocation. No worrisome bone lesions. JOINTS: No effusions. SOFT TISSUES: No soft tissue swelling. No foreign body. OTHER: No other significant finding. IMPRESSION: NEGATIVE STUDY OF THE LEFT ANKLE. NO RADIOGRAPHIC EVIDENCE OF ACUTE INJURY. TECHNICAL DOCUMENTATION: JOB ID: [id number] [employer]- All Rights Reserved
--- NOTE | 2017-04-27 15:52 | RADIOLOGY REPORT (SQ) ---
EXAM DESCRIPTION: FOOT LEFT COMPLETE COMPLETED DATE/TIME: 04/27/2017 3:40 pm REASON FOR STUDY: M86.172 OTHER ACUTE OSTEOMYLITIS M86.172 OTHER ACUTE OSTEOMYELITIS, LEFT ANKLE AN D FOOT COMPARISON: None. NUMBER OF VIEWS: Three views. TECHNIQUE: AP, lateral and oblique radiographic images acquired of the left foot. LIMITATIONS: None. FINDINGS: MINERALIZATION: Osteopenia. BONES: No fracture or dislocation. There is some lucency in the head of the 1st metatarsal. JOINTS: No effusions. SOFT TISSUES: There is soft tissue swelling around the 1st metatarsophalangeal joint. OTHER: No other significant finding. IMPRESSION: Cannot exclude osteomyelitis in the head of the 1st metatarsal. TECHNICAL DOCUMENTATION: JOB ID: [id number] [employer]- All Rights Reserved
--- NOTE | 2017-04-29 15:44 | RADIOLOGY REPORT (SQ) ---
EXAM DESCRIPTION: MRI LT LOWER EXTREMITY WITHOUT COMPLETED DATE/TIME: 04/27/2017 4:21 pm REASON FOR STUDY: M86.172 OTHER ACUTE OSTEOMYELITIS, LEFT ANKLE AND FOOT M86.172 OTHER ACUTE OSTEOM YELITIS, LEFT ANKLE AND FOOT COMPARISON: Plain radiographs TECHNIQUE: Multiplanar imaging of the left foot to include fat and fluid sensitive sequences. LIMITATIONS: None. FINDINGS: BONE MARROW: There are focal erosions of the distal 1st metatarsal and distal 1st proximal phalanx. There is mild generalized edema. No hazy cortical disruption. SOFT TISSUES: Multiple fluid collections periarticular along the metatarsal phalangeal joint of the g reat toe. Contain multiple loose bodies within the fluid collections. Mild subcutaneous soft tissue edema. OTHER: No other significant finding. 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 Superimposed osteomyelitis appears unlikely. No marked marrow signal alteration other than the cysti c erosions, and no generalized marrow edema. TECHNICAL DOCUMENTATION: JOB ID: [id number] [employer]- All Rights Reserved
== END ==
LOC: RAD 15:07
PROVIDERS: ATTEND Family Medicine
DX: M86.172 Other acute osteomyelitis, left ankle and foot (principal)

== ENCOUNTER 2017-06-07 12:22 | Outpatient (CLI) | payer MEDICARE, OTHER ==
[~2017-06-07 12:22] MED LIST changes: +FUROSEMIDE INJ/PF 20 MG/2 ML SDV IV PRN
[2017-06-07 12:53] LABS: HEMATOCRIT 24.7 % (37.9-51.0); HEMOGLOBIN 8.2 g/dL (13.5-17.0); MEAN CORPUSCULAR HEMOGLOBIN 29.6 pg (27.0-33.4); MEAN CORPUSCULAR HGB CONC 33.4 g/dL (32.0-36.0); MEAN CORPUSCULAR VOLUME 89 fl (80-97); RED BLOOD COUNT 2.79 10^6/uL (4.35-5.55); RED CELL DISTRIBUTION WIDTH 16.7 % (11.5-14.0)
[2017-06-07] MEDS ORDERED: NORMAL SALINE 250 ML IV PRN (13:31)
[2017-06-07 13:44] LABS: PLATELET COUNT 48 10^3/uL (150-450); WHITE BLOOD COUNT 1.8 10^3/uL (4.0-10.5)
[2017-06-07 18:16] VITALS: BP 120/59
== END 2017-06-07 18:20 | disposition home or self-care (01) ==
LOC: II 12:22 → 2N 12:44 → II 18:20
PROVIDERS: ATTEND Internal Medicine
PROC: 30233N1 Transfusion of Nonautologous Red Blood Cells into Peripheral Vein, Percutaneous Approach (ICD-10-PCS; principal; 2017-06-07)
DX: D46.9 Myelodysplastic syndrome, unspecified (principal); D64.9 Anemia, unspecified
CPT/HCPCS: 86900; 86901; 36415; 36430; 86850; 86920; P9016; A9270 ×2

== ENCOUNTER 2017-06-18 11:43 | Outpatient (CLI) | payer MEDICARE, OTHER ==
[~2017-06-18 11:43] MED LIST changes: -FUROSEMIDE INJ/PF 20 MG/2 ML SDV IV PRN
[2017-06-18 12:21] LABS: HEMOGLOBIN 8.1 g/dL (13.5-17.0); MEAN CORPUSCULAR HEMOGLOBIN 29.9 pg (27.0-33.4); MEAN CORPUSCULAR HGB CONC 33.7 g/dL (32.0-36.0); MEAN CORPUSCULAR VOLUME 89 fl (80-97); RED CELL DISTRIBUTION WIDTH 17.9 % (11.5-14.0)
[2017-06-18 12:53] LABS: PLATELET COUNT 51 10^3/uL (150-450)
[2017-06-18] MEDS ORDERED: NORMAL SALINE 250 ML IV PRN (13:20)
[2017-06-18 15:55] VITALS: BP 118/49
== END 2017-06-18 16:39 | disposition home or self-care (01) ==
LOC: II 11:43 → 2S 11:43 → 2N 11:48 → II 16:39
PROVIDERS: ATTEND Internal Medicine
PROC: 30233N1 Transfusion of Nonautologous Red Blood Cells into Peripheral Vein, Percutaneous Approach (ICD-10-PCS; principal; 2017-06-18)
DX: D64.9 Anemia, unspecified (principal); C92.00 Acute myeloblastic leukemia, not having achieved remission
CPT/HCPCS: 86900; 86901; 36415; 36430; 86850; 86920; P9016; A9270 ×2; J7050

== ENCOUNTER → 2017-06-21 | Outpatient (CLI) | payer MEDICARE, OTHER ==
[2017-06-21 15:19] LABS: ANION GAP 11 (5-19); BLOOD UREA NITROGEN 18 mg/dL (7-20); CALCIUM 9.3 mg/dL (8.4-10.2); CARBON DIOXIDE 25 mmol/L (22-30); CHLORIDE 107 mmol/L (98-107); CHOLESTEROL 105.19 mg/dL (0-200); GLUCOSE 82 mg/dL (75-110); POTASSIUM 4.3 mmol/L (3.6-5.0); SODIUM 142.7 mmol/L (137-145); TRIGLYCERIDES 73 mg/dL (<150)
[2017-06-21 15:30] LABS: DIRECT LDL 66 mg/dL (<100)
== END ==
LOC: OD 10:49
PROVIDERS: ATTEND Internal Medicine Cardiovascular Disease
DX: I47.9 Paroxysmal tachycardia, unspecified (principal); E78.00 Pure hypercholesterolemia, unspecified
CPT/HCPCS: 36415; 80048; 80061

== ENCOUNTER 2017-07-09 12:43 | Outpatient (CLI) | payer MEDICARE, OTHER ==
[~2017-07-09 12:43] MED LIST changes: +FUROSEMIDE INJ/PF 20 MG/2 ML SDV IV PRN
[2017-07-09] MEDS ORDERED: NORMAL SALINE 250 ML IV PRN (13:46)
[2017-07-09 14:14] LABS: HEMATOCRIT 24.6 % (37.9-51.0); HEMOGLOBIN 8.3 g/dL (13.5-17.0); MEAN CORPUSCULAR HGB CONC 33.9 g/dL (32.0-36.0); MEAN CORPUSCULAR VOLUME 91 fl (80-97); RED CELL DISTRIBUTION WIDTH 26.6 % (11.5-14.0); WHITE BLOOD COUNT 2.6 10^3/uL (4.0-10.5)
[2017-07-09 14:38] LABS: PLATELET COUNT 50 10^3/uL (150-450)
[2017-07-09 19:11] VITALS: BP 130/62
== END 2017-07-09 19:27 | disposition home or self-care (01) ==
LOC: II 12:43 → 2S 12:44 → II 19:27
PROVIDERS: ATTEND Internal Medicine
PROC: 30233N1 Transfusion of Nonautologous Red Blood Cells into Peripheral Vein, Percutaneous Approach (ICD-10-PCS; principal; 2017-07-09)
DX: D64.9 Anemia, unspecified (principal); D46.9 Myelodysplastic syndrome, unspecified
CPT/HCPCS: 86900; 86901; 36415; 36430; 86850; 86920; P9016; A9270 ×2; J1940

== ENCOUNTER 2017-07-23 13:48 | Outpatient (CLI) | payer MEDICARE, OTHER ==
[2017-07-23 14:23] LABS: HEMATOCRIT 24.6 % (37.9-51.0); MEAN CORPUSCULAR HEMOGLOBIN 30.4 pg (27.0-33.4); MEAN CORPUSCULAR HGB CONC 32.4 g/dL (32.0-36.0); MEAN CORPUSCULAR VOLUME 94 fl (80-97); RED BLOOD COUNT 2.63 10^6/uL (4.35-5.55); RED CELL DISTRIBUTION WIDTH 26.5 % (11.5-14.0)
[2017-07-23 14:25] LABS: PLATELET COUNT 47 10^3/uL (150-450)
[2017-07-23] MEDS ORDERED: NORMAL SALINE 250 ML IV PRN (15:17)
[2017-07-23 19:33] VITALS: BP 134/59
== END 2017-07-23 19:40 | disposition home or self-care (01) ==
LOC: II 13:48 → 2S 13:56 → II 19:40
PROVIDERS: ATTEND Internal Medicine
PROC: 30233N1 Transfusion of Nonautologous Red Blood Cells into Peripheral Vein, Percutaneous Approach (ICD-10-PCS; principal; 2017-07-23)
DX: D64.9 Anemia, unspecified (principal); D46.9 Myelodysplastic syndrome, unspecified
CPT/HCPCS: 86900; 86901; 36415; 36430; 86850; 86920; P9016; A9270 ×2; J1940; 96374

== ENCOUNTER 2017-08-02 12:03 | Outpatient (CLI) | payer MEDICARE, OTHER ==
[2017-08-02 12:56] LABS: HEMATOCRIT 21.8 % (37.9-51.0); MEAN CORPUSCULAR HEMOGLOBIN 30.2 pg (27.0-33.4); MEAN CORPUSCULAR HGB CONC 33.3 g/dL (32.0-36.0); MEAN CORPUSCULAR VOLUME 91 fl (80-97); RED BLOOD COUNT 2.41 10^6/uL (4.35-5.55); RED CELL DISTRIBUTION WIDTH 26.2 % (11.5-14.0); WHITE BLOOD COUNT 5.7 10^3/uL (4.0-10.5)
[2017-08-02 13:25] LABS: HEMOGLOBIN 7.3 g/dL (13.5-17.0)
[2017-08-02 13:26] LABS: PLATELET COUNT 32 10^3/uL (150-450)
[2017-08-02] MEDS ORDERED: NORMAL SALINE 250 ML IV PRN (13:44)
[2017-08-02] MEDS ORDERED: FUROSEMIDE INJ/PF 20 MG/2 ML SDV IV PRN ×2 (13:45→13:59)
[2017-08-02] MEDS ORDERED: ACETAMINOPHEN 325 MG TABLET ONE (14:33)
[2017-08-02] MEDS ORDERED: DIPHENHYDRAMINE HCL 25 MG CAPSULE ONE (14:34)
[2017-08-02 21:17] VITALS: BP 109/46
== END 2017-08-02 21:25 | disposition home or self-care (01) ==
LOC: II 12:03 → 2N 12:05 → II 21:25
PROVIDERS: ATTEND Internal Medicine Hematology & Oncology
PROC: 30233N1 Transfusion of Nonautologous Red Blood Cells into Peripheral Vein, Percutaneous Approach (ICD-10-PCS; principal; 2017-08-02)
PROC: 3E033GC Introduction of Other Therapeutic Substance into Peripheral Vein, Percutaneous Approach (ICD-10-PCS; 2017-08-02)
DX: D64.9 Anemia, unspecified (principal); C92.00 Acute myeloblastic leukemia, not having achieved remission
CPT/HCPCS: 86900; 86901; 36415; 36430; 86850; 86920; P9016; A9270 ×2; J1940; 96374; 96375

== ENCOUNTER 2017-08-16 13:53 | Inpatient (IN) | payer MEDICARE, OTHER ==
[2017-08-16] MEDS ORDERED: VANCOMYCIN HCL INJ 1000 MG VIAL IV ONE (14:14)
[2017-08-16] MEDS ORDERED: PIPERACILLIN/TAZOBACTAM 3.375 GM VIAL IV ONE (14:14)
[2017-08-16] MEDS ORDERED: NORMAL SALINE 1000 ML 1,000 ML IV ONE (14:15)
[2017-08-16 14:17] LABS: VENOUS BLOOD HCO3 23.2 mmol/L (20-32); VENOUS BLOOD PCO2 36.4 mmHg (35-63); VENOUS BLOOD PH 7.42 (7.30-7.42)
[2017-08-16 14:22] LABS: INTERNATIONAL RATION (INR) 1.38; PROTHROMBIN TIME 17.9 SEC (11.4-15.4)
--- NOTE | 2017-08-16 14:34 | ER Document Report ---
ED General - General Chief Complaint: Fever Stated Complaint: FEVER,WEAKNESS Time Seen by Provider: 08/16/17 14:13 Mode of Arrival: Medic Information source: Patient, Relative, Outside Facility Records Notes: 82 yr old male presents with complaints of left foot drainage. Pts daughter notes he has a hx of cml, was transfused 2 units last week. pt has had his foot operated on multiple times for abscess, daughter states it is foul smelling with drainage pt noted to be febrle TRAVEL OUTSIDE OF THE [place] IN LAST 30 DAYS: No - HPI Onset: Other Onset/Duration: Persistent, Worse Quality of pain: No pain Severity: Moderate Pain Level: Denies Associated symptoms: Fever, Other Exacerbated by: Denies Relieved by: Denies Similar symptoms previously: Yes Recently seen / treated by doctor: Yes - Related Data Allergies/Adverse Reactions: ceftriaxone Allergy (Severe, Verified 08/16/17 14:14) Anaphylaxis adenosine * [adenosine] Allergy (Verified 08/16/17 14:14) Passed out rochephin Allergy (Severe, Uncoded 08/16/17 14:14) Anaphylaxis Past Medical History - Social History Smoking Status: Unknown if Ever Smoked Cigarette use (# per day): No Chew tobacco use (# tins/day): No Smoking Education Provided: No Frequency of alcohol use: None Drug Abuse: None Family History: CAD Patient has suicidal ideation: No Patient has homicidal ideation: No - Past Medical History Cardiac Medical History: Reports: Hx Hypercholesterolemia, Hx Hypertension Denies: Hx Congestive Heart Failure, Hx Coronary Artery Disease, Hx DVT, Hx Heart Attack, Hx Pulmonary Embolism Pulmonary Medical History: Reports: Hx Pneumonia - pseudomonas Denies: Hx Asthma, Hx Bronchitis, Hx COPD, Hx Sleep Apnea Neurological Medical History: Reports: 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 Denies: Hx Cerebrovascular Accident, Hx Migraine Endocrine Medical History: Denies: Hx Diabetes Mellitus Type 1, Hx Diabetes Mellitus Type 2, Hx Hyperthyroidism, Hx Hypothyroidism Renal/ Medical History: Reports: Hx Benign Prostatic Hyperplasia. 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 Denies: Hx Open Heart Surgery, Hx Pacemaker - Immunizations Hx Diphtheria, Pertussis, Tetanus Vaccination: Yes Hx Pneumococcal Vaccination: 05/11/12 Review of Systems - Review of Systems Notes: REVIEW OF SYSTEMS: CONSTITUTIONAL : Febrile EENT: Denies eye, ear, throat, or mouth pain or symptoms. Denies nasal or sinus congestion or discharge. Denies throat, tongue, or mouth swelling or difficulty swallowing. CARDIOVASCULAR: Denies chest pain. Denies palpitations or racing or irregular heart beat. Denies ankle edema. RESPIRATORY: Denies cough, cold, or chest congestion. Denies shortness of breath, difficulty breathing, or wheezing. GASTROINTESTINAL: Denies abdominal pain or distention. Denies nausea, vomiting , or diarrhea. Denies blood in vomitus, stools, or per rectum. Denies black, tarry stools. Denies constipation. GENITOURINARY: Denies difficulty urinating, painful urination, burning, frequency, blood in urine, or discharge. MUSCULOSKELETAL: Denies back or neck pain or stiffness. Denies joint pain or swelling. SKIN: Left foot drainage HEMATOLOGIC : Denies easy bruising or bleeding. LYMPHATIC: Denies swollen, enlarged glands. NEUROLOGICAL: Denies confusion or altered mental status. Denies passing out or loss of consciousness. Denies dizziness or lightheadedness. Denies headache. Denies weakness or paralysis or loss of use of either side. Denies problems with gait or speech. Denies sensory loss, numbness, or tingling. Denies seizures. PSYCHIATRIC: Denies anxiety or stress. Denies depression, suicidal ideation, or homicidal ideation. ALL OTHER SYSTEMS REVIEWED AND NEGATIVE. Dictation was performed using [employer] voice recognition software PHYSICAL EXAMINATION: GENERAL: Frail appearing male HEAD: Atraumatic, normocephalic. EYES: Pupils equal round and reactive to light, extraocular movements intact, sclera anicteric, conjunctiva are normal. ENT: Nares patent, oropharynx clear without exudates. Moist mucous membranes. NECK: Normal range of motion, supple without lymphadenopathy LUNGS: Breath sounds clear to auscultation bilaterally and equal. No wheezes rales or rhonchi. HEART: Regular rate and rhythm without murmurs ABDOMEN: Soft, nontender, nondistended abdomen. No guarding, no rebound. No masses appreciated. Musculoskeletal: Normal range of motion, no pitting or edema. No cyanosis. NEUROLOGICAL: Cranial nerves grossly intact. Normal speech, normal gait. Normal sensory, motor exams PSYCH: Normal mood, normal affect. SKIN: Left foot swollen 2 areas of drainage 1 between the first and second digits 1 on the medial aspect of the first digit foul-smelling thick white yellow discharge Physical Exam - Vital signs Vitals: Temp Resp BP Pulse Ox 97.8 F 20 90/74 L 96 08/16/17 14:04 08/16/17 14:04 08/16/17 14:04 08/16/17 14:04 Course - Re-evaluation Re-evalutation: 08/16/17 15:15 I have very high suspicion for infectious process, patient is febrile meets sepsis criteria antibiotics IV fluids have already been ordered, patient will be admitted to the hospitalist service 08/16/17 20:21 Patient was started on Vanco and Cipro due to Rocephin allergy, CT was ordered but appears IV contrast causes severe allergic reaction to the patient 08/16/17 20:22 Patient transfused due to history of AML - Vital Signs Vital signs: Temp Pulse Resp BP Pulse Ox 97.8 F 82 21 H 113/73 100 08/16/17 14:04 08/16/17 19:31 08/16/17 19:31 08/16/17 19:30 08/16/17 19:31 - Laboratory Result Diagrams: 08/16/17 15:16 08/16/17 14:02 Laboratory results interpreted by me: 08/16/17 08/16/17 08/16/17 14:02 14:02 14:02 RBC Hgb Hct RDW Plt Count Band Neutrophils % Monocytes % (Manual) Abs Monocytes (Manual) PT 17.9 H Sodium 133.9 L Potassium 3.5 L Glucose 128 H POC Glucose Lactic Acid 2.2 H Calcium 8.0 L Total Bilirubin 1.4 H Direct Bilirubin 1.0 H Total Protein 5.1 L Albumin 2.5 L Crossmatch 08/16/17 08/16/17 08/16/17 14:02 15:16 16:50 RBC 1.80 L Hgb 5.3 L Hct 16.1 L RDW 21.9 H Plt Count 28 L* Band Neutrophils % 2 L Monocytes % (Manual) 21 H Abs Monocytes (Manual) 2.1 H PT Sodium Potassium Glucose POC Glucose 150 H Lactic Acid Calcium Total Bilirubin Direct Bilirubin Total Protein Albumin Crossmatch See Detail - Diagnostic Test Radiology reviewed: Image reviewed, Reports reviewed Critical Care Note - Critical Care Note Total time excluding time spent on procedures (mins): 46 Comments: 46 minutes of critical care time spent in direct contact evaluating and reevaluating the patient, treating symptoms, reviewing labs and studies and speaking with family and consultants excluding any procedures Discharge - Discharge Clinical Impression: Thrombocytopenia AML (acute myeloid leukemia) Qualifiers: Leukemia Active/Remission status: without remission Qualified Code(s): C92.00 - Acute myeloblastic leukemia, not having achieved remission Anemia Qualifiers: Anemia type: bone marrow failure Bone marrow failure anemia type: unspecified bone marrow failure Qualified Code(s): D61.9 - Aplastic anemia, unspecified Sepsis Qualifiers: Sepsis type: sepsis due to unspecified organism Qualified Code(s): A41.9 - Sepsis, unspecified organism Wound, open, foot Qualifiers: Encounter type: sequela Laterality: left Qualified Code(s): S91.302S - Unspecified open wound, left foot, sequela Condition: Fair Disposition: ADMITTED INPATIENT Admitting Provider: Hospitalist Unit Admitted: Telemetry
[2017-08-16 14:35] LABS: ALANINE AMINOTRANSFERASE 41 U/L (21-72); ALBUMIN 2.5 g/dL (3.5-5.0); ALKALINE PHOSPHATASE 55 U/L (38-126); ANION GAP 8 (5-19); ASPARTATE AMINO TRANSFERASE 34 U/L (17-59); BILIRUBIN,TOTAL 1.4 mg/dL (0.2-1.3); BLOOD UREA NITROGEN 15 mg/dL (7-20); CARBON DIOXIDE 22 mmol/L (22-30); CHLORIDE 104 mmol/L (98-107); GLUCOSE 128 mg/dL (75-110); POTASSIUM 3.5 mmol/L (3.6-5.0); SODIUM 133.9 mmol/L (137-145); TOTAL PROTEIN 5.1 g/dL (6.3-8.2)
[2017-08-16] MEDS: NORMAL SALINE 1000 ML 1,000 ML IV PRN ×2 (14:39→14:40)
[2017-08-16 15:36] LABS: HEMATOCRIT 16.1 % (37.9-51.0); MEAN CORPUSCULAR HEMOGLOBIN 29.6 pg (27.0-33.4); MEAN CORPUSCULAR HGB CONC 33.2 g/dL (32.0-36.0); MEAN CORPUSCULAR VOLUME 89 fl (80-97); RED CELL DISTRIBUTION WIDTH 21.9 % (11.5-14.0); WHITE BLOOD COUNT 9.8 10^3/uL (4.0-10.5)
[2017-08-16] MEDS ORDERED: CIPROFLOXACIN 400 MG/D5W RTU 400 MG/200 ML RTUPB IV SCH (16:00)
[2017-08-16 16:04] LABS: ABSOLUTE LYMPHOCYTES# (MANUAL) 1.9 10^3/uL (0.5-4.7); ABSOLUTE MONOCYTES # (MANUAL) 2.1 10^3/uL (0.1-1.4); ABSOLUTE NEUTROPHILS# (MANUAL) 5.9 10^3/uL (1.7-8.2); BAND NEUTROPHILS % (MANUAL) 2 % (3-5); BASOPHILS % (MANUAL) 0 % (0-2); EOSINOPHILS % (MANUAL) 0 % (0-6); LYMPHOCYTES % (MANUAL) 19 % (13-45); MONOCYTES % (MANUAL) 21 % (3-13); NUCLEATED RED BLOOD CELLS 3 /100 WBC (0); SEGMENTED NEUTROPHILS % (MAN) 58 % (42-78); TOTAL CELLS COUNTED 100
[2017-08-16 16:05] LABS: POLYCHROMASIA SLIGHT; TOXIC GRANULATION SLIGHT
[2017-08-16 16:06] LABS: ANISOCYTOSIS 2+; PLATELET COMMENT DECREASED; POIKILOCYTOSIS 1+
[2017-08-16 16:08] LABS: HEMOGLOBIN 5.3 g/dL (13.5-17.0)
[2017-08-16 16:09] LABS: PLATELET COUNT 28 10^3/uL (150-450)
[2017-08-16] MEDS ORDERED: NORMAL SALINE 250 ML IV PRN ×2 (16:09)
--- NOTE | 2017-08-16 17:32 | RADIOLOGY REPORT (SQ) ---
EXAM DESCRIPTION: CT LT LOWER EXTREMITY WITHOUT COMPLETED DATE/TIME: 08/16/2017 5:15 pm REASON FOR STUDY: foot abscess COMPARISON: None. TECHNIQUE: Axial imaging performed through the right foot with reformatted coronal and sagittal imag ing windowed for bone and soft tissues. Images saved to PACS. 3D IMAGING: Were 3D images as MIP, SSD, or volume rendering performed at the work station? No All CT scanners at this facility use dose modulation, iterative reconstruction, and/or weight based d osing when appropriate to reduce radiation dose to as low as reasonably achievable (ALARA). [facility]: Dose Right [facility]: CareDose [facility]: Dose Right [facility]: Teradose 4D [facility]: [employer] LIMITATIONS: None. RADIATION DOSE: CT Rad equipment meets quality standard of care and radiation dose reduction techniq ues were employed. CTDIvol: 4.1 mGy. DLP: 115 mGy-cm. mGy. FINDINGS: SOFT TISSUES: By history there is a draining abscess in the area of the 1st metatarsal-pha langeal joint. Soft tissue planes around the 1st metatarsal-phalangeal joint are indistinct. BONES: There is suggestion of bone destruction in the medial aspect of the head of the 1st metatarsal . MINERALIZATION: Normal. OTHER: No other significant finding. IMPRESSION: There are changes in the medial aspect of the head of the 1st metatarsal concerning for osteomyelitis. TECHNICAL DOCUMENTATION: JOB ID: [id number] Quality ID # [id number]: Final reports with documentation of one or more dose reduction techniques (e.g., Au tomated exposure control, adjustment of the mA and/or kV according to patient size, use of iterative reconstruction technique) 2010 [employer]- All Rights Reserved Reading location - IP/workstation name: [email or web address]
[2017-08-16] MEDS ORDERED: NORMAL SALINE 1000 ML 1,000 ML IV PRN (18:48)
[2017-08-16] MEDS ORDERED: ACETAMINOPHEN 325 MG TABLET PO PRN (18:49)
[2017-08-16] MEDS ORDERED: ONDANSETRON HCL INJ/PF 4 MG/2 ML SDV IV PRN (18:49)
[2017-08-16] MEDS ORDERED: VANCOMYCIN HCL 0 MG in DEXTROSE 5%-WATER 250 ML IV NR (19:00)
--- NOTE | 2017-08-16 21:58 | EKG REPORT ---
SEVERITY:- ABNORMAL ECG - SINUS TACHYCARDIA MULTIPLE ATRIAL AND VENTRICULAR PREMATURE COMPLEXES LOW VOLTAGE IN FRONTAL LEADS CONSIDER INFERIOR INFARCT : Confirmed by: Hanane Sears 16-Aug-2017 21:58:09
--- NOTE | 2017-08-16 22:26 | PDOC CONSULTATION ---
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 Uncertain exactly what has been done for the patient as an outpatient for this infection. There is no history of diabetes. There is no known history of peripheral vascular disease. Patient is a non-smoker. No known history of trauma. Patient has been feeling generalized weakness as well as intermittent fevers. 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 GI Medical History: Reports: Gastroesophageal Reflux Disease Denies: Cirrhosis, Hepatitis, Hiatal Hernia Musculoskeltal Medical History: 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 Psychiatric Medical History: Denies: Depression Hematology: Reports: Anemia, Bleeding Tendencies Denies: Sickle Cell Disease Infectious Medical History: Denies: Clostridium Difficile, Methicillin-Resistant Staph Aureus Past Surgical History Past Surgical History: Reports: Appendectomy, Cardiac Catheterization, Orthopedic Surgery Denies: Pacemaker Social History Smoking Status: Unknown if Ever Smoked Frequency of Alcohol Use: None Hx Recreational Drug Use: No Drugs: None Hx Prescription Drug Abuse: No Family History Family History: CAD Parental Family History Reviewed: No Children Family History Reviewed: No Sibling(s) Family History Reviewed.: No Medication/Allergy Home Medications: Alfuzosin HCl [Uroxatral] 10 mg PO DAILY 08/16/17 Allopurinol [Zyloprim 300 mg Tablet] 300 mg PO DAILY 08/16/17 Finasteride [Proscar 5 mg Tablet] 5 mg PO DAILY 08/16/17 Gabapentin [Neurontin 300 mg Capsule] 300 mg PO Q8 08/16/17 Metoprolol Tartrate [Lopressor 50 mg Tablet] 50 mg PO Q12 08/16/17 Montelukast Sodium [Singulair 10 mg Tablet] 5 mg PO QHS 08/16/17 Oxycodone HCl [Oxy-Ir 5 mg Tablet] 5 mg PO Q8HP PRN 08/16/17 Pantoprazole Sodium [Protonix] 40 mg PO DAILY 08/16/17 Sertraline HCl [Zoloft 50 mg Tablet] 50 mg PO DAILY 08/16/17 Allergies/Adverse Reactions: ceftriaxone Allergy (Severe, Verified 08/16/17 14:14) Anaphylaxis adenosine * [adenosine] Allergy (Verified 08/16/17 14:14) Passed out rochephin Allergy (Severe, Uncoded 08/16/17 14:14) Anaphylaxis Physical Exam Vital Signs: Temp Pulse Resp BP Pulse Ox 97.5 F 80 20 127/70 H 98 08/16/17 21:20 08/16/17 21:20 08/16/17 21:20 08/16/17 21:20 08/16/17 21:20 Intake & Output 08/15/17 08/16/17 08/17/17 06:59 06:59 06:59 Intake Total 350 Balance 350 Weight 84.1 kg General appearance: PRESENT: no acute distress, cooperative Neck exam: PRESENT: other - Supple Respiratory exam: PRESENT: clear to auscultation jane Cardiovascular exam: PRESENT: RRR GI/Abdominal exam: PRESENT: other - Soft, nondistended, nontender to palpation. Extremities exam: PRESENT: other - Bilateral palpable posterior tibial pulses. Right foot appears normal. With no swelling and no ischemic changes. The left foot is diffusely swollen with erythema at the forefoot centered around the great toe MP joint with purulent drainage in the webspace between the great and second toe and at the region of the metatarsal head of the great toe. Neurological exam: PRESENT: alert, awake Psychiatric exam: PRESENT: appropriate affect Results Laboratory Results: 08/16/17 20:05 Lactic Acid 1.3 Impressions: Lower Extremity CT 08/16/17 14:56 IMPRESSION: There are changes in the medial aspect of the head of the 1st metatarsal concerning for osteomyelitis. Assessment & Plan - Diagnosis (1) Osteomyelitis Qualifiers: Osteomyelitis location: foot Laterality: left Is this a current diagnosis for this admission?: Yes Plan: Evidence of osteomyelitis involving the left great toe. Patient would benefit from great toe transmetatarsal amputation possibly including the second toe as well. Will make the patient n.p.o. and we will plan the surgery tomorrow. I have discussed with the patient the risk and benefits of the procedure including risk of poor healing, spreading of the infection, bleeding, possible eventual need for a below knee amputation. Patient understands and agrees to proceed.
[2017-08-16] MEDS: FAMOTIDINE INJ/PF 20 MG/2 ML SDV IV SCH (22:55)
[2017-08-16] MEDS: GABAPENTIN 300 MG CAPSULE PO SCH (22:55)
[2017-08-16] MEDS: MONTELUKAST SODIUM 10 MG TABLET PO SCH (22:55)
[2017-08-17] MEDS: PIPERACILLIN SODIUM/TAZOBACTAM 3.375 GM in NORMAL SALINE 100 ML IV SCH ×4 (01:46→18:06)
[2017-08-17] MEDS: VANCOMYCIN HCL 1,000 MG in DEXTROSE 5%-WATER 250 ML IV SCH ×2 (03:19→14:54)
[2017-08-17 05:28] LABS: HEMATOCRIT 23.6 % (37.9-51.0); MEAN CORPUSCULAR HGB CONC 33.6 g/dL (32.0-36.0); MEAN CORPUSCULAR VOLUME 89 fl (80-97); RED BLOOD COUNT 2.64 10^6/uL (4.35-5.55); RED CELL DISTRIBUTION WIDTH 19.5 % (11.5-14.0); WHITE BLOOD COUNT 8.8 10^3/uL (4.0-10.5)
[2017-08-17 05:31] LABS: ANION GAP 7 (5-19); BLOOD UREA NITROGEN 14 mg/dL (7-20); CALCIUM 7.5 mg/dL (8.4-10.2); CARBON DIOXIDE 21 mmol/L (22-30); CHLORIDE 111 mmol/L (98-107); GLUCOSE 102 mg/dL (75-110); POTASSIUM 3.1 mmol/L (3.6-5.0); SODIUM 139.3 mmol/L (137-145)
[2017-08-17] MEDS: GABAPENTIN 300 MG CAPSULE PO SCH ×3 (05:50→21:53)
[2017-08-17 06:01] LABS: HEMOGLOBIN 7.9 g/dL (13.5-17.0)
[2017-08-17 06:02] LABS: PLATELET COUNT 27 10^3/uL (150-450)
[2017-08-17 06:04] LABS: ABSOLUTE LYMPHOCYTES# (MANUAL) 1.7 10^3/uL (0.5-4.7); ABSOLUTE MONOCYTES # (MANUAL) 0.4 10^3/uL (0.1-1.4); ABSOLUTE NEUTROPHILS# (MANUAL) 6.8 10^3/uL (1.7-8.2); BAND NEUTROPHILS % (MANUAL) 5 % (3-5); BASOPHILS % (MANUAL) 0 % (0-2); EOSINOPHILS % (MANUAL) 0 % (0-6); LYMPHOCYTES % (MANUAL) 17 % (13-45); MONOCYTES % (MANUAL) 4 % (3-13); NUCLEATED RED BLOOD CELLS 2 /100 WBC (0); SEGMENTED NEUTROPHILS % (MAN) 72 % (42-78); TOTAL CELLS COUNTED 100
[2017-08-17 06:06] LABS: ANISOCYTOSIS 2+; TOXIC VACUOLATION PRESENT
[2017-08-17 06:07] LABS: PLATELET COMMENT DECREASED
[2017-08-17] MEDS: OXYCODONE HCL IR 5 MG TABLET PO PRN ×2 (08:07→21:23)
--- NOTE | 2017-08-17 08:27 | PDOC CONSULTATION ---
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 Recently he has not been on any chemotherapy, now for about 1 year, and he is only been on supportive care with frequent need of transfusion on average every 2 weeks, but recently it has been increased to weekly. 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, he has been treated with a variety of medications including colchicine, NSAIDs, steroids, but recently there has been recurrent infections, we treated him with several course of oral antibiotics, he had seen podiatry in [place], who did several I& D's, and there was some wound packing being done for some time, his daughter came yesterday and found him to be very weak and lethargic, he was febrile, short of breath, and therefore he was brought into the ED, here he was hypotensive and tachycardic, exhibiting some symptoms acute infection, the toe is red, inflamed, and there was pus coming out of 1 side, he had CT done indicated osteomyelitis of the great toe. Today he was seen by general surgery , I discussed his case extensively with general surgery as well as his daughter Kallie, general surgery feels like toe amputation would be the only way to go. That seems to be the plan right now, his daughter will come and talk to the patient more extensively, and we will plan for procedure. We will give him 1 more unit of platelets today, hopefully bring his platelets close to 50. He has gotten 2 units of packed red blood cells bringing his hemoglobin from 5-7. And we will see how we go from there. 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 GI Medical History: Reports: Gastroesophageal Reflux Disease Denies: Cirrhosis, Hepatitis, Hiatal Hernia Musculoskeltal Medical History: 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 Psychiatric Medical History: Denies: Depression Hematology: Reports: Anemia, Bleeding Tendencies Denies: Sickle Cell Disease Infectious Medical History: Denies: Clostridium Difficile, Methicillin-Resistant Staph Aureus Past Surgical History Past Surgical History: Reports: Appendectomy, Cardiac Catheterization, Orthopedic Surgery Denies: Pacemaker Social History Information Source: Patient Smoking Status: Unknown if Ever Smoked Frequency of Alcohol Use: None Hx Recreational Drug Use: No Drugs: None Hx Prescription Drug Abuse: No - Advance Directive Resuscitation Status: Do Not Resuscitate Family History Family History: CAD Parental Family History Reviewed: Yes Children Family History Reviewed: Yes Sibling(s) Family History Reviewed.: Yes Medication/Allergy Home Medications: Alfuzosin HCl [Uroxatral] 10 mg PO DAILY 08/16/17 Allopurinol [Zyloprim 300 mg Tablet] 300 mg PO DAILY 08/16/17 Finasteride [Proscar 5 mg Tablet] 5 mg PO DAILY 08/16/17 Gabapentin [Neurontin 300 mg Capsule] 300 mg PO Q8 08/16/17 Metoprolol Tartrate [Lopressor 50 mg Tablet] 50 mg PO Q12 08/16/17 Montelukast Sodium [Singulair 10 mg Tablet] 5 mg PO QHS 08/16/17 Oxycodone HCl [Oxy-Ir 5 mg Tablet] 5 mg PO Q8HP PRN 08/16/17 Pantoprazole Sodium [Protonix] 40 mg PO DAILY 08/16/17 Sertraline HCl [Zoloft 50 mg Tablet] 50 mg PO DAILY 08/16/17 Allergies/Adverse Reactions: ceftriaxone Allergy (Severe, Verified 08/16/17 14:14) Anaphylaxis adenosine * [adenosine] Allergy (Verified 08/16/17 14:14) Passed out rochephin Allergy (Severe, Uncoded 08/16/17 14:14) Anaphylaxis Review of Systems Constitutional: PRESENT: anorexia, chills, fatigue, weakness, weight loss Cardiovascular: PRESENT: dyspnea on exertion Respiratory: PRESENT: dyspnea Gastrointestinal: ABSENT: abdominal pain, constipation, diarrhea, hematemesis, hematochezia, nausea, vomiting Genitourinary: ABSENT: dysuria, hematuria Musculoskeletal: PRESENT: deformity, other - Left great toe pain Neurological: ABSENT: abnormal gait, abnormal speech, confusion, dizziness, focal weakness, syncope Physical Exam Vital Signs: Temp Pulse Resp BP Pulse Ox 97.6 F 74 16 133/75 H 100 08/17/17 07:36 08/17/17 07:36 08/17/17 07:36 08/17/17 07:36 08/17/17 07:36 Intake & Output 08/16/17 08/17/17 08/18/17 06:59 06:59 06:59 Intake Total 1970 196 Output Total 400 Balance 1570 196 Weight 86.7 kg General appearance: PRESENT: mild distress Head exam: PRESENT: atraumatic Eye exam: PRESENT: conjunctiva pale Mouth exam: PRESENT: dry mucosa Neck exam: ABSENT: carotid bruit, JVD, lymphadenopathy, thyromegaly Respiratory exam: PRESENT: clear to auscultation jane. ABSENT: rales, rhonchi, wheezes Cardiovascular exam: PRESENT: RRR. ABSENT: diastolic murmur, rubs, systolic murmur GI/Abdominal exam: PRESENT: normal bowel sounds, soft. ABSENT: distended, guarding, mass, organolmegaly, rebound, tenderness Rectal exam: PRESENT: deferred Extremities exam: PRESENT: other - Left great toe pus, redness Results Laboratory Results: 08/17/17 04:05 08/17/17 04:05 08/16/17 08/17/17 08/17/17 20:05 04:05 04:05 WBC 8.8 RBC 2.64 L Hgb 7.9 L D Hct 23.6 L MCV 89 MCH 30.0 MCHC 33.6 RDW 19.5 H Plt Count 27 L* Seg Neutrophils % Not Reportable Lymphocytes % Not Reportable Monocytes % Not Reportable Eosinophils % Not Reportable Basophils % Not Reportable Absolute Neutrophils Not Reportable Absolute Lymphocytes Not Reportable Absolute Monocytes Not Reportable Absolute Eosinophils Not Reportable Absolute Basophils Not Reportable Sodium 139.3 Potassium 3.1 L Chloride 111 H Carbon Dioxide 21 L Anion Gap 7 BUN 14 Creatinine 0.78 Est GFR ( Amer) > 60 Est GFR (Non-Af Amer) > 60 Glucose 102 Lactic Acid 1.3 Calcium 7.5 L Magnesium 1.6 Impressions: Lower Extremity CT 08/16/17 14:56 IMPRESSION: There are changes in the medial aspect of the head of the 1st metatarsal concerning for osteomyelitis. Assessment & Plan - Diagnosis (1) Osteomyelitis Qualifiers: Osteomyelitis type: acute hematogenous Osteomyelitis location: foot Laterality: left Qualified Code(s): M86.072 - Acute hematogenous osteomyelitis , left ankle and foot Is this a current diagnosis for this admission?: Yes Plan: Left great toe osteomyelitis, per surgery he will require toe amputation, we will prepare for that with continued IV antibiotics along with transfusion of another unit of platelets, recheck of CBC to see where he is at. (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 Qualified Code(s): C92.00 - Acute myeloblastic leukemia, not having achieved remission Is this a current diagnosis for this admission?: Yes Plan: Pancytopenia resulted from this, plan for management as above no further chemotherapy planned for the patient. Only supportive care. (3) Pancytopenia Is this a current diagnosis for this admission?: Yes Plan: Plan for transfusion of platelet as above, hold on packed red cell transfusion at this point, plan for more transfusion after surgery, will continue to follow. - Time Time Spent: Greater than 70 Minutes - Inpatient Certification Based on my medical assessment, after consideration of the patient's comorbidities, presenting symptoms, or acuity I expect that the services needed warrant INPATIENT care.: Yes I certify that my determination is in accordance with my understanding of Medicare's requirements for reasonable and necessary INPATIENT services [42 CFR 412.3e].: Yes Medical Necessity: Need for Pain Control, Need for IV Antibiotics, Need for Surgery
[2017-08-17 09:11] LABS: HEMATOCRIT 23.7 % (37.9-51.0); MEAN CORPUSCULAR HEMOGLOBIN 29.9 pg (27.0-33.4); MEAN CORPUSCULAR HGB CONC 33.5 g/dL (32.0-36.0); MEAN CORPUSCULAR VOLUME 89 fl (80-97); RED BLOOD COUNT 2.65 10^6/uL (4.35-5.55); RED CELL DISTRIBUTION WIDTH 19.1 % (11.5-14.0); WHITE BLOOD COUNT 9.6 10^3/uL (4.0-10.5)
[2017-08-17] MEDS ORDERED: LANSOPRAZOLE 30 MG TAB.RAP.DR PO SCH (10:00)
[2017-08-17] MEDS ORDERED: DOCUSATE SODIUM 100 MG/10 ML UDC PO SCH (10:00)
[2017-08-17 10:06] LABS: HEMOGLOBIN 7.9 g/dL (13.5-17.0); PLATELET COUNT 42 10^3/uL (150-450)
[2017-08-17 10:07] LABS: ABSOLUTE LYMPHOCYTES# (MANUAL) 1.2 10^3/uL (0.5-4.7); ABSOLUTE MONOCYTES # (MANUAL) 1.1 10^3/uL (0.1-1.4); ABSOLUTE NEUTROPHILS# (MANUAL) 6.6 10^3/uL (1.7-8.2); BAND NEUTROPHILS % (MANUAL) 3 % (3-5); BASOPHILS % (MANUAL) 0 % (0-2); LYMPHOCYTES % (MANUAL) 10 % (13-45); MONOCYTES % (MANUAL) 11 % (3-13); NUCLEATED RED BLOOD CELLS 4 /100 WBC (0); SEGMENTED NEUTROPHILS % (MAN) 66 % (42-78); TOTAL CELLS COUNTED 100
[2017-08-17 10:08] LABS: ANISOCYTOSIS 2+; EOSINOPHILS % (MANUAL) 2 % (0-6); HYPOCHROMASIA SLIGHT; IMMATURE MONONUCLEAR% (MANUAL) 6 % (0); OVALOCYTES 2+; PLATELET COMMENT DECREASED; POIKILOCYTOSIS 2+; POLYCHROMASIA SLIGHT; SCHISTOCYTES SLIGHT
[2017-08-17 10:09] LABS: PATH REVIEW PATHOLOGIST REVIEWED; PLATELET CLUMPS PRESENT
[2017-08-17] MEDS: SERTRALINE HCL 50 MG TABLET PO SCH (10:25)
[2017-08-17] MEDS: DOCUSATE SODIUM 100 MG CAPSULE PO SCH (10:25)
[2017-08-17] MEDS: TAMSULOSIN HCL 0.4 MG CAP.SR.24H PO SCH (10:26)
[2017-08-17] MEDS: ALLOPURINOL 300 MG TABLET PO SCH (10:27)
[2017-08-17] MEDS: FINASTERIDE 5 MG TABLET PO SCH (10:27)
[2017-08-17] MEDS: FAMOTIDINE INJ/PF 20 MG/2 ML SDV IV SCH ×2 (10:27→21:52)
--- NOTE | 2017-08-17 14:32 | RADIOLOGY REPORT (SQ) ---
EXAM DESCRIPTION: PICC INSERTION; FLUORO/CV PLACEMENT; U/S GUIDE FOR VASCULAR ACCESS COMPLETED DATE/TIME: 08/17/2017 1:24 pm; 08/17/2017 1:25 pm REASON FOR STUDY: penitentiary antibiotics; IV ABX COMPARISON: None. FLUOROSCOPY TIME: 6 seconds. 1 images saved to PACS. TECHNIQUE: Fluoroscopic and ultrasound guided PICC placement. LIMITATIONS: None. PROCEDURE: After written consent and assessment were obtained, the patient was brought into the fluo roscopy room and place supine on the table. Ultrasound was used on the patient's left arm for PICC a ccess. The left arm was prepped and draped in a sterile fashion along with the ultrasound probe. The entry site was anesthetized with 1% lidocaine. A 21 gauge 7 cm needle was advanced through the skin a nd into the basilic vein under live ultrasound guidance. An ultrasound image was saved to PACS confi rming access site. A .018 guide wire was then inserted through the needle and into the venous system . The needle was the removed and an 11 blade scalpel was used to make a 1cm skin incision. A 5 fr pe el-away sheath was advanced over the wire and into the venous system. A measurement was then made usi ng the existing wire and live fluoroscopic guidance. The wire was then removed and the trimmed. The P ICC was advanced through the peel-away sheath and into the venous system. The peel-away sheath was re moved and the catheter was adhered to the patients arm with a stat lock. The catheter was then aspira faraz and flushed and a sterile bandage was placed over the access site. A fluoroscopic spot image was saved to PACS confirming the catheter tip within the superior vena cava. IMPRESSION: SUCCESSFUL PLACEMENT OF A 5 FR DUAL LUMEN 44 CM PICC IN THE LEFT BASILIC VEIN. COMMENT: Patient medication list reviewed: Yes- Quality ID# 130:Eligible professional attests to doc umenting in the medical record they obtained, updated, or reviewed the patient's current medications. . Quality ID 145: Final reports for procedures using fluoroscopy that document radiation exposure marica nany, or exposure time and number of fluorographic images (if radiation exposure indices are not avail able) Quality ID #76: The patient was prepped and draped using maximum sterile barrier technique including cap, mask, sterile gown, sterile gloves, a large sterile sheet, hand hygiene, and 2% Chlorhexidine fo r cutaneous antisepsis. When ultrasound is used, sterile ultrasound techniques are followed requiring sterile gel and sterile probes. TECHNICAL DOCUMENTATION: JOB ID: [id number] [employer]- All Rights Reserved Reading location - IP/workstation name: [facility]-ON LICENSE OF [facility]
--- NOTE | 2017-08-17 14:32 | RADIOLOGY REPORT (SQ) ---
EXAM DESCRIPTION: PICC INSERTION; FLUORO/CV PLACEMENT; U/S GUIDE FOR VASCULAR ACCESS COMPLETED DATE/TIME: 08/17/2017 1:24 pm; 08/17/2017 1:25 pm REASON FOR STUDY: [facility]cc antibiotics; IV ABX COMPARISON: None. FLUOROSCOPY TIME: 6 seconds. 1 images saved to PACS. TECHNIQUE: Fluoroscopic and ultrasound guided PICC placement. LIMITATIONS: None. PROCEDURE: After written consent and assessment were obtained, the patient was brought into the fluo roscopy room and place supine on the table. Ultrasound was used on the patient's left arm for PICC a ccess. The left arm was prepped and draped in a sterile fashion along with the ultrasound probe. The entry site was anesthetized with 1% lidocaine. A 21 gauge 7 cm needle was advanced through the skin a nd into the basilic vein under live ultrasound guidance. An ultrasound image was saved to PACS confi rming access site. A .018 guide wire was then inserted through the needle and into the venous system . The needle was the removed and an 11 blade scalpel was used to make a 1cm skin incision. A 5 fr pe el-away sheath was advanced over the wire and into the venous system. A measurement was then made usi ng the existing wire and live fluoroscopic guidance. The wire was then removed and the trimmed. The P ICC was advanced through the peel-away sheath and into the venous system. The peel-away sheath was re moved and the catheter was adhered to the patients arm with a stat lock. The catheter was then aspira faraz and flushed and a sterile bandage was placed over the access site. A fluoroscopic spot image was saved to PACS confirming the catheter tip within the superior vena cava. IMPRESSION: SUCCESSFUL PLACEMENT OF A 5 FR DUAL LUMEN 44 CM PICC IN THE LEFT BASILIC VEIN. COMMENT: Patient medication list reviewed: Yes- Quality ID# [id number]:Eligible professional attests to doc umenting in the medical record they obtained, updated, or reviewed the patient's current medications. . Quality ID 145: Final reports for procedures using fluoroscopy that document radiation exposure marcia nany, or exposure time and number of fluorographic images (if radiation exposure indices are not avail able) Quality ID #76: The patient was prepped and draped using maximum sterile barrier technique including cap, mask, sterile gown, sterile gloves, a large sterile sheet, hand hygiene, and 2% Chlorhexidine fo r cutaneous antisepsis. When ultrasound is used, sterile ultrasound techniques are followed requiring sterile gel and sterile probes. TECHNICAL DOCUMENTATION: JOB ID: [id number] [employer]- All Rights Reserved Reading location - IP/workstation name: [facility]
--- NOTE | 2017-08-17 14:32 | RADIOLOGY REPORT (SQ) ---
EXAM DESCRIPTION: PICC INSERTION; FLUORO/CV PLACEMENT; U/S GUIDE FOR VASCULAR ACCESS COMPLETED DATE/TIME: 08/17/2017 1:24 pm; 08/17/2017 1:25 pm REASON FOR STUDY: detention antibiotics; IV ABX COMPARISON: None. FLUOROSCOPY TIME: 6 seconds. 1 images saved to PACS. TECHNIQUE: Fluoroscopic and ultrasound guided PICC placement. LIMITATIONS: None. PROCEDURE: After written consent and assessment were obtained, the patient was brought into the fluo roscopy room and place supine on the table. Ultrasound was used on the patient's left arm for PICC a ccess. The left arm was prepped and draped in a sterile fashion along with the ultrasound probe. The entry site was anesthetized with 1% lidocaine. A 21 gauge 7 cm needle was advanced through the skin a nd into the basilic vein under live ultrasound guidance. An ultrasound image was saved to PACS confi rming access site. A .018 guide wire was then inserted through the needle and into the venous system . The needle was the removed and an 11 blade scalpel was used to make a 1cm skin incision. A 5 fr pe el-away sheath was advanced over the wire and into the venous system. A measurement was then made usi ng the existing wire and live fluoroscopic guidance. The wire was then removed and the trimmed. The P ICC was advanced through the peel-away sheath and into the venous system. The peel-away sheath was re moved and the catheter was adhered to the patients arm with a stat lock. The catheter was then aspira faraz and flushed and a sterile bandage was placed over the access site. A fluoroscopic spot image was saved to PACS confirming the catheter tip within the superior vena cava. IMPRESSION: SUCCESSFUL PLACEMENT OF A 5 FR DUAL LUMEN 44 CM PICC IN THE LEFT BASILIC VEIN. COMMENT: Patient medication list reviewed: Yes- Quality ID# 130:Eligible professional attests to doc umenting in the medical record they obtained, updated, or reviewed the patient's current medications. . Quality ID 145: Final reports for procedures using fluoroscopy that document radiation exposure marcia nany, or exposure time and number of fluorographic images (if radiation exposure indices are not avail able) Quality ID #76: The patient was prepped and draped using maximum sterile barrier technique including cap, mask, sterile gown, sterile gloves, a large sterile sheet, hand hygiene, and 2% Chlorhexidine fo r cutaneous antisepsis. When ultrasound is used, sterile ultrasound techniques are followed requiring sterile gel and sterile probes. TECHNICAL DOCUMENTATION: JOB ID: [id number] [employer]- All Rights Reserved Reading location - IP/workstation name: [facility]
[2017-08-17 18:22] LABS: HEMATOCRIT 21.4 % (37.9-51.0); MEAN CORPUSCULAR HEMOGLOBIN 30.1 pg (27.0-33.4); MEAN CORPUSCULAR HGB CONC 33.8 g/dL (32.0-36.0); MEAN CORPUSCULAR VOLUME 89 fl (80-97); RED CELL DISTRIBUTION WIDTH 19.3 % (11.5-14.0)
[2017-08-17 18:25] LABS: PLATELET COUNT 57 10^3/uL (150-450)
[2017-08-17 18:26] LABS: HEMOGLOBIN 7.2 g/dL (13.5-17.0)
[2017-08-17 18:49] LABS: ABSOLUTE LYMPHOCYTES# (MANUAL) 1.4 10^3/uL (0.5-4.7); ABSOLUTE MONOCYTES # (MANUAL) 1.7 10^3/uL (0.1-1.4); ABSOLUTE NEUTROPHILS# (MANUAL) 5.8 10^3/uL (1.7-8.2); BAND NEUTROPHILS % (MANUAL) 4 % (3-5); BASOPHILS % (MANUAL) 0 % (0-2); EOSINOPHILS % (MANUAL) 1 % (0-6); LYMPHOCYTES % (MANUAL) 16 % (13-45); MONOCYTES % (MANUAL) 19 % (3-13); SEGMENTED NEUTROPHILS % (MAN) 60 % (42-78); TOTAL CELLS COUNTED 100
[2017-08-17 18:50] LABS: ANISOCYTOSIS 2+; PLATELET COMMENT DECREASED; POIKILOCYTOSIS 1+; TOXIC GRANULATION SLIGHT
[2017-08-17] MEDS ORDERED: KETAMINE HCL INJ 500 MG/10 ML VIAL ONE (19:24)
[2017-08-17] MEDS ORDERED: PROPOFOL INJ 200 MG/20 ML VIAL IV ONE (19:25)
[2017-08-17] MEDS ORDERED: MIDAZOLAM 2 MG/2 ML INJ ONE (19:25)
[2017-08-17] MEDS ORDERED: 1/2 NORMAL SALINE 1,000 ML IV PRN (19:44)
[2017-08-17] MEDS ORDERED: LIDOCAINE 1% INJ-PF (10 MG/ML) 30 ML SDV ONE (19:47)
--- NOTE | 2017-08-17 19:49 | PDOC H&P ---
History of Present Illness Admission Date/PCP: 08/16/17 17:04 History of Present Illness: 82 y/o M w/ known hx of MDS/AML, gout and BPH not on chemotherapy about 1 year. Patient received supportive care with intermittent blood transfusion. Patient has not been feeling well. Per his daughter he had been gradually getting ill. Patient was receiving wound care for his left foot infection. Patient was having chills and pain in the foot. The foot infection became progressively worse. On interviewing the patient the patient was too weak to speak. Patient was also hypotensive and tachycardic. Patient was found to be anemic with a hemoglobin of 5.3. Patient being transfused 2 units of packed RBCs while in ED. Patient has received volume resuscitation while in the ED. Patient blood pressures are currently trending up. Patient was started on vancomycin and Cipro. CT scan of the left foot show that there are changes in the medial aspect of the head of the first metatarsal concerning for osteomyelitis. Hospitalist was called patient with sepsis secondary to left foot osteo myelitis. 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 GI Medical History: Reports: Gastroesophageal Reflux Disease Denies: Cirrhosis, Hepatitis, Hiatal Hernia Musculoskeltal Medical History: 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 Psychiatric Medical History: Denies: Depression Hematology: Reports: Anemia, Bleeding Tendencies Denies: Sickle Cell Disease Infectious Medical History: Denies: Clostridium Difficile, Methicillin-Resistant Staph Aureus Past Surgical History Past Surgical History: Reports: Appendectomy, Cardiac Catheterization, Orthopedic Surgery Denies: Pacemaker Social History Smoking Status: Never Smoker Frequency of Alcohol Use: None Hx Recreational Drug Use: No Drugs: None Hx Prescription Drug Abuse: No - Advance Directive Resuscitation Status: Do Not Resuscitate Family History Family History: CAD Parental Family History Reviewed: No Children Family History Reviewed: No Sibling(s) Family History Reviewed.: No Medication/Allergy Home Medications: Alfuzosin HCl [Uroxatral] 10 mg PO DAILY 08/16/17 Allopurinol [Zyloprim 300 mg Tablet] 300 mg PO DAILY 08/16/17 Finasteride [Proscar 5 mg Tablet] 5 mg PO DAILY 08/16/17 Gabapentin [Neurontin 300 mg Capsule] 300 mg PO Q8 08/16/17 Metoprolol Tartrate [Lopressor 50 mg Tablet] 50 mg PO Q12 08/16/17 Montelukast Sodium [Singulair 10 mg Tablet] 5 mg PO QHS 08/16/17 Oxycodone HCl [Oxy-Ir 5 mg Tablet] 5 mg PO Q8HP PRN 08/16/17 Pantoprazole Sodium [Protonix] 40 mg PO DAILY 08/16/17 Sertraline HCl [Zoloft 50 mg Tablet] 50 mg PO DAILY 08/16/17 Allergies/Adverse Reactions: ceftriaxone Allergy (Severe, Verified 08/16/17 14:14) Anaphylaxis adenosine * [adenosine] Allergy (Verified 08/16/17 14:14) Passed out rochephin Allergy (Severe, Uncoded 08/16/17 14:14) Anaphylaxis Review of Systems ROS unobtainable: Due to mental status - Patient very lethargic and unable to answer very many questions. Physical Exam Vital Signs: Temp Pulse Resp BP Pulse Ox 98.5 F 91 20 127/67 H 99 08/16/17 23:30 08/16/17 23:30 08/16/17 23:30 08/16/17 23:30 08/16/17 23:30 Intake & Output 08/15/17 08/16/17 08/17/17 06:59 06:59 06:59 Intake Total 350 Balance 350 Weight 84.1 kg General appearance: PRESENT: no acute distress, other - Weak Head exam: PRESENT: normocephalic Eye exam: PRESENT: EOMI. ABSENT: scleral icterus Ear exam: PRESENT: normal external ear exam Mouth exam: PRESENT: moist Neck exam: ABSENT: carotid bruit, JVD, lymphadenopathy, thyromegaly Respiratory exam: PRESENT: clear to auscultation jane. ABSENT: rales, rhonchi, wheezes Cardiovascular exam: PRESENT: RRR. ABSENT: diastolic murmur, rubs, systolic murmur GI/Abdominal exam: PRESENT: normal bowel sounds, soft. ABSENT: distended, guarding, mass, organolmegaly, rebound, tenderness Rectal exam: PRESENT: deferred Extremities exam: PRESENT: full ROM. ABSENT: calf tenderness, clubbing, pedal edema Musculoskeletal exam: PRESENT: other - Foot wound. Hyperpigmentation mild erythema with some drainage Neurological exam: PRESENT: altered. ABSENT: motor sensory deficit Psychiatric exam: PRESENT: appropriate affect, normal mood. ABSENT: homicidal ideation, suicidal ideation Skin exam: PRESENT: dry, intact, warm. ABSENT: cyanosis, rash Results Laboratory Results: 08/16/17 20:05 Lactic Acid 1.3 Impressions: Lower Extremity CT 08/16/17 14:56 IMPRESSION: There are changes in the medial aspect of the head of the 1st metatarsal concerning for osteomyelitis. Assessment & Plan - Diagnosis (1) Sepsis Qualifiers: Sepsis type: sepsis due to unspecified organism Qualified Code(s): A41.9 - Sepsis, unspecified organism Is this a current diagnosis for this admission?: Yes Plan: Patient with hypotension, lactic acidosis, tachycardia and left foot wound present on admission concerning for sepsis. Patient started on vancomycin and Zosyn. Surgery consulted to evaluate the wound. Blood cultures cultures drawn. Patient started on IV fluids. (2) Hyponatremia Is this a current diagnosis for this admission?: Yes Plan: Hyponatremia secondary to dehydration. Patient started on normal saline. Will monitor sodium. 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 Qualified Code(s): C92.00 - Acute myeloblastic leukemia, not having achieved remission Is this a current diagnosis for this admission?: Yes Plan: Patient with anemia. Patient receiving 2 units of packed RBC. Patient also with thrombocytopenia. Patient may also require platelet transfusion. Will consult hematology oncology. (4) Osteomyelitis Qualifiers: Osteomyelitis type: acute hematogenous Osteomyelitis location: foot Laterality: left Qualified Code(s): M86.072 - Acute hematogenous osteomyelitis , left ankle and foot Is this a current diagnosis for this admission?: Yes Plan: Patient with left foot osteo-thought to be a source of his sepsis. Surgery consulted. Patient currently on vancomycin and Zosyn. - Time Time Spent: 30 to 50 Minutes Anticipated discharge: Home with Homehealth - Inpatient Certification Medical Necessity: Need for IV Antibiotics, Need for Surgery
--- NOTE | 2017-08-17 19:58 | PDOC PROGRESS REPORT ---
Subjective Progress Note for:: 08/17/17 Subjective:: Patient presented with sepsis secondary to left foot infection. Patient is now more awake alert and interactive. Patient states he feels significantly better. Patient 3 daughters at the bedside and agrees that he looks better. Patient is awaiting surgery today. Patient is currently n.p.o. Patient does states that he has had a hard time ambulating since his foot is in the condition that it is in. Reason For Visit: AML, LEFT FOOT WOUND Physical Exam Vital Signs: Temp Pulse Resp BP Pulse Ox 97.7 F 79 16 143/78 H 100 08/17/17 11:58 08/17/17 14:00 08/17/17 11:58 08/17/17 11:58 08/17/17 11:58 Intake & Output 08/16/17 08/17/17 08/18/17 06:59 06:59 06:59 Intake Total 1970 2544 Output Total 400 125 Balance 1570 2419 Weight 86.7 kg General appearance: PRESENT: no acute distress, well-developed, well-nourished Head exam: PRESENT: normocephalic Eye exam: PRESENT: EOMI. ABSENT: scleral icterus Mouth exam: PRESENT: moist Neck exam: ABSENT: carotid bruit, JVD, lymphadenopathy, thyromegaly Respiratory exam: PRESENT: clear to auscultation jane. ABSENT: rales, rhonchi, wheezes Cardiovascular exam: PRESENT: RRR. ABSENT: diastolic murmur, rubs, systolic murmur GI/Abdominal exam: PRESENT: normal bowel sounds, soft. ABSENT: distended, guarding, mass, organolmegaly, rebound, tenderness Rectal exam: PRESENT: deferred Extremities exam: PRESENT: full ROM. ABSENT: calf tenderness, clubbing, pedal edema Musculoskeletal exam: PRESENT: other - Left foot infection. Appearance unchanged from the day before. Neurological exam: PRESENT: alert, awake, oriented to person, oriented to place , oriented to time, oriented to situation, CN II-XII grossly intact. ABSENT: motor sensory deficit Psychiatric exam: PRESENT: appropriate affect, normal mood. ABSENT: homicidal ideation, suicidal ideation Skin exam: PRESENT: dry, intact, warm. ABSENT: cyanosis, rash Results Laboratory Results: 08/17/17 18:09 08/17/17 04:05 08/16/17 08/17/17 08/17/17 20:05 04:05 04:05 WBC 8.8 RBC 2.64 L Hgb 7.9 L D Hct 23.6 L MCV 89 MCH 30.0 MCHC 33.6 RDW 19.5 H Plt Count 27 L* Seg Neutrophils % Not Reportable Lymphocytes % Not Reportable Monocytes % Not Reportable Eosinophils % Not Reportable Basophils % Not Reportable Absolute Neutrophils Not Reportable Absolute Lymphocytes Not Reportable Absolute Monocytes Not Reportable Absolute Eosinophils Not Reportable Absolute Basophils Not Reportable Sodium 139.3 Potassium 3.1 L Chloride 111 H Carbon Dioxide 21 L Anion Gap 7 BUN 14 Creatinine 0.78 Est GFR ( Amer) > 60 Est GFR (Non-Af Amer) > 60 Glucose 102 Lactic Acid 1.3 Calcium 7.5 L Magnesium 1.6 08/17/17 08/17/17 08:50 18:09 WBC 9.6 9.0 RBC 2.65 L 2.40 L Hgb 7.9 L 7.2 L Hct 23.7 L 21.4 L MCV 89 89 MCH 29.9 30.1 MCHC 33.5 33.8 RDW 19.1 H 19.3 H Plt Count 42 L 57 L Seg Neutrophils % Not Reportable Not Reportable Lymphocytes % Not Reportable Not Reportable Monocytes % Not Reportable Not Reportable Eosinophils % Not Reportable Not Reportable Basophils % Not Reportable Not Reportable Absolute Neutrophils Not Reportable Not Reportable Absolute Lymphocytes Not Reportable Not Reportable Absolute Monocytes Not Reportable Not Reportable Absolute Eosinophils Not Reportable Not Reportable Absolute Basophils Not Reportable Not Reportable Sodium Potassium Chloride Carbon Dioxide Anion Gap BUN Creatinine Est GFR ( Amer) Est GFR (Non-Af Amer) Glucose Lactic Acid Calcium Magnesium Impressions: Lower Extremity CT 08/16/17 14:56 IMPRESSION: There are changes in the medial aspect of the head of the 1st metatarsal concerning for osteomyelitis. Guidance Fluoroscopy 08/17/17 00:00 IMPRESSION: SUCCESSFUL PLACEMENT OF A 5 FR DUAL LUMEN 44 CM PICC IN THE LEFT BASILIC VEIN. Interventional Vascular Procedure 08/17/17 00:00 IMPRESSION: SUCCESSFUL PLACEMENT OF A 5 FR DUAL LUMEN 44 CM PICC IN THE LEFT BASILIC VEIN. PICC Line Insertion 08/17/17 11:03 IMPRESSION: SUCCESSFUL PLACEMENT OF A 5 FR DUAL LUMEN 44 CM PICC IN THE LEFT BASILIC VEIN. Assessment & Plan - Diagnosis (1) Sepsis Qualifiers: Sepsis type: sepsis due to unspecified organism Qualified Code(s): A41.9 - Sepsis, unspecified organism Is this a current diagnosis for this admission?: Yes Plan: Patient with hypotension, lactic acidosis, tachycardia and left foot wound present on admission concerning for sepsis. Patient gradually improving. Patient no longer hypotensive or tachycardic. Lactic acid resolved. Patient on vancomycin and Zosyn. Plan is for surgery today. No growth on blood cultures. (2) Hyponatremia Is this a current diagnosis for this admission?: Yes Plan: Resolved. 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 Qualified Code(s): C92.00 - Acute myeloblastic leukemia, not having achieved remission Is this a current diagnosis for this admission?: Yes Plan: Patient with anemia. Patient anemia improved from 5.3-7.9. After 2 units units of packed RBCs on 08/16/2017. Patient received 2 units of platelets on 08/17/2017 prior to his surgery. Dr. Schneider is following and assisting with management. (4) Osteomyelitis Qualifiers: Osteomyelitis type: acute hematogenous Osteomyelitis location: foot Laterality: left Qualified Code(s): M86.072 - Acute hematogenous osteomyelitis , left ankle and foot Is this a current diagnosis for this admission?: Yes Plan: Patient with left foot osteo-thought to be a source of his sepsis. Surgery consulted. Patient currently on vancomycin and Zosyn. Surgery today for amputation of left great toe. (5) Hypokalemia Is this a current diagnosis for this admission?: Yes Plan: Patient will be given 40 mEq of IV potassium. Continue to monitor. (6) Malnutrition Qualifiers: Malnutrition type: protein-calorie malnutrition Is this a current diagnosis for this admission?: Yes Plan: Patient with albumin of 2.5. Will consult dietitian considering patient is undergoing surgery and healing can be affected. - Time Time Spent with patient: 15-24 minutes Anticipated discharge: Home with Homehealth - Inpatient Certification Medical Necessity: Need for IV Antibiotics, Need for Surgery
[2017-08-17] MEDS: METOPROLOL TARTRATE 50 MG TABLET PO SCH (21:52)
[2017-08-17] MEDS: MONTELUKAST SODIUM 10 MG TABLET PO SCH (21:53)
[2017-08-17] MEDS: FENTANYL CITRATE INJ/PF 100 MCG/2 ML AMPUL IV PRN (22:04)
[2017-08-17] MEDS: POTASSI CL 20 MEQ/50 ML RIDER 20 MEQ/50 ML RTUPB IV SCH ×2 (23:05→23:11)
--- NOTE | 2017-08-18 00:19 | OPERATIVE REPORT E ---
Operative Report NAME: DINA JOSHUA : 1935 AGE: 82Y DATE OF SURGERY: 08/17/2017 ROOM: 301 PREOPERATIVE DIAGNOSIS: Infected left big toe and medial base of the left second toe. POSTOPERATIVE DIAGNOSIS: Infected left big toe and medial base of the left second toe. OPERATION: Incision and drainage and debridement of abscess left big toe and base of the left second toe. Pulse lavage of both abscess cavities. Cavity on the big toe measured 5 by 4 cm by about 4 cm deep. The second smaller abscess cavity at the base of the left second toe roughly measured about 2.5 cm long by 2 cm wide by about 3 cm deep. SURGEON: PIPE NGO M.D. ANESTHESIA: Local MAC. INDICATION: This is an 82-year-old male with noted abscess site along the left first toe at the base of the metatarsal head area with another open wound on the base of the left second to at the medial aspect roughly about initially 1.5 cm in diameter. Also, the wound at the top of the big toe roughly measured about 1 cm in diameter with some necrotic tissue sticking out. He had a CAT scan of the foot which showed abscess with possible osteomyelitis of the head of the first metatarsal. DESCRIPTION OF PROCEDURE: The patient was given IV sedation and patient placed in the supine position and the left foot and ankle were then prepped and draped in the usual sterile fashion. Appropriate timeout was called. Local anesthesia infiltrated around the big toe base of the second toe. Prior to this, attempt to block the peroneal nerve and the posterior tibial nerve was done injecting at least 3-4 mL of 1% Xylocaine. Unfortunately, the attempted block did not take likely because of infection nearby as alluded to by anesthesia because of pH problem and patient still moving his left foot when injecting local anesthesia around the lesions. A total of about 20 mL of 1% Xylocaine was injected. Next, debridement around anterolateral wound was done with the use of hemostat. Cultures were obtained after a small amount of pus was removed. Also some necrotic tissue that was removed was also sent for culture. An incision was then made towards the lateral aspect for a distance of 5 cm long and a cruciate incision about 4 cm long was made. The metatarsal head was partially exposed just below a tendon. There was some necrotic tissue that was pulled up after probing the abscess cavity down towards the area of the second toe. There was a lot of bleeding that was encountered and initially this was packed with 4 x 4 to stop the bleeding. Next, the other wound on the base of the second toe was then debrided and incision extended dorsally and laterally to a total distance of 2.5 x 2 cm. More necrotic tissue was removed. It is not clear whether both abscess sites are connected down into the base of the first and second toes. No definite connection between the two sites was noted. There was a lot of bleeding noted on both sites and again was temporarily controlled with packing. Platelet count was only 57K after 2 transfusions. . Partial control of bleeding done with cautery. Both of the cavity sites were then pulsed lavaged with a liter of saline for each cavity site. Following this, the bottom part of the metatarsal head, noted fluctuant area. Local anesthesia was infiltrated and a 1 cm incision made. This was then probed but no evidence of pus was retrieved. Following this, both cavity sites were then packed with 1/4" Iodoform gauze partly to stop the bleeding and to pack the space. Next, sterile 4 x 4 and ABD pads were used to address the wounds and wrap with [place]ash[place] and [place] bandage. During the procedure, patient seems to be moving the foot despite anesthesia. His potassium was only 3.1 and Anesthesia was hesitant to put him to sleep. Also, at this point I did not do any amputation because of the risk of bleeding Also no definitive osteomyelitis and with patient a DNR status At any rate, the patient tolerated the procedure fairly well and brought to Recovery in satisfactory condition. MRI of the foot may be obtained to make sure there is no osteo of the first metatarsal head. . DICTATING PHYSICIAN: PIPE NGO M.D. [id number] PHY#: [id number] ID: [id number] JOB#: [id number] ACCT: [id number] cc:PIPE NGO M.D. > MTDD
[2017-08-18] MEDS: MAGNESIUM SULFATE/D5W 1 GM/100 ML RTUPB IV SCH ×2 (00:53→01:58)
[2017-08-18] MEDS: PIPERACILLIN SODIUM/TAZOBACTAM 3.375 GM in NORMAL SALINE 100 ML IV SCH ×4 (02:50→17:17)
[2017-08-18] MEDS: VANCOMYCIN HCL 1,000 MG in DEXTROSE 5%-WATER 250 ML IV SCH ×2 (02:54→14:44)
[2017-08-18] MEDS: GABAPENTIN 300 MG CAPSULE PO SCH ×3 (05:13→22:35)
[2017-08-18 06:37] LABS: ANION GAP 10 (5-19); BLOOD UREA NITROGEN 13 mg/dL (7-20); CALCIUM 7.9 mg/dL (8.4-10.2); CARBON DIOXIDE 21 mmol/L (22-30); CHLORIDE 108 mmol/L (98-107); GLUCOSE 96 mg/dL (75-110); POTASSIUM 3.4 mmol/L (3.6-5.0); SODIUM 138.7 mmol/L (137-145)
[2017-08-18 06:53] LABS: HEMATOCRIT 22.2 % (37.9-51.0); MEAN CORPUSCULAR HGB CONC 33.4 g/dL (32.0-36.0); MEAN CORPUSCULAR VOLUME 90 fl (80-97); RED BLOOD COUNT 2.47 10^6/uL (4.35-5.55); RED CELL DISTRIBUTION WIDTH 19.6 % (11.5-14.0); WHITE BLOOD COUNT 8.3 10^3/uL (4.0-10.5)
[2017-08-18 07:39] LABS: ABSOLUTE MONOCYTES # (MANUAL) 0.8 10^3/uL (0.1-1.4); ABSOLUTE NEUTROPHILS# (MANUAL) 6.1 10^3/uL (1.7-8.2); BAND NEUTROPHILS % (MANUAL) 4 % (3-5); BASOPHILS % (MANUAL) 0 % (0-2); EOSINOPHILS % (MANUAL) 1 % (0-6); IMMATURE MONONUCLEAR% (MANUAL) 3 % (0); LYMPHOCYTES % (MANUAL) 11 % (13-45); METAMYELOCYTES % (MANUAL) 1 % (0); MONOCYTES % (MANUAL) 10 % (3-13); MYELOCYTES % (MANUAL) 2 % (0); SEGMENTED NEUTROPHILS % (MAN) 67 % (42-78); TOTAL CELLS COUNTED 100
[2017-08-18 07:43] LABS: ANISOCYTOSIS 1+; HYPOCHROMASIA SLIGHT; OVALOCYTES SLIGHT; POIKILOCYTOSIS SLIGHT
[2017-08-18 07:44] LABS: PLATELET COMMENT DECREASED; PLATELET COUNT 49 10^3/uL (150-450)
[2017-08-18 07:46] LABS: HEMOGLOBIN 7.4 g/dL (13.5-17.0)
--- NOTE | 2017-08-18 10:14 | EKG REPORT ---
SEVERITY:- BORDERLINE ECG - SINUS RHYTHM LOW VOLTAGE IN FRONTAL LEADS BORDERLINE PROLONGED QT INTERVAL : Confirmed by: Hanane Sears 18-Aug-2017 10:13:58
--- NOTE | 2017-08-18 10:43 | PDOC PROGRESS REPORT ---
Subjective Progress Note for:: 08/18/17 Reason For Visit: CML, RIGHT FOOT WOUND Subsequent surgical note status post debridement right foot wounds 2, with packing control of bleeding. Physical Exam Vital Signs: Temp Pulse Resp BP Pulse Ox 97.3 F 72 16 121/61 97 08/18/17 08:23 08/18/17 08:23 08/18/17 08:23 08/18/17 08:23 08/18/17 08:23 Intake & Output 08/17/17 08/18/17 08/19/17 06:59 06:59 07:59 Intake Total 1970 9344 Output Total 400 2500 Balance 1570 6844 Weight 86.7 kg 86.4 kg General appearance: PRESENT: no acute distress Extremities exam: PRESENT: other - Foot dressing left intact; no evidence of bleeding post toes are room temperature. No ascending cellulitis proximal to the leg wrapped Results Laboratory Results: 08/18/17 05:40 08/18/17 05:40 08/17/17 08/18/17 08/18/17 18:09 05:40 05:40 WBC 9.0 8.3 RBC 2.40 L 2.47 L Hgb 7.2 L 7.4 L Hct 21.4 L 22.2 L MCV 89 90 MCH 30.1 30.0 MCHC 33.8 33.4 RDW 19.3 H 19.6 H Plt Count 57 L 49 L Seg Neutrophils % Not Reportable Not Reportable Lymphocytes % Not Reportable Not Reportable Monocytes % Not Reportable Not Reportable Eosinophils % Not Reportable Not Reportable Basophils % Not Reportable Not Reportable Absolute Neutrophils Not Reportable Not Reportable Absolute Lymphocytes Not Reportable Not Reportable Absolute Monocytes Not Reportable Not Reportable Absolute Eosinophils Not Reportable Not Reportable Absolute Basophils Not Reportable Not Reportable Sodium 138.7 Potassium 3.4 L Chloride 108 H Carbon Dioxide 21 L Anion Gap 10 BUN 13 Creatinine 0.79 Est GFR ( Amer) > 60 Est GFR (Non-Af Amer) > 60 Glucose 96 Calcium 7.9 L Magnesium 2.1 Impressions: Lower Extremity CT 08/16/17 14:56 IMPRESSION: There are changes in the medial aspect of the head of the 1st metatarsal concerning for osteomyelitis. Guidance Fluoroscopy 08/17/17 00:00 IMPRESSION: SUCCESSFUL PLACEMENT OF A 5 FR DUAL LUMEN 44 CM PICC IN THE LEFT BASILIC VEIN. Interventional Vascular Procedure 08/17/17 00:00 IMPRESSION: SUCCESSFUL PLACEMENT OF A 5 FR DUAL LUMEN 44 CM PICC IN THE LEFT BASILIC VEIN. PICC Line Insertion 08/17/17 11:03 IMPRESSION: SUCCESSFUL PLACEMENT OF A 5 FR DUAL LUMEN 44 CM PICC IN THE LEFT BASILIC VEIN. Assessment & Plan - Diagnosis (1) Wound, open, foot Qualifiers: Encounter type: sequela Laterality: left Qualified Code(s): S91.302S - Unspecified open wound, left foot, sequela Is this a current diagnosis for this admission?: Yes Plan: Patient is one day status post debridement left foot at base of the great toe and second toe, with control of her operative bleeding secondary to patient's thrombocytopenia, and other blood dyscrasias. Septic source control appears to be achieved. Wound cultures pending Commendations: 1. Leave the existing dressing on today 2. Continue intravenous antibiotics and leg elevation 3. Plan to change dressing tomorrow. The above discussed with patient and family.
[2017-08-18] MEDS: DOCUSATE SODIUM 100 MG CAPSULE PO SCH (11:13)
[2017-08-18] MEDS: SERTRALINE HCL 50 MG TABLET PO SCH (11:14)
[2017-08-18] MEDS: ALLOPURINOL 300 MG TABLET PO SCH (11:14)
[2017-08-18] MEDS: TAMSULOSIN HCL 0.4 MG CAP.SR.24H PO SCH (11:14)
[2017-08-18] MEDS: FINASTERIDE 5 MG TABLET PO SCH (11:14)
[2017-08-18] MEDS: METOPROLOL TARTRATE 50 MG TABLET PO SCH ×2 (11:15→22:35)
[2017-08-18] MEDS: FAMOTIDINE INJ/PF 20 MG/2 ML SDV IV SCH ×2 (11:15→22:35)
[2017-08-18] MEDS: OXYCODONE HCL IR 5 MG TABLET PO PRN ×2 (11:16→21:49)
--- NOTE | 2017-08-18 11:50 | PDOC PROGRESS REPORT ---
Subjective Progress Note for:: 08/18/17 Subjective:: The patient is an 82-year-old male with underlying acute myelogenous leukemia. He presented to the hospital on 08/16/2017 with evidence of sepsis secondary to osteomyelitis of the left foot. He was taken to the operating room yesterday for extensive surgical debridement. Clinically, he has improved significantly since admission. Currently, he has no complaints. Reason For Visit: CML, RIGHT FOOT WOUND Physical Exam Vital Signs: Temp Pulse Resp BP Pulse Ox 97.3 F 72 16 121/61 97 08/18/17 08:23 08/18/17 08:23 08/18/17 08:23 08/18/17 08:23 08/18/17 08:23 Intake & Output 08/17/17 08/18/17 08/19/17 06:59 06:59 07:59 Intake Total 1970 9344 Output Total 400 2500 Balance 1570 6844 Weight 86.7 kg 86.4 kg Additional comments: Patient appears to be fairly healthy for his stated age. His cognition is excellent. His facial appearance is unremarkable. His lungs are clear to auscultation bilaterally. His cardiac exam demonstrates a regular rate and rhythm without murmurs, gallops or rubs. The abdomen is soft and flat. Bowel sounds are present. He does not have guarding or rebound noted and there are no hernias or masses present. The right lower extremity is unremarkable. Trace to 1+ edema is present. The left lower extremity is wrapped in a surgical bandage. I can see the tops of the first second and third toe which appear to be unremarkable and they are warm. The skin otherwise has no acute skin lesions or rashes present. Results Laboratory Results: 08/18/17 05:40 08/18/17 05:40 08/17/17 08/18/17 08/18/17 18:09 05:40 05:40 WBC 9.0 8.3 RBC 2.40 L 2.47 L Hgb 7.2 L 7.4 L Hct 21.4 L 22.2 L MCV 89 90 MCH 30.1 30.0 MCHC 33.8 33.4 RDW 19.3 H 19.6 H Plt Count 57 L 49 L Seg Neutrophils % Not Reportable Not Reportable Lymphocytes % Not Reportable Not Reportable Monocytes % Not Reportable Not Reportable Eosinophils % Not Reportable Not Reportable Basophils % Not Reportable Not Reportable Absolute Neutrophils Not Reportable Not Reportable Absolute Lymphocytes Not Reportable Not Reportable Absolute Monocytes Not Reportable Not Reportable Absolute Eosinophils Not Reportable Not Reportable Absolute Basophils Not Reportable Not Reportable Sodium 138.7 Potassium 3.4 L Chloride 108 H Carbon Dioxide 21 L Anion Gap 10 BUN 13 Creatinine 0.79 Est GFR ( Amer) > 60 Est GFR (Non-Af Amer) > 60 Glucose 96 Calcium 7.9 L Magnesium 2.1 Impressions: Lower Extremity CT 08/16/17 14:56 IMPRESSION: There are changes in the medial aspect of the head of the 1st metatarsal concerning for osteomyelitis. Guidance Fluoroscopy 08/17/17 00:00 IMPRESSION: SUCCESSFUL PLACEMENT OF A 5 FR DUAL LUMEN 44 CM PICC IN THE LEFT BASILIC VEIN. Interventional Vascular Procedure 08/17/17 00:00 IMPRESSION: SUCCESSFUL PLACEMENT OF A 5 FR DUAL LUMEN 44 CM PICC IN THE LEFT BASILIC VEIN. PICC Line Insertion 08/17/17 11:03 IMPRESSION: SUCCESSFUL PLACEMENT OF A 5 FR DUAL LUMEN 44 CM PICC IN THE LEFT BASILIC VEIN. Assessment & Plan - Diagnosis (1) Hypokalemia Is this a current diagnosis for this admission?: Yes Plan: Additional replacement is being given today. (2) Hyponatremia Is this a current diagnosis for this admission?: Yes Plan: Resolved (3) Malnutrition Qualifiers: Malnutrition type: protein-calorie malnutrition Is this a current diagnosis for this admission?: Yes Plan: Dietary consult has been ordered. (4) Osteomyelitis Qualifiers: Osteomyelitis type: acute hematogenous Osteomyelitis location: foot Laterality: left Qualified Code(s): M86.072 - Acute hematogenous osteomyelitis , left ankle and foot Is this a current diagnosis for this admission?: Yes Plan: Assistance from surgery is greatly appreciated. The bandage will be changed tomorrow. We are going to continue IV antibiotics for now. (5) Sepsis Qualifiers: Sepsis type: sepsis due to unspecified organism Qualified Code(s): A41.9 - Sepsis, unspecified organism Is this a current diagnosis for this admission?: Yes Plan: Clinically resolving. (6) AML (acute myeloid leukemia) Qualifiers: Leukemia Active/Remission status: without remission Qualified Code(s): C92.00 - Acute myeloblastic leukemia, not having achieved remission Is this a current diagnosis for this admission?: Yes Plan: The patient has anemia and thrombocytopenia. Oncology is following. Assistance is greatly appreciated. - Time Time Spent with patient: 25-34 minutes - Inpatient Certification Medical Necessity: Need for IV Antibiotics, Need for Surgery, Risk of Complication if Not Cared For in Hospital
--- NOTE | 2017-08-18 12:46 | PDOC PROGRESS REPORT ---
Subjective Progress Note for:: 08/18/17 Subjective:: No acute events overnight, reviewed operative report, the toe was fully washed out, areas were cleaned up, apparently surgery did not feel like it appeared as osteomyelitis but they decided against proceeding with a full amputation because they were concerned about risks of wound healing post surgery. He seems to be doing a little bit better today. Reason For Visit: CML, RIGHT FOOT WOUND Physical Exam Vital Signs: Temp Pulse Resp BP Pulse Ox 97.3 F 72 16 121/61 97 08/18/17 08:23 08/18/17 08:23 08/18/17 08:23 08/18/17 08:23 08/18/17 08:23 Intake & Output 08/17/17 08/18/17 08/19/17 06:59 06:59 07:59 Intake Total 1970 9344 Output Total 400 2500 Balance 1570 6844 Weight 86.7 kg 86.4 kg General appearance: PRESENT: no acute distress, well-developed, well-nourished Head exam: PRESENT: atraumatic, normocephalic Eye exam: PRESENT: conjunctiva pink, EOMI, PERRLA. ABSENT: scleral icterus Ear exam: PRESENT: normal external ear exam Mouth exam: PRESENT: moist, tongue midline Neck exam: ABSENT: carotid bruit, JVD, lymphadenopathy, thyromegaly Respiratory exam: PRESENT: clear to auscultation jane. ABSENT: rales, rhonchi, wheezes Cardiovascular exam: PRESENT: RRR. ABSENT: diastolic murmur, rubs, systolic murmur Pulses: PRESENT: normal dorsalis pedis pul Vascular exam: PRESENT: normal capillary refill GI/Abdominal exam: PRESENT: normal bowel sounds, soft. ABSENT: distended, guarding, mass, organolmegaly, rebound, tenderness Rectal exam: PRESENT: deferred Extremities exam: PRESENT: full ROM. ABSENT: calf tenderness, clubbing, pedal edema Neurological exam: PRESENT: alert, awake, oriented to person, oriented to place , oriented to time, oriented to situation, CN II-XII grossly intact. ABSENT: motor sensory deficit Psychiatric exam: PRESENT: appropriate affect, normal mood. ABSENT: homicidal ideation, suicidal ideation Skin exam: PRESENT: dry, intact, warm. ABSENT: cyanosis, rash Results Laboratory Results: 08/18/17 05:40 08/18/17 05:40 08/17/17 08/18/17 08/18/17 18:09 05:40 05:40 WBC 9.0 8.3 RBC 2.40 L 2.47 L Hgb 7.2 L 7.4 L Hct 21.4 L 22.2 L MCV 89 90 MCH 30.1 30.0 MCHC 33.8 33.4 RDW 19.3 H 19.6 H Plt Count 57 L 49 L Seg Neutrophils % Not Reportable Not Reportable Lymphocytes % Not Reportable Not Reportable Monocytes % Not Reportable Not Reportable Eosinophils % Not Reportable Not Reportable Basophils % Not Reportable Not Reportable Absolute Neutrophils Not Reportable Not Reportable Absolute Lymphocytes Not Reportable Not Reportable Absolute Monocytes Not Reportable Not Reportable Absolute Eosinophils Not Reportable Not Reportable Absolute Basophils Not Reportable Not Reportable Sodium 138.7 Potassium 3.4 L Chloride 108 H Carbon Dioxide 21 L Anion Gap 10 BUN 13 Creatinine 0.79 Est GFR ( Amer) > 60 Est GFR (Non-Af Amer) > 60 Glucose 96 Calcium 7.9 L Magnesium 2.1 Impressions: Lower Extremity CT 08/16/17 14:56 IMPRESSION: There are changes in the medial aspect of the head of the 1st metatarsal concerning for osteomyelitis. Guidance Fluoroscopy 08/17/17 00:00 IMPRESSION: SUCCESSFUL PLACEMENT OF A 5 FR DUAL LUMEN 44 CM PICC IN THE LEFT BASILIC VEIN. Interventional Vascular Procedure 08/17/17 00:00 IMPRESSION: SUCCESSFUL PLACEMENT OF A 5 FR DUAL LUMEN 44 CM PICC IN THE LEFT BASILIC VEIN. PICC Line Insertion 08/17/17 11:03 IMPRESSION: SUCCESSFUL PLACEMENT OF A 5 FR DUAL LUMEN 44 CM PICC IN THE LEFT BASILIC VEIN. Assessment & Plan - Diagnosis (1) Osteomyelitis Qualifiers: Osteomyelitis type: acute hematogenous Osteomyelitis location: foot Laterality: left Qualified Code(s): M86.072 - Acute hematogenous osteomyelitis , left ankle and foot Is this a current diagnosis for this admission?: Yes Plan: He will need a prolonged antibiotic course, he has a PICC line placed now. (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 Qualified Code(s): C92.00 - Acute myeloblastic leukemia, not having achieved remission Is this a current diagnosis for this admission?: Yes Plan: Supportive care only, usually transfuse when hemoglobin gets under 7 and when platelets get under 20. 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
[2017-08-18] MEDS ORDERED: POTASSIUM CHLORIDE 10 MEQ TABLET.SA PO ONE (13:00)
[2017-08-18 15:48] LABS: VANCOMYCIN,TROUGH 12.7 ug/mL (5.0-20.0)
[2017-08-18] MEDS: TEMAZEPAM 7.5 MG CAPSULE PO PRN (21:50)
[2017-08-18] MEDS: MONTELUKAST SODIUM 10 MG TABLET PO SCH (22:35)
[2017-08-19] MEDS: PIPERACILLIN SODIUM/TAZOBACTAM 3.375 GM in NORMAL SALINE 100 ML IV SCH ×4 (00:51→17:10)
[2017-08-19] MEDS: VANCOMYCIN HCL 1,000 MG in DEXTROSE 5%-WATER 250 ML IV SCH ×2 (03:18→15:23)
[2017-08-19] MEDS: GABAPENTIN 300 MG CAPSULE PO SCH ×3 (06:05→21:45)
[2017-08-19 06:29] LABS: HEMATOCRIT 19.3 % (37.9-51.0); MEAN CORPUSCULAR HGB CONC 33.7 g/dL (32.0-36.0); MEAN CORPUSCULAR VOLUME 89 fl (80-97); RED BLOOD COUNT 2.17 10^6/uL (4.35-5.55); RED CELL DISTRIBUTION WIDTH 19.3 % (11.5-14.0); WHITE BLOOD COUNT 8.5 10^3/uL (4.0-10.5)
[2017-08-19 06:42] LABS: ANION GAP 9 (5-19); BLOOD UREA NITROGEN 12 mg/dL (7-20); CARBON DIOXIDE 22 mmol/L (22-30); CHLORIDE 110 mmol/L (98-107); GLUCOSE 90 mg/dL (75-110); POTASSIUM 3.5 mmol/L (3.6-5.0); SODIUM 140.7 mmol/L (137-145)
[2017-08-19 06:46] LABS: HEMOGLOBIN 6.5 g/dL (13.5-17.0)
[2017-08-19 06:47] LABS: PLATELET COUNT 36 10^3/uL (150-450)
[2017-08-19 07:04] LABS: ABSOLUTE LYMPHOCYTES# (MANUAL) 1.9 10^3/uL (0.5-4.7); ABSOLUTE NEUTROPHILS# (MANUAL) 4.4 10^3/uL (1.7-8.2); BASOPHILS % (MANUAL) 0 % (0-2); EOSINOPHILS % (MANUAL) 0 % (0-6); LYMPHOCYTES % (MANUAL) 22 % (13-45); NUCLEATED RED BLOOD CELLS 1 /100 WBC (0); SEGMENTED NEUTROPHILS % (MAN) 52 % (42-78); TOTAL CELLS COUNTED 100
[2017-08-19 07:09] LABS: ANISOCYTOSIS 2+; OVALOCYTES 1+; POIKILOCYTOSIS 1+; SCHISTOCYTES 1+; TOXIC GRANULATION SLIGHT
[2017-08-19 07:10] LABS: BURR CELLS SLIGHT; PLATELET COMMENT DECREASED; PLATELET LARGE PRESENT; TEAR DROP CELLS SLIGHT
--- NOTE | 2017-08-19 09:08 | PDOC PROGRESS REPORT ---
Subjective Reason For Visit: CML, RIGHT FOOT WOUND Patient is sleeping, was very disoriented last night Physical Exam Vital Signs: Temp Pulse Resp BP Pulse Ox 98.0 F 73 18 138/72 H 96 08/19/17 04:47 08/19/17 04:47 08/19/17 04:47 08/19/17 04:47 08/19/17 00:32 Intake & Output 08/18/17 08/19/17 08/20/17 05:59 06:59 06:59 Intake Total Output Total Balance Weight General appearance: PRESENT: no acute distress, other - Patient somnolent, mentation, sleeping for the dressing change Musculoskeletal exam: PRESENT: other - Dressings removed from left foot. 2 wounds at the base of the webspace, and over the anterior medial aspect of the left first toe were open. These wounds were clean, [id number] and even had some granulation tissue. Was nothing further to debride. There is no evidence of cellulitis and minimal foot edema. Wounds repacked with iodoform packing, 4 x 4's and elects Results Laboratory Results: 08/19/17 06:14 08/19/17 06:14 08/18/17 08/19/17 08/19/17 15:00 06:14 06:14 WBC 8.5 RBC 2.17 L Hgb 6.5 L Hct 19.3 L MCV 89 MCH 30.0 MCHC 33.7 RDW 19.3 H Plt Count 36 L Seg Neutrophils % Not Reportable Lymphocytes % Not Reportable Monocytes % Not Reportable Eosinophils % Not Reportable Basophils % Not Reportable Absolute Neutrophils Not Reportable Absolute Lymphocytes Not Reportable Absolute Monocytes Not Reportable Absolute Eosinophils Not Reportable Absolute Basophils Not Reportable Sodium 140.7 Potassium 3.5 L Chloride 110 H Carbon Dioxide 22 Anion Gap 9 BUN 12 Creatinine 0.81 0.78 Est GFR ( Amer) > 60 > 60 Est GFR (Non-Af Amer) > 60 > 60 Glucose 90 Calcium 8.0 L Magnesium 2.0 Impressions: Lower Extremity CT 08/16/17 14:56 IMPRESSION: There are changes in the medial aspect of the head of the 1st metatarsal concerning for osteomyelitis. Guidance Fluoroscopy 08/17/17 00:00 IMPRESSION: SUCCESSFUL PLACEMENT OF A 5 FR DUAL LUMEN 44 CM PICC IN THE LEFT BASILIC VEIN. Interventional Vascular Procedure 08/17/17 00:00 IMPRESSION: SUCCESSFUL PLACEMENT OF A 5 FR DUAL LUMEN 44 CM PICC IN THE LEFT BASILIC VEIN. PICC Line Insertion 08/17/17 11:03 IMPRESSION: SUCCESSFUL PLACEMENT OF A 5 FR DUAL LUMEN 44 CM PICC IN THE LEFT BASILIC VEIN. Assessment & Plan - Diagnosis (1) Wound, open, foot Qualifiers: Encounter type: sequela Laterality: left Qualified Code(s): S91.302S - Unspecified open wound, left foot, sequela Is this a current diagnosis for this admission?: Yes Plan: Postoperative day 2, status post excellent debridement, and superb source control of the infection. Further to debride at this time. Recommendations: 1 continue leg elevation, dressing change, intravenous antibiotics. 2. Indication for left first great toe amputation at this time 3. Will order dressing changes. Patient can follow up with [facility] in 1-2 weeks.
[2017-08-19] MEDS ORDERED: POTASSIUM CHLORIDE 10 MEQ TABLET.SA PO ONE (10:30)
[2017-08-19] MEDS: TAMSULOSIN HCL 0.4 MG CAP.SR.24H PO SCH (11:50)
[2017-08-19] MEDS: ALLOPURINOL 300 MG TABLET PO SCH (11:50)
[2017-08-19] MEDS: SERTRALINE HCL 50 MG TABLET PO SCH (11:51)
[2017-08-19] MEDS: FINASTERIDE 5 MG TABLET PO SCH (11:51)
[2017-08-19] MEDS: METOPROLOL TARTRATE 50 MG TABLET PO SCH ×2 (11:51→21:45)
[2017-08-19] MEDS: FAMOTIDINE INJ/PF 20 MG/2 ML SDV IV SCH ×2 (11:52→21:46)
[2017-08-19] MEDS: DOCUSATE SODIUM 100 MG CAPSULE PO SCH (11:53)
--- NOTE | 2017-08-19 11:53 | PDOC PROGRESS REPORT ---
Subjective Progress Note for:: 08/19/17 Subjective:: today had long discussion w/ family and pt, spent >45 min in discussion, pt not ready for comfort care, still wants to cont supportive care, d/w surgery who feels pt ready for weight bearing w/ PT, will transfuse today x 2 units and plan for that tomorrow. Surgery feels at present that this may not be osteomyelitis so don't recommend long course atbx but maybe 2 week course post d /c. Will get DC planning involved for this. PICC line already placed. Confused overnight but awake and alert when I spoke with him today, probably having some episodes of sundowning/delerium. Reason For Visit: CML, RIGHT FOOT WOUND Physical Exam Vital Signs: Temp Pulse Resp BP Pulse Ox 98.0 F 85 18 138/72 H 96 08/19/17 04:47 08/19/17 07:00 08/19/17 04:47 08/19/17 04:47 08/19/17 10:23 Intake & Output 08/18/17 08/19/17 08/20/17 05:59 06:59 06:59 Intake Total Output Total Balance Weight General appearance: PRESENT: no acute distress, well-developed, well-nourished Head exam: PRESENT: atraumatic, normocephalic Eye exam: PRESENT: conjunctiva pink, EOMI, PERRLA. ABSENT: scleral icterus Ear exam: PRESENT: normal external ear exam Mouth exam: PRESENT: moist, tongue midline Neck exam: ABSENT: carotid bruit, JVD, lymphadenopathy, thyromegaly Respiratory exam: PRESENT: clear to auscultation jane. ABSENT: rales, rhonchi, wheezes Cardiovascular exam: PRESENT: RRR. ABSENT: diastolic murmur, rubs, systolic murmur Pulses: PRESENT: normal dorsalis pedis pul Vascular exam: PRESENT: normal capillary refill GI/Abdominal exam: PRESENT: normal bowel sounds, soft. ABSENT: distended, guarding, mass, organolmegaly, rebound, tenderness Rectal exam: PRESENT: deferred Extremities exam: PRESENT: full ROM. ABSENT: calf tenderness, clubbing, pedal edema Neurological exam: PRESENT: alert, awake, oriented to person, oriented to place , oriented to time, oriented to situation, CN II-XII grossly intact. ABSENT: motor sensory deficit Psychiatric exam: PRESENT: appropriate affect, normal mood. ABSENT: homicidal ideation, suicidal ideation Skin exam: PRESENT: dry, intact, warm. ABSENT: cyanosis, rash Results Laboratory Results: 08/19/17 06:14 08/19/17 06:14 08/18/17 08/19/17 08/19/17 15:00 06:14 06:14 WBC 8.5 RBC 2.17 L Hgb 6.5 L Hct 19.3 L MCV 89 MCH 30.0 MCHC 33.7 RDW 19.3 H Plt Count 36 L Seg Neutrophils % Not Reportable Lymphocytes % Not Reportable Monocytes % Not Reportable Eosinophils % Not Reportable Basophils % Not Reportable Absolute Neutrophils Not Reportable Absolute Lymphocytes Not Reportable Absolute Monocytes Not Reportable Absolute Eosinophils Not Reportable Absolute Basophils Not Reportable Sodium 140.7 Potassium 3.5 L Chloride 110 H Carbon Dioxide 22 Anion Gap 9 BUN 12 Creatinine 0.81 0.78 Est GFR ( Amer) > 60 > 60 Est GFR (Non-Af Amer) > 60 > 60 Glucose 90 Calcium 8.0 L Magnesium 2.0 Impressions: Lower Extremity CT 08/16/17 14:56 IMPRESSION: There are changes in the medial aspect of the head of the 1st metatarsal concerning for osteomyelitis. Guidance Fluoroscopy 08/17/17 00:00 IMPRESSION: SUCCESSFUL PLACEMENT OF A 5 FR DUAL LUMEN 44 CM PICC IN THE LEFT BASILIC VEIN. Interventional Vascular Procedure 08/17/17 00:00 IMPRESSION: SUCCESSFUL PLACEMENT OF A 5 FR DUAL LUMEN 44 CM PICC IN THE LEFT BASILIC VEIN. PICC Line Insertion 08/17/17 11:03 IMPRESSION: SUCCESSFUL PLACEMENT OF A 5 FR DUAL LUMEN 44 CM PICC IN THE LEFT BASILIC VEIN. Assessment & Plan - Diagnosis (1) Osteomyelitis Qualifiers: Osteomyelitis type: acute hematogenous Osteomyelitis location: foot Laterality: left Qualified Code(s): M86.072 - Acute hematogenous osteomyelitis , left ankle and foot Is this a current diagnosis for this admission?: Yes Plan: Cont atbx, but will not require fdc atbx per surgery (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 Qualified Code(s): C92.00 - Acute myeloblastic leukemia, not having achieved remission Is this a current diagnosis for this admission?: Yes Plan: No chemo but con't supportive care (3) Pancytopenia Is this a current diagnosis for this admission?: Yes Plan: Tranfusion 2 units PRBC today. - Time Time Spent with patient: 35 or more minutes
[2017-08-19] MEDS ORDERED: DIPHENHYDRAMINE HCL 25 MG CAPSULE PO PRN (13:45)
[2017-08-19] MEDS ORDERED: ACETAMINOPHEN 325 MG TABLET PO PRN (13:46)
[2017-08-19] MEDS ORDERED: FUROSEMIDE INJ/PF 20 MG/2 ML SDV IV PRN (13:49)
[2017-08-19 13:53] LABS: HEMATOCRIT 22.6 % (37.9-51.0); MEAN CORPUSCULAR HEMOGLOBIN 29.9 pg (27.0-33.4); MEAN CORPUSCULAR HGB CONC 33.5 g/dL (32.0-36.0); MEAN CORPUSCULAR VOLUME 90 fl (80-97); RED BLOOD COUNT 2.53 10^6/uL (4.35-5.55); RED CELL DISTRIBUTION WIDTH 19.5 % (11.5-14.0); WHITE BLOOD COUNT 8.8 10^3/uL (4.0-10.5)
[2017-08-19 14:23] LABS: ABSOLUTE MONOCYTES # (MANUAL) 1.3 10^3/uL (0.1-1.4); ABSOLUTE NEUTROPHILS# (MANUAL) 5.7 10^3/uL (1.7-8.2); BAND NEUTROPHILS % (MANUAL) 1 % (3-5); BASOPHILS % (MANUAL) 0 % (0-2); EOSINOPHILS % (MANUAL) 1 % (0-6); IMMATURE MONONUCLEAR% (MANUAL) 8 % (0); LYMPHOCYTES % (MANUAL) 11 % (13-45); MONOCYTES % (MANUAL) 15 % (3-13); NUCLEATED RED BLOOD CELLS 6 /100 WBC (0); SEGMENTED NEUTROPHILS % (MAN) 61 % (42-78); TOTAL CELLS COUNTED 100
[2017-08-19 14:28] LABS: PROMYELOCYTES % (MANUAL) 1 % (0)
[2017-08-19 14:29] LABS: MYELOCYTES % (MANUAL) 2 % (0)
[2017-08-19 14:31] LABS: ANISOCYTOSIS 1+; HYPOCHROMASIA SLIGHT; OVALOCYTES SLIGHT; PLATELET COMMENT DECREASED; POIKILOCYTOSIS SLIGHT; TEAR DROP CELLS SLIGHT
[2017-08-19 14:33] LABS: HEMOGLOBIN 7.6 g/dL (13.5-17.0)
[2017-08-19 14:34] LABS: PLATELET COUNT 32 10^3/uL (150-450)
--- NOTE | 2017-08-19 17:03 | PDOC PROGRESS REPORT ---
Subjective Progress Note for:: 08/19/17 Subjective:: The patient is an 82-year-old male with underlying acute myelogenous leukemia. He presented to the hospital on 08/16/2017 with evidence of sepsis secondary to osteomyelitis of the left foot. He was taken to the operating room 08/17/17 for extensive surgical debridement. Clinically, he has improved significantly since admission. Currently, he is sleeping. The family reports that he was awake for most of the night into the manager electrical. Reason For Visit: CML, RIGHT FOOT WOUND Physical Exam Vital Signs: Temp Pulse Resp BP Pulse Ox 98.5 F 85 16 138/67 H 97 08/19/17 12:41 08/19/17 14:00 08/19/17 12:41 08/19/17 12:41 08/19/17 12:41 Intake & Output 08/18/17 08/19/17 08/20/17 05:59 06:59 06:59 Intake Total Output Total Balance Weight Additional comments: The patient was asleep when I saw him this morning. According to the nurse and his 2 daughters he had just fallen asleep about an hour ago. Therefore did not wake him up. I went back to reexamine the patient at 4:30 in the afternoon and he was still sleeping but he appeared to be resting comfortably. I did not wake him up. His facial appearance is unremarkable. His lungs are noted to be clear to auscultation bilaterally. His cardiac exam is regular. I do not appreciate any murmurs, gallops or rubs. The abdomen is soft and flat. Bowel sounds are present and he does not have guarding or rebound noted. The lower extremities demonstrate that the left foot is bandaged the right foot has some edema but is otherwise unremarkable. There are no new skin lesions or rashes. Results Laboratory Results: 08/19/17 13:06 08/19/17 06:14 08/19/17 08/19/17 08/19/17 06:14 06:14 13:06 WBC 8.5 8.8 RBC 2.17 L 2.53 L Hgb 6.5 L 7.6 L Hct 19.3 L 22.6 L MCV 89 90 MCH 30.0 29.9 MCHC 33.7 33.5 RDW 19.3 H 19.5 H Plt Count 36 L 32 L Seg Neutrophils % Not Reportable Not Reportable Lymphocytes % Not Reportable Not Reportable Monocytes % Not Reportable Not Reportable Eosinophils % Not Reportable Not Reportable Basophils % Not Reportable Not Reportable Absolute Neutrophils Not Reportable Not Reportable Absolute Lymphocytes Not Reportable Not Reportable Absolute Monocytes Not Reportable Not Reportable Absolute Eosinophils Not Reportable Not Reportable Absolute Basophils Not Reportable Not Reportable Sodium 140.7 Potassium 3.5 L Chloride 110 H Carbon Dioxide 22 Anion Gap 9 BUN 12 Creatinine 0.78 Est GFR ( Amer) > 60 Est GFR (Non-Af Amer) > 60 Glucose 90 Calcium 8.0 L Magnesium 2.0 Blood Type Antibody Screen 08/19/17 13:06 WBC RBC Hgb Hct MCV MCH MCHC RDW Plt Count Seg Neutrophils % Lymphocytes % Monocytes % Eosinophils % Basophils % Absolute Neutrophils Absolute Lymphocytes Absolute Monocytes Absolute Eosinophils Absolute Basophils Sodium Potassium Chloride Carbon Dioxide Anion Gap BUN Creatinine Est GFR ( Amer) Est GFR (Non-Af Amer) Glucose Calcium Magnesium Blood Type B NEGATIVE Antibody Screen NEGATIVE Impressions: Lower Extremity CT 08/16/17 14:56 IMPRESSION: There are changes in the medial aspect of the head of the 1st metatarsal concerning for osteomyelitis. Guidance Fluoroscopy 08/17/17 00:00 IMPRESSION: SUCCESSFUL PLACEMENT OF A 5 FR DUAL LUMEN 44 CM PICC IN THE LEFT BASILIC VEIN. Interventional Vascular Procedure 08/17/17 00:00 IMPRESSION: SUCCESSFUL PLACEMENT OF A 5 FR DUAL LUMEN 44 CM PICC IN THE LEFT BASILIC VEIN. PICC Line Insertion 08/17/17 11:03 IMPRESSION: SUCCESSFUL PLACEMENT OF A 5 FR DUAL LUMEN 44 CM PICC IN THE LEFT BASILIC VEIN. Assessment & Plan - Diagnosis (1) Hypokalemia Is this a current diagnosis for this admission?: Yes Plan: Additional replacement is being given today. (2) Hyponatremia Is this a current diagnosis for this admission?: Yes Plan: Resolved (3) Malnutrition Qualifiers: Malnutrition type: protein-calorie malnutrition Is this a current diagnosis for this admission?: Yes Plan: Dietary consult has been ordered. (4) Osteomyelitis Qualifiers: Osteomyelitis type: acute hematogenous Osteomyelitis location: foot Laterality: left Qualified Code(s): M86.072 - Acute hematogenous osteomyelitis , left ankle and foot Is this a current diagnosis for this admission?: Yes Plan: Assistance from surgery is greatly appreciated. Surgery examined the patient's postoperative wounds and they appear to be healing very well. No additional debridement is needed at this time. In terms of duration of antibiotics we are waiting for the pathology report. If there has been complete excision of the presumed area of osteomyelitis additional and long-term antibiotics may not be necessary. (5) Sepsis Qualifiers: Sepsis type: sepsis due to unspecified organism Qualified Code(s): A41.9 - Sepsis, unspecified organism Is this a current diagnosis for this admission?: Yes Plan: Clinically resolving. (6) AML (acute myeloid leukemia) Qualifiers: Leukemia Active/Remission status: without remission Qualified Code(s): C92.00 - Acute myeloblastic leukemia, not having achieved remission Is this a current diagnosis for this admission?: Yes Plan: The patient has anemia and thrombocytopenia. Oncology is following. Assistance is greatly appreciated. Today, Dr. Margarito Trujillo ordered a 2 units packed red blood cell transfusion. Also, Dr. Margarito Trujillo discussed the patient's goals of care. The patient is not yet ready for comfort measures. He wants to continue supportive measures. - Time Time Spent with patient: 25-34 minutes - Inpatient Certification Medical Necessity: Significant Comorbidiites Make Outpatient Treatment Too Risky - Need for packed red blood cell transfusion., Need Close Monitoring Due to Risk of Patient Decompensation, Need for IV Antibiotics, Need for Surgery, Risk of Complication if Not Cared For in Hospital
[2017-08-19] MEDS: MONTELUKAST SODIUM 10 MG TABLET PO SCH (21:46)
[2017-08-20] MEDS: PIPERACILLIN SODIUM/TAZOBACTAM 3.375 GM in NORMAL SALINE 100 ML IV SCH ×5 (00:54→23:09)
[2017-08-20] MEDS: VANCOMYCIN HCL 1,000 MG in DEXTROSE 5%-WATER 250 ML IV SCH ×2 (03:58→14:59)
[2017-08-20] MEDS: GABAPENTIN 300 MG CAPSULE PO SCH ×3 (05:29→21:26)
[2017-08-20 06:06] LABS: ANION GAP 8 (5-19); BLOOD UREA NITROGEN 13 mg/dL (7-20); CALCIUM 8.2 mg/dL (8.4-10.2); CARBON DIOXIDE 25 mmol/L (22-30); CHLORIDE 108 mmol/L (98-107); GLUCOSE 103 mg/dL (75-110); PHOSPHORUS 3.1 mg/dL (2.5-4.5); POTASSIUM 3.7 mmol/L (3.6-5.0); SODIUM 140.9 mmol/L (137-145)
--- NOTE | 2017-08-20 07:50 | PDOC PROGRESS REPORT ---
Subjective Progress Note for:: 08/20/17 Subjective:: No acute events overnight, cbc pending this am, PT should work w/ pt today. 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 Checking to see if contact isolation really needed Reason For Visit: CML, RIGHT FOOT WOUND Physical Exam Vital Signs: Temp Pulse Resp BP Pulse Ox 98.6 F 64 20 164/69 H 96 08/20/17 01:33 08/20/17 02:00 08/20/17 01:33 08/20/17 01:33 08/20/17 01:09 Intake & Output 08/19/17 08/20/17 08/21/17 06:59 06:59 06:59 Intake Total 2936 Output Total Balance 2936 Weight 86.7 kg General appearance: PRESENT: no acute distress, well-developed, well-nourished Head exam: PRESENT: atraumatic, normocephalic Eye exam: PRESENT: conjunctiva pink, EOMI, PERRLA. ABSENT: scleral icterus Ear exam: PRESENT: normal external ear exam Mouth exam: PRESENT: moist, tongue midline Neck exam: ABSENT: carotid bruit, JVD, lymphadenopathy, thyromegaly Respiratory exam: PRESENT: clear to auscultation jane. ABSENT: rales, rhonchi, wheezes Cardiovascular exam: PRESENT: RRR. ABSENT: diastolic murmur, rubs, systolic murmur Pulses: PRESENT: normal dorsalis pedis pul Vascular exam: PRESENT: normal capillary refill GI/Abdominal exam: PRESENT: normal bowel sounds, soft. ABSENT: distended, guarding, mass, organolmegaly, rebound, tenderness Rectal exam: PRESENT: deferred Extremities exam: PRESENT: full ROM. ABSENT: calf tenderness, clubbing, pedal edema Neurological exam: PRESENT: alert, awake, oriented to person, oriented to place , oriented to time, oriented to situation, CN II-XII grossly intact. ABSENT: motor sensory deficit Psychiatric exam: PRESENT: appropriate affect, normal mood. ABSENT: homicidal ideation, suicidal ideation Skin exam: PRESENT: dry, intact, warm. ABSENT: cyanosis, rash Results Laboratory Results: 08/19/17 13:06 08/20/17 05:20 08/19/17 08/19/1708/20/18 13:06 13:06 05:20 WBC 8.8 RBC 2.53 L Hgb 7.6 L Hct 22.6 L MCV 90 MCH 29.9 MCHC 33.5 RDW 19.5 H Plt Count 32 L Seg Neutrophils % Not Reportable Lymphocytes % Not Reportable Monocytes % Not Reportable Eosinophils % Not Reportable Basophils % Not Reportable Absolute Neutrophils Not Reportable Absolute Lymphocytes Not Reportable Absolute Monocytes Not Reportable Absolute Eosinophils Not Reportable Absolute Basophils Not Reportable Sodium 140.9 Potassium 3.7 Chloride 108 H Carbon Dioxide 25 Anion Gap 8 BUN 13 Creatinine 0.74 Est GFR ( Amer) > 60 Est GFR (Non-Af Amer) > 60 Glucose 103 Calcium 8.2 L Phosphorus 3.1 Magnesium 1.9 Blood Type B NEGATIVE Antibody Screen NEGATIVE Impressions: Lower Extremity CT 08/16/17 14:56 IMPRESSION: There are changes in the medial aspect of the head of the 1st metatarsal concerning for osteomyelitis. Guidance Fluoroscopy 08/17/17 00:00 IMPRESSION: SUCCESSFUL PLACEMENT OF A 5 FR DUAL LUMEN 44 CM PICC IN THE LEFT BASILIC VEIN. Interventional Vascular Procedure 08/17/17 00:00 IMPRESSION: SUCCESSFUL PLACEMENT OF A 5 FR DUAL LUMEN 44 CM PICC IN THE LEFT BASILIC VEIN. PICC Line Insertion 08/17/17 11:03 IMPRESSION: SUCCESSFUL PLACEMENT OF A 5 FR DUAL LUMEN 44 CM PICC IN THE LEFT BASILIC VEIN. 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
[2017-08-20] MEDS: METOPROLOL TARTRATE 50 MG TABLET PO SCH ×2 (11:25→21:26)
[2017-08-20] MEDS: FAMOTIDINE INJ/PF 20 MG/2 ML SDV IV SCH ×2 (11:25→21:28)
[2017-08-20] MEDS: FINASTERIDE 5 MG TABLET PO SCH (11:25)
[2017-08-20] MEDS: SERTRALINE HCL 50 MG TABLET PO SCH (11:26)
[2017-08-20] MEDS: DOCUSATE SODIUM 100 MG CAPSULE PO SCH (11:26)
[2017-08-20] MEDS: ALLOPURINOL 300 MG TABLET PO SCH (11:26)
[2017-08-20] MEDS: TAMSULOSIN HCL 0.4 MG CAP.SR.24H PO SCH (11:28)
--- NOTE | 2017-08-20 12:12 | PDOC PROGRESS REPORT ---
Subjective Progress Note for:: 08/20/17 Subjective:: The patient is an 82-year-old male with underlying acute myelogenous leukemia. He presented to the hospital on 08/16/2017 with evidence of sepsis secondary to osteomyelitis of the left foot. He was taken to the operating room 08/17/17 for extensive surgical debridement. Clinically, he has improved significantly since admission. Culture reports are showing evidence of 2 different species of gram-negative rods. One culture report indicates the growth of corynebacterium; another report indicates group B beta Streptococcus. The surgical pathology report is pending. The patient has no complaints today. Today is day #4 for IV vancomycin and Zosyn. Reason For Visit: CML, RIGHT FOOT WOUND Physical Exam Vital Signs: Temp Pulse Resp BP Pulse Ox 98.3 F 54 L 18 160/65 H 98 08/20/17 08:28 08/20/17 07:00 08/20/17 08:28 08/20/17 08:28 08/20/17 03:07 Intake & Output 08/19/17 08/20/17 08/21/17 06:59 06:59 06:59 Intake Total 2936 Output Total Balance 2936 Weight 86.7 kg Additional comments: The patient is an elderly white male. He is not in any distress. He feels that he is clinically improved. Today, the patient is oriented. He has periods when he is confused. This generally occurs in the evening and at night. His facial appearance is unremarkable. His lungs are noted to be clear to auscultation anteriorly but he does have a few scattered crackles in the bases posteriorly. His cardiac exam demonstrates a regularly irregular rhythm. He does not have murmurs, gallops or rubs. The abdomen is obese but soft. Bowel sounds are noted. He does not have any guarding or rebound noted. The lower extremities demonstrate 1+ edema. This is symmetrical bilaterally. The left foot is wrapped in a surgical bandage. The toes are warm. Results Laboratory Results: 08/19/17 13:06 08/20/17 05:20 08/19/17 08/19/17 08/20/17 13:06 13:06 05:20 WBC 8.8 RBC 2.53 L Hgb 7.6 L Hct 22.6 L MCV 90 MCH 29.9 MCHC 33.5 RDW 19.5 H Plt Count 32 L Seg Neutrophils % Not Reportable Lymphocytes % Not Reportable Monocytes % Not Reportable Eosinophils % Not Reportable Basophils % Not Reportable Absolute Neutrophils Not Reportable Absolute Lymphocytes Not Reportable Absolute Monocytes Not Reportable Absolute Eosinophils Not Reportable Absolute Basophils Not Reportable Sodium 140.9 Potassium 3.7 Chloride 108 H Carbon Dioxide 25 Anion Gap 8 BUN 13 Creatinine 0.74 Est GFR ( Amer) > 60 Est GFR (Non-Af Amer) > 60 Glucose 103 Calcium 8.2 L Phosphorus 3.1 Magnesium 1.9 Blood Type B NEGATIVE Antibody Screen NEGATIVE Impressions: Lower Extremity CT 08/16/17 14:56 IMPRESSION: There are changes in the medial aspect of the head of the 1st metatarsal concerning for osteomyelitis. Guidance Fluoroscopy 08/17/17 00:00 IMPRESSION: SUCCESSFUL PLACEMENT OF A 5 FR DUAL LUMEN 44 CM PICC IN THE LEFT BASILIC VEIN. Interventional Vascular Procedure 08/17/17 00:00 IMPRESSION: SUCCESSFUL PLACEMENT OF A 5 FR DUAL LUMEN 44 CM PICC IN THE LEFT BASILIC VEIN. PICC Line Insertion 08/17/17 11:03 IMPRESSION: SUCCESSFUL PLACEMENT OF A 5 FR DUAL LUMEN 44 CM PICC IN THE LEFT BASILIC VEIN. Assessment & Plan - Diagnosis (1) Hypokalemia Is this a current diagnosis for this admission?: Yes Plan: Corrected; will continue to follow. (2) Hyponatremia Is this a current diagnosis for this admission?: Yes Plan: Resolved (3) Malnutrition Qualifiers: Malnutrition type: protein-calorie malnutrition Is this a current diagnosis for this admission?: Yes Plan: Dietary consult has been ordered. (4) Osteomyelitis Qualifiers: Osteomyelitis type: acute hematogenous Osteomyelitis location: foot Laterality: left Qualified Code(s): M86.072 - Acute hematogenous osteomyelitis , left ankle and foot Is this a current diagnosis for this admission?: Yes Plan: Assistance from surgery is greatly appreciated. Surgery examined the patient's postoperative wounds and they appear to be healing very well. No additional debridement is needed at this time. In terms of duration of antibiotics we are waiting for the pathology report. If there has been complete excision of the presumed area of osteomyelitis additional and long-term antibiotics may not be necessary. Today is day #4 of zosyn/vancomyin. (5) Sepsis Qualifiers: Sepsis type: sepsis due to unspecified organism Qualified Code(s): A41.9 - Sepsis, unspecified organism Is this a current diagnosis for this admission?: Yes Plan: Clinically resolving. (6) AML (acute myeloid leukemia) Qualifiers: Leukemia Active/Remission status: without remission Qualified Code(s): C92.00 - Acute myeloblastic leukemia, not having achieved remission Is this a current diagnosis for this admission?: Yes Plan: The patient has anemia and thrombocytopenia. Oncology is following. Assistance is greatly appreciated. Yesterday, Dr. Margarito Trujillo ordered a 2 units packed red blood cell transfusion. Also, Dr. Margarito Trujillo discussed the patient's goals of care. The patient is not yet ready for comfort measures. He wants to continue supportive measures. - Time Time Spent with patient: 25-34 minutes - Inpatient Certification Medical Necessity: Significant Comorbidiites Make Outpatient Treatment Too Risky , Need Close Monitoring Due to Risk of Patient Decompensation, Need for IV Antibiotics, Risk of Complication if Not Cared For in Hospital
[2017-08-20 12:30] LABS: HEMATOCRIT 30.4 % (37.9-51.0); MEAN CORPUSCULAR HEMOGLOBIN 29.4 pg (27.0-33.4); MEAN CORPUSCULAR HGB CONC 33.1 g/dL (32.0-36.0); MEAN CORPUSCULAR VOLUME 89 fl (80-97); RED BLOOD COUNT 3.43 10^6/uL (4.35-5.55); RED CELL DISTRIBUTION WIDTH 17.5 % (11.5-14.0); WHITE BLOOD COUNT 11.8 10^3/uL (4.0-10.5)
[2017-08-20 12:34] LABS: HEMOGLOBIN 10.1 g/dL (13.5-17.0)
[2017-08-20 13:02] LABS: ABSOLUTE LYMPHOCYTES# (MANUAL) 2.1 10^3/uL (0.5-4.7); ABSOLUTE MONOCYTES # (MANUAL) 1.1 10^3/uL (0.1-1.4); ABSOLUTE NEUTROPHILS# (MANUAL) 6.8 10^3/uL (1.7-8.2); BAND NEUTROPHILS % (MANUAL) 5 % (3-5); BASOPHILS % (MANUAL) 0 % (0-2); EOSINOPHILS % (MANUAL) 1 % (0-6); IMMATURE MONONUCLEAR% (MANUAL) 14 % (0); LYMPHOCYTES % (MANUAL) 17 % (13-45); METAMYELOCYTES % (MANUAL) 1 % (0); MONOCYTES % (MANUAL) 9 % (3-13); MYELOCYTES % (MANUAL) 2 % (0); NUCLEATED RED BLOOD CELLS 4 /100 WBC (0); PROMYELOCYTES % (MANUAL) 2 % (0); SEGMENTED NEUTROPHILS % (MAN) 48 % (42-78); TOTAL CELLS COUNTED 100
[2017-08-20 13:05] LABS: OVALOCYTES 1+; PLATELET COMMENT DECREASED; POIKILOCYTOSIS 1+
[2017-08-20 13:08] LABS: PLATELET COUNT 27 10^3/uL (150-450)
[2017-08-20 15:47] LABS: IMMATURE MONONUCLEAR% (MANUAL) 22 % (0); MONOCYTES % (MANUAL) 4 % (3-13)
[2017-08-20 15:48] LABS: ABSOLUTE MONOCYTES # (MANUAL) 0.3 10^3/uL (0.1-1.4)
[2017-08-20 15:49] LABS: PATH REVIEW PATHOLOGIST REVIEWED
[2017-08-20] MEDS: BENZONATATE 100 MG CAPSULE PO PRN (17:09)
[2017-08-20] MEDS: MONTELUKAST SODIUM 10 MG TABLET PO SCH (21:26)
[2017-08-20] MEDS: TEMAZEPAM 7.5 MG CAPSULE PO PRN (23:15)
[2017-08-21] MEDS: VANCOMYCIN HCL 1,000 MG in DEXTROSE 5%-WATER 250 ML IV SCH ×2 (02:23→15:15)
[2017-08-21] MEDS: GABAPENTIN 300 MG CAPSULE PO SCH ×3 (05:09→22:30)
[2017-08-21] MEDS: PIPERACILLIN SODIUM/TAZOBACTAM 3.375 GM in NORMAL SALINE 100 ML IV SCH ×3 (05:15→18:33)
[2017-08-21 05:46] LABS: HEMATOCRIT 28.5 % (37.9-51.0); HEMOGLOBIN 9.7 g/dL (13.5-17.0); MEAN CORPUSCULAR HEMOGLOBIN 30.2 pg (27.0-33.4); MEAN CORPUSCULAR HGB CONC 34.1 g/dL (32.0-36.0); MEAN CORPUSCULAR VOLUME 89 fl (80-97); RED BLOOD COUNT 3.21 10^6/uL (4.35-5.55); RED CELL DISTRIBUTION WIDTH 17.6 % (11.5-14.0); WHITE BLOOD COUNT 10.5 10^3/uL (4.0-10.5)
[2017-08-21 05:52] LABS: ANION GAP 8 (5-19); BLOOD UREA NITROGEN 12 mg/dL (7-20); CALCIUM 8.1 mg/dL (8.4-10.2); CARBON DIOXIDE 25 mmol/L (22-30); CHLORIDE 106 mmol/L (98-107); GLUCOSE 86 mg/dL (75-110); POTASSIUM 3.6 mmol/L (3.6-5.0)
[2017-08-21 06:17] LABS: PLATELET COUNT 22 10^3/uL (150-450)
[2017-08-21 06:48] LABS: ABSOLUTE LYMPHOCYTES# (MANUAL) 1.8 10^3/uL (0.5-4.7); ABSOLUTE NEUTROPHILS# (MANUAL) 4.7 10^3/uL (1.7-8.2); BASOPHILS % (MANUAL) 0 % (0-2); EOSINOPHILS % (MANUAL) 1 % (0-6); LYMPHOCYTES % (MANUAL) 17 % (13-45); NUCLEATED RED BLOOD CELLS 3 /100 WBC (0); SEGMENTED NEUTROPHILS % (MAN) 45 % (42-78); TOTAL CELLS COUNTED 100
[2017-08-21 06:53] LABS: POLYCHROMASIA 1+
[2017-08-21 06:54] LABS: ANISOCYTOSIS 1+
[2017-08-21 06:55] LABS: OVALOCYTES SLIGHT; PLATELET COMMENT DECREASED
--- NOTE | 2017-08-21 09:00 | PDOC PROGRESS REPORT ---
Subjective Progress Note for:: 08/21/17 Subjective:: Patient did walk yesterday quite a bit, with minimal assistance, with a walker, but was confused overnight again, and seems confused this morning. Reason For Visit: CML, RIGHT FOOT WOUND Physical Exam Vital Signs: Temp Pulse Resp BP Pulse Ox 97.5 F 60 17 160/68 H 94 08/21/17 08:08 08/21/17 08:08 08/21/17 08:08 08/21/17 08:08 08/21/17 08:08 Intake & Output 08/20/17 08/21/17 08/22/17 06:59 06:59 06:59 Intake Total 2936 1250 Balance 2936 1250 Weight 86.7 kg General appearance: PRESENT: no acute distress, well-developed, well-nourished Head exam: PRESENT: atraumatic, normocephalic Eye exam: PRESENT: conjunctiva pink, EOMI, PERRLA. ABSENT: scleral icterus Ear exam: PRESENT: normal external ear exam Mouth exam: PRESENT: moist, tongue midline Neck exam: ABSENT: carotid bruit, JVD, lymphadenopathy, thyromegaly Respiratory exam: PRESENT: clear to auscultation jane. ABSENT: rales, rhonchi, wheezes Cardiovascular exam: PRESENT: RRR. ABSENT: diastolic murmur, rubs, systolic murmur Pulses: PRESENT: normal dorsalis pedis pul Vascular exam: PRESENT: normal capillary refill GI/Abdominal exam: PRESENT: normal bowel sounds, soft. ABSENT: distended, guarding, mass, organolmegaly, rebound, tenderness Rectal exam: PRESENT: deferred Extremities exam: PRESENT: full ROM. ABSENT: calf tenderness, clubbing, pedal edema Neurological exam: PRESENT: alert, awake, oriented to person, oriented to place , oriented to time, oriented to situation, CN II-XII grossly intact. ABSENT: motor sensory deficit Psychiatric exam: PRESENT: appropriate affect, normal mood. ABSENT: homicidal ideation, suicidal ideation Skin exam: PRESENT: dry, intact, warm. ABSENT: cyanosis, rash Results Laboratory Results: 08/21/17 05:15 08/21/17 05:15 08/20/17 08/21/17 08/21/17 11:15 05:15 05:15 WBC 11.8 H 10.5 RBC 3.43 L 3.21 L Hgb 10.1 L D 9.7 L Hct 30.4 L 28.5 L MCV 89 89 MCH 29.4 30.2 MCHC 33.1 34.1 RDW 17.5 H 17.6 H Plt Count 27 L* 22 L* Seg Neutrophils % Not Reportable Not Reportable Lymphocytes % Not Reportable Not Reportable Monocytes % Not Reportable Not Reportable Eosinophils % Not Reportable Not Reportable Basophils % Not Reportable Not Reportable Absolute Neutrophils Not Reportable Not Reportable Absolute Lymphocytes Not Reportable Not Reportable Absolute Monocytes Not Reportable Not Reportable Absolute Eosinophils Not Reportable Not Reportable Absolute Basophils Not Reportable Not Reportable Sodium 139.0 Potassium 3.6 Chloride 106 Carbon Dioxide 25 Anion Gap 8 BUN 12 Creatinine 0.70 Est GFR ( Amer) > 60 Est GFR (Non-Af Amer) > 60 Glucose 86 Calcium 8.1 L Magnesium 1.8 Impressions: Lower Extremity CT 08/16/17 14:56 IMPRESSION: There are changes in the medial aspect of the head of the 1st metatarsal concerning for osteomyelitis. Guidance Fluoroscopy 08/17/17 00:00 IMPRESSION: SUCCESSFUL PLACEMENT OF A 5 FR DUAL LUMEN 44 CM PICC IN THE LEFT BASILIC VEIN. Interventional Vascular Procedure 08/17/17 00:00 IMPRESSION: SUCCESSFUL PLACEMENT OF A 5 FR DUAL LUMEN 44 CM PICC IN THE LEFT BASILIC VEIN. PICC Line Insertion 08/17/17 11:03 IMPRESSION: SUCCESSFUL PLACEMENT OF A 5 FR DUAL LUMEN 44 CM PICC IN THE LEFT BASILIC VEIN. Assessment & Plan - Diagnosis (1) Osteomyelitis Qualifiers: Osteomyelitis type: acute hematogenous Osteomyelitis location: foot Laterality: left Qualified Code(s): M86.072 - Acute hematogenous osteomyelitis , left ankle and foot Is this a current diagnosis for this admission?: Yes Plan: Continue on antibiotic, seems less likely to have osteomyelitis. (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 Qualified Code(s): C92.00 - Acute myeloblastic leukemia, not having achieved remission Is this a current diagnosis for this admission?: Yes Plan: Hemoglobin and other counts have been generally stable, early count has been dropping we will need to watch that. Would not transfuse unless platelet count gets under 15. (3) Pancytopenia Is this a current diagnosis for this admission?: Yes Plan: Continue to monitor as above. - Time Time Spent with patient: 25-34 minutes Disposition: His family is very involved, so ultimately patient needs to be discharged home, will probably need home health and physical therapy at home, in discussion with both surgery and previous hospitalist team, because were not sure about the osteomyelitis he may not require antibiotics upon discharge. Would leave this up to hospitalist team and surgical team.
[2017-08-21] MEDS: BENZONATATE 100 MG CAPSULE PO PRN (09:43)
[2017-08-21] MEDS: FAMOTIDINE INJ/PF 20 MG/2 ML SDV IV SCH (09:43)
[2017-08-21] MEDS: TAMSULOSIN HCL 0.4 MG CAP.SR.24H PO SCH (09:44)
[2017-08-21] MEDS: SERTRALINE HCL 50 MG TABLET PO SCH (09:44)
[2017-08-21] MEDS: ALLOPURINOL 300 MG TABLET PO SCH (09:44)
[2017-08-21] MEDS: METOPROLOL TARTRATE 50 MG TABLET PO SCH ×2 (09:44→22:30)
[2017-08-21] MEDS: FINASTERIDE 5 MG TABLET PO SCH (09:44)
[2017-08-21] MEDS: DOCUSATE SODIUM 100 MG CAPSULE PO SCH (09:47)
--- NOTE | 2017-08-21 11:30 | RADIOLOGY REPORT (SQ) ---
EXAM DESCRIPTION: CHEST PA/LAT COMPLETED DATE/TIME: 08/21/2017 11:17 am REASON FOR STUDY: cough COMPARISON: None. EXAM PARAMETERS: NUMBER OF VIEWS: two views TECHNIQUE: Digital Frontal and Lateral radiographic views of the chest acquired. RADIATION DOSE: NA LIMITATIONS: none FINDINGS: LUNGS AND PLEURA: Incidental azygos lobe. Faint airspace disease in the right upper lobe. Nodular density in the mid right lung. Patchy densities in the lung bases with small pleural effus ions. MEDIASTINUM AND HILAR STRUCTURES: No masses or contour abnormalities. HEART AND VASCULAR STRUCTURES: Heart normal size. No evidence for failure. BONES: No acute findings. HARDWARE: None in the chest. OTHER: No other significant finding. IMPRESSION: FAINT AIRSPACE DISEASE IN THE RIGHT UPPER LOBE SUSPICIOUS FOR DEVELOPING PNEUMONIA. POS SIBLE DEVELOPING PULMONARY NODULE IN THE MID RIGHT LUNG. MILD BASILAR ATELECTASIS VERSUS SCARRING AN D DEVELOPMENT OF SMALL PLEURAL EFFUSIONS. TECHNICAL DOCUMENTATION: JOB ID: [id number] [employer]- All Rights Reserved Reading location - IP/workstation name: [facility]
--- NOTE | 2017-08-21 14:04 | PDOC PROGRESS REPORT ---
Subjective Progress Note for:: 08/21/17 Subjective:: Patient complains of a nagging cough. Nurse were at bedside and complain of patient having profuse diarrhea today. Review of systems All organ systems evaluated and negative except as in subjective All significant laboratories and diagnostics have been reviewed Reason For Visit: CML, RIGHT FOOT WOUND Physical Exam Vital Signs: Temp Pulse Resp BP Pulse Ox 98.0 F 58 L 18 132/90 H 95 08/21/17 03:40 08/21/17 07:00 08/21/17 03:40 08/21/17 03:40 08/21/17 03:40 Intake & Output 08/20/17 08/21/17 08/22/17 06:59 06:59 06:59 Intake Total 2936 1250 Balance 2936 1250 Weight 86.7 kg General appearance: PRESENT: cooperative, obese Head exam: PRESENT: atraumatic, normocephalic Eye exam: PRESENT: conjunctiva pink, EOMI, PERRLA Ear exam: PRESENT: normal external ear exam Mouth exam: PRESENT: moist Neck exam: PRESENT: full ROM. ABSENT: JVD, lymphadenopathy, tenderness Respiratory exam: PRESENT: clear to auscultation jane. ABSENT: tachypnea, unlabored, wheezes Cardiovascular exam: PRESENT: RRR. ABSENT: diastolic murmur, systolic murmur Vascular exam: PRESENT: normal capillary refill GI/Abdominal exam: PRESENT: soft. ABSENT: normal bowel sounds, tenderness Extremities exam: PRESENT: full ROM. ABSENT: pedal edema Musculoskeletal exam: PRESENT: ambulatory Neurological exam: PRESENT: alert, awake, oriented to person, oriented to place , oriented to time, oriented to situation, CN II-XII grossly intact Psychiatric exam: PRESENT: appropriate affect, normal mood Skin exam: PRESENT: dry, normal color Results Laboratory Results: 08/21/17 05:15 08/21/17 05:15 08/20/17 08/21/17 08/21/17 11:15 05:15 05:15 WBC 11.8 H 10.5 RBC 3.43 L 3.21 L Hgb 10.1 L D 9.7 L Hct 30.4 L 28.5 L MCV 89 89 MCH 29.4 30.2 MCHC 33.1 34.1 RDW 17.5 H 17.6 H Plt Count 27 L* 22 L* Seg Neutrophils % Not Reportable Not Reportable Lymphocytes % Not Reportable Not Reportable Monocytes % Not Reportable Not Reportable Eosinophils % Not Reportable Not Reportable Basophils % Not Reportable Not Reportable Absolute Neutrophils Not Reportable Not Reportable Absolute Lymphocytes Not Reportable Not Reportable Absolute Monocytes Not Reportable Not Reportable Absolute Eosinophils Not Reportable Not Reportable Absolute Basophils Not Reportable Not Reportable Sodium 139.0 Potassium 3.6 Chloride 106 Carbon Dioxide 25 Anion Gap 8 BUN 12 Creatinine 0.70 Est GFR ( Amer) > 60 Est GFR (Non-Af Amer) > 60 Glucose 86 Calcium 8.1 L Magnesium 1.8 Impressions: Lower Extremity CT 08/16/17 14:56 IMPRESSION: There are changes in the medial aspect of the head of the 1st metatarsal concerning for osteomyelitis. Guidance Fluoroscopy 08/17/17 00:00 IMPRESSION: SUCCESSFUL PLACEMENT OF A 5 FR DUAL LUMEN 44 CM PICC IN THE LEFT BASILIC VEIN. Interventional Vascular Procedure 08/17/17 00:00 IMPRESSION: SUCCESSFUL PLACEMENT OF A 5 FR DUAL LUMEN 44 CM PICC IN THE LEFT BASILIC VEIN. PICC Line Insertion 08/17/17 11:03 IMPRESSION: SUCCESSFUL PLACEMENT OF A 5 FR DUAL LUMEN 44 CM PICC IN THE LEFT BASILIC VEIN. Assessment & Plan - Diagnosis (1) Anemia Qualifiers: Anemia type: bone marrow failure Bone marrow failure anemia type: unspecified bone marrow failure Qualified Code(s): D61.9 - Aplastic anemia, unspecified Is this a current diagnosis for this admission?: Yes Plan: Improved after transfusion of 4 units of packed red blood cells. Stable (2) Hypokalemia Is this a current diagnosis for this admission?: Yes Plan: Replaced (3) Hyponatremia Is this a current diagnosis for this admission?: Yes Plan: Improved (4) Malnutrition Qualifiers: Malnutrition type: protein-calorie malnutrition Is this a current diagnosis for this admission?: Yes Plan: Encourage protein intake (5) Osteomyelitis Qualifiers: Osteomyelitis type: acute hematogenous Osteomyelitis location: foot Laterality: left Qualified Code(s): M86.072 - Acute hematogenous osteomyelitis , left ankle and foot Is this a current diagnosis for this admission?: Yes Plan: Anticipate to transition to oral. However since patient complaining of cough would like to follow through with official report of chest x-ray (6) Sepsis Qualifiers: Sepsis type: sepsis due to unspecified organism Qualified Code(s): A41.9 - Sepsis, unspecified organism Is this a current diagnosis for this admission?: Yes Plan: Resolved (7) Thrombocytopenia Is this a current diagnosis for this admission?: Yes Plan: Stable. Patient received 2 plateletpheresis (8) Wound, open, foot Qualifiers: Encounter type: sequela Laterality: left Qualified Code(s): S91.302S - Unspecified open wound, left foot, sequela Is this a current diagnosis for this admission?: Yes Plan: Stable, wound care as per surgery (9) AML (acute myeloid leukemia) Qualifiers: Leukemia Active/Remission status: without remission Qualified Code(s): C92.00 - Acute myeloblastic leukemia, not having achieved remission Is this a current diagnosis for this admission?: Yes Plan: Stable (10) Cough Is this a current diagnosis for this admission?: Yes Plan: Order chest x-ray since immunosuppressed and propensity for pneumonia (11) Diarrhea Qualifiers: Diarrhea type: unspecified type Qualified Code(s): R19.7 - Diarrhea, unspecified Is this a current diagnosis for this admission?: Yes Plan: Order C diff however may be antibiotic related - Time Time Spent with patient: 15-24 minutes Medications reviewed and adjusted accordingly: Yes Anticipated discharge: Home Within: within 24 hours - Inpatient Certification Based on my medical assessment, after consideration of the patient's comorbidities, presenting symptoms, or acuity I expect that the services needed warrant INPATIENT care.: Yes I certify that my determination is in accordance with my understanding of Medicare's requirements for reasonable and necessary INPATIENT services [42 CFR 412.3e].: Yes Medical Necessity: Need for IV Antibiotics
--- NOTE | 2017-08-21 18:10 | PDOC PROGRESS REPORT ---
Subjective Progress Note for:: 08/21/17 Subjective:: less pains left foot Reason For Visit: CML, RIGHT FOOT WOUND Physical Exam Vital Signs: Temp Pulse Resp BP Pulse Ox 98.0 F 66 17 147/97 H 92 08/21/17 16:11 08/21/17 16:11 08/21/17 16:11 08/21/17 16:11 08/21/17 16:11 Intake & Output 08/20/17 08/21/17 08/22/17 06:59 06:59 06:59 Intake Total 2936 1250 237 Balance 2936 1250 237 Weight 86.7 kg Exam: Packing changed. Both wounds are clean and dry Results Laboratory Results: 08/21/17 05:15 08/21/17 05:15 08/21/17 08/21/17 05:15 05:15 WBC 10.5 RBC 3.21 L Hgb 9.7 L Hct 28.5 L MCV 89 MCH 30.2 MCHC 34.1 RDW 17.6 H Plt Count 22 L* Seg Neutrophils % Not Reportable Lymphocytes % Not Reportable Monocytes % Not Reportable Eosinophils % Not Reportable Basophils % Not Reportable Absolute Neutrophils Not Reportable Absolute Lymphocytes Not Reportable Absolute Monocytes Not Reportable Absolute Eosinophils Not Reportable Absolute Basophils Not Reportable Sodium 139.0 Potassium 3.6 Chloride 106 Carbon Dioxide 25 Anion Gap 8 BUN 12 Creatinine 0.70 Est GFR ( Amer) > 60 Est GFR (Non-Af Amer) > 60 Glucose 86 Calcium 8.1 L Magnesium 1.8 08/17/17 19:58 Foot - Abscess Gram Stain - Final Impressions: Lower Extremity CT 08/16/17 14:56 IMPRESSION: There are changes in the medial aspect of the head of the 1st metatarsal concerning for osteomyelitis. Guidance Fluoroscopy 08/17/17 00:00 IMPRESSION: SUCCESSFUL PLACEMENT OF A 5 FR DUAL LUMEN 44 CM PICC IN THE LEFT BASILIC VEIN. Interventional Vascular Procedure 08/17/17 00:00 IMPRESSION: SUCCESSFUL PLACEMENT OF A 5 FR DUAL LUMEN 44 CM PICC IN THE LEFT BASILIC VEIN. PICC Line Insertion 08/17/17 11:03 IMPRESSION: SUCCESSFUL PLACEMENT OF A 5 FR DUAL LUMEN 44 CM PICC IN THE LEFT BASILIC VEIN. Chest X-Ray 08/21/17 00:00 IMPRESSION: FAINT AIRSPACE DISEASE IN THE RIGHT UPPER LOBE SUSPICIOUS FOR DEVELOPING PNEUMONIA. POSSIBLE DEVELOPING PULMONARY NODULE IN THE MID RIGHT LUNG. MILD BASILAR ATELECTASIS VERSUS SCARRING AND DEVELOPMENT OF SMALL PLEURAL EFFUSIONS. Assessment & Plan - Time Time Spent with patient: 15-24 minutes - Plan Summary Plan Summary: Continue daily packing and dressings changes. Advised follow up [facility] No obvious osteomyelitis . Continue antibiotics x 2 weeks
[2017-08-21] MEDS: MONTELUKAST SODIUM 10 MG TABLET PO SCH (22:30)
[2017-08-21] MEDS ORDERED: IPRATROPIUM/ALBUTEROL 0.5-2.5 MG/3 ML AMPUL NEB ONE (22:33)
[2017-08-21] MEDS ORDERED: LINEZOLID 600 MG TABLET PO SCH (23:00)
[2017-08-21] MEDS ORDERED: LEVOFLOXACIN 500 MG TABLET PO SCH (23:00)
[2017-08-21] MEDS ORDERED: METHYLPREDNISOLONE INJ 40 MG/1 ML SDV IV SCH (23:00)
--- NOTE | 2017-08-22 01:10 | RADIOLOGY REPORT (SQ) ---
CT CHEST WITHOUT CONTRAST History: 82-year-old male with shortness of breath and fever. Please evaluate for pneumonia. Comparison: CT dated October 12, 2016. Technique: Multiple axial images are taken from the level the thyroid down to the upper abdomen without the use of IV contrast. Images were then reconstructed in the sagittal and coronal planes. This exam was performed according to our departmental dose-optimization program which includes use of Automated Exposure Control, adjustment of the mA and/or kV according to patient size and/or use of iterative reconstruction technique. Findings: The right lung demonstrates a small pleural effusion with a trace left-sided pleural effusion. Hounsfield units are slightly higher than simple fluid. There is pleural fluid seen in the azygos lobe. There is also some minimal fluid seen in the horizontal fissures bilaterally. In the posterior right upper lobe there is a groundglass opacity demonstrated as well as the right lower lobe. This is best seen on coronal image 46 through 52. There is no evidence of pneumothorax. There is no evidence of pneumomediastinum. The heart measures within normal limits. Main pulmonary artery measures within normal. There is a trace pericardial effusion which measures 6.4 mm. The thoracic aorta measures within normal limits with further evaluation of vascular structures limited by lack of IV contrast. Subcentimeter lymph nodes are seen in the mediastinum. Evaluation of hilar lymph nodes is limited without the use of IV contrast. There is no axillary lymphadenopathy. The subdiaphragmatic abdominal organs included in the [id number] do not demonstrate any acute abnormality. Osseous structures demonstrate flowing syndesmophytes with multilevel degenerative disc disease. There are fractures seen involving the right lateral T7-T8 rib fractures. The chest wall is within normal limits. Impression: 1. Right sided pneumonia. 2. Bibasilar pleural effusions with Hounsfield units slightly higher than that of simple fluid given the right T7, T8 rib fractures which are seen, pleural fluid mixed with some blood may be present. 3. Trace pericardial effusion.
[2017-08-22] MEDS: METHYLPREDNISOLONE INJ 40 MG/1 ML SDV IV SCH ×3 (06:24→21:31)
[2017-08-22] MEDS: GABAPENTIN 300 MG CAPSULE PO SCH ×3 (06:24→21:32)
[2017-08-22 06:59] LABS: HEMATOCRIT 27.1 % (37.9-51.0); HEMOGLOBIN 9.1 g/dL (13.5-17.0); MEAN CORPUSCULAR HEMOGLOBIN 29.9 pg (27.0-33.4); MEAN CORPUSCULAR HGB CONC 33.6 g/dL (32.0-36.0); MEAN CORPUSCULAR VOLUME 89 fl (80-97); RED BLOOD COUNT 3.05 10^6/uL (4.35-5.55); RED CELL DISTRIBUTION WIDTH 17.9 % (11.5-14.0); WHITE BLOOD COUNT 5.4 10^3/uL (4.0-10.5)
[2017-08-22 07:17] LABS: ANION GAP 8 (5-19); BLOOD UREA NITROGEN 13 mg/dL (7-20); CALCIUM 8.3 mg/dL (8.4-10.2); CARBON DIOXIDE 24 mmol/L (22-30); CHLORIDE 107 mmol/L (98-107); GLUCOSE 121 mg/dL (75-110); POTASSIUM 3.9 mmol/L (3.6-5.0); SODIUM 139.2 mmol/L (137-145)
[2017-08-22 07:45] LABS: PLATELET COUNT 18 10^3/uL (150-450)
[2017-08-22 07:51] LABS: ABSOLUTE LYMPHOCYTES# (MANUAL) 0.4 10^3/uL (0.5-4.7); ABSOLUTE MONOCYTES # (MANUAL) 0.3 10^3/uL (0.1-1.4); ABSOLUTE NEUTROPHILS# (MANUAL) 4.1 10^3/uL (1.7-8.2); BASOPHILS % (MANUAL) 0 % (0-2); EOSINOPHILS % (MANUAL) 0 % (0-6); IMMATURE MONONUCLEAR% (MANUAL) 10 % (0); LYMPHOCYTES % (MANUAL) 8 % (13-45); METAMYELOCYTES % (MANUAL) 2 % (0); MONOCYTES % (MANUAL) 6 % (3-13); MYELOCYTES % (MANUAL) 1 % (0); NUCLEATED RED BLOOD CELLS 5 /100 WBC (0); PROMYELOCYTES % (MANUAL) 3 % (0); SEGMENTED NEUTROPHILS % (MAN) 70 % (42-78); TOTAL CELLS COUNTED 100
[2017-08-22 07:53] LABS: ANISOCYTOSIS 1+; OVALOCYTES SLIGHT; PLATELET COMMENT DECREASED; POIKILOCYTOSIS SLIGHT; POLYCHROMASIA SLIGHT; TEAR DROP CELLS SLIGHT
[2017-08-22] MEDS: IPRATROPIUM/ALBUTEROL 0.5-2.5 MG/3 ML AMPUL NEB SCH ×3 (08:01→19:45)
[2017-08-22] MEDS ORDERED: BENZOCAINE/MENTHOL SORE THROAT LOZENGE BUCCAL PRN (08:15)
--- NOTE | 2017-08-22 08:30 | PDOC PROGRESS REPORT ---
Subjective Progress Note for:: 08/22/17 Subjective:: Patient seems to be better today, yesterday patient was having increased shortness of breath and cough, ultimately had chest x-ray followed by CT of the chest which did indicate a right lower lobe pneumonia, small effusion as well, today had a long discussion with infectious disease, Dr. Sexton in [place], also with hospitalist team, spent greater than 35 minutes in coordination of care in consultation, infectious disease suggested discontinuing the Zyvox and continuing Levaquin, surgery and recommended doing a two-week course, so he can be discharged with a two-week course of Levaquin. However his platelet count today is 18 so we will plan on platelet transfusion today and ensuring that his lung status is stable for discharge by tomorrow. Reason For Visit: CML, RIGHT FOOT WOUND Physical Exam Vital Signs: Temp Pulse Resp BP Pulse Ox 98.5 F 56 L 16 153/65 H 90 L 08/22/17 07:18 08/22/17 07:18 08/22/17 07:18 08/22/17 07:18 08/22/17 07:18 Intake & Output 08/21/17 08/22/17 08/23/17 06:59 06:59 06:59 Intake Total 1250 1087 Balance 1250 1087 Weight 85.2 kg General appearance: PRESENT: no acute distress, well-developed, well-nourished Head exam: PRESENT: atraumatic, normocephalic Eye exam: PRESENT: conjunctiva pink, EOMI, PERRLA. ABSENT: scleral icterus Ear exam: PRESENT: normal external ear exam Mouth exam: PRESENT: moist, tongue midline Neck exam: ABSENT: carotid bruit, JVD, lymphadenopathy, thyromegaly Respiratory exam: PRESENT: clear to auscultation jane. ABSENT: rales, rhonchi, wheezes Cardiovascular exam: PRESENT: RRR. ABSENT: diastolic murmur, rubs, systolic murmur Pulses: PRESENT: normal dorsalis pedis pul Vascular exam: PRESENT: normal capillary refill GI/Abdominal exam: PRESENT: normal bowel sounds, soft. ABSENT: distended, guarding, mass, organolmegaly, rebound, tenderness Rectal exam: PRESENT: deferred Extremities exam: PRESENT: full ROM. ABSENT: calf tenderness, clubbing, pedal edema Neurological exam: PRESENT: alert, awake, oriented to person, oriented to place , oriented to time, oriented to situation, CN II-XII grossly intact. ABSENT: motor sensory deficit Psychiatric exam: PRESENT: appropriate affect, normal mood. ABSENT: homicidal ideation, suicidal ideation Skin exam: PRESENT: dry, intact, warm. ABSENT: cyanosis, rash Results Laboratory Results: 08/22/17 06:10 08/22/17 06:10 08/22/17 08/22/17 06:10 06:10 WBC 5.4 RBC 3.05 L Hgb 9.1 L Hct 27.1 L MCV 89 MCH 29.9 MCHC 33.6 RDW 17.9 H Plt Count 18 L* Seg Neutrophils % Not Reportable Lymphocytes % Not Reportable Monocytes % Not Reportable Eosinophils % Not Reportable Basophils % Not Reportable Absolute Neutrophils Not Reportable Absolute Lymphocytes Not Reportable Absolute Monocytes Not Reportable Absolute Eosinophils Not Reportable Absolute Basophils Not Reportable Sodium 139.2 Potassium 3.9 Chloride 107 Carbon Dioxide 24 Anion Gap 8 BUN 13 Creatinine 0.71 Est GFR ( Amer) > 60 Est GFR (Non-Af Amer) > 60 Glucose 121 H Calcium 8.3 L Magnesium 1.9 08/17/17 19:58 Foot - Abscess Gram Stain - Final Impressions: Lower Extremity CT 08/16/17 14:56 IMPRESSION: There are changes in the medial aspect of the head of the 1st metatarsal concerning for osteomyelitis. Guidance Fluoroscopy 08/17/17 00:00 IMPRESSION: SUCCESSFUL PLACEMENT OF A 5 FR DUAL LUMEN 44 CM PICC IN THE LEFT BASILIC VEIN. Interventional Vascular Procedure 08/17/17 00:00 IMPRESSION: SUCCESSFUL PLACEMENT OF A 5 FR DUAL LUMEN 44 CM PICC IN THE LEFT BASILIC VEIN. PICC Line Insertion 08/17/17 11:03 IMPRESSION: SUCCESSFUL PLACEMENT OF A 5 FR DUAL LUMEN 44 CM PICC IN THE LEFT BASILIC VEIN. Chest X-Ray 08/21/17 00:00 IMPRESSION: FAINT AIRSPACE DISEASE IN THE RIGHT UPPER LOBE SUSPICIOUS FOR DEVELOPING PNEUMONIA. POSSIBLE DEVELOPING PULMONARY NODULE IN THE MID RIGHT LUNG. MILD BASILAR ATELECTASIS VERSUS SCARRING AND DEVELOPMENT OF SMALL PLEURAL EFFUSIONS. Assessment & Plan - Diagnosis (1) AML (acute myeloid leukemia) Qualifiers: Leukemia Active/Remission status: without remission Qualified Code(s): C92.00 - Acute myeloblastic leukemia, not having achieved remission Is this a current diagnosis for this admission?: Yes Plan: No plan forActive treatment, plan for platelet transfusion. Supportive care only. (2) Pancytopenia Is this a current diagnosis for this admission?: Yes Plan: Platelets have dropped to 18, plan for transfusion today. Hemoglobin is stable. This is secondary to AML/MDS. (3) Wound, open, foot Qualifiers: Encounter type: subsequent encounter Laterality: left Qualified Code(s): S91.302D - Unspecified open wound, left foot, subsequent encounter Is this a current diagnosis for this admission?: Yes Plan: Surgery does not feel this is osteomyelitis at this point we will continue on with antibiotics as noted above, per infectious disease consultation, plan for 2 week treatment of this. He will need surgical follow-up. - Time Time Spent with patient: 35 or more minutes - Inpatient Certification Based on my medical assessment, after consideration of the patient's comorbidities, presenting symptoms, or acuity I expect that the services needed warrant INPATIENT care.: Yes I certify that my determination is in accordance with my understanding of Medicare's requirements for reasonable and necessary INPATIENT services [42 CFR 412.3e].: Yes Medical Necessity: Need For Continuous Telemetry Monitoring, Need for IV Antibiotics
[2017-08-22] MEDS ORDERED: DIPHENHYDRAMINE HCL 25 MG CAPSULE PO PRN (08:49)
[2017-08-22] MEDS ORDERED: ACETAMINOPHEN 325 MG TABLET PO PRN (08:50)
[2017-08-22] MEDS ORDERED: LINEZOLID 600 MG TABLET PO SCH (10:00)
[2017-08-22] MEDS: SERTRALINE HCL 50 MG TABLET PO SCH (11:33)
[2017-08-22] MEDS: ALLOPURINOL 300 MG TABLET PO SCH (11:33)
[2017-08-22] MEDS: FINASTERIDE 5 MG TABLET PO SCH (11:33)
[2017-08-22] MEDS: TAMSULOSIN HCL 0.4 MG CAP.SR.24H PO SCH (11:34)
[2017-08-22] MEDS: METOPROLOL TARTRATE 50 MG TABLET PO SCH ×2 (11:35→21:31)
[2017-08-22] MEDS: DOCUSATE SODIUM 100 MG CAPSULE PO SCH (11:40)
[2017-08-22] MEDS: FLUTICASONE NASAL SPRAY 50 MCG/SPRY 120 SPRAY/16 GM NASL SCH ×2 (11:40→21:32)
--- NOTE | 2017-08-22 11:54 | Progress Note ---
Provider Note Provider Note: d/w Dr. Sexton of [facility] again, after review of full chart, he recommended giving meropenum 1g IV while admitted then switch to Bactrim DS BID x 7 days post d/c. Will place orders now.
--- NOTE | 2017-08-22 11:59 | Progress Note ---
Provider Note Provider Note: ID Consult Note I was asked to recommend antibiotics for this patient with a soft-tissue toe infection (not osteomyelitis) and pneumonia. I reviewed the CXR and CT scan of the chest as well as the cultures from the toe debridement. The patient has a history of myelodysplastic syndrome. He has had the toe debrided; cultures grew mixed zoya, including Group B Strep and Achromobacter species. No anaerobes were isolated. The patient also has a pulmonary infiltrate consistent with pneumonia. Blood cultures are negative. The patient is reportedly clinically improved and getting ready for discharge. He has normal renal function. His allergies include ceftriaxone. Recommendations: 1. Discontinue Zyvox (linezolid) and levofloxacin. 2. Begin meropenem 1 gm IV q 8 hours. Continue as long as patient is in the hospital. Once patient is ready for discharge, would send home with Septra DS- one tab BID for another 7 days. Tim Sexton MD Pager: [phone]
--- NOTE | 2017-08-22 12:27 | PDOC PROGRESS REPORT ---
Subjective Progress Note for:: 08/22/17 Subjective:: Patient relates that the cough is better but is having sore throat and post postnasal discharge. Had a talk with Dr Schneider and discussed findings of CT of chest which was consistent with right lower lobe pneumonia and bilateral pleural effusions. We contacted Dr. Sexton who reviewed patient's chart and agreed for patient to be discharged on Levaquin. He recommended to discontinue Zyvox. Dr. Prabhakar related that he was going to call patient's daughter. After patient was seen his 3 daughters came in and discussed patient's findings. They were notified that if patient continues doing well is expected to be discharged in the morning. They would like for us to continue home health with services that will include physical therapy, wound care and we are also adding social work job titles. This patient lives by himself. Made aware that at it point time patient may need to go to assisted living. We also talked with physical therapy and case management. Review of systems All organ systems evaluated and negative except as in subjective All significant laboratories and diagnostics have been reviewed Reason For Visit: CML, RIGHT FOOT WOUND Physical Exam Vital Signs: Temp Pulse Resp BP Pulse Ox 98.7 F 63 18 169/71 H 92 08/22/17 01:20 08/22/17 02:00 08/22/17 01:20 08/22/17 01:20 08/22/17 01:20 Intake & Output 08/20/17 08/21/17 08/22/17 06:59 06:59 06:59 Intake Total 2936 1250 987 Balance 2936 1250 987 Weight 86.7 kg General appearance: PRESENT: cooperative, obese Head exam: PRESENT: atraumatic, normocephalic Eye exam: PRESENT: conjunctiva pink, EOMI, PERRLA Ear exam: PRESENT: normal external ear exam Mouth exam: PRESENT: moist Neck exam: PRESENT: full ROM. ABSENT: JVD, lymphadenopathy, tenderness Respiratory exam: PRESENT: clear to auscultation jane. ABSENT: tachypnea, unlabored, wheezes Cardiovascular exam: PRESENT: RRR. ABSENT: diastolic murmur, systolic murmur Vascular exam: PRESENT: normal capillary refill GI/Abdominal exam: PRESENT: normal bowel sounds, soft. ABSENT: tenderness Extremities exam: PRESENT: full ROM. ABSENT: pedal edema Musculoskeletal exam: PRESENT: ambulatory Neurological exam: PRESENT: alert, awake, oriented to person, oriented to place , oriented to time, oriented to situation, CN II-XII grossly intact Psychiatric exam: PRESENT: appropriate affect, normal mood Skin exam: PRESENT: intact, normal color Results Laboratory Results: 08/21/17 05:15 08/21/17 05:15 08/21/17 05:15 WBC 10.5 RBC 3.21 L Hgb 9.7 L Hct 28.5 L MCV 89 MCH 30.2 MCHC 34.1 RDW 17.6 H Plt Count 22 L* Seg Neutrophils % Not Reportable Lymphocytes % Not Reportable Monocytes % Not Reportable Eosinophils % Not Reportable Basophils % Not Reportable Absolute Neutrophils Not Reportable Absolute Lymphocytes Not Reportable Absolute Monocytes Not Reportable Absolute Eosinophils Not Reportable Absolute Basophils Not Reportable 08/17/17 19:58 Foot - Abscess Gram Stain - Final Impressions: Lower Extremity CT 08/16/17 14:56 IMPRESSION: There are changes in the medial aspect of the head of the 1st metatarsal concerning for osteomyelitis. Guidance Fluoroscopy 08/17/17 00:00 IMPRESSION: SUCCESSFUL PLACEMENT OF A 5 FR DUAL LUMEN 44 CM PICC IN THE LEFT BASILIC VEIN. Interventional Vascular Procedure 08/17/17 00:00 IMPRESSION: SUCCESSFUL PLACEMENT OF A 5 FR DUAL LUMEN 44 CM PICC IN THE LEFT BASILIC VEIN. PICC Line Insertion 08/17/17 11:03 IMPRESSION: SUCCESSFUL PLACEMENT OF A 5 FR DUAL LUMEN 44 CM PICC IN THE LEFT BASILIC VEIN. Chest X-Ray 08/21/17 00:00 IMPRESSION: FAINT AIRSPACE DISEASE IN THE RIGHT UPPER LOBE SUSPICIOUS FOR DEVELOPING PNEUMONIA. POSSIBLE DEVELOPING PULMONARY NODULE IN THE MID RIGHT LUNG. MILD BASILAR ATELECTASIS VERSUS SCARRING AND DEVELOPMENT OF SMALL PLEURAL EFFUSIONS. Assessment & Plan - Diagnosis (1) Anemia Qualifiers: Anemia type: bone marrow failure Bone marrow failure anemia type: unspecified bone marrow failure Qualified Code(s): D61.9 - Aplastic anemia, unspecified Is this a current diagnosis for this admission?: Yes Plan: Improved after transfusion of for packed red blood cells (2) Hypokalemia Is this a current diagnosis for this admission?: Yes Plan: Replaced (3) Hyponatremia Is this a current diagnosis for this admission?: Yes Plan: Improved (4) Malnutrition Qualifiers: Malnutrition type: protein-calorie malnutrition Is this a current diagnosis for this admission?: Yes Plan: Encourage protein intake (5) Osteomyelitis Qualifiers: Osteomyelitis type: acute hematogenous Osteomyelitis location: foot Laterality: left Qualified Code(s): M86.072 - Acute hematogenous osteomyelitis , left ankle and foot Is this a current diagnosis for this admission?: No Plan: Ruled out since upon performing debridement there were no actual findings of osteomyelitis in the bone (6) Sepsis Qualifiers: Sepsis type: sepsis due to unspecified organism Qualified Code(s): A41.9 - Sepsis, unspecified organism Is this a current diagnosis for this admission?: Yes Plan: Resolved (7) Thrombocytopenia Is this a current diagnosis for this admission?: Yes Plan: Patient will be transfused 1 unit of plateletpheresis today already patient received 2 plateletpheresis (8) Wound, open, foot Qualifiers: Encounter type: subsequent encounter Laterality: left Qualified Code(s): S91.302D - Unspecified open wound, left foot, subsequent encounter Is this a current diagnosis for this admission?: Yes Plan: Stable, wound care as per surgery. Surgery recommended wound care the wound care center upon discharge. Will request for home health to assist in this regard (9) AML (acute myeloid leukemia) Qualifiers: Leukemia Active/Remission status: without remission Qualified Code(s): C92.00 - Acute myeloblastic leukemia, not having achieved remission Is this a current diagnosis for this admission?: Yes Plan: Stable (10) Cough Is this a current diagnosis for this admission?: Yes Plan: CT scan of the chest computer main right lower lobe pneumonia and bilateral pleural effusions. Patient will be discharged on Levaquin. However there is also a component of postnasal discharge. Will add Flonase and Afrin nasal spray (11) Diarrhea Qualifiers: Diarrhea type: unspecified type Qualified Code(s): R19.7 - Diarrhea, unspecified Is this a current diagnosis for this admission?: Yes Plan: Resolved (12) Pneumonia Qualifiers: Pneumonia type: due to unspecified organism Laterality: right Lung location: lower lobe of lung Qualified Code(s): J18.1 - Lobar pneumonia, unspecified organism Is this a current diagnosis for this admission?: Yes Plan: Confusion by CT of the chest. Likely culprit of patient's presentation. Continue Levaquin - Time Time Spent with patient: 25-34 minutes Medications reviewed and adjusted accordingly: Yes Anticipated discharge: Home with Homehealth Within: within 24 hours - Inpatient Certification Based on my medical assessment, after consideration of the patient's comorbidities, presenting symptoms, or acuity I expect that the services needed warrant INPATIENT care.: Yes I certify that my determination is in accordance with my understanding of Medicare's requirements for reasonable and necessary INPATIENT services [42 CFR 412.3e].: Yes Medical Necessity: Need Close Monitoring Due to Risk of Patient Decompensation
[2017-08-22] MEDS: BENZONATATE 100 MG CAPSULE PO PRN (12:55)
[2017-08-22 13:38] LABS: PATH REVIEW PATHOLOGIST REVIEWED
[2017-08-22 13:40] LABS: IMMATURE MONONUCLEAR% (MANUAL) 28 % (0)
[2017-08-22 13:42] LABS: MONOCYTES % (MANUAL) 9 % (3-13)
[2017-08-22] MEDS ORDERED: MEROPENEM 1 GM in NORMAL SALINE 100 ML IV SCH (18:00)
[2017-08-22] MEDS: MEROPENEM 1 GM in NORMAL SALINE 100 ML IV SCH (18:13)
[2017-08-22] MEDS: MONTELUKAST SODIUM 10 MG TABLET PO SCH (21:32)
[2017-08-22] MEDS ORDERED: LEVOFLOXACIN 500 MG TABLET PO SCH ×2 (22:00)
[2017-08-22] MEDS ORDERED: LEVOFLOXACIN 750 MG TABLET PO SCH (22:00)
[2017-08-23] MEDS: MEROPENEM 1 GM in NORMAL SALINE 100 ML IV SCH ×3 (02:30→18:08)
[2017-08-23] MEDS: METHYLPREDNISOLONE INJ 40 MG/1 ML SDV IV SCH ×3 (06:05→22:47)
[2017-08-23] MEDS: GABAPENTIN 300 MG CAPSULE PO SCH ×3 (06:05→22:46)
[2017-08-23] MEDS: OXYCODONE HCL IR 5 MG TABLET PO PRN ×2 (06:11→13:53)
[2017-08-23 06:44] LABS: ANION GAP 8 (5-19); BLOOD UREA NITROGEN 14 mg/dL (7-20); CALCIUM 8.3 mg/dL (8.4-10.2); CARBON DIOXIDE 27 mmol/L (22-30); CHLORIDE 107 mmol/L (98-107); GLUCOSE 114 mg/dL (75-110); SODIUM 141.8 mmol/L (137-145)
[2017-08-23] MEDS: IPRATROPIUM/ALBUTEROL 0.5-2.5 MG/3 ML AMPUL NEB SCH ×3 (08:10→19:41)
[2017-08-23 08:42] LABS: HEMOGLOBIN 8.9 g/dL (13.5-17.0); MEAN CORPUSCULAR HEMOGLOBIN 29.5 pg (27.0-33.4); MEAN CORPUSCULAR HGB CONC 33.1 g/dL (32.0-36.0); MEAN CORPUSCULAR VOLUME 89 fl (80-97); RED BLOOD COUNT 3.03 10^6/uL (4.35-5.55); RED CELL DISTRIBUTION WIDTH 17.5 % (11.5-14.0)
[2017-08-23 08:49] LABS: PLATELET COUNT 38 10^3/uL (150-450)
[2017-08-23] MEDS ORDERED: ALBUTEROL SULFATE 0.083% NEB 2.5 MG/3 ML AMPUL NEB PRN (08:49)
--- NOTE | 2017-08-23 08:50 | PDOC PROGRESS REPORT ---
Subjective Progress Note for:: 08/23/17 Subjective:: Cough worsened, pt having more SOB/DACOSTA, toe hurting now, otherwise no acute events overnight Reason For Visit: CML, RIGHT FOOT WOUND Physical Exam Vital Signs: Temp Pulse Resp BP Pulse Ox 98.7 F 55 L 18 174/73 H 98 08/23/17 07:47 08/23/17 08:10 08/23/17 08:10 08/23/17 07:47 08/23/17 08:10 Intake & Output 08/22/17 08/23/17 08/24/17 06:59 06:59 06:59 Intake Total 1087 1243 Output Total 200 Balance 1087 1043 Weight 85.2 kg 86.2 kg General appearance: PRESENT: no acute distress, well-developed, well-nourished Head exam: PRESENT: atraumatic, normocephalic Eye exam: PRESENT: conjunctiva pink, EOMI, PERRLA. ABSENT: scleral icterus Ear exam: PRESENT: normal external ear exam Mouth exam: PRESENT: moist, tongue midline Neck exam: ABSENT: carotid bruit, JVD, lymphadenopathy, thyromegaly Respiratory exam: PRESENT: clear to auscultation jane. ABSENT: rales, rhonchi, wheezes Cardiovascular exam: PRESENT: RRR. ABSENT: diastolic murmur, rubs, systolic murmur Pulses: PRESENT: normal dorsalis pedis pul Vascular exam: PRESENT: normal capillary refill GI/Abdominal exam: PRESENT: normal bowel sounds, soft. ABSENT: distended, guarding, mass, organolmegaly, rebound, tenderness Rectal exam: PRESENT: deferred Extremities exam: PRESENT: full ROM. ABSENT: calf tenderness, clubbing, pedal edema Neurological exam: PRESENT: alert, awake, oriented to person, oriented to place , oriented to time, oriented to situation, CN II-XII grossly intact. ABSENT: motor sensory deficit Psychiatric exam: PRESENT: appropriate affect, normal mood. ABSENT: homicidal ideation, suicidal ideation Skin exam: PRESENT: dry, intact, warm. ABSENT: cyanosis, rash Results Laboratory Results: 08/23/17 06:15 08/19/17 08/23/17 13:06 06:15 Sodium 141.8 Potassium 4.0 Chloride 107 Carbon Dioxide 27 Anion Gap 8 BUN 14 Creatinine 0.66 Est GFR ( Amer) > 60 Est GFR (Non-Af Amer) > 60 Glucose 114 H Calcium 8.3 L Blood Type B NEGATIVE Antibody Screen NEGATIVE 08/16/17 18:54 Foot - Abscess Gram Stain - Final 08/16/17 18:54 Foot - Abscess Wound Culture - Final Acinetobacter Baumannii/Haem Achromobacter Xlosoxidans Group B Beta Streptococcus No Anaerobic Organisms 08/17/17 19:58 Foot - Abscess Gram Stain - Final 08/17/17 19:58 Foot - Abscess Wound Culture - Final Acinetobacter Baumannii/Haem Achromobacter Xlosoxidans Corynebacterium Species Group B Beta Streptococcus No Anaerobic Organisms Impressions: Lower Extremity CT 08/16/17 14:56 IMPRESSION: There are changes in the medial aspect of the head of the 1st metatarsal concerning for osteomyelitis. Guidance Fluoroscopy 08/17/17 00:00 IMPRESSION: SUCCESSFUL PLACEMENT OF A 5 FR DUAL LUMEN 44 CM PICC IN THE LEFT BASILIC VEIN. Interventional Vascular Procedure 08/17/17 00:00 IMPRESSION: SUCCESSFUL PLACEMENT OF A 5 FR DUAL LUMEN 44 CM PICC IN THE LEFT BASILIC VEIN. PICC Line Insertion 08/17/17 11:03 IMPRESSION: SUCCESSFUL PLACEMENT OF A 5 FR DUAL LUMEN 44 CM PICC IN THE LEFT BASILIC VEIN. Chest X-Ray 08/21/17 00:00 IMPRESSION: FAINT AIRSPACE DISEASE IN THE RIGHT UPPER LOBE SUSPICIOUS FOR DEVELOPING PNEUMONIA. POSSIBLE DEVELOPING PULMONARY NODULE IN THE MID RIGHT LUNG. MILD BASILAR ATELECTASIS VERSUS SCARRING AND DEVELOPMENT OF SMALL PLEURAL EFFUSIONS. Assessment & Plan - Diagnosis (1) AML (acute myeloid leukemia) Qualifiers: Leukemia Active/Remission status: without remission Qualified Code(s): C92.00 - Acute myeloblastic leukemia, not having achieved remission Is this a current diagnosis for this admission?: Yes Plan: Awaiting cbc from this am, cont to monitor, blast ct increasing (2) Pancytopenia Is this a current diagnosis for this admission?: Yes Plan: Cont to monitor (3) Wound, open, foot Qualifiers: Encounter type: subsequent encounter Laterality: left Qualified Code(s): S91.302D - Unspecified open wound, left foot, subsequent encounter Is this a current diagnosis for this admission?: Yes Plan: Improved but some inc pain today, ask nursing to check wound w/ surgery today (4) Cough Is this a current diagnosis for this admission?: Yes Plan: Pneumonia now vs edema, d/w w/ ID suggested cont same atbx course, hold on d/c for now, watch x 48 hours and see how he does
[2017-08-23] MEDS ORDERED: FUROSEMIDE INJ/PF 40 MG/4 ML SDV IV ONE (09:00)
[2017-08-23 09:14] LABS: ABSOLUTE LYMPHOCYTES# (MANUAL) 0.7 10^3/uL (0.5-4.7); ABSOLUTE MONOCYTES # (MANUAL) 0.7 10^3/uL (0.1-1.4); ABSOLUTE NEUTROPHILS# (MANUAL) 3.6 10^3/uL (1.7-8.2); BAND NEUTROPHILS % (MANUAL) 2 % (3-5); BASOPHILS % (MANUAL) 0 % (0-2); EOSINOPHILS % (MANUAL) 0 % (0-6); IMMATURE MONONUCLEAR% (MANUAL) 1 % (0); LYMPHOCYTES % (MANUAL) 11 % (13-45); METAMYELOCYTES % (MANUAL) 2 % (0); MONOCYTES % (MANUAL) 14 % (3-13); MYELOCYTES % (MANUAL) 2 % (0); NUCLEATED RED BLOOD CELLS 14 /100 WBC (0); PROMYELOCYTES % (MANUAL) 1 % (0); SEGMENTED NEUTROPHILS % (MAN) 65 % (42-78); TOTAL CELLS COUNTED 100
[2017-08-23 09:16] LABS: ANISOCYTOSIS SLIGHT
[2017-08-23] MEDS: GUAIFENESIN 600 MG TABLET.SA PO SCH ×2 (09:16→22:46)
[2017-08-23 09:17] LABS: PLATELET COMMENT DECREASED
[2017-08-23] MEDS: AZITHROMYCIN 250 MG TABLET PO SCH (09:17)
[2017-08-23] MEDS: AMLODIPINE BESYLATE 10 MG TABLET PO SCH (09:18)
[2017-08-23] MEDS: LISINOPRIL 10 MG TABLET PO SCH (09:18)
[2017-08-23] MEDS: TAMSULOSIN HCL 0.4 MG CAP.SR.24H PO SCH (09:19)
[2017-08-23] MEDS: ALLOPURINOL 300 MG TABLET PO SCH (09:19)
[2017-08-23] MEDS: METOPROLOL TARTRATE 50 MG TABLET PO SCH ×2 (09:19→22:45)
[2017-08-23] MEDS: DOCUSATE SODIUM 100 MG CAPSULE PO SCH (09:19)
[2017-08-23] MEDS: FINASTERIDE 5 MG TABLET PO SCH (09:19)
[2017-08-23] MEDS: SERTRALINE HCL 50 MG TABLET PO SCH (09:19)
[2017-08-23] MEDS ORDERED: AMLODIPINE BESYLATE 5 MG TABLET PO SCH (10:00)
--- NOTE | 2017-08-23 13:53 | Progress Note ---
Provider Note Provider Note: ID Progress Note I spoke with Dr. Schneider this morning about this patient. He was concerned about persistent cough. The patient is being treated with meropenem for toe infection as well as for pneumonia. Patient does not have fever and has a normal WBC. Review of the CXR and CT scan from shows a RUL small infiltrate. Recommend continuing meropenem. Once patient is ready for discharge, would send home with [facility] as recommended earlier. Given that patient is on chronic steroids, he is at risk for opportunistic infections. If patient develops fever, leukocytosis, or otherwise becomes short of breath, would repeat CXR. If patient clinically deteriorates, would consider bronchoscopy to rule out opportunistic pathogens such as legionella, mycobacteria, nocardia, cryptococcus. Tim Sexton MD Pager: [phone]
--- NOTE | 2017-08-23 14:21 | PDOC PROGRESS REPORT ---
Subjective Progress Note for:: 08/23/17 Subjective:: Patient states that cough is worse at night. Also complains of pain to left foot. Review of systems All organ systems evaluated and negative except as in subjective All significant laboratories and diagnostics have been reviewed Reason For Visit: CML, RIGHT FOOT WOUND Physical Exam Vital Signs: Temp Pulse Resp BP Pulse Ox 98.7 F 55 L 18 174/73 H 98 08/23/17 07:47 08/23/17 08:10 08/23/17 08:10 08/23/17 07:47 08/23/17 08:10 Intake & Output 08/22/17 08/23/17 08/24/17 06:59 06:59 06:59 Intake Total 1087 1243 Output Total 200 Balance 1087 1043 Weight 85.2 kg 86.2 kg General appearance: PRESENT: cooperative, obese Head exam: PRESENT: atraumatic, normocephalic Eye exam: PRESENT: conjunctiva pink, EOMI, PERRLA Ear exam: PRESENT: normal external ear exam Mouth exam: PRESENT: moist Neck exam: PRESENT: full ROM. ABSENT: JVD, lymphadenopathy, tenderness Respiratory exam: PRESENT: crackles Cardiovascular exam: PRESENT: RRR. ABSENT: systolic murmur Vascular exam: PRESENT: normal capillary refill GI/Abdominal exam: PRESENT: normal bowel sounds, soft. ABSENT: tenderness Extremities exam: PRESENT: full ROM Musculoskeletal exam: ABSENT: ambulatory Neurological exam: PRESENT: alert, awake, oriented to person, oriented to place , oriented to time, oriented to situation, CN II-XII grossly intact Psychiatric exam: PRESENT: appropriate affect, normal mood Skin exam: PRESENT: normal color Results Laboratory Results: 08/23/17 06:15 08/19/17 08/23/17 08/23/17 13:06 06:15 06:15 Seg Neutrophils % Not Reportable Lymphocytes % Not Reportable Monocytes % Not Reportable Eosinophils % Not Reportable Basophils % Not Reportable Absolute Neutrophils Not Reportable Absolute Lymphocytes Not Reportable Absolute Monocytes Not Reportable Absolute Eosinophils Not Reportable Absolute Basophils Not Reportable Sodium 141.8 Potassium 4.0 Chloride 107 Carbon Dioxide 27 Anion Gap 8 BUN 14 Creatinine 0.66 Est GFR ( Amer) > 60 Est GFR (Non-Af Amer) > 60 Glucose 114 H Calcium 8.3 L Blood Type B NEGATIVE Antibody Screen NEGATIVE 08/16/17 18:54 Foot - Abscess Gram Stain - Final 08/16/17 18:54 Foot - Abscess Wound Culture - Final Acinetobacter Baumannii/Haem Achromobacter Xlosoxidans Group B Beta Streptococcus No Anaerobic Organisms 08/17/17 19:58 Foot - Abscess Gram Stain - Final 08/17/17 19:58 Foot - Abscess Wound Culture - Final Acinetobacter Baumannii/Haem Achromobacter Xlosoxidans Corynebacterium Species Group B Beta Streptococcus No Anaerobic Organisms Impressions: Lower Extremity CT 08/16/17 14:56 IMPRESSION: There are changes in the medial aspect of the head of the 1st metatarsal concerning for osteomyelitis. Guidance Fluoroscopy 08/17/17 00:00 IMPRESSION: SUCCESSFUL PLACEMENT OF A 5 FR DUAL LUMEN 44 CM PICC IN THE LEFT BASILIC VEIN. Interventional Vascular Procedure 08/17/17 00:00 IMPRESSION: SUCCESSFUL PLACEMENT OF A 5 FR DUAL LUMEN 44 CM PICC IN THE LEFT BASILIC VEIN. PICC Line Insertion 08/17/17 11:03 IMPRESSION: SUCCESSFUL PLACEMENT OF A 5 FR DUAL LUMEN 44 CM PICC IN THE LEFT BASILIC VEIN. Chest X-Ray 08/21/17 00:00 IMPRESSION: FAINT AIRSPACE DISEASE IN THE RIGHT UPPER LOBE SUSPICIOUS FOR DEVELOPING PNEUMONIA. POSSIBLE DEVELOPING PULMONARY NODULE IN THE MID RIGHT LUNG. MILD BASILAR ATELECTASIS VERSUS SCARRING AND DEVELOPMENT OF SMALL PLEURAL EFFUSIONS. Assessment & Plan - Diagnosis (1) Anemia Qualifiers: Anemia type: bone marrow failure Bone marrow failure anemia type: unspecified bone marrow failure Qualified Code(s): D61.9 - Aplastic anemia, unspecified Is this a current diagnosis for this admission?: Yes Plan: Improved after transfusion of 2 units packed red blood cells (2) Hypokalemia Is this a current diagnosis for this admission?: Yes Plan: Replaced (3) Hyponatremia Is this a current diagnosis for this admission?: Yes Plan: Improved (4) Malnutrition Qualifiers: Malnutrition type: protein-calorie malnutrition Is this a current diagnosis for this admission?: Yes Plan: Encourage protein intake (5) Osteomyelitis Qualifiers: Osteomyelitis type: acute hematogenous Osteomyelitis location: foot Laterality: left Qualified Code(s): M86.072 - Acute hematogenous osteomyelitis , left ankle and foot Is this a current diagnosis for this admission?: No Plan: Ruled out when debridement was performed. There were no actual findings of osteomyelitis in the bone (6) Sepsis Qualifiers: Sepsis type: sepsis due to unspecified organism Qualified Code(s): A41.9 - Sepsis, unspecified organism Is this a current diagnosis for this admission?: Yes Plan: Resolved (7) Thrombocytopenia Is this a current diagnosis for this admission?: Yes Plan: Improved after plateletpheresis (8) Wound, open, foot Qualifiers: Encounter type: subsequent encounter Laterality: left Qualified Code(s): S91.302D - Unspecified open wound, left foot, subsequent encounter Is this a current diagnosis for this admission?: Yes Plan: Stable, wound care as per surgery. Surgery recommended wound care the wound care center upon discharge. 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 Differential includes rhinitis, CHF, viral syndrome and including pulmonary leukemic infiltration of the lung. To try lasix IV x 1 and follow up response. (11) Diarrhea Qualifiers: Diarrhea type: unspecified type Qualified Code(s): R19.7 - Diarrhea, unspecified Is this a current diagnosis for this admission?: Yes Plan: Resolved (12) Pneumonia Qualifiers: Pneumonia type: due to unspecified organism Laterality: right Lung location: lower lobe of lung Qualified Code(s): J18.1 - Lobar pneumonia, unspecified organism Is this a current diagnosis for this admission?: Yes Plan: Confirmed by CT of the chest. Likely culprit of patient's presentation. ID redirected antibiotic to meropenem. (13) HTN (hypertension) Qualifiers: Hypertension type: essential hypertension Qualified Code(s): I10 - Essential (primary) hypertension Is this a current diagnosis for this admission?: Yes Plan: To place patient on lisinopril, norvasc and order a one time dose of lasix IV since there is a possibility there may be a congestive heart failure component causing cough. Order echo. - Time Time Spent with patient: 15-24 minutes Medications reviewed and adjusted accordingly: Yes Anticipated discharge: Home with Homehealth Within: within 48 hours - Inpatient Certification Based on my medical assessment, after consideration of the patient's comorbidities, presenting symptoms, or acuity I expect that the services needed warrant INPATIENT care.: Yes I certify that my determination is in accordance with my understanding of Medicare's requirements for reasonable and necessary INPATIENT services [42 CFR 412.3e].: Yes Medical Necessity: Need Close Monitoring Due to Risk of Patient Decompensation, Need for IV Antibiotics
--- NOTE | 2017-08-23 14:25 | PDOC PROGRESS REPORT ---
Subjective Progress Note for:: 08/23/17 Subjective:: Patient had some pain in the right foot yesterday but is better today. Wound care ongoing with packing of both wounds of the right foot. Reason For Visit: CML, RIGHT FOOT WOUND Physical Exam Vital Signs: Temp Pulse Resp BP Pulse Ox 98.2 F 68 15 122/57 L 90 L 08/23/17 11:27 08/23/17 11:27 08/23/17 11:27 08/23/17 11:27 08/23/17 11:27 Intake & Output 08/22/17 08/23/17 08/24/17 06:59 06:59 06:59 Intake Total 1087 1243 118 Output Total 200 925 Balance 1087 1043 -807 Weight 85.2 kg 86.2 kg General appearance: PRESENT: no acute distress Respiratory exam: PRESENT: clear to auscultation jane. ABSENT: rales, rhonchi, wheezes Cardiovascular exam: PRESENT: +S1, +S2 GI/Abdominal exam: PRESENT: normal bowel sounds, soft. ABSENT: distended, guarding, mass, organolmegaly, rebound, tenderness Neurological exam: PRESENT: alert, awake, oriented to person, oriented to place , oriented to time, oriented to situation, CN II-XII grossly intact, motor sensory deficit Skin exam: PRESENT: other - Two ulcers of the dorsum of the right foot. One over the 1st metatarsal head measures 4cm x 3.7cm x 2.5cm deep appears clean; the other over the 1st web space measures 1.5cm x 2cm x 1.6cm and also appears clean Results Laboratory Results: 08/23/17 06:15 08/23/17 06:15 08/23/17 08/23/17 06:15 06:15 WBC 5.0 RBC 3.03 L Hgb 8.9 L Hct 27.0 L MCV 89 MCH 29.5 MCHC 33.1 RDW 17.5 H Plt Count 38 L D Seg Neutrophils % Not Reportable Lymphocytes % Not Reportable Monocytes % Not Reportable Eosinophils % Not Reportable Basophils % Not Reportable Absolute Neutrophils Not Reportable Absolute Lymphocytes Not Reportable Absolute Monocytes Not Reportable Absolute Eosinophils Not Reportable Absolute Basophils Not Reportable Sodium 141.8 Potassium 4.0 Chloride 107 Carbon Dioxide 27 Anion Gap 8 BUN 14 Creatinine 0.66 Est GFR ( Amer) > 60 Est GFR (Non-Af Amer) > 60 Glucose 114 H Calcium 8.3 L 08/16/17 18:54 Foot - Abscess Gram Stain - Final 08/16/17 18:54 Foot - Abscess Wound Culture - Final Acinetobacter Baumannii/Haem Achromobacter Xlosoxidans Group B Beta Streptococcus No Anaerobic Organisms Impressions: Lower Extremity CT 08/16/17 14:56 IMPRESSION: There are changes in the medial aspect of the head of the 1st metatarsal concerning for osteomyelitis. Guidance Fluoroscopy 08/17/17 00:00 IMPRESSION: SUCCESSFUL PLACEMENT OF A 5 FR DUAL LUMEN 44 CM PICC IN THE LEFT BASILIC VEIN. Interventional Vascular Procedure 08/17/17 00:00 IMPRESSION: SUCCESSFUL PLACEMENT OF A 5 FR DUAL LUMEN 44 CM PICC IN THE LEFT BASILIC VEIN. PICC Line Insertion 08/17/17 11:03 IMPRESSION: SUCCESSFUL PLACEMENT OF A 5 FR DUAL LUMEN 44 CM PICC IN THE LEFT BASILIC VEIN. Chest X-Ray 08/21/17 00:00 IMPRESSION: FAINT AIRSPACE DISEASE IN THE RIGHT UPPER LOBE SUSPICIOUS FOR DEVELOPING PNEUMONIA. POSSIBLE DEVELOPING PULMONARY NODULE IN THE MID RIGHT LUNG. MILD BASILAR ATELECTASIS VERSUS SCARRING AND DEVELOPMENT OF SMALL PLEURAL EFFUSIONS. Assessment & Plan - Plan Summary Plan Summary: ASSESSMENT: Right foot ulcers, s/p debridement PLAN: Apply wound vac to the larger ulcer and continue packing the smaller one. Arrange for home wound vac.
[2017-08-23] MEDS: FENTANYL CITRATE INJ/PF 100 MCG/2 ML AMPUL IV PRN (17:25)
[2017-08-23] MEDS: MONTELUKAST SODIUM 10 MG TABLET PO SCH (22:46)
[2017-08-23] MEDS: BENZONATATE 100 MG CAPSULE PO PRN (22:46)
[2017-08-23] MEDS: HYDROCODONE BIT/HOMATROPINE 5-1.5 MG TABLET PO PRN (22:47)
[2017-08-23] MEDS: FLUTICASONE NASAL SPRAY 50 MCG/SPRY 120 SPRAY/16 GM NASL SCH (22:48)
[2017-08-24] MEDS: MEROPENEM 1 GM in NORMAL SALINE 100 ML IV SCH ×3 (01:35→18:10)
[2017-08-24] MEDS: GABAPENTIN 300 MG CAPSULE PO SCH ×3 (05:56→22:15)
[2017-08-24] MEDS: METHYLPREDNISOLONE INJ 40 MG/1 ML SDV IV SCH ×3 (05:56→22:15)
[2017-08-24 06:24] LABS: HEMATOCRIT 28.3 % (37.9-51.0); HEMOGLOBIN 9.4 g/dL (13.5-17.0); MEAN CORPUSCULAR HEMOGLOBIN 29.9 pg (27.0-33.4); MEAN CORPUSCULAR HGB CONC 33.3 g/dL (32.0-36.0); MEAN CORPUSCULAR VOLUME 90 fl (80-97); RED BLOOD COUNT 3.14 10^6/uL (4.35-5.55); RED CELL DISTRIBUTION WIDTH 17.4 % (11.5-14.0); WHITE BLOOD COUNT 8.8 10^3/uL (4.0-10.5)
[2017-08-24 06:31] LABS: ANION GAP 8 (5-19); BLOOD UREA NITROGEN 20 mg/dL (7-20); CALCIUM 8.4 mg/dL (8.4-10.2); CARBON DIOXIDE 29 mmol/L (22-30); CHLORIDE 103 mmol/L (98-107); GLUCOSE 111 mg/dL (75-110); SODIUM 140.2 mmol/L (137-145)
[2017-08-24 06:37] LABS: PLATELET COUNT 37 10^3/uL (150-450)
[2017-08-24 07:35] LABS: ABSOLUTE MONOCYTES # (MANUAL) 0.7 10^3/uL (0.1-1.4); ABSOLUTE NEUTROPHILS# (MANUAL) 6.9 10^3/uL (1.7-8.2); BASOPHILS % (MANUAL) 0 % (0-2); EOSINOPHILS % (MANUAL) 0 % (0-6); IMMATURE MONONUCLEAR% (MANUAL) 3 % (0); LYMPHOCYTES % (MANUAL) 9 % (13-45); MONOCYTES % (MANUAL) 8 % (3-13); MYELOCYTES % (MANUAL) 3 % (0); NUCLEATED RED BLOOD CELLS 10 /100 WBC (0); SEGMENTED NEUTROPHILS % (MAN) 75 % (42-78); TOTAL CELLS COUNTED 100
[2017-08-24 07:38] LABS: ANISOCYTOSIS 1+; PLATELET COMMENT DECREASED
[2017-08-24] MEDS: IPRATROPIUM/ALBUTEROL 0.5-2.5 MG/3 ML AMPUL NEB SCH ×3 (08:18→22:05)
--- NOTE | 2017-08-24 08:28 | PDOC PROGRESS REPORT ---
Subjective Progress Note for:: 08/24/17 Subjective:: No acute events, surgery suggested wound vac. Cont on IV atbx, cough slightly better Reason For Visit: CML, RIGHT FOOT WOUND Physical Exam Vital Signs: Temp Pulse Resp BP Pulse Ox 97.7 F 56 L 18 168/78 H 94 08/24/17 08:00 08/24/17 08:00 08/24/17 08:00 08/24/17 08:00 08/24/17 08:00 Intake & Output 08/23/17 08/24/17 08/25/17 06:59 06:59 06:59 Intake Total 1243 1238 Output Total 200 1875 Balance 1043 -637 Weight 86.2 kg 86.4 kg General appearance: PRESENT: no acute distress, well-developed, well-nourished Head exam: PRESENT: atraumatic, normocephalic Eye exam: PRESENT: conjunctiva pink, EOMI, PERRLA. ABSENT: scleral icterus Ear exam: PRESENT: normal external ear exam Mouth exam: PRESENT: moist, tongue midline Neck exam: ABSENT: carotid bruit, JVD, lymphadenopathy, thyromegaly Respiratory exam: PRESENT: clear to auscultation jane. ABSENT: rales, rhonchi, wheezes Cardiovascular exam: PRESENT: RRR. ABSENT: diastolic murmur, rubs, systolic murmur Pulses: PRESENT: normal dorsalis pedis pul Vascular exam: PRESENT: normal capillary refill GI/Abdominal exam: PRESENT: normal bowel sounds, soft. ABSENT: distended, guarding, mass, organolmegaly, rebound, tenderness Rectal exam: PRESENT: deferred Extremities exam: PRESENT: full ROM. ABSENT: calf tenderness, clubbing, pedal edema Neurological exam: PRESENT: alert, awake, oriented to person, oriented to place , oriented to time, oriented to situation, CN II-XII grossly intact. ABSENT: motor sensory deficit Psychiatric exam: PRESENT: appropriate affect, normal mood. ABSENT: homicidal ideation, suicidal ideation Skin exam: PRESENT: dry, intact, warm. ABSENT: cyanosis, rash Results Laboratory Results: 08/24/17 05:58 08/24/17 05:58 08/23/17 08/24/17 08/24/17 06:15 05:58 05:58 WBC 5.0 8.8 RBC 3.03 L 3.14 L Hgb 8.9 L 9.4 L Hct 27.0 L 28.3 L MCV 89 90 MCH 29.5 29.9 MCHC 33.1 33.3 RDW 17.5 H 17.4 H Plt Count 38 L D 37 L Seg Neutrophils % Not Reportable Not Reportable Lymphocytes % Not Reportable Not Reportable Monocytes % Not Reportable Not Reportable Eosinophils % Not Reportable Not Reportable Basophils % Not Reportable Not Reportable Absolute Neutrophils Not Reportable Not Reportable Absolute Lymphocytes Not Reportable Not Reportable Absolute Monocytes Not Reportable Not Reportable Absolute Eosinophils Not Reportable Not Reportable Absolute Basophils Not Reportable Not Reportable Sodium 140.2 Potassium 4.0 Chloride 103 Carbon Dioxide 29 Anion Gap 8 BUN 20 Creatinine 0.78 Est GFR ( Amer) > 60 Est GFR (Non-Af Amer) > 60 Glucose 111 H Calcium 8.4 Magnesium 1.9 Impressions: Lower Extremity CT 08/16/17 14:56 IMPRESSION: There are changes in the medial aspect of the head of the 1st metatarsal concerning for osteomyelitis. Guidance Fluoroscopy 08/17/17 00:00 IMPRESSION: SUCCESSFUL PLACEMENT OF A 5 FR DUAL LUMEN 44 CM PICC IN THE LEFT BASILIC VEIN. Interventional Vascular Procedure 08/17/17 00:00 IMPRESSION: SUCCESSFUL PLACEMENT OF A 5 FR DUAL LUMEN 44 CM PICC IN THE LEFT BASILIC VEIN. PICC Line Insertion 08/17/17 11:03 IMPRESSION: SUCCESSFUL PLACEMENT OF A 5 FR DUAL LUMEN 44 CM PICC IN THE LEFT BASILIC VEIN. Chest X-Ray 08/21/17 00:00 IMPRESSION: FAINT AIRSPACE DISEASE IN THE RIGHT UPPER LOBE SUSPICIOUS FOR DEVELOPING PNEUMONIA. POSSIBLE DEVELOPING PULMONARY NODULE IN THE MID RIGHT LUNG. MILD BASILAR ATELECTASIS VERSUS SCARRING AND DEVELOPMENT OF SMALL PLEURAL EFFUSIONS. Assessment & Plan - Diagnosis (1) AML (acute myeloid leukemia) Qualifiers: Leukemia Active/Remission status: without remission Qualified Code(s): C92.00 - Acute myeloblastic leukemia, not having achieved remission Is this a current diagnosis for this admission?: Yes Plan: Cont monitoring (2) Pancytopenia Is this a current diagnosis for this admission?: Yes Plan: No tx today, will monitor, tx blood for hb <7, plt<15 (3) Wound, open, foot Qualifiers: Encounter type: subsequent encounter Laterality: left Qualified Code(s): S91.302D - Unspecified open wound, left foot, subsequent encounter Is this a current diagnosis for this admission?: Yes Plan: Con't wound vac, con't atbx, change as recommended by ID ot Bactrim DS on dc (4) Cough Is this a current diagnosis for this admission?: Yes Plan: Possible PNA vs fluid overload, seems better, cont w/ atbx and lasix per hospitalist and ID - Time Time Spent with patient: 35 or more minutes
[2017-08-24] MEDS: DOCUSATE SODIUM 100 MG CAPSULE PO SCH (10:56)
[2017-08-24] MEDS: FINASTERIDE 5 MG TABLET PO SCH (10:57)
[2017-08-24] MEDS: TAMSULOSIN HCL 0.4 MG CAP.SR.24H PO SCH (10:57)
[2017-08-24] MEDS: AZITHROMYCIN 250 MG TABLET PO SCH (10:58)
[2017-08-24] MEDS: ALLOPURINOL 300 MG TABLET PO SCH (10:58)
[2017-08-24] MEDS: SERTRALINE HCL 50 MG TABLET PO SCH (10:59)
[2017-08-24] MEDS: METOPROLOL TARTRATE 50 MG TABLET PO SCH ×2 (11:00→22:14)
[2017-08-24] MEDS: LISINOPRIL 10 MG TABLET PO SCH (11:03)
[2017-08-24] MEDS: AMLODIPINE BESYLATE 10 MG TABLET PO SCH (11:04)
[2017-08-24] MEDS: GUAIFENESIN 600 MG TABLET.SA PO SCH ×2 (11:05→22:15)
[2017-08-24] MEDS: FLUTICASONE NASAL SPRAY 50 MCG/SPRY 120 SPRAY/16 GM NASL SCH ×2 (11:06→22:16)
[2017-08-24] MEDS ORDERED: SCOPOLAMINE HYDROBROMIDE 1.5 MG PATCH.TD72 TD SCH (12:30)
--- NOTE | 2017-08-24 14:43 | PDOC PROGRESS REPORT ---
Subjective Progress Note for:: 08/24/17 Subjective:: No new issues Wound vac on left foot ulcer. Reason For Visit: CML, RIGHT FOOT WOUND Physical Exam Vital Signs: Temp Pulse Resp BP Pulse Ox 97.8 F 80 18 146/67 H 85 L 08/24/17 11:30 08/24/17 13:50 08/24/17 13:50 08/24/17 11:30 08/24/17 13:50 Intake & Output 08/23/17 08/24/17 08/25/17 06:59 06:59 06:59 Intake Total 1243 1238 222 Output Total 200 1875 Balance 1043 -637 222 Weight 86.2 kg 86.4 kg Respiratory exam: PRESENT: clear to auscultation jane. ABSENT: rales, rhonchi, wheezes Cardiovascular exam: PRESENT: +S1, +S2 GI/Abdominal exam: PRESENT: normal bowel sounds, soft Neurological exam: PRESENT: alert, awake, oriented to person, oriented to place , oriented to time, oriented to situation, CN II-XII grossly intact Skin exam: PRESENT: other - Left foot with 4cm x 3.5cm x 2.5cm ulcer with a wound vac; 2cm x 1.5cm x 1.5cm smaller ulcer is packed Results Laboratory Results: 08/24/17 05:58 08/24/17 05:58 08/24/17 08/24/17 05:58 05:58 WBC 8.8 RBC 3.14 L Hgb 9.4 L Hct 28.3 L MCV 90 MCH 29.9 MCHC 33.3 RDW 17.4 H Plt Count 37 L Seg Neutrophils % Not Reportable Lymphocytes % Not Reportable Monocytes % Not Reportable Eosinophils % Not Reportable Basophils % Not Reportable Absolute Neutrophils Not Reportable Absolute Lymphocytes Not Reportable Absolute Monocytes Not Reportable Absolute Eosinophils Not Reportable Absolute Basophils Not Reportable Sodium 140.2 Potassium 4.0 Chloride 103 Carbon Dioxide 29 Anion Gap 8 BUN 20 Creatinine 0.78 Est GFR ( Amer) > 60 Est GFR (Non-Af Amer) > 60 Glucose 111 H Calcium 8.4 Magnesium 1.9 Impressions: Lower Extremity CT 08/16/17 14:56 IMPRESSION: There are changes in the medial aspect of the head of the 1st metatarsal concerning for osteomyelitis. Guidance Fluoroscopy 08/17/17 00:00 IMPRESSION: SUCCESSFUL PLACEMENT OF A 5 FR DUAL LUMEN 44 CM PICC IN THE LEFT BASILIC VEIN. Interventional Vascular Procedure 08/17/17 00:00 IMPRESSION: SUCCESSFUL PLACEMENT OF A 5 FR DUAL LUMEN 44 CM PICC IN THE LEFT BASILIC VEIN. PICC Line Insertion 08/17/17 11:03 IMPRESSION: SUCCESSFUL PLACEMENT OF A 5 FR DUAL LUMEN 44 CM PICC IN THE LEFT BASILIC VEIN. Chest X-Ray 08/21/17 00:00 IMPRESSION: FAINT AIRSPACE DISEASE IN THE RIGHT UPPER LOBE SUSPICIOUS FOR DEVELOPING PNEUMONIA. POSSIBLE DEVELOPING PULMONARY NODULE IN THE MID RIGHT LUNG. MILD BASILAR ATELECTASIS VERSUS SCARRING AND DEVELOPMENT OF SMALL PLEURAL EFFUSIONS. Assessment & Plan - Diagnosis (1) Wound, open, foot Qualifiers: Encounter type: subsequent encounter Laterality: left Qualified Code(s): S91.302D - Unspecified open wound, left foot, subsequent encounter Is this a current diagnosis for this admission?: Yes - Plan Summary Plan Summary: Continue present wound care Plan for home wound vac and home nurse for wound care.
[2017-08-24] MEDS: HYDROCODONE BIT/HOMATROPINE 5-1.5 MG TABLET PO PRN ×2 (15:33→23:55)
--- NOTE | 2017-08-24 16:59 | PDOC PROGRESS REPORT ---
Subjective Progress Note for:: 08/24/17 Subjective:: Patient status still not ready to go home. Would like to feel somewhat better. He is concerned about the cough. And he admits that he is ready to go when this time Review of systems All organ systems evaluated and negative except as in subjective All significant laboratories and diagnostics have been reviewed Reason For Visit: CML, RIGHT FOOT WOUND Physical Exam Vital Signs: Temp Pulse Resp BP Pulse Ox 97.8 F 80 18 146/67 H 85 L 08/24/17 11:30 08/24/17 13:50 08/24/17 13:50 08/24/17 11:30 08/24/17 13:50 Intake & Output 08/23/17 08/24/17 08/25/17 06:59 06:59 06:59 Intake Total 1243 1238 222 Output Total 200 1875 Balance 1043 -637 222 Weight 86.2 kg 86.4 kg General appearance: PRESENT: cooperative, obese Head exam: PRESENT: atraumatic, normocephalic Eye exam: PRESENT: conjunctiva pink, EOMI, PERRLA Ear exam: PRESENT: normal external ear exam Mouth exam: PRESENT: moist Neck exam: PRESENT: full ROM. ABSENT: JVD, lymphadenopathy, tenderness Respiratory exam: PRESENT: other - Adequate movement of air with scattered crackles Cardiovascular exam: PRESENT: irregular rhythm. ABSENT: diastolic murmur, systolic murmur Vascular exam: PRESENT: normal capillary refill GI/Abdominal exam: PRESENT: normal bowel sounds, soft. ABSENT: tenderness Extremities exam: PRESENT: full ROM. ABSENT: pedal edema Musculoskeletal exam: ABSENT: ambulatory Neurological exam: PRESENT: alert, awake, oriented to person, oriented to place , oriented to time, oriented to situation Psychiatric exam: PRESENT: appropriate affect, normal mood Skin exam: PRESENT: pallor Results Laboratory Results: 08/24/17 05:58 08/24/17 05:58 08/24/17 08/24/17 05:58 05:58 WBC 8.8 RBC 3.14 L Hgb 9.4 L Hct 28.3 L MCV 90 MCH 29.9 MCHC 33.3 RDW 17.4 H Plt Count 37 L Seg Neutrophils % Not Reportable Lymphocytes % Not Reportable Monocytes % Not Reportable Eosinophils % Not Reportable Basophils % Not Reportable Absolute Neutrophils Not Reportable Absolute Lymphocytes Not Reportable Absolute Monocytes Not Reportable Absolute Eosinophils Not Reportable Absolute Basophils Not Reportable Sodium 140.2 Potassium 4.0 Chloride 103 Carbon Dioxide 29 Anion Gap 8 BUN 20 Creatinine 0.78 Est GFR ( Amer) > 60 Est GFR (Non-Af Amer) > 60 Glucose 111 H Calcium 8.4 Magnesium 1.9 Impressions: Lower Extremity CT 08/16/17 14:56 IMPRESSION: There are changes in the medial aspect of the head of the 1st metatarsal concerning for osteomyelitis. Guidance Fluoroscopy 08/17/17 00:00 IMPRESSION: SUCCESSFUL PLACEMENT OF A 5 FR DUAL LUMEN 44 CM PICC IN THE LEFT BASILIC VEIN. Interventional Vascular Procedure 08/17/17 00:00 IMPRESSION: SUCCESSFUL PLACEMENT OF A 5 FR DUAL LUMEN 44 CM PICC IN THE LEFT BASILIC VEIN. PICC Line Insertion 08/17/17 11:03 IMPRESSION: SUCCESSFUL PLACEMENT OF A 5 FR DUAL LUMEN 44 CM PICC IN THE LEFT BASILIC VEIN. Chest X-Ray 08/21/17 00:00 IMPRESSION: FAINT AIRSPACE DISEASE IN THE RIGHT UPPER LOBE SUSPICIOUS FOR DEVELOPING PNEUMONIA. POSSIBLE DEVELOPING PULMONARY NODULE IN THE MID RIGHT LUNG. MILD BASILAR ATELECTASIS VERSUS SCARRING AND DEVELOPMENT OF SMALL PLEURAL EFFUSIONS. Assessment & Plan - Diagnosis (1) Anemia Qualifiers: Anemia type: bone marrow failure Bone marrow failure anemia type: unspecified bone marrow failure Qualified Code(s): D61.9 - Aplastic anemia, unspecified Is this a current diagnosis for this admission?: Yes Plan: Improved after transfusion of 2 units packed red blood cells. Stable so far. Noted oncology recommendations for transfusion (2) Hypokalemia Is this a current diagnosis for this admission?: Yes Plan: Replaced (3) Hyponatremia Is this a current diagnosis for this admission?: Yes Plan: Improved (4) Malnutrition Qualifiers: Malnutrition type: protein-calorie malnutrition Is this a current diagnosis for this admission?: Yes Plan: Encourage protein intake (5) Osteomyelitis Qualifiers: Osteomyelitis type: acute hematogenous Osteomyelitis location: foot Laterality: left Qualified Code(s): M86.072 - Acute hematogenous osteomyelitis , left ankle and foot Is this a current diagnosis for this admission?: No Plan: Ruled out when debridement was performed. There were no actual findings of osteomyelitis in the bone (6) Sepsis Qualifiers: Sepsis type: sepsis due to unspecified organism Qualified Code(s): A41.9 - Sepsis, unspecified organism Is this a current diagnosis for this admission?: Yes Plan: Resolved (7) Thrombocytopenia Is this a current diagnosis for this admission?: Yes Plan: Improved after plateletpheresis. Stable. Noted oncology recommendation for plateletpheresis (8) Wound, open, foot Qualifiers: Encounter type: subsequent encounter Laterality: left Qualified Code(s): S91.302D - Unspecified open wound, left foot, subsequent encounter Is this a current diagnosis for this admission?: Yes Plan: Stable, wound care as per surgery. Patient to go on wound VAC and follow-up with home health wound care nurse. 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 Differential includes rhinitis, CHF, viral syndrome and including pulmonary leukemic infiltration of the lung. I am concerned that because of cough is getting pain therefore will try low-dose fentanyl patch. Will also go with that scopolamine patch (11) Diarrhea Qualifiers: Diarrhea type: unspecified type Qualified Code(s): R19.7 - Diarrhea, unspecified Is this a current diagnosis for this admission?: Yes Plan: Resolved (12) Pneumonia Qualifiers: Pneumonia type: due to unspecified organism Laterality: right Lung location: lower lobe of lung Qualified Code(s): J18.1 - Lobar pneumonia, unspecified organism Is this a current diagnosis for this admission?: Yes Plan: Confirmed by CT of the chest. Likely culprit of patient's presentation. ID redirected antibiotic to meropenem. (13) HTN (hypertension) Qualifiers: Hypertension type: essential hypertension Qualified Code(s): I10 - Essential (primary) hypertension Is this a current diagnosis for this admission?: Yes Plan: Continue lisinopril, norvasc. Echocardiogram result pending - Time Time Spent with patient: 15-24 minutes Medications reviewed and adjusted accordingly: Yes Anticipated discharge: Home with Homehealth Within: within 48 hours - Inpatient Certification Based on my medical assessment, after consideration of the patient's comorbidities, presenting symptoms, or acuity I expect that the services needed warrant INPATIENT care.: Yes I certify that my determination is in accordance with my understanding of Medicare's requirements for reasonable and necessary INPATIENT services [42 CFR 412.3e].: Yes Medical Necessity: Need Close Monitoring Due to Risk of Patient Decompensation, Need for IV Antibiotics
[2017-08-24] MEDS ORDERED: FENTANYL 12 MCG/HR PATCH.TD72 TD ONE (17:00)
--- NOTE | 2017-08-24 19:41 | XCELERA REPORT ---
[address] [address] Transthoracic Echocardiogram Report Name: DINA JOSHUA Age: 82 yrs Gender: Male : 1935 Patient Status: Inpatient Patient Location: [address] [place] [address] Study Date: 08/24/2017 08:13 AM Height: 71 in Weight: 190 lb BSA: 2.1 m2 Procedure: A complete two-dimensional transthoracic echocardiogram was performed (2D, M-mode, spectral and color flow Doppler). The study was technically adequate with some images being suboptimal in quality. Reason For Study: possible chf Ordering Physician: KRUNAL MEREDITH Performed By: Nai Hernandez Interpretation Summary The left ventricular ejection fraction is normal. Doppler measurements suggest impaired left ventricular relaxation, which is associated with grade I/IV or mild diastolic dysfunction There is borderline concentric left ventricular hypertrophy. The left ventricle is grossly normal size. Wall motion cannot be accurately commented on, but no definite regional wall motion abnormalities noted. The right ventricular systolic function is normal. The right atrium is normal in size The left atrium is mildly dilated. There is no mitral valve stenosis. There is a trace to mild amount of mitral regurgitation There is no aortic valve stenosis No aortic regurgitation is present. There is a trace to mild amount of tricuspid regurgitation There is mild to moderate pulmonary hypertension by echo Right ventricular systolic pressure is estimated to be elevated at 40- 50mmHg. The aortic root is not well visualized but is probably normal size. The inferior vena cava appeared normal and decreased > 50% with respiration (RAP 5-10 mmHg) There is no pericardial effusion. MMode/2D Measurements & Calculations RVDd: 2.6 cm LVIDd: 5.2 cm FS: 35.0 % Ao root diam: 3.3 cm IVSd: 1.0 cm LVIDs: 3.4 cm EDV(Teich): 130.4 ml LVPWd: 1.0 cm ESV(Teich): 47.1 ml Ao root area: 8.5 cm2 EF(Teich): 63.8 % Doppler Measurements & Calculations MV E max janusz: MV dec slope: Ao V2 max: LV V1 max P.4 cm/sec 142.5 cm/sec 6.6 mmHg MV A max janusz: 452.4 cm/sec2 Ao max PG: LV V1 max: 111.1 cm/sec MV dec time: 8.1 mmHg 128.3 cm/sec MV E/A: 0.87 0.21 sec PA V2 max: TR max janusz: 109.4 cm/sec 306.4 cm/sec PA max P.8 mmHgTR max P.6 mmHg Left Ventricle The left ventricle is grossly normal size. There is borderline concentric left ventricular hypertrophy. The left ventricular ejection fraction is normal. Doppler measurements suggest impaired left ventricular relaxation, which is associated with grade I/IV or mild diastolic dysfunction. Wall motion cannot be accurately commented on, but no definite regional wall motion abnormalities noted. Right Ventricle The right ventricle is mildly dilated. There is normal right ventricular wall thickness. The right ventricular systolic function is normal. Atria The right atrium is normal in size. The left atrium is mildly dilated. Interarterial septum not well visualized and not well dopplered. Cannot comment on ASD/PFO presence. Mitral Valve The mitral valve is grossly normal. There is no mitral valve stenosis. There is a trace to mild amount of mitral regurgitation. Aortic Valve The aortic valve is grossly normal. There is no aortic valve stenosis. No aortic regurgitation is present. Tricuspid Valve The tricuspid valve is not well visualized, but is grossly normal. There is no tricuspid stenosis. There is a trace to mild amount of tricuspid regurgitation. There is mild to moderate pulmonary hypertension by echo. Right ventricular systolic pressure is estimated to be elevated at 40- 50mmHg. Pulmonic Valve The pulmonic valve is not well visualized. Great Vessels The aortic root is not well visualized but is probably normal size. The inferior vena cava appeared normal and decreased > 50% with respiration (RAP 5-10 mmHg). Effusions There is no pericardial effusion. : KRUNAL MEREDITH > Hanane Sears
[2017-08-24] MEDS: MONTELUKAST SODIUM 10 MG TABLET PO SCH (22:15)
[2017-08-25] MEDS: MEROPENEM 1 GM in NORMAL SALINE 100 ML IV SCH ×3 (02:56→18:39)
[2017-08-25] MEDS: GABAPENTIN 300 MG CAPSULE PO SCH (05:43)
[2017-08-25] MEDS: METHYLPREDNISOLONE INJ 40 MG/1 ML SDV IV SCH ×3 (05:43→22:21)
[2017-08-25] MEDS: IPRATROPIUM/ALBUTEROL 0.5-2.5 MG/3 ML AMPUL NEB SCH ×3 (07:31→19:42)
[2017-08-25] MEDS: BENZONATATE 100 MG CAPSULE PO PRN ×2 (09:45→18:41)
[2017-08-25] MEDS: GUAIFENESIN 600 MG TABLET.SA PO SCH ×2 (09:45→22:21)
[2017-08-25] MEDS: FINASTERIDE 5 MG TABLET PO SCH (09:45)
[2017-08-25] MEDS: AZITHROMYCIN 250 MG TABLET PO SCH (09:45)
[2017-08-25] MEDS: AMLODIPINE BESYLATE 10 MG TABLET PO SCH (09:45)
[2017-08-25] MEDS: METOPROLOL TARTRATE 50 MG TABLET PO SCH ×2 (09:46→22:21)
[2017-08-25] MEDS: HYDROCODONE BIT/HOMATROPINE 5-1.5 MG TABLET PO PRN ×4 (09:46→22:47)
[2017-08-25] MEDS: LISINOPRIL 10 MG TABLET PO SCH (09:46)
[2017-08-25] MEDS: TAMSULOSIN HCL 0.4 MG CAP.SR.24H PO SCH (09:46)
[2017-08-25] MEDS: SERTRALINE HCL 50 MG TABLET PO SCH (09:46)
[2017-08-25] MEDS: ALLOPURINOL 300 MG TABLET PO SCH (09:47)
[2017-08-25] MEDS: DOCUSATE SODIUM 100 MG CAPSULE PO SCH (09:49)
[2017-08-25] MEDS: FLUTICASONE NASAL SPRAY 50 MCG/SPRY 120 SPRAY/16 GM NASL SCH ×2 (09:49→22:21)
--- NOTE | 2017-08-25 11:08 | PDOC PROGRESS REPORT ---
Subjective Progress Note for:: 08/25/17 Subjective:: Patient still believes his coiugh is not well controlled. Had another bout this morning. Asks if there is anything else that can be done for this. ROS: Good appetite. No C/D. No dyspnea. Some weakness. Reason For Visit: CML, LEFT FOOT WOUND Physical Exam Vital Signs: Temp Pulse Resp BP Pulse Ox 97.8 F 69 16 130/57 H 89 L 08/25/17 07:23 08/25/17 07:31 08/25/17 07:31 08/25/17 07:23 08/25/17 07:31 Intake & Output 08/24/17 08/25/17 08/26/17 06:59 06:59 06:59 Intake Total 1238 959 Output Total 1875 50 Balance -637 909 Weight 86.4 kg 89.5 kg General appearance: PRESENT: no acute distress, well-nourished Head exam: PRESENT: atraumatic Respiratory exam: PRESENT: unlabored, wheezes Cardiovascular exam: PRESENT: RRR GI/Abdominal exam: PRESENT: soft. ABSENT: tenderness Extremities exam: ABSENT: pedal edema Neurological exam: PRESENT: alert, awake Psychiatric exam: PRESENT: appropriate affect Skin exam: PRESENT: normal color Results Laboratory Results: 08/24/17 05:58 08/24/17 05:58 Impressions: Lower Extremity CT 08/16/17 14:56 IMPRESSION: There are changes in the medial aspect of the head of the 1st metatarsal concerning for osteomyelitis. Guidance Fluoroscopy 08/17/17 00:00 IMPRESSION: SUCCESSFUL PLACEMENT OF A 5 FR DUAL LUMEN 44 CM PICC IN THE LEFT BASILIC VEIN. Interventional Vascular Procedure 08/17/17 00:00 IMPRESSION: SUCCESSFUL PLACEMENT OF A 5 FR DUAL LUMEN 44 CM PICC IN THE LEFT BASILIC VEIN. PICC Line Insertion 08/17/17 11:03 IMPRESSION: SUCCESSFUL PLACEMENT OF A 5 FR DUAL LUMEN 44 CM PICC IN THE LEFT BASILIC VEIN. Chest X-Ray 08/21/17 00:00 IMPRESSION: FAINT AIRSPACE DISEASE IN THE RIGHT UPPER LOBE SUSPICIOUS FOR DEVELOPING PNEUMONIA. POSSIBLE DEVELOPING PULMONARY NODULE IN THE MID RIGHT LUNG. MILD BASILAR ATELECTASIS VERSUS SCARRING AND DEVELOPMENT OF SMALL PLEURAL EFFUSIONS. Assessment & Plan - Diagnosis (1) Cough Is this a current diagnosis for this admission?: Yes Plan: He is on solumedrol, RTC Guifenassin, Tessalon and Hycodan PRN. He also has duragesic and scopolamine. I agree with hospitalist, that there is not much more that can be done for the cough. They believe this is due to his leukemia, and may not improve. I will discuss with Dr. Schneider. (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 Qualified Code(s): C92.00 - Acute myeloblastic leukemia, not having achieved remission Is this a current diagnosis for this admission?: Yes Plan: AML/MDS Patient is not currently a candidate for aggressive treatment. He has only been receiving palliative blood transfusions. He wishes to continue receiving transfusion, thus, may not be Hospice appropriate at this point. Again, will discuss with Dr. Schneider.
[2017-08-25] MEDS ORDERED: GABAPENTIN 300 MG CAPSULE PO SCH (11:29)
--- NOTE | 2017-08-25 12:26 | PDOC PROGRESS REPORT ---
Subjective Progress Note for:: 08/25/17 Subjective:: patient comfortable, reports occasional left foot discomfort Reason For Visit: CML, LEFT FOOT WOUND Physical Exam Vital Signs: Temp Pulse Resp BP Pulse Ox 97.8 F 69 16 130/57 H 89 L 08/25/17 07:23 08/25/17 07:31 08/25/17 07:31 08/25/17 07:23 08/25/17 07:31 Intake & Output 08/24/17 08/25/17 08/26/17 06:59 06:59 06:59 Intake Total 1238 959 Output Total 1875 50 Balance -637 909 Weight 86.4 kg 89.5 kg Extremities exam: PRESENT: other - Left foot wound covered with WoundVac in place; dressing c/d/i Results Laboratory Results: 08/24/17 05:58 08/24/17 05:58 Impressions: Lower Extremity CT 08/16/17 14:56 IMPRESSION: There are changes in the medial aspect of the head of the 1st metatarsal concerning for osteomyelitis. Guidance Fluoroscopy 08/17/17 00:00 IMPRESSION: SUCCESSFUL PLACEMENT OF A 5 FR DUAL LUMEN 44 CM PICC IN THE LEFT BASILIC VEIN. Interventional Vascular Procedure 08/17/17 00:00 IMPRESSION: SUCCESSFUL PLACEMENT OF A 5 FR DUAL LUMEN 44 CM PICC IN THE LEFT BASILIC VEIN. PICC Line Insertion 08/17/17 11:03 IMPRESSION: SUCCESSFUL PLACEMENT OF A 5 FR DUAL LUMEN 44 CM PICC IN THE LEFT BASILIC VEIN. Chest X-Ray 08/21/17 00:00 IMPRESSION: FAINT AIRSPACE DISEASE IN THE RIGHT UPPER LOBE SUSPICIOUS FOR DEVELOPING PNEUMONIA. POSSIBLE DEVELOPING PULMONARY NODULE IN THE MID RIGHT LUNG. MILD BASILAR ATELECTASIS VERSUS SCARRING AND DEVELOPMENT OF SMALL PLEURAL EFFUSIONS. Assessment & Plan - Plan Summary Plan Summary: A/ Two Left foot wounds: Smaller wound drewssed daily Large wound covered with WoundVac P/ Replaced WoundVac on Sunday Continue dressing changes for smaller wound
[2017-08-25] MEDS ORDERED: FENTANYL 25 MCG/HR PATCH.TD72 TD ONE (13:00)
[2017-08-25] MEDS ORDERED: GABAPENTIN 400 MG CAPSULE PO ONE (15:00)
--- NOTE | 2017-08-25 17:22 | PDOC PROGRESS REPORT ---
Subjective Progress Note for:: 08/25/17 Subjective:: Patient relates the is having disturbing cough and gave him both stomach and chest pain. Patient made aware that besides dealing with a pneumonia there may be infiltration of the leukemia in his lungs. Offered to increase medication for pain and agreed Review of systems All organ systems evaluated and negative except as in subjective All significant laboratories and diagnostics have been reviewed Reason For Visit: CML, LEFT FOOT WOUND Physical Exam Vital Signs: Temp Pulse Resp BP Pulse Ox 97.6 F 71 16 136/60 H 93 08/25/17 03:41 08/25/17 03:41 08/25/17 03:41 08/25/17 03:41 08/25/17 03:41 Intake & Output 08/23/17 08/24/17 08/25/17 06:59 06:59 06:59 Intake Total 1243 1238 959 Output Total 200 1875 50 Balance 1043 -907 909 Weight 86.2 kg 86.4 kg 89.5 kg General appearance: PRESENT: no acute distress, cooperative, obese Head exam: PRESENT: atraumatic, normocephalic Eye exam: PRESENT: conjunctiva pale, EOMI, PERRLA Ear exam: PRESENT: normal external ear exam Neck exam: PRESENT: full ROM. ABSENT: JVD, lymphadenopathy, tenderness Respiratory exam: ABSENT: chest wall tenderness - Adequate movement of air with rhonchi and upper airway Cardiovascular exam: PRESENT: irregular rhythm. ABSENT: diastolic murmur, systolic murmur GI/Abdominal exam: PRESENT: normal bowel sounds, soft. ABSENT: tenderness Extremities exam: PRESENT: full ROM. ABSENT: tenderness Musculoskeletal exam: PRESENT: ambulatory Neurological exam: PRESENT: alert, awake, oriented to person, oriented to place , oriented to time, oriented to situation, CN II-XII grossly intact Psychiatric exam: PRESENT: appropriate affect, normal mood Skin exam: PRESENT: pallor Results Laboratory Results: 08/24/17 05:58 08/24/17 05:58 08/24/17 05:58 WBC 8.8 RBC 3.14 L Hgb 9.4 L Hct 28.3 L MCV 90 MCH 29.9 MCHC 33.3 RDW 17.4 H Plt Count 37 L Impressions: Lower Extremity CT 08/16/17 14:56 IMPRESSION: There are changes in the medial aspect of the head of the 1st metatarsal concerning for osteomyelitis. Guidance Fluoroscopy 08/17/17 00:00 IMPRESSION: SUCCESSFUL PLACEMENT OF A 5 FR DUAL LUMEN 44 CM PICC IN THE LEFT BASILIC VEIN. Interventional Vascular Procedure 08/17/17 00:00 IMPRESSION: SUCCESSFUL PLACEMENT OF A 5 FR DUAL LUMEN 44 CM PICC IN THE LEFT BASILIC VEIN. PICC Line Insertion 08/17/17 11:03 IMPRESSION: SUCCESSFUL PLACEMENT OF A 5 FR DUAL LUMEN 44 CM PICC IN THE LEFT BASILIC VEIN. Chest X-Ray 08/21/17 00:00 IMPRESSION: FAINT AIRSPACE DISEASE IN THE RIGHT UPPER LOBE SUSPICIOUS FOR DEVELOPING PNEUMONIA. POSSIBLE DEVELOPING PULMONARY NODULE IN THE MID RIGHT LUNG. MILD BASILAR ATELECTASIS VERSUS SCARRING AND DEVELOPMENT OF SMALL PLEURAL EFFUSIONS. Assessment & Plan - Diagnosis (1) Anemia Qualifiers: Anemia type: bone marrow failure Bone marrow failure anemia type: unspecified bone marrow failure Qualified Code(s): D61.9 - Aplastic anemia, unspecified Is this a current diagnosis for this admission?: Yes Plan: Improved after transfusion of 2 units packed red blood cells. Stable so far. Noted oncology recommendations for transfusion (2) Hypokalemia Is this a current diagnosis for this admission?: Yes Plan: Replaced (3) Hyponatremia Is this a current diagnosis for this admission?: Yes Plan: Improved (4) Malnutrition Qualifiers: Malnutrition type: protein-calorie malnutrition Is this a current diagnosis for this admission?: Yes Plan: Encourage protein intake (5) Osteomyelitis Qualifiers: Osteomyelitis type: acute hematogenous Osteomyelitis location: foot Laterality: left Qualified Code(s): M86.072 - Acute hematogenous osteomyelitis , left ankle and foot Is this a current diagnosis for this admission?: No Plan: Ruled out when debridement was performed. There were no actual findings of osteomyelitis in the bone (6) Sepsis Qualifiers: Sepsis type: sepsis due to unspecified organism Qualified Code(s): A41.9 - Sepsis, unspecified organism Is this a current diagnosis for this admission?: Yes Plan: Resolved (7) Thrombocytopenia Is this a current diagnosis for this admission?: Yes Plan: Improved after plateletpheresis. Stable. Noted oncology recommendation for plateletpheresis (8) Wound, open, foot Qualifiers: Encounter type: subsequent encounter Laterality: left Qualified Code(s): S91.302D - Unspecified open wound, left foot, subsequent encounter Is this a current diagnosis for this admission?: Yes Plan: Stable, wound care as per surgery. Patient to go on wound VAC and follow-up with home health wound care nurse. 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 Differential includes rhinitis, CHF, viral syndrome and including pulmonary leukemic infiltration of the lung. Continue antitussives. Increase patient's fentanyl patch dose. Continue scopolamine patch (11) Diarrhea Qualifiers: Diarrhea type: unspecified type Qualified Code(s): R19.7 - Diarrhea, unspecified Is this a current diagnosis for this admission?: Yes Plan: Resolved (12) Pneumonia Qualifiers: Pneumonia type: due to unspecified organism Laterality: right Lung location: lower lobe of lung Qualified Code(s): J18.1 - Lobar pneumonia, unspecified organism Is this a current diagnosis for this admission?: Yes Plan: Confirmed by CT of the chest. Likely culprit of patient's presentation. ID redirected antibiotic to meropenem. (13) HTN (hypertension) Qualifiers: Hypertension type: essential hypertension Qualified Code(s): I10 - Essential (primary) hypertension Is this a current diagnosis for this admission?: Yes Plan: Continue lisinopril, norvasc. Echocardiogram result pending - Time Time Spent with patient: 15-24 minutes Medications reviewed and adjusted accordingly: Yes Anticipated discharge: Home with Homehealth Within: within 48 hours - Inpatient Certification Based on my medical assessment, after consideration of the patient's comorbidities, presenting symptoms, or acuity I expect that the services needed warrant INPATIENT care.: Yes I certify that my determination is in accordance with my understanding of Medicare's requirements for reasonable and necessary INPATIENT services [42 CFR 412.3e].: Yes Medical Necessity: Need for IV Antibiotics
[2017-08-25] MEDS: MONTELUKAST SODIUM 10 MG TABLET PO SCH (22:21)
[2017-08-25] MEDS: GABAPENTIN 400 MG CAPSULE PO SCH (22:21)
[2017-08-26] MEDS: MEROPENEM 1 GM in NORMAL SALINE 100 ML IV SCH ×3 (03:05→18:05)
[2017-08-26] MEDS: METHYLPREDNISOLONE INJ 40 MG/1 ML SDV IV SCH ×3 (06:05→22:56)
[2017-08-26] MEDS: GABAPENTIN 400 MG CAPSULE PO SCH ×3 (06:05→22:57)
[2017-08-26] MEDS: IPRATROPIUM/ALBUTEROL 0.5-2.5 MG/3 ML AMPUL NEB SCH ×3 (07:37→19:40)
[2017-08-26] MEDS: ALLOPURINOL 300 MG TABLET PO SCH (09:52)
[2017-08-26] MEDS: AZITHROMYCIN 250 MG TABLET PO SCH (09:52)
[2017-08-26] MEDS: TAMSULOSIN HCL 0.4 MG CAP.SR.24H PO SCH (09:53)
[2017-08-26] MEDS: BENZONATATE 100 MG CAPSULE PO PRN ×2 (09:53→18:04)
[2017-08-26] MEDS: AMLODIPINE BESYLATE 10 MG TABLET PO SCH (09:53)
[2017-08-26] MEDS: LISINOPRIL 10 MG TABLET PO SCH (09:53)
[2017-08-26] MEDS: SERTRALINE HCL 50 MG TABLET PO SCH (09:53)
[2017-08-26] MEDS: DOCUSATE SODIUM 100 MG CAPSULE PO SCH (09:54)
[2017-08-26] MEDS: FINASTERIDE 5 MG TABLET PO SCH (09:54)
[2017-08-26] MEDS: METOPROLOL TARTRATE 50 MG TABLET PO SCH ×2 (09:59→22:57)
[2017-08-26] MEDS: HYDROCODONE BIT/HOMATROPINE 5-1.5 MG TABLET PO PRN ×4 (09:59→22:57)
[2017-08-26] MEDS: GUAIFENESIN 600 MG TABLET.SA PO SCH ×2 (10:00→22:57)
--- NOTE | 2017-08-26 11:23 | PDOC PROGRESS REPORT ---
Subjective Progress Note for:: 08/26/17 Subjective:: no c/o Reason For Visit: CML, LEFT FOOT WOUND Physical Exam Vital Signs: Temp Pulse Resp BP Pulse Ox 98.3 F 71 18 148/59 H 93 08/26/17 07:24 08/26/17 07:37 08/26/17 07:37 08/26/17 07:24 08/26/17 07:37 Intake & Output 08/25/17 08/26/17 08/27/17 06:59 06:59 06:59 Intake Total 959 1400 Output Total 50 740 Balance 909 660 Weight 89.5 kg 88 kg Skin exam: PRESENT: other - left foot: fist webspace wound granulating Results Laboratory Results: 08/24/17 05:58 08/24/17 05:58 Impressions: Lower Extremity CT 08/16/17 14:56 IMPRESSION: There are changes in the medial aspect of the head of the 1st metatarsal concerning for osteomyelitis. Guidance Fluoroscopy 08/17/17 00:00 IMPRESSION: SUCCESSFUL PLACEMENT OF A 5 FR DUAL LUMEN 44 CM PICC IN THE LEFT BASILIC VEIN. Interventional Vascular Procedure 08/17/17 00:00 IMPRESSION: SUCCESSFUL PLACEMENT OF A 5 FR DUAL LUMEN 44 CM PICC IN THE LEFT BASILIC VEIN. PICC Line Insertion 08/17/17 11:03 IMPRESSION: SUCCESSFUL PLACEMENT OF A 5 FR DUAL LUMEN 44 CM PICC IN THE LEFT BASILIC VEIN. Chest X-Ray 08/21/17 00:00 IMPRESSION: FAINT AIRSPACE DISEASE IN THE RIGHT UPPER LOBE SUSPICIOUS FOR DEVELOPING PNEUMONIA. POSSIBLE DEVELOPING PULMONARY NODULE IN THE MID RIGHT LUNG. MILD BASILAR ATELECTASIS VERSUS SCARRING AND DEVELOPMENT OF SMALL PLEURAL EFFUSIONS. Assessment & Plan - Diagnosis (1) Wound, open, foot Qualifiers: Encounter type: subsequent encounter Laterality: left Qualified Code(s): S91.302D - Unspecified open wound, left foot, subsequent encounter Is this a current diagnosis for this admission?: Yes - Plan Summary Plan Summary: A/ granulating open wound left foot at first webspace Woiundvac on left foot wound P/ Continue current wound management
[2017-08-26] MEDS: FLUTICASONE NASAL SPRAY 50 MCG/SPRY 120 SPRAY/16 GM NASL SCH ×2 (14:17→23:04)
--- NOTE | 2017-08-26 16:37 | PDOC PROGRESS REPORT ---
Subjective Progress Note for:: 08/26/17 Subjective:: Patient relates that cough is better. Had not been getting that much pain when coughing. He would like to go home on the same medications that he is on Review of systems All organ systems evaluated and negative except as in subjective All significant laboratories and diagnostics have been reviewed Reason For Visit: CML, LEFT FOOT WOUND Physical Exam Vital Signs: Temp Pulse Resp BP Pulse Ox 98.0 F 120 H 20 151/75 H 94 08/26/17 03:32 08/26/17 03:32 08/26/17 03:32 08/26/17 03:32 08/26/17 03:32 Intake & Output 08/25/17 08/26/17 08/27/17 06:59 06:59 06:59 Intake Total 959 1400 Output Total 50 740 Balance 909 660 Weight 89.5 kg 88 kg General appearance: PRESENT: cooperative, obese Head exam: PRESENT: atraumatic, normocephalic Eye exam: PRESENT: conjunctiva pink, EOMI, PERRLA Ear exam: PRESENT: normal external ear exam Mouth exam: PRESENT: moist Neck exam: PRESENT: full ROM. ABSENT: JVD, lymphadenopathy, thyromegaly - Scattered rhonchi in upper airway Cardiovascular exam: PRESENT: irregular rhythm. ABSENT: diastolic murmur, systolic murmur Vascular exam: PRESENT: normal capillary refill GI/Abdominal exam: PRESENT: normal bowel sounds, soft. ABSENT: tenderness Extremities exam: PRESENT: full ROM, other - wound vac left foot noted Neurological exam: PRESENT: alert, awake, oriented to person, oriented to place , oriented to time, oriented to situation, CN II-XII grossly intact Psychiatric exam: PRESENT: appropriate affect, normal mood Skin exam: PRESENT: normal color, petechiae Results Laboratory Results: 08/24/17 05:58 08/24/17 05:58 Impressions: Lower Extremity CT 08/16/17 14:56 IMPRESSION: There are changes in the medial aspect of the head of the 1st metatarsal concerning for osteomyelitis. Guidance Fluoroscopy 08/17/17 00:00 IMPRESSION: SUCCESSFUL PLACEMENT OF A 5 FR DUAL LUMEN 44 CM PICC IN THE LEFT BASILIC VEIN. Interventional Vascular Procedure 08/17/17 00:00 IMPRESSION: SUCCESSFUL PLACEMENT OF A 5 FR DUAL LUMEN 44 CM PICC IN THE LEFT BASILIC VEIN. PICC Line Insertion 08/17/17 11:03 IMPRESSION: SUCCESSFUL PLACEMENT OF A 5 FR DUAL LUMEN 44 CM PICC IN THE LEFT BASILIC VEIN. Chest X-Ray 08/21/17 00:00 IMPRESSION: FAINT AIRSPACE DISEASE IN THE RIGHT UPPER LOBE SUSPICIOUS FOR DEVELOPING PNEUMONIA. POSSIBLE DEVELOPING PULMONARY NODULE IN THE MID RIGHT LUNG. MILD BASILAR ATELECTASIS VERSUS SCARRING AND DEVELOPMENT OF SMALL PLEURAL EFFUSIONS. Assessment & Plan - Diagnosis (1) Anemia Qualifiers: Anemia type: bone marrow failure Bone marrow failure anemia type: unspecified bone marrow failure Qualified Code(s): D61.9 - Aplastic anemia, unspecified Is this a current diagnosis for this admission?: Yes Plan: Improved after transfusion of 2 units packed red blood cells. Stable so far. Noted oncology recommendations for transfusion (2) Hypokalemia Is this a current diagnosis for this admission?: Yes Plan: Replaced (3) Hyponatremia Is this a current diagnosis for this admission?: Yes Plan: Improved (4) Malnutrition Qualifiers: Malnutrition type: protein-calorie malnutrition Is this a current diagnosis for this admission?: Yes Plan: Encourage protein intake (5) Osteomyelitis Qualifiers: Osteomyelitis type: acute hematogenous Osteomyelitis location: foot Laterality: left Qualified Code(s): M86.072 - Acute hematogenous osteomyelitis , left ankle and foot Is this a current diagnosis for this admission?: No Plan: Ruled out when debridement was performed. There were no actual findings of osteomyelitis in the bone (6) Sepsis Qualifiers: Sepsis type: sepsis due to unspecified organism Qualified Code(s): A41.9 - Sepsis, unspecified organism Is this a current diagnosis for this admission?: Yes Plan: Resolved (7) Thrombocytopenia Is this a current diagnosis for this admission?: Yes Plan: Improved after plateletpheresis. Stable. Noted oncology recommendation for plateletpheresis (8) Wound, open, foot Qualifiers: Encounter type: subsequent encounter Laterality: left Qualified Code(s): S91.302D - Unspecified open wound, left foot, subsequent encounter Is this a current diagnosis for this admission?: Yes Plan: Stable, wound care as per surgery. Patient on wound VAC. 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 Continue current regimen which is, scopolamine patch, fentanyl patch and antitussive (11) Diarrhea Qualifiers: Diarrhea type: unspecified type Qualified Code(s): R19.7 - Diarrhea, unspecified Is this a current diagnosis for this admission?: Yes Plan: Resolved (12) Pneumonia Qualifiers: Pneumonia type: due to unspecified organism Laterality: right Lung location: lower lobe of lung Qualified Code(s): J18.1 - Lobar pneumonia, unspecified organism Is this a current diagnosis for this admission?: Yes Plan: Confirmed by CT of the chest. Likely culprit of patient's presentation. ID redirected antibiotic to meropenem. (13) HTN (hypertension) Qualifiers: Hypertension type: essential hypertension Qualified Code(s): I10 - Essential (primary) hypertension Is this a current diagnosis for this admission?: Yes Plan: Continue lisinopril, norvasc. Echocardiogram result noted - Time Time Spent with patient: 15-24 minutes Medications reviewed and adjusted accordingly: Yes Anticipated discharge: Home with Homehealth Within: within 24 hours - Inpatient Certification Based on my medical assessment, after consideration of the patient's comorbidities, presenting symptoms, or acuity I expect that the services needed warrant INPATIENT care.: Yes I certify that my determination is in accordance with my understanding of Medicare's requirements for reasonable and necessary INPATIENT services [42 CFR 412.3e].: Yes Medical Necessity: Need Close Monitoring Due to Risk of Patient Decompensation, Need for IV Antibiotics
[2017-08-26] MEDS: MONTELUKAST SODIUM 10 MG TABLET PO SCH (22:57)
[2017-08-27] MEDS: MEROPENEM 1 GM in NORMAL SALINE 100 ML IV SCH ×3 (02:04→18:12)
[2017-08-27 05:26] LABS: ANION GAP 8 (5-19); BLOOD UREA NITROGEN 29 mg/dL (7-20); CARBON DIOXIDE 28 mmol/L (22-30); CHLORIDE 102 mmol/L (98-107); GLUCOSE 113 mg/dL (75-110); POTASSIUM 4.1 mmol/L (3.6-5.0); SODIUM 138.3 mmol/L (137-145)
[2017-08-27 05:33] LABS: HEMATOCRIT 30.2 % (37.9-51.0); HEMOGLOBIN 9.7 g/dL (13.5-17.0); MEAN CORPUSCULAR HEMOGLOBIN 29.2 pg (27.0-33.4); MEAN CORPUSCULAR VOLUME 91 fl (80-97); RED CELL DISTRIBUTION WIDTH 18.1 % (11.5-14.0)
[2017-08-27] MEDS: METHYLPREDNISOLONE INJ 40 MG/1 ML SDV IV SCH (05:35)
[2017-08-27] MEDS: GABAPENTIN 400 MG CAPSULE PO SCH ×3 (05:36→21:45)
[2017-08-27 05:46] LABS: PLATELET COUNT 31 10^3/uL (150-450)
[2017-08-27 05:54] LABS: ABSOLUTE LYMPHOCYTES# (MANUAL) 5.5 10^3/uL (0.5-4.7); ABSOLUTE MONOCYTES # (MANUAL) 1.7 10^3/uL (0.1-1.4); ABSOLUTE NEUTROPHILS# (MANUAL) 10.1 10^3/uL (1.7-8.2); BAND NEUTROPHILS % (MANUAL) 2 % (3-5); BASOPHILS % (MANUAL) 0 % (0-2); EOSINOPHILS % (MANUAL) 0 % (0-6); IMMATURE MONONUCLEAR% (MANUAL) 9 % (0); LYMPHOCYTES % (MANUAL) 28 % (13-45); MONOCYTES % (MANUAL) 9 % (3-13); NUCLEATED RED BLOOD CELLS 15 /100 WBC (0); SEGMENTED NEUTROPHILS % (MAN) 51 % (42-78); TOTAL CELLS COUNTED 100
[2017-08-27 05:58] LABS: ANISOCYTOSIS 2+; BURR CELLS SLIGHT; OVALOCYTES SLIGHT; POIKILOCYTOSIS 1+
[2017-08-27 05:59] LABS: PLATELET COMMENT DECREASED; SCHISTOCYTES 1+; TEAR DROP CELLS SLIGHT
[2017-08-27] MEDS: IPRATROPIUM/ALBUTEROL 0.5-2.5 MG/3 ML AMPUL NEB SCH ×3 (07:38→19:37)
--- NOTE | 2017-08-27 08:03 | PDOC PROGRESS REPORT ---
Subjective Progress Note for:: 08/27/17 Subjective:: Pt seems better today Reason For Visit: CML, LEFT FOOT WOUND Physical Exam Vital Signs: Temp Pulse Resp BP Pulse Ox 98.5 F 60 18 150/70 H 93 08/27/17 03:25 08/27/17 07:38 08/27/17 07:38 08/27/17 03:25 08/27/17 07:38 Intake & Output 08/26/17 08/27/17 08/28/17 06:59 06:59 06:59 Intake Total 1400 1036 Output Total 740 1025 Balance 660 11 Weight 88 kg 91.2 kg General appearance: PRESENT: no acute distress, well-developed, well-nourished Head exam: PRESENT: atraumatic, normocephalic Eye exam: PRESENT: conjunctiva pink, EOMI, PERRLA. ABSENT: scleral icterus Ear exam: PRESENT: normal external ear exam Mouth exam: PRESENT: moist, tongue midline Neck exam: ABSENT: carotid bruit, JVD, lymphadenopathy, thyromegaly Respiratory exam: PRESENT: clear to auscultation jane. ABSENT: rales, rhonchi, wheezes Cardiovascular exam: PRESENT: RRR. ABSENT: diastolic murmur, rubs, systolic murmur Pulses: PRESENT: normal dorsalis pedis pul Vascular exam: PRESENT: normal capillary refill GI/Abdominal exam: PRESENT: normal bowel sounds, soft. ABSENT: distended, guarding, mass, organolmegaly, rebound, tenderness Rectal exam: PRESENT: deferred Extremities exam: PRESENT: full ROM. ABSENT: calf tenderness, clubbing, pedal edema Neurological exam: PRESENT: alert, awake, oriented to person, oriented to place , oriented to time, oriented to situation, CN II-XII grossly intact. ABSENT: motor sensory deficit Psychiatric exam: PRESENT: appropriate affect, normal mood. ABSENT: homicidal ideation, suicidal ideation Skin exam: PRESENT: dry, intact, warm. ABSENT: cyanosis, rash Results Laboratory Results: 08/27/17 04:50 08/27/17 04:50 08/27/17 08/27/17 04:50 04:50 WBC 19.0 H D RBC 3.30 L Hgb 9.7 L Hct 30.2 L MCV 91 MCH 29.2 MCHC 32.0 RDW 18.1 H Plt Count 31 L Seg Neutrophils % Not Reportable Lymphocytes % Not Reportable Monocytes % Not Reportable Eosinophils % Not Reportable Basophils % Not Reportable Absolute Neutrophils Not Reportable Absolute Lymphocytes Not Reportable Absolute Monocytes Not Reportable Absolute Eosinophils Not Reportable Absolute Basophils Not Reportable Sodium 138.3 Potassium 4.1 Chloride 102 Carbon Dioxide 28 Anion Gap 8 BUN 29 H Creatinine 0.70 Est GFR ( Amer) > 60 Est GFR (Non-Af Amer) > 60 Glucose 113 H Calcium 8.0 L Impressions: Lower Extremity CT 08/16/17 14:56 IMPRESSION: There are changes in the medial aspect of the head of the 1st metatarsal concerning for osteomyelitis. Guidance Fluoroscopy 08/17/17 00:00 IMPRESSION: SUCCESSFUL PLACEMENT OF A 5 FR DUAL LUMEN 44 CM PICC IN THE LEFT BASILIC VEIN. Interventional Vascular Procedure 08/17/17 00:00 IMPRESSION: SUCCESSFUL PLACEMENT OF A 5 FR DUAL LUMEN 44 CM PICC IN THE LEFT BASILIC VEIN. PICC Line Insertion 08/17/17 11:03 IMPRESSION: SUCCESSFUL PLACEMENT OF A 5 FR DUAL LUMEN 44 CM PICC IN THE LEFT BASILIC VEIN. Chest X-Ray 08/21/17 00:00 IMPRESSION: FAINT AIRSPACE DISEASE IN THE RIGHT UPPER LOBE SUSPICIOUS FOR DEVELOPING PNEUMONIA. POSSIBLE DEVELOPING PULMONARY NODULE IN THE MID RIGHT LUNG. MILD BASILAR ATELECTASIS VERSUS SCARRING AND DEVELOPMENT OF SMALL PLEURAL EFFUSIONS. Assessment & Plan - Diagnosis (1) AML (acute myeloid leukemia) Qualifiers: Leukemia Active/Remission status: without remission Qualified Code(s): C92.00 - Acute myeloblastic leukemia, not having achieved remission Is this a current diagnosis for this admission?: Yes Plan: Counts have been stable, blast ct inc, supportive care only (2) Pancytopenia Is this a current diagnosis for this admission?: Yes Plan: No transfusion needed at present (3) Wound, open, foot Qualifiers: Encounter type: subsequent encounter Laterality: left Qualified Code(s): S91.302D - Unspecified open wound, left foot, subsequent encounter Is this a current diagnosis for this admission?: Yes Plan: Cont per teams (4) Cough Is this a current diagnosis for this admission?: Yes Plan: Improved
[2017-08-27] MEDS ORDERED: FENTANYL 12 MCG/HR PATCH.TD72 TD SCH (10:00)
[2017-08-27] MEDS: DOCUSATE SODIUM 100 MG CAPSULE PO SCH (10:04)
[2017-08-27] MEDS: SULFAMETHOXAZOLE/TRIMETHOPRIM 800-160 MG TABLET PO SCH ×2 (10:04→21:45)
[2017-08-27] MEDS: SERTRALINE HCL 50 MG TABLET PO SCH (10:04)
[2017-08-27] MEDS: TAMSULOSIN HCL 0.4 MG CAP.SR.24H PO SCH (10:04)
[2017-08-27] MEDS: FINASTERIDE 5 MG TABLET PO SCH (10:04)
[2017-08-27] MEDS: LISINOPRIL 10 MG TABLET PO SCH (10:05)
[2017-08-27] MEDS: AMLODIPINE BESYLATE 10 MG TABLET PO SCH (10:05)
[2017-08-27] MEDS: GUAIFENESIN 600 MG TABLET.SA PO SCH ×2 (10:05→21:46)
[2017-08-27] MEDS: METOPROLOL TARTRATE 50 MG TABLET PO SCH ×2 (10:05→21:46)
[2017-08-27] MEDS: ALLOPURINOL 300 MG TABLET PO SCH (10:05)
[2017-08-27] MEDS: FENTANYL 50 MCG/HR PATCH.TD72 TD SCH (10:06)
[2017-08-27] MEDS: FLUTICASONE NASAL SPRAY 50 MCG/SPRY 120 SPRAY/16 GM NASL SCH ×2 (10:17→21:53)
--- NOTE | 2017-08-27 17:58 | PDOC PROGRESS REPORT ---
Subjective Progress Note for:: 08/27/17 Subjective:: Continues having cough which causes pain in his stomach Review of systems All organ systems evaluated and negative except as in subjective All significant laboratories and diagnostics have been reviewed Reason For Visit: CML, LEFT FOOT WOUND Physical Exam Vital Signs: Temp Pulse Resp BP Pulse Ox 97.5 F 60 18 151/71 H 93 08/27/17 07:18 08/27/17 07:38 08/27/17 07:38 08/27/17 07:18 08/27/17 07:38 Intake & Output 08/26/17 08/27/17 08/28/17 06:59 06:59 06:59 Intake Total 1400 1036 Output Total 740 1025 Balance 660 11 Weight 88 kg 91.2 kg General appearance: PRESENT: no acute distress, cooperative, obese Head exam: PRESENT: atraumatic, normocephalic Eye exam: PRESENT: conjunctiva pink, EOMI, PERRLA Ear exam: PRESENT: normal external ear exam Mouth exam: PRESENT: moist Neck exam: PRESENT: full ROM. ABSENT: JVD, lymphadenopathy, tenderness Respiratory exam: PRESENT: other - Adequate movement of air with scattered upper airway rhonchi Cardiovascular exam: ABSENT: diastolic murmur, systolic murmur GI/Abdominal exam: PRESENT: normal bowel sounds, soft. ABSENT: tenderness Extremities exam: PRESENT: other - wound VAC to left foot noted Neurological exam: PRESENT: alert, awake, oriented to person, oriented to place , oriented to time, oriented to situation Skin exam: PRESENT: normal color Results Laboratory Results: 08/27/17 04:50 08/27/17 04:50 08/27/17 08/27/17 04:50 04:50 WBC 19.0 H D RBC 3.30 L Hgb 9.7 L Hct 30.2 L MCV 91 MCH 29.2 MCHC 32.0 RDW 18.1 H Plt Count 31 L Seg Neutrophils % Not Reportable Lymphocytes % Not Reportable Monocytes % Not Reportable Eosinophils % Not Reportable Basophils % Not Reportable Absolute Neutrophils Not Reportable Absolute Lymphocytes Not Reportable Absolute Monocytes Not Reportable Absolute Eosinophils Not Reportable Absolute Basophils Not Reportable Sodium 138.3 Potassium 4.1 Chloride 102 Carbon Dioxide 28 Anion Gap 8 BUN 29 H Creatinine 0.70 Est GFR ( Amer) > 60 Est GFR (Non-Af Amer) > 60 Glucose 113 H Calcium 8.0 L Impressions: Lower Extremity CT 08/16/17 14:56 IMPRESSION: There are changes in the medial aspect of the head of the 1st metatarsal concerning for osteomyelitis. Guidance Fluoroscopy 08/17/17 00:00 IMPRESSION: SUCCESSFUL PLACEMENT OF A 5 FR DUAL LUMEN 44 CM PICC IN THE LEFT BASILIC VEIN. Interventional Vascular Procedure 08/17/17 00:00 IMPRESSION: SUCCESSFUL PLACEMENT OF A 5 FR DUAL LUMEN 44 CM PICC IN THE LEFT BASILIC VEIN. PICC Line Insertion 08/17/17 11:03 IMPRESSION: SUCCESSFUL PLACEMENT OF A 5 FR DUAL LUMEN 44 CM PICC IN THE LEFT BASILIC VEIN. Chest X-Ray 08/21/17 00:00 IMPRESSION: FAINT AIRSPACE DISEASE IN THE RIGHT UPPER LOBE SUSPICIOUS FOR DEVELOPING PNEUMONIA. POSSIBLE DEVELOPING PULMONARY NODULE IN THE MID RIGHT LUNG. MILD BASILAR ATELECTASIS VERSUS SCARRING AND DEVELOPMENT OF SMALL PLEURAL EFFUSIONS. Assessment & Plan - Diagnosis (1) Anemia Qualifiers: Anemia type: bone marrow failure Bone marrow failure anemia type: unspecified bone marrow failure Qualified Code(s): D61.9 - Aplastic anemia, unspecified Is this a current diagnosis for this admission?: Yes Plan: Improved after transfusion of 2 units packed red blood cells. Stable so far. Noted oncology recommendations for transfusion (2) Hypokalemia Is this a current diagnosis for this admission?: Yes Plan: Replaced (3) Hyponatremia Is this a current diagnosis for this admission?: Yes Plan: Improved (4) Malnutrition Qualifiers: Malnutrition type: protein-calorie malnutrition Is this a current diagnosis for this admission?: Yes Plan: Encourage protein intake (5) Osteomyelitis Qualifiers: Osteomyelitis type: acute hematogenous Osteomyelitis location: foot Laterality: left Qualified Code(s): M86.072 - Acute hematogenous osteomyelitis , left ankle and foot Is this a current diagnosis for this admission?: No Plan: Ruled out when debridement was performed. There were no actual findings of osteomyelitis in the bone (6) Sepsis Qualifiers: Sepsis type: sepsis due to unspecified organism Qualified Code(s): A41.9 - Sepsis, unspecified organism Is this a current diagnosis for this admission?: Yes Plan: Resolved (7) Thrombocytopenia Is this a current diagnosis for this admission?: Yes Plan: Improved after plateletpheresis. Stable. Noted oncology recommendation for plateletpheresis (8) Wound, open, foot Qualifiers: Encounter type: subsequent encounter Laterality: left Qualified Code(s): S91.302D - Unspecified open wound, left foot, subsequent encounter Is this a current diagnosis for this admission?: Yes Plan: Stable, wound care as per surgery. Patient on wound VAC. 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 Continue current regimen which is, scopolamine patch and antitussive. Will increase fentanyl patch dose again although still not in steady state (11) Diarrhea Qualifiers: Diarrhea type: unspecified type Qualified Code(s): R19.7 - Diarrhea, unspecified Is this a current diagnosis for this admission?: Yes Plan: Resolved (12) Pneumonia Qualifiers: Pneumonia type: due to unspecified organism Laterality: right Lung location: lower lobe of lung Qualified Code(s): J18.1 - Lobar pneumonia, unspecified organism Is this a current diagnosis for this admission?: Yes Plan: Confirmed by CT of the chest. Likely culprit of patient's presentation. ID redirected antibiotic to meropenem. To order follow-up chest x-ray (13) HTN (hypertension) Qualifiers: Hypertension type: essential hypertension Qualified Code(s): I10 - Essential (primary) hypertension Is this a current diagnosis for this admission?: Yes Plan: Continue lisinopril, norvasc. Echocardiogram result noted (14) Leukocytosis Qualifiers: Leukocytosis type: unspecified Qualified Code(s): D72.829 - Elevated white blood cell count, unspecified Is this a current diagnosis for this admission?: Yes Plan: To stop IV steroids this may be causing demargination. Trend - Time Time Spent with patient: 15-24 minutes Medications reviewed and adjusted accordingly: Yes Anticipated discharge: Home with Homehealth Within: within 48 hours - Inpatient Certification Based on my medical assessment, after consideration of the patient's comorbidities, presenting symptoms, or acuity I expect that the services needed warrant INPATIENT care.: Yes I certify that my determination is in accordance with my understanding of Medicare's requirements for reasonable and necessary INPATIENT services [42 CFR 412.3e].: Yes Medical Necessity: Need Close Monitoring Due to Risk of Patient Decompensation, Need for Pain Control, Need for IV Antibiotics
--- NOTE | 2017-08-27 18:29 | RADIOLOGY REPORT (SQ) ---
EXAM DESCRIPTION: CHEST SINGLE VIEW COMPLETED DATE/TIME: 08/27/2017 6:16 pm REASON FOR STUDY: persistant cough COMPARISON: Chest x-ray dated 08/21/2017 EXAM PARAMETERS: NUMBER OF VIEWS: One view. TECHNIQUE: Single frontal radiographic view of the chest acquired. RADIATION DOSE: NA LIMITATIONS: Patient has made a shallow inspiration. FINDINGS: LUNGS AND PLEURA: The previously described faint airspace disease in the right upper lobe has resolved. Visualized lung espinosa are currently clear. No pleural effusions are identified. MEDIASTINUM AND HILAR STRUCTURES: No masses. Contour normal. HEART AND VASCULAR STRUCTURES: The configuration of the heart mediastinal structures is unchanged BONES: No acute findings. HARDWARE: None in the chest. OTHER: No other significant finding. IMPRESSION: Interval improvement as noted above. Visualized lung espinosa are currently clear TECHNICAL DOCUMENTATION: JOB ID: [id number] [employer]- All Rights Reserved Reading location - IP/workstation name: [email or web address]
[2017-08-27] MEDS: MONTELUKAST SODIUM 10 MG TABLET PO SCH (21:45)
[2017-08-27] MEDS: BENZONATATE 100 MG CAPSULE PO PRN (21:46)
--- NOTE | 2017-08-27 21:50 | PDOC PROGRESS REPORT ---
Subjective Progress Note for:: 08/27/17 Reason For Visit: CML, LEFT FOOT WOUND Patient awake alert communicative. He is oriented times 4. Physical Exam Vital Signs: Temp Pulse Resp BP Pulse Ox 98.4 F 73 17 142/53 H 89 L 08/27/17 20:18 08/27/17 20:18 08/27/17 20:18 08/27/17 20:18 08/27/17 20:18 Intake & Output 08/26/17 08/27/17 08/28/17 06:59 06:59 06:59 Intake Total 1400 1036 674 Output Total 740 1025 Balance 660 11 674 Weight 88 kg 91.2 kg General appearance: PRESENT: no acute distress Extremities exam: PRESENT: other - Left foot dressing removed including VAC and packing. The 2 wounds are examined. Left first webspace wound is very small 1/ 2 cm diameter and 1/2 cm deep, granulating, slightly desiccated The metatarsophalangeal medial aspect left foot wound is also clean and granulating Results Laboratory Results: 08/27/17 04:50 08/27/17 04:50 08/27/17 08/27/17 04:50 04:50 WBC 19.0 H D RBC 3.30 L Hgb 9.7 L Hct 30.2 L MCV 91 MCH 29.2 MCHC 32.0 RDW 18.1 H Plt Count 31 L Seg Neutrophils % Not Reportable Lymphocytes % Not Reportable Monocytes % Not Reportable Eosinophils % Not Reportable Basophils % Not Reportable Absolute Neutrophils Not Reportable Absolute Lymphocytes Not Reportable Absolute Monocytes Not Reportable Absolute Eosinophils Not Reportable Absolute Basophils Not Reportable Sodium 138.3 Potassium 4.1 Chloride 102 Carbon Dioxide 28 Anion Gap 8 BUN 29 H Creatinine 0.70 Est GFR ( Amer) > 60 Est GFR (Non-Af Amer) > 60 Glucose 113 H Calcium 8.0 L Impressions: Lower Extremity CT 08/16/17 14:56 IMPRESSION: There are changes in the medial aspect of the head of the 1st metatarsal concerning for osteomyelitis. Guidance Fluoroscopy 08/17/17 00:00 IMPRESSION: SUCCESSFUL PLACEMENT OF A 5 FR DUAL LUMEN 44 CM PICC IN THE LEFT BASILIC VEIN. Interventional Vascular Procedure 08/17/17 00:00 IMPRESSION: SUCCESSFUL PLACEMENT OF A 5 FR DUAL LUMEN 44 CM PICC IN THE LEFT BASILIC VEIN. PICC Line Insertion 08/17/17 11:03 IMPRESSION: SUCCESSFUL PLACEMENT OF A 5 FR DUAL LUMEN 44 CM PICC IN THE LEFT BASILIC VEIN. Chest X-Ray 08/27/17 00:00 IMPRESSION: Interval improvement as noted above. Visualized lung espinosa are currently clear Assessment & Plan - Diagnosis (1) Wound, open, foot Qualifiers: Encounter type: subsequent encounter Laterality: left Qualified Code(s): S91.302D - Unspecified open wound, left foot, subsequent encounter Is this a current diagnosis for this admission?: Yes Plan: he is 10 days status post a debridement left foot wound, undergoing local wound care, intravenous antibiotics for polymicrobial infection. Sepsis is controlled , and there is no evidence for need for further debridement. Recommendations: 1. Can continue local wound care. I would suggest discontinuing the VAC after 5-7 more days. Local wound care and shift to Xeroform packing in the wounds and cover with 4 x 4 2. I would be reluctant to recommend term intravenous antibiotics. I believe the septic source is under control, and can be managed with local care only. Patient can follow up with [facility] upon discharge from hospital. 3. Consult surgery for further concerns
[2017-08-27] MEDS: HYDROCODONE BIT/HOMATROPINE 5-1.5 MG TABLET PO PRN (21:51)
[2017-08-28] MEDS: MEROPENEM 1 GM in NORMAL SALINE 50 ML IV SCH ×2 (02:22→10:23)
[2017-08-28 04:44] LABS: HEMATOCRIT 29.2 % (37.9-51.0); HEMOGLOBIN 9.5 g/dL (13.5-17.0); MEAN CORPUSCULAR HEMOGLOBIN 29.6 pg (27.0-33.4); MEAN CORPUSCULAR HGB CONC 32.6 g/dL (32.0-36.0); MEAN CORPUSCULAR VOLUME 91 fl (80-97); RED BLOOD COUNT 3.22 10^6/uL (4.35-5.55); RED CELL DISTRIBUTION WIDTH 17.9 % (11.5-14.0); WHITE BLOOD COUNT 28.6 10^3/uL (4.0-10.5)
[2017-08-28] MEDS ORDERED: ACETAMINOPHEN 325 MG TABLET PO PRN (05:00)
[2017-08-28] MEDS ORDERED: DIPHENHYDRAMINE HCL 25 MG CAPSULE PO PRN (05:00)
[2017-08-28] MEDS ORDERED: FUROSEMIDE INJ/PF 20 MG/2 ML SDV IV PRN (05:00)
[2017-08-28] MEDS: GABAPENTIN 400 MG CAPSULE PO SCH ×3 (05:06→22:33)
[2017-08-28] MEDS: BENZONATATE 100 MG CAPSULE PO PRN ×2 (05:06→17:28)
[2017-08-28 05:11] LABS: ALANINE AMINOTRANSFERASE 43 U/L (21-72); ALBUMIN 2.7 g/dL (3.5-5.0); ALKALINE PHOSPHATASE 136 U/L (38-126); ANION GAP 8 (5-19); ASPARTATE AMINO TRANSFERASE 57 U/L (17-59); BILIRUBIN,DIRECT 0.3 mg/dL (0.0-0.4); BILIRUBIN,TOTAL 0.7 mg/dL (0.2-1.3); BLOOD UREA NITROGEN 31 mg/dL (7-20); CARBON DIOXIDE 28 mmol/L (22-30); CHLORIDE 102 mmol/L (98-107); GLUCOSE 92 mg/dL (75-110); POTASSIUM 3.9 mmol/L (3.6-5.0); SODIUM 137.7 mmol/L (137-145); TOTAL PROTEIN 4.8 g/dL (6.3-8.2)
[2017-08-28 05:24] LABS: ABSOLUTE LYMPHOCYTES# (MANUAL) 8.9 10^3/uL (0.5-4.7); ABSOLUTE MONOCYTES # (MANUAL) 2.3 10^3/uL (0.1-1.4); BAND NEUTROPHILS % (MANUAL) 1 % (3-5); BASOPHILS % (MANUAL) 0 % (0-2); EOSINOPHILS % (MANUAL) 1 % (0-6); IMMATURE MONONUCLEAR% (MANUAL) 4 % (0); LYMPHOCYTES % (MANUAL) 31 % (13-45); MONOCYTES % (MANUAL) 8 % (3-13); NUCLEATED RED BLOOD CELLS 6 /100 WBC (0); SEGMENTED NEUTROPHILS % (MAN) 55 % (42-78); TOTAL CELLS COUNTED 100
[2017-08-28 05:31] LABS: ANISOCYTOSIS 1+; OVALOCYTES 1+; PLATELET COMMENT DECREASED; POIKILOCYTOSIS SLIGHT; POLYCHROMASIA SLIGHT
[2017-08-28 05:38] LABS: PLATELET COUNT 16 10^3/uL (150-450)
[2017-08-28] MEDS: IPRATROPIUM/ALBUTEROL 0.5-2.5 MG/3 ML AMPUL NEB SCH ×3 (07:42→19:48)
--- NOTE | 2017-08-28 08:25 | PDOC PROGRESS REPORT ---
Subjective Progress Note for:: 08/28/17 Subjective:: Cough still present, PT working w/ pt this am, plt ct down to 16, plan 1 unit plt today Reason For Visit: CML, LEFT FOOT WOUND Physical Exam Vital Signs: Temp Pulse Resp BP Pulse Ox 98.0 F 69 18 116/51 L 94 08/28/17 04:00 08/28/17 07:44 08/28/17 07:44 08/28/17 04:00 08/28/17 07:44 Intake & Output 08/27/17 08/28/17 08/29/17 06:59 06:59 06:59 Intake Total 1036 1074 Output Total 1025 325 Balance 11 749 Weight 91.2 kg 92.6 kg Results Laboratory Results: 08/28/17 04:30 08/28/17 04:30 08/28/17 08/28/17 04:30 04:30 WBC 28.6 H RBC 3.22 L Hgb 9.5 L Hct 29.2 L MCV 91 MCH 29.6 MCHC 32.6 RDW 17.9 H Plt Count 16 L* Seg Neutrophils % Not Reportable Lymphocytes % Not Reportable Monocytes % Not Reportable Eosinophils % Not Reportable Basophils % Not Reportable Absolute Neutrophils Not Reportable Absolute Lymphocytes Not Reportable Absolute Monocytes Not Reportable Absolute Eosinophils Not Reportable Absolute Basophils Not Reportable Sodium 137.7 Potassium 3.9 Chloride 102 Carbon Dioxide 28 Anion Gap 8 BUN 31 H Creatinine 0.85 Est GFR ( Amer) > 60 Est GFR (Non-Af Amer) > 60 Glucose 92 Calcium 8.0 L Magnesium 2.0 Total Bilirubin 0.7 AST 57 ALT 43 Alkaline Phosphatase 136 H Total Protein 4.8 L Albumin 2.7 L Impressions: Lower Extremity CT 08/16/17 14:56 IMPRESSION: There are changes in the medial aspect of the head of the 1st metatarsal concerning for osteomyelitis. Guidance Fluoroscopy 08/17/17 00:00 IMPRESSION: SUCCESSFUL PLACEMENT OF A 5 FR DUAL LUMEN 44 CM PICC IN THE LEFT BASILIC VEIN. Interventional Vascular Procedure 08/17/17 00:00 IMPRESSION: SUCCESSFUL PLACEMENT OF A 5 FR DUAL LUMEN 44 CM PICC IN THE LEFT BASILIC VEIN. PICC Line Insertion 08/17/17 11:03 IMPRESSION: SUCCESSFUL PLACEMENT OF A 5 FR DUAL LUMEN 44 CM PICC IN THE LEFT BASILIC VEIN. Chest X-Ray 08/27/17 00:00 IMPRESSION: Interval improvement as noted above. 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 Qualified Code(s): C92.00 - Acute myeloblastic leukemia, not having achieved remission Is this a current diagnosis for this admission?: Yes Plan: Transfusion today, progressing (2) Pancytopenia Is this a current diagnosis for this admission?: Yes Plan: Cont as above w/ tx of plt (3) Wound, open, foot Qualifiers: Encounter type: subsequent encounter Laterality: left Qualified Code(s): S91.302D - Unspecified open wound, left foot, subsequent encounter Is this a current diagnosis for this admission?: Yes Plan: Cont wound vac, having home health set up (4) Cough Is this a current diagnosis for this admission?: Yes Plan: Stable, does not seem to be worsening but probably will remain for a while, probably related to atelectasis as well - Time Disposition: hopeful d/c soon, working on wound care for home, wound vac measurements now in , plan plt tx today and then could d/c home from our standpoint w/in next 24 hours
[2017-08-28] MEDS ORDERED: FENTANYL 25 MCG/HR PATCH.TD72 TD SCH (10:00)
[2017-08-28] MEDS: DOCUSATE SODIUM 100 MG CAPSULE PO SCH (10:20)
[2017-08-28] MEDS: ALLOPURINOL 300 MG TABLET PO SCH (10:20)
[2017-08-28] MEDS: AMLODIPINE BESYLATE 10 MG TABLET PO SCH (10:20)
[2017-08-28] MEDS: GUAIFENESIN 600 MG TABLET.SA PO SCH ×2 (10:21→22:34)
[2017-08-28] MEDS: TAMSULOSIN HCL 0.4 MG CAP.SR.24H PO SCH (10:21)
[2017-08-28] MEDS: SULFAMETHOXAZOLE/TRIMETHOPRIM 800-160 MG TABLET PO SCH ×2 (10:21→22:33)
[2017-08-28] MEDS: METOPROLOL TARTRATE 50 MG TABLET PO SCH ×2 (10:21→22:33)
[2017-08-28] MEDS: LISINOPRIL 10 MG TABLET PO SCH (10:21)
[2017-08-28] MEDS: SERTRALINE HCL 50 MG TABLET PO SCH (10:21)
[2017-08-28] MEDS: FINASTERIDE 5 MG TABLET PO SCH (10:21)
[2017-08-28] MEDS: FLUTICASONE NASAL SPRAY 50 MCG/SPRY 120 SPRAY/16 GM NASL SCH ×2 (10:22→22:34)
--- NOTE | 2017-08-28 13:11 | PDOC PROGRESS REPORT ---
Subjective Progress Note for:: 08/28/17 Subjective:: Patient refers that does not feel good. Cough does not want to go away. Admits having poor appetite. Patient approached regarding hospice and he would like to talk to his daughters. He is ready to see his . Contacted Dr Hancock regarding hospice and he advised to talk to the daughters. Discussed to order a CT scan of chest before talking to the daughters. Review of systems All organ systems evaluated and negative except as in subjective All significant laboratories and diagnostics have been reviewed Reason For Visit: CML, LEFT FOOT WOUND Physical Exam Vital Signs: Temp Pulse Resp BP Pulse Ox 98.0 F 67 14 116/51 L 90 L 08/28/17 04:00 08/28/17 07:00 08/28/17 04:00 08/28/17 04:00 08/28/17 04:00 Intake & Output 08/27/17 08/28/17 08/29/17 06:59 06:59 06:59 Intake Total 1036 1074 Output Total 1025 325 Balance 11 749 Weight 91.2 kg 92.6 kg General appearance: PRESENT: cooperative, mild distress, obese Head exam: PRESENT: atraumatic, normocephalic Eye exam: PRESENT: conjunctiva pale, EOMI, PERRLA Ear exam: PRESENT: normal external ear exam Neck exam: PRESENT: full ROM. ABSENT: JVD, lymphadenopathy, tenderness Respiratory exam: PRESENT: crackles, decreased breath sounds Cardiovascular exam: PRESENT: irregular rhythm. ABSENT: diastolic murmur, systolic murmur GI/Abdominal exam: PRESENT: normal bowel sounds, soft. ABSENT: tenderness Extremities exam: PRESENT: full ROM Musculoskeletal exam: ABSENT: ambulatory Neurological exam: PRESENT: alert, awake, oriented to person, oriented to place , oriented to time, oriented to situation Psychiatric exam: PRESENT: depressed Results Laboratory Results: 08/28/17 04:30 08/28/17 04:30 08/28/17 08/28/17 04:30 04:30 WBC 28.6 H RBC 3.22 L Hgb 9.5 L Hct 29.2 L MCV 91 MCH 29.6 MCHC 32.6 RDW 17.9 H Plt Count 16 L* Seg Neutrophils % Not Reportable Lymphocytes % Not Reportable Monocytes % Not Reportable Eosinophils % Not Reportable Basophils % Not Reportable Absolute Neutrophils Not Reportable Absolute Lymphocytes Not Reportable Absolute Monocytes Not Reportable Absolute Eosinophils Not Reportable Absolute Basophils Not Reportable Sodium 137.7 Potassium 3.9 Chloride 102 Carbon Dioxide 28 Anion Gap 8 BUN 31 H Creatinine 0.85 Est GFR ( Amer) > 60 Est GFR (Non-Af Amer) > 60 Glucose 92 Calcium 8.0 L Magnesium 2.0 Total Bilirubin 0.7 AST 57 ALT 43 Alkaline Phosphatase 136 H Total Protein 4.8 L Albumin 2.7 L Impressions: Lower Extremity CT 08/16/17 14:56 IMPRESSION: There are changes in the medial aspect of the head of the 1st metatarsal concerning for osteomyelitis. Guidance Fluoroscopy 08/17/17 00:00 IMPRESSION: SUCCESSFUL PLACEMENT OF A 5 FR DUAL LUMEN 44 CM PICC IN THE LEFT BASILIC VEIN. Interventional Vascular Procedure 08/17/17 00:00 IMPRESSION: SUCCESSFUL PLACEMENT OF A 5 FR DUAL LUMEN 44 CM PICC IN THE LEFT BASILIC VEIN. PICC Line Insertion 08/17/17 11:03 IMPRESSION: SUCCESSFUL PLACEMENT OF A 5 FR DUAL LUMEN 44 CM PICC IN THE LEFT BASILIC VEIN. Chest X-Ray 08/27/17 00:00 IMPRESSION: Interval improvement as noted above. Visualized lung espinosa are currently clear Assessment & Plan - Diagnosis (1) Anemia Qualifiers: Anemia type: bone marrow failure Bone marrow failure anemia type: unspecified bone marrow failure Qualified Code(s): D61.9 - Aplastic anemia, unspecified Is this a current diagnosis for this admission?: Yes Plan: Improved after transfusion of 2 units packed red blood cells. Stable so far. Noted oncology recommendations for transfusion (2) Hypokalemia Is this a current diagnosis for this admission?: Yes Plan: Replaced (3) Hyponatremia Is this a current diagnosis for this admission?: Yes Plan: Improved (4) Malnutrition Qualifiers: Malnutrition type: protein-calorie malnutrition Is this a current diagnosis for this admission?: Yes Plan: Encourage protein intake (5) Osteomyelitis Qualifiers: Osteomyelitis type: acute hematogenous Osteomyelitis location: foot Laterality: left Qualified Code(s): M86.072 - Acute hematogenous osteomyelitis , left ankle and foot Is this a current diagnosis for this admission?: No Plan: Ruled out when debridement was performed. There were no actual findings of osteomyelitis in the bone (6) Sepsis Qualifiers: Sepsis type: sepsis due to unspecified organism Qualified Code(s): A41.9 - Sepsis, unspecified organism Is this a current diagnosis for this admission?: Yes Plan: Resolved (7) Thrombocytopenia Is this a current diagnosis for this admission?: Yes Plan: To be transfused as per oncology (8) Wound, open, foot Qualifiers: Encounter type: subsequent encounter Laterality: left Qualified Code(s): S91.302D - Unspecified open wound, left foot, subsequent encounter Is this a current diagnosis for this admission?: Yes Plan: Stable, wound care as per surgery. Patient on wound VAC. Continue Bactrim DS (9) AML (acute myeloid leukemia) Qualifiers: Leukemia Active/Remission status: without remission Qualified Code(s): C92.00 - Acute myeloblastic leukemia, not having achieved remission Is this a current diagnosis for this admission?: Yes Plan: Advancing as per oncology. (10) Cough Is this a current diagnosis for this admission?: Yes Plan: Improve. Continue current regimen which is, scopolamine patch, antitussive and fentanyl patch. Order CT of chest. (11) Diarrhea Qualifiers: Diarrhea type: unspecified type Qualified Code(s): R19.7 - Diarrhea, unspecified Is this a current diagnosis for this admission?: Yes Plan: Resolved (12) Pneumonia Qualifiers: Pneumonia type: due to unspecified organism Laterality: right Lung location: lower lobe of lung Qualified Code(s): J18.1 - Lobar pneumonia, unspecified organism Is this a current diagnosis for this admission?: Yes Plan: Confirmed by CT of the chest. Likely culprit of patient's presentation. To order CT of chest. Stop meropenem. CXR obtained on 08/27 showed improvement of infiltrate (13) HTN (hypertension) Qualifiers: Hypertension type: essential hypertension Qualified Code(s): I10 - Essential (primary) hypertension Is this a current diagnosis for this admission?: Yes Plan: Continue lisinopril, norvasc. Echocardiogram result noted (14) Leukocytosis Qualifiers: Leukocytosis type: unspecified Qualified Code(s): D72.829 - Elevated white blood cell count, unspecified Is this a current diagnosis for this admission?: Yes Plan: Off steroids. Worsening - Time Time Spent with patient: 25-34 minutes Medications reviewed and adjusted accordingly: Yes Anticipated discharge: Hospice Within: within 48 hours - Inpatient Certification Based on my medical assessment, after consideration of the patient's comorbidities, presenting symptoms, or acuity I expect that the services needed warrant INPATIENT care.: Yes I certify that my determination is in accordance with my understanding of Medicare's requirements for reasonable and necessary INPATIENT services [42 CFR 412.3e].: Yes Medical Necessity: Need Close Monitoring Due to Risk of Patient Decompensation
--- NOTE | 2017-08-28 13:13 | Progress Note ---
Provider Note Provider Note: Nurse notified that patient got progressively short of brath after given platelets. Lasix order was given. SInce unstable and on 100%NR ordered a stat cxr. Tried to contact next of kin and left message requesting to call me back.
--- NOTE | 2017-08-28 14:03 | RADIOLOGY REPORT (SQ) ---
EXAM DESCRIPTION: CHEST SINGLE VIEW COMPLETED DATE/TIME: 08/28/2017 1:41 pm REASON FOR STUDY: cough, increased O2 demand COMPARISON: 08/27/2017. EXAM PARAMETERS: NUMBER OF VIEWS: One view. TECHNIQUE: Single frontal radiographic view of the chest acquired. RADIATION DOSE: NA LIMITATIONS: None. FINDINGS: LUNGS AND PLEURA: Recurrent left lower lobe infiltrate. MEDIASTINUM AND HILAR STRUCTURES: No masses. Contour normal. HEART AND VASCULAR STRUCTURES: Heart normal in size. Normal vasculature. BONES: No acute findings. HARDWARE: None in the chest. OTHER: No other significant finding. IMPRESSION: Recurrent left lower lobe atelectasis or infiltrate since 08/27/2017. TECHNICAL DOCUMENTATION: JOB ID: [id number] [employer]- All Rights Reserved Reading location - IP/workstation name: [email or web address]
[2017-08-28] MEDS: MONTELUKAST SODIUM 10 MG TABLET PO SCH (22:29)
--- NOTE | 2017-08-29 00:39 | RADIOLOGY REPORT (SQ) ---
EXAM DESCRIPTION: CT CHEST WITHOUT CONTRAST CLINICAL HISTORY: dyspnea/chest congestion/?worsening of PNA COMPARISON: 08/21/2017 TECHNIQUE: Axial CT images of the chest without IV contrast from the thoracic inlet through the diaphragm. Coronal and sagittal reformatted images available. DLP: 408.26 mGy-cm FINDINGS: Chest: Thyroid:No abnormalities of the visualized thyroid. Great Vessels:Great vessels have normal anatomic configuration. Thoracic Aorta: Atherosclerotic calcification of the thoracic aorta. Heart: No cardiomegaly or significant pericardial effusion. Coronary artery atherosclerosis. Lymph Nodes:No enlarged mediastinal lymph nodes identified. Esophagus:No abnormalities of the esophagus identified. Other: Left-sided PICC with tip in the SVC. Left-sided gynecomastia. Lungs: Scattered bilateral airspace opacities predominantly in a dependent location. There is been progression of airspace opacities predominantly on the left from the previous CT. Incidental note of a azygos lobe. Calcifications in the right lung base may represent granulomas. Pleura: Small pleural effusions bilaterally. No pneumothorax. Trachea/Airways: No definite abnormality of the trachea. Mild bilateral bronchial wall thickening. Bones: Degenerative spondylosis of the thoracic spine. Upper Abdomen:Limited images of the upper abdomen demonstrate no definite abnormalities of visualized portions of the liver, gallbladder, or spleen. IMPRESSION: 1. Bilateral scattered airspace opacities predominantly in a dependent location. This is progressed from the comparison study. This is concerning for bilateral pneumonia with aspiration as a consideration. Continued radiographic follow-up recommended. 2. Small bilateral pleural effusions. 3. Coronary artery atherosclerosis. This exam was performed according to our departmental dose-optimization program, which includes automated exposure control, adjustment of the mA and/or kV according to patient size and/or use of iterative reconstruction technique.
[2017-08-29] MEDS: GABAPENTIN 400 MG CAPSULE PO SCH ×3 (05:07→22:27)
[2017-08-29 05:44] LABS: HEMATOCRIT 28.1 % (37.9-51.0); HEMOGLOBIN 9.1 g/dL (13.5-17.0); MEAN CORPUSCULAR HEMOGLOBIN 29.3 pg (27.0-33.4); MEAN CORPUSCULAR HGB CONC 32.2 g/dL (32.0-36.0); MEAN CORPUSCULAR VOLUME 91 fl (80-97); RED BLOOD COUNT 3.09 10^6/uL (4.35-5.55); RED CELL DISTRIBUTION WIDTH 18.4 % (11.5-14.0); WHITE BLOOD COUNT 22.5 10^3/uL (4.0-10.5)
[2017-08-29 06:04] LABS: ALANINE AMINOTRANSFERASE 57 U/L (21-72); ALBUMIN 2.7 g/dL (3.5-5.0); ALKALINE PHOSPHATASE 74 U/L (38-126); ANION GAP 5 (5-19); ASPARTATE AMINO TRANSFERASE 63 U/L (17-59); BILIRUBIN,DIRECT 0.6 mg/dL (0.0-0.4); BILIRUBIN,TOTAL 0.9 mg/dL (0.2-1.3); BLOOD UREA NITROGEN 26 mg/dL (7-20); CARBON DIOXIDE 28 mmol/L (22-30); CHLORIDE 104 mmol/L (98-107); GLUCOSE 74 mg/dL (75-110); POTASSIUM 3.5 mmol/L (3.6-5.0); SODIUM 137.4 mmol/L (137-145); TOTAL PROTEIN 5.1 g/dL (6.3-8.2)
[2017-08-29] MEDS ORDERED: PIPERACILLIN SODIUM/TAZOBACTAM 4.5 GM in NORMAL SALINE 100 ML IV ONE (07:00)
[2017-08-29 07:16] LABS: PLATELET COUNT 35 10^3/uL (150-450)
[2017-08-29 07:24] LABS: ABSOLUTE LYMPHOCYTES# (MANUAL) 2.5 10^3/uL (0.5-4.7); ABSOLUTE MONOCYTES # (MANUAL) 3.4 10^3/uL (0.1-1.4); BAND NEUTROPHILS % (MANUAL) 7 % (3-5); BASOPHILS % (MANUAL) 0 % (0-2); EOSINOPHILS % (MANUAL) 0 % (0-6); IMMATURE MONONUCLEAR% (MANUAL) 12 % (0); LYMPHOCYTES % (MANUAL) 7 % (13-45); METAMYELOCYTES % (MANUAL) 2 % (0); MONOCYTES % (MANUAL) 15 % (3-13); MYELOCYTES % (MANUAL) 1 % (0); NUCLEATED RED BLOOD CELLS 3 /100 WBC (0); SEGMENTED NEUTROPHILS % (MAN) 52 % (42-78); TOTAL CELLS COUNTED 100
[2017-08-29 07:25] LABS: ANISOCYTOSIS 2+; HYPOCHROMASIA 1+; OVALOCYTES 2+; PLATELET COMMENT DECREASED; POIKILOCYTOSIS 2+; POLYCHROMASIA 2+
[2017-08-29 07:26] LABS: SCHISTOCYTES SLIGHT
[2017-08-29] MEDS: IPRATROPIUM/ALBUTEROL 0.5-2.5 MG/3 ML AMPUL NEB SCH ×3 (07:41→20:00)
--- NOTE | 2017-08-29 08:42 | PDOC PROGRESS REPORT ---
Subjective Progress Note for:: 08/29/17 Subjective:: Pt much worse this am, requiring ventimask at 6-7L o2, feeling much worse, cough worse Reason For Visit: CML, LEFT FOOT WOUND Physical Exam Vital Signs: Temp Pulse Resp BP Pulse Ox 98.7 F 65 18 109/56 L 86 L 08/29/17 07:26 08/29/17 07:46 08/29/17 07:46 08/29/17 07:26 08/29/17 07:46 Intake & Output 08/28/17 08/29/17 08/30/17 06:59 06:59 06:59 Intake Total 1074 785 Output Total 325 550 Balance 749 235 Weight 92.6 kg 90.2 kg General appearance: PRESENT: no acute distress, well-developed, well-nourished Head exam: PRESENT: atraumatic, normocephalic Eye exam: PRESENT: conjunctiva pink, EOMI, PERRLA. ABSENT: scleral icterus Ear exam: PRESENT: normal external ear exam Mouth exam: PRESENT: moist, tongue midline Neck exam: ABSENT: carotid bruit, JVD, lymphadenopathy, thyromegaly Respiratory exam: PRESENT: clear to auscultation jane. ABSENT: rales, rhonchi, wheezes Cardiovascular exam: PRESENT: RRR. ABSENT: diastolic murmur, rubs, systolic murmur Pulses: PRESENT: normal dorsalis pedis pul Vascular exam: PRESENT: normal capillary refill GI/Abdominal exam: PRESENT: normal bowel sounds, soft. ABSENT: distended, guarding, mass, organolmegaly, rebound, tenderness Rectal exam: PRESENT: deferred Extremities exam: PRESENT: full ROM. ABSENT: calf tenderness, clubbing, pedal edema Neurological exam: PRESENT: alert, awake, oriented to person, oriented to place , oriented to time, oriented to situation, CN II-XII grossly intact. ABSENT: motor sensory deficit Psychiatric exam: PRESENT: appropriate affect, normal mood. ABSENT: homicidal ideation, suicidal ideation Skin exam: PRESENT: dry, intact, warm. ABSENT: cyanosis, rash Results Laboratory Results: 08/29/17 04:49 08/29/17 04:49 08/28/17 08/29/17 08/29/17 09:13 04:49 04:49 WBC 22.5 H RBC 3.09 L Hgb 9.1 L Hct 28.1 L MCV 91 MCH 29.3 MCHC 32.2 RDW 18.4 H Plt Count 35 L D Seg Neutrophils % Not Reportable Lymphocytes % Not Reportable Monocytes % Not Reportable Eosinophils % Not Reportable Basophils % Not Reportable Absolute Neutrophils Not Reportable Absolute Lymphocytes Not Reportable Absolute Monocytes Not Reportable Absolute Eosinophils Not Reportable Absolute Basophils Not Reportable Sodium 137.4 Potassium 3.5 L Chloride 104 Carbon Dioxide 28 Anion Gap 5 BUN 26 H Creatinine 0.91 Est GFR ( Amer) > 60 Est GFR (Non-Af Amer) > 60 Glucose 74 L Calcium 8.0 L Magnesium 2.1 Total Bilirubin 0.9 AST 63 H ALT 57 Alkaline Phosphatase 74 Total Protein 5.1 L Albumin 2.7 L Blood Type B NEGATIVE Impressions: Lower Extremity CT 08/16/17 14:56 IMPRESSION: There are changes in the medial aspect of the head of the 1st metatarsal concerning for osteomyelitis. Guidance Fluoroscopy 08/17/17 00:00 IMPRESSION: SUCCESSFUL PLACEMENT OF A 5 FR DUAL LUMEN 44 CM PICC IN THE LEFT BASILIC VEIN. Interventional Vascular Procedure 08/17/17 00:00 IMPRESSION: SUCCESSFUL PLACEMENT OF A 5 FR DUAL LUMEN 44 CM PICC IN THE LEFT BASILIC VEIN. PICC Line Insertion 08/17/17 11:03 IMPRESSION: SUCCESSFUL PLACEMENT OF A 5 FR DUAL LUMEN 44 CM PICC IN THE LEFT BASILIC VEIN. Chest CT 08/28/17 00:00 IMPRESSION: 1. Bilateral scattered airspace opacities predominantly in a dependent location. This is progressed from the comparison study. This is concerning for bilateral pneumonia with aspiration as a consideration. Continued radiographic follow-up recommended. 2. Small bilateral pleural effusions. 3. Coronary artery atherosclerosis. This exam was performed according to our departmental dose-optimization program, which includes automated exposure control, adjustment of the mA and/or kV according to patient size and/or use of iterative reconstruction technique. Chest X-Ray 08/28/17 00:00 IMPRESSION: Recurrent left lower lobe atelectasis or infiltrate since 2017. Assessment & Plan - Diagnosis (1) AML (acute myeloid leukemia) Qualifiers: Leukemia Active/Remission status: without remission Qualified Code(s): C92.00 - Acute myeloblastic leukemia, not having achieved remission Is this a current diagnosis for this admission?: Yes Plan: This may be driving worsening, blast count rising, had long discussion w/ pt today >35 min, and family, discussed hospice, and I believe everybody will ultimately agree to it, will probably have family meeting today awaiting call backs on this (2) Pancytopenia Is this a current diagnosis for this admission?: Yes Plan: Would not transfuse further at this point, it does appear the volume assoc w/ plt tx, may have worsened lung status acutely (3) Wound, open, foot Qualifiers: Encounter type: subsequent encounter Laterality: left Qualified Code(s): S91.302D - Unspecified open wound, left foot, subsequent encounter Is this a current diagnosis for this admission?: Yes Plan: if pt goes to home hospice, would consider d/c of wound vac, will not really improve his comfort (4) Cough Is this a current diagnosis for this admission?: Yes Plan: as above - Time Time Spent with patient: 35 or more minutes
[2017-08-29] MEDS ORDERED: PIPERACILLIN SODIUM/TAZOBACTAM 4.5 GM in NORMAL SALINE 100 ML IV SCH ×2 (09:00→12:00)
[2017-08-29] MEDS: SULFAMETHOXAZOLE/TRIMETHOPRIM 800-160 MG TABLET PO SCH (09:18)
[2017-08-29] MEDS: GUAIFENESIN 600 MG TABLET.SA PO SCH ×2 (09:18→22:26)
[2017-08-29] MEDS: SERTRALINE HCL 50 MG TABLET PO SCH (09:19)
[2017-08-29] MEDS: TAMSULOSIN HCL 0.4 MG CAP.SR.24H PO SCH (09:19)
[2017-08-29] MEDS: FINASTERIDE 5 MG TABLET PO SCH (09:19)
[2017-08-29] MEDS: DOCUSATE SODIUM 100 MG CAPSULE PO SCH (09:19)
[2017-08-29] MEDS: ALLOPURINOL 300 MG TABLET PO SCH (09:19)
[2017-08-29] MEDS: FLUTICASONE NASAL SPRAY 50 MCG/SPRY 120 SPRAY/16 GM NASL SCH (09:20)
[2017-08-29] MEDS: METOPROLOL TARTRATE 50 MG TABLET PO SCH ×2 (09:20→22:26)
[2017-08-29] MEDS: LISINOPRIL 10 MG TABLET PO SCH (09:20)
[2017-08-29] MEDS: AMLODIPINE BESYLATE 10 MG TABLET PO SCH (09:20)
[2017-08-29] MEDS ORDERED: POTASSIUM CHLORIDE 20 MEQ/15 ML UDCUP PO ONE (10:42)
--- NOTE | 2017-08-29 10:42 | PDOC PROGRESS REPORT ---
Subjective Progress Note for:: 08/29/17 Subjective:: Patient complains of having cough and not feeling well on the overall. Patient had been needing consistently oxygen supplementation. Had a talk with Dr. Schneider about patient CODE STATUS since it was addressed with him and patient does not want to be intubated. Advised Dr. Hancock to talk to the family due to his long-standing relationship with them since patient may benefit from hospice. Review of systems All organ systems evaluated and negative except as in subjective All significant laboratories and diagnostics have been reviewed Reason For Visit: CML, LEFT FOOT WOUND Physical Exam Vital Signs: Temp Pulse Resp BP Pulse Ox 97.8 F 60 16 104/49 L 91 L 08/29/17 03:53 08/29/17 03:53 08/29/17 03:53 08/29/17 03:53 08/29/17 03:53 Intake & Output 08/27/17 08/28/17 08/29/17 06:59 06:59 06:59 Intake Total 1036 1074 785 Output Total 1025 325 200 Balance 11 749 585 Weight 91.2 kg 92.6 kg General appearance: PRESENT: cooperative, obese Head exam: PRESENT: atraumatic, normocephalic Eye exam: PRESENT: conjunctiva pink, EOMI, PERRLA Ear exam: PRESENT: normal external ear exam Mouth exam: PRESENT: moist Neck exam: PRESENT: full ROM. ABSENT: JVD, lymphadenopathy, tenderness Respiratory exam: PRESENT: decreased breath sounds, rhonchi Cardiovascular exam: PRESENT: RRR. ABSENT: diastolic murmur, systolic murmur Vascular exam: PRESENT: normal capillary refill GI/Abdominal exam: PRESENT: normal bowel sounds, soft. ABSENT: tenderness Extremities exam: PRESENT: full ROM. ABSENT: pedal edema Musculoskeletal exam: ABSENT: ambulatory Neurological exam: PRESENT: alert, awake, oriented to person, oriented to place Skin exam: PRESENT: pallor Results Laboratory Results: 08/29/17 04:49 08/28/17 08/29/17 09:13 04:49 Sodium 137.4 Potassium 3.5 L Chloride 104 Carbon Dioxide 28 Anion Gap 5 BUN 26 H Creatinine 0.91 Est GFR ( Amer) > 60 Est GFR (Non-Af Amer) > 60 Glucose 74 L Calcium 8.0 L Magnesium 2.1 Total Bilirubin 0.9 AST 63 H ALT 57 Alkaline Phosphatase 74 Total Protein 5.1 L Albumin 2.7 L Blood Type B NEGATIVE Impressions: Lower Extremity CT 08/16/17 14:56 IMPRESSION: There are changes in the medial aspect of the head of the 1st metatarsal concerning for osteomyelitis. Guidance Fluoroscopy 08/17/17 00:00 IMPRESSION: SUCCESSFUL PLACEMENT OF A 5 FR DUAL LUMEN 44 CM PICC IN THE LEFT BASILIC VEIN. Interventional Vascular Procedure 08/17/17 00:00 IMPRESSION: SUCCESSFUL PLACEMENT OF A 5 FR DUAL LUMEN 44 CM PICC IN THE LEFT BASILIC VEIN. PICC Line Insertion 08/17/17 11:03 IMPRESSION: SUCCESSFUL PLACEMENT OF A 5 FR DUAL LUMEN 44 CM PICC IN THE LEFT BASILIC VEIN. Chest CT 08/28/17 00:00 IMPRESSION: 1. Bilateral scattered airspace opacities predominantly in a dependent location. This is progressed from the comparison study. This is concerning for bilateral pneumonia with aspiration as a consideration. Continued radiographic follow-up recommended. 2. Small bilateral pleural effusions. 3. Coronary artery atherosclerosis. This exam was performed according to our departmental dose-optimization program, which includes automated exposure control, adjustment of the mA and/or kV according to patient size and/or use of iterative reconstruction technique. Chest X-Ray 08/28/17 00:00 IMPRESSION: Recurrent left lower lobe atelectasis or infiltrate since 2017. Assessment & Plan - Diagnosis (1) Anemia Qualifiers: Anemia type: bone marrow failure Bone marrow failure anemia type: unspecified bone marrow failure Qualified Code(s): D61.9 - Aplastic anemia, unspecified Is this a current diagnosis for this admission?: Yes Plan: At this point in time, patient may be better served by transitioning to hospice (2) Hypokalemia Is this a current diagnosis for this admission?: Yes Plan: To replace (3) Hyponatremia Is this a current diagnosis for this admission?: Yes Plan: Improved (4) Malnutrition Qualifiers: Malnutrition type: protein-calorie malnutrition Is this a current diagnosis for this admission?: Yes Plan: Encourage protein intake (5) Osteomyelitis Qualifiers: Osteomyelitis type: acute hematogenous Osteomyelitis location: foot Laterality: left Qualified Code(s): M86.072 - Acute hematogenous osteomyelitis , left ankle and foot Is this a current diagnosis for this admission?: No Plan: Ruled out when debridement was performed. There were no actual findings of osteomyelitis in the bone (6) Sepsis Qualifiers: Sepsis type: sepsis due to unspecified organism Qualified Code(s): A41.9 - Sepsis, unspecified organism Is this a current diagnosis for this admission?: Yes Plan: Resolved (7) Thrombocytopenia Is this a current diagnosis for this admission?: Yes Plan: Improved after a plateletpheresis (8) Wound, open, foot Qualifiers: Encounter type: subsequent encounter Laterality: left Qualified Code(s): S91.302D - Unspecified open wound, left foot, subsequent encounter Is this a current diagnosis for this admission?: Yes Plan: Management may change if transitioning to hospice (9) AML (acute myeloid leukemia) Qualifiers: Leukemia Active/Remission status: without remission Qualified Code(s): C92.00 - Acute myeloblastic leukemia, not having achieved remission Is this a current diagnosis for this admission?: Yes Plan: Advancing as per oncology. Oncologist to family regarding hospice (10) Cough Is this a current diagnosis for this admission?: Yes Plan: Persisting. Continue current regimen which is, scopolamine patch, antitussive and fentanyl patch. (11) Diarrhea Qualifiers: Diarrhea type: unspecified type Qualified Code(s): R19.7 - Diarrhea, unspecified Is this a current diagnosis for this admission?: Yes Plan: Resolved (12) Pneumonia Qualifiers: Pneumonia type: due to unspecified organism Laterality: right Lung location: lower lobe of lung Qualified Code(s): J18.1 - Lobar pneumonia, unspecified organism Is this a current diagnosis for this admission?: Yes Plan: Infiltrate in right lung resolve but then now a new infiltrate in the left lower lobe. (13) HTN (hypertension) Qualifiers: Hypertension type: essential hypertension Qualified Code(s): I10 - Essential (primary) hypertension Is this a current diagnosis for this admission?: Yes Plan: Continue lisinopril, norvasc. Echocardiogram result noted (14) Leukocytosis Qualifiers: Leukocytosis type: unspecified Qualified Code(s): D72.829 - Elevated white blood cell count, unspecified Is this a current diagnosis for this admission?: Yes Plan: Slight improvement. No further intervention - Time Time Spent with patient: 15-24 minutes Medications reviewed and adjusted accordingly: Yes Anticipated discharge: Hospice Within: within 24 hours - Inpatient Certification Based on my medical assessment, after consideration of the patient's comorbidities, presenting symptoms, or acuity I expect that the services needed warrant INPATIENT care.: Yes I certify that my determination is in accordance with my understanding of Medicare's requirements for reasonable and necessary INPATIENT services [42 CFR 412.3e].: Yes Medical Necessity: Need Close Monitoring Due to Risk of Patient Decompensation
[2017-08-29] MEDS: BENZONATATE 100 MG CAPSULE PO PRN (13:13)
[2017-08-29] MEDS: MONTELUKAST SODIUM 10 MG TABLET PO SCH (22:27)
[2017-08-30] MEDS: HYDROCODONE BIT/HOMATROPINE 5-1.5 MG TABLET PO PRN (00:39)
[2017-08-30] MEDS: GABAPENTIN 400 MG CAPSULE PO SCH (05:34)
[2017-08-30] MEDS: IPRATROPIUM/ALBUTEROL 0.5-2.5 MG/3 ML AMPUL NEB SCH (07:42)
--- NOTE | 2017-08-30 08:11 | PDOC PROGRESS REPORT ---
Subjective Progress Note for:: 08/30/17 Subjective:: D/c home planned today w/ home hospice, had long discussion w/ pt, feeling better this am, spent >35 min in discussion about next steps of care w/ pt Reason For Visit: CML, LEFT FOOT WOUND Physical Exam Vital Signs: Temp Pulse Resp BP Pulse Ox 98.3 F 65 18 109/56 L 94 08/30/17 07:50 08/30/17 07:50 08/30/17 07:50 08/30/17 07:50 08/30/17 07:50 Intake & Output 08/29/17 08/30/17 08/31/17 06:59 06:59 06:59 Intake Total 785 764 Output Total 550 1000 Balance 235 -236 Weight 90.2 kg 87.9 kg General appearance: PRESENT: no acute distress, well-developed, well-nourished Head exam: PRESENT: atraumatic, normocephalic Eye exam: PRESENT: conjunctiva pink, EOMI, PERRLA. ABSENT: scleral icterus Ear exam: PRESENT: normal external ear exam Mouth exam: PRESENT: moist, tongue midline Neck exam: ABSENT: carotid bruit, JVD, lymphadenopathy, thyromegaly Respiratory exam: PRESENT: clear to auscultation jane. ABSENT: rales, rhonchi, wheezes Cardiovascular exam: PRESENT: RRR. ABSENT: diastolic murmur, rubs, systolic murmur Pulses: PRESENT: normal dorsalis pedis pul Vascular exam: PRESENT: normal capillary refill GI/Abdominal exam: PRESENT: normal bowel sounds, soft. ABSENT: distended, guarding, mass, organolmegaly, rebound, tenderness Rectal exam: PRESENT: deferred Extremities exam: PRESENT: full ROM. ABSENT: calf tenderness, clubbing, pedal edema Neurological exam: PRESENT: alert, awake, oriented to person, oriented to place , oriented to time, oriented to situation, CN II-XII grossly intact. ABSENT: motor sensory deficit Psychiatric exam: PRESENT: appropriate affect, normal mood. ABSENT: homicidal ideation, suicidal ideation Skin exam: PRESENT: dry, intact, warm. ABSENT: cyanosis, rash Results Laboratory Results: 08/29/17 04:49 08/29/17 04:49 Impressions: Lower Extremity CT 08/16/17 14:56 IMPRESSION: There are changes in the medial aspect of the head of the 1st metatarsal concerning for osteomyelitis. Guidance Fluoroscopy 08/17/17 00:00 IMPRESSION: SUCCESSFUL PLACEMENT OF A 5 FR DUAL LUMEN 44 CM PICC IN THE LEFT BASILIC VEIN. Interventional Vascular Procedure 08/17/17 00:00 IMPRESSION: SUCCESSFUL PLACEMENT OF A 5 FR DUAL LUMEN 44 CM PICC IN THE LEFT BASILIC VEIN. PICC Line Insertion 08/17/17 11:03 IMPRESSION: SUCCESSFUL PLACEMENT OF A 5 FR DUAL LUMEN 44 CM PICC IN THE LEFT BASILIC VEIN. Chest CT 08/28/17 00:00 IMPRESSION: 1. Bilateral scattered airspace opacities predominantly in a dependent location. This is progressed from the comparison study. This is concerning for bilateral pneumonia with aspiration as a consideration. Continued radiographic follow-up recommended. 2. Small bilateral pleural effusions. 3. Coronary artery atherosclerosis. This exam was performed according to our departmental dose-optimization program, which includes automated exposure control, adjustment of the mA and/or kV according to patient size and/or use of iterative reconstruction technique. Chest X-Ray 08/28/17 00:00 IMPRESSION: Recurrent left lower lobe atelectasis or infiltrate since 2017. Assessment & Plan - Diagnosis (1) AML (acute myeloid leukemia) Qualifiers: Leukemia Active/Remission status: without remission Qualified Code(s): C92.00 - Acute myeloblastic leukemia, not having achieved remission Is this a current diagnosis for this admission?: Yes Plan: Progressive, d/c of transfusions/supportive care, transition to hospice and comfort care (2) Pancytopenia Is this a current diagnosis for this admission?: Yes Plan: No further tx planned (3) Wound, open, foot Qualifiers: Encounter type: subsequent encounter Laterality: left Qualified Code(s): S91.302D - Unspecified open wound, left foot, subsequent encounter Is this a current diagnosis for this admission?: Yes Plan: oral bactrim at home (4) Cough Is this a current diagnosis for this admission?: Yes Plan: probable infection, on d/c stop Iv atbx only bactrim - Time Time Spent with patient: 35 or more minutes
[2017-08-30] MEDS: FENTANYL 50 MCG/HR PATCH.TD72 TD SCH (09:37)
[2017-08-30] MEDS: TAMSULOSIN HCL 0.4 MG CAP.SR.24H PO SCH (09:38)
[2017-08-30] MEDS: ALLOPURINOL 300 MG TABLET PO SCH (09:39)
[2017-08-30] MEDS: GUAIFENESIN 600 MG TABLET.SA PO SCH (09:39)
[2017-08-30] MEDS: FINASTERIDE 5 MG TABLET PO SCH (09:40)
[2017-08-30] MEDS: METOPROLOL TARTRATE 50 MG TABLET PO SCH (09:40)
[2017-08-30] MEDS: SERTRALINE HCL 50 MG TABLET PO SCH (09:49)
[2017-08-30] MEDS: AMLODIPINE BESYLATE 10 MG TABLET PO SCH (09:49)
[2017-08-30] MEDS: DOCUSATE SODIUM 100 MG CAPSULE PO SCH (09:49)
[2017-08-30] MEDS: LISINOPRIL 10 MG TABLET PO SCH (09:49)
[2017-08-30 10:10] VITALS: BP 133/75
--- NOTE | 2017-08-30 17:13 | PDOC DISCHARGE SUMMARY ---
General - Admit/Disc Date/PCP Admission Date/Primary Care Provider: 08/16/17 17:04 DALIA MENDOZA MD Discharge Date: 08/30/17 - Discharge Diagnosis (1) Sepsis Is this a current diagnosis for this admission?: Yes (2) Abscess of left great toe Is this a current diagnosis for this admission?: Yes (3) Pneumonia Is this a current diagnosis for this admission?: Yes (4) Anemia Is this a current diagnosis for this admission?: Yes (5) Hypokalemia Is this a current diagnosis for this admission?: Yes (6) Hyponatremia Is this a current diagnosis for this admission?: Yes (7) Malnutrition Is this a current diagnosis for this admission?: Yes (8) Osteomyelitis Is this a current diagnosis for this admission?: No (9) Thrombocytopenia Is this a current diagnosis for this admission?: Yes (10) Wound, open, foot Is this a current diagnosis for this admission?: Yes (11) AML (acute myeloid leukemia) Is this a current diagnosis for this admission?: Yes (12) Cough Is this a current diagnosis for this admission?: Yes (13) Diarrhea Is this a current diagnosis for this admission?: Yes (14) HTN (hypertension) Is this a current diagnosis for this admission?: Yes (15) Leukocytosis Is this a current diagnosis for this admission?: Yes (16) Acute respiratory failure Is this a current diagnosis for this admission?: Yes - Additional Information Resuscitation Status: Do Not Resuscitate Discharge Diet: As Tolerated Discharge Activity: Activity As Tolerated Prescriptions: Amlodipine Besylate [Norvasc 10 mg Tablet] 10 mg PO DAILY #30 tablet Benzonatate [Tessalon Perles 100 mg Capsule] 100 mg PO Q8HP PRN #30 capsule PRN Reason: Fentanyl [Duragesic 50 Mcg/Hr Transdermal Patch] 1 each TD Q3DAYS #3 patch.td72 Guaifenesin [Mucinex Sr 600 mg Tablet.sa] 1,200 mg PO Q12 #30 tablet.sa Lisinopril [Prinivil 10 mg Tablet] 10 mg PO DAILY #30 tablet Oxycodone HCl [Oxy-Ir 5 mg Tablet] 5 mg PO Q8HP PRN #10 tablet PRN Reason: PAIN Home Medications: Alfuzosin HCl [Uroxatral] 10 mg PO DAILY 08/16/17 Allopurinol [Zyloprim 300 mg Tablet] 300 mg PO DAILY 08/16/17 Finasteride [Proscar 5 mg Tablet] 5 mg PO DAILY 08/16/17 Gabapentin [Neurontin 300 mg Capsule] 300 mg PO Q8 08/16/17 Metoprolol Tartrate [Lopressor 50 mg Tablet] 50 mg PO Q12 08/16/17 Montelukast Sodium [Singulair 10 mg Tablet] 5 mg PO QHS 08/16/17 Pantoprazole Sodium [Protonix] 40 mg PO DAILY 08/16/17 Sertraline HCl [Zoloft 50 mg Tablet] 50 mg PO DAILY 08/16/17 Amlodipine Besylate [Norvasc 10 mg Tablet] 10 mg PO DAILY #30 tablet 08/30/17 Benzonatate [Tessalon Perles 100 mg Capsule] 100 mg PO Q8HP PRN #30 capsule Fentanyl [Duragesic 50 Mcg/Hr Transdermal Patch] 1 each TD Q3DAYS #3 patch.td72 08/30/17 Guaifenesin [Mucinex Sr 600 mg Tablet.sa] 1,200 mg PO Q12 #30 tablet.sa Lisinopril [Prinivil 10 mg Tablet] 10 mg PO DAILY #30 tablet 08/30/17 Oxycodone HCl [Oxy-Ir 5 mg Tablet] 5 mg PO Q8HP PRN #10 tablet 08/30/17 History of Present Illness History of Present Illness: DINA JOSHUA is a 82 year old male with known hx of MDS/AML, gout and BPH not on chemotherapy about 1 year. Patient had been receiving supportive care with intermittent blood transfusions. Patient has not been feeling well. Patient had been gradually getting ill. Patient was receiving wound care for his left foot infection. Patient was having chills and pain in theleft foot. The foot infection became progressively worse. On presentation to ED, patient was also hypotensive and tachycardic. Patient was found to be anemic with a hemoglobin of 5.3. Patient was transfused 2 units of packed RBCs while in ED along with volume resuscitation. Patient's blood pressure then began to trend up. Patient was started on vancomycin and Cipro. CT scan of the left foot show that there are changes in the medial aspect of the head of the first metatarsal concerning for osteomyelitis. Hospitalist service was called for the management of sepsis secondary to left foot osteomyelitis Hospital Course Hospital Course: Patient was admitted under the hospitalist service. Fluids and IV antibiotic were continued. Surgical team was contacted and patient underwent incision and drainage of abscess in left foot on August 17. He underwent a second procedure on August 20. There was no evidence of osteo-myelitis. Wound care was provided by surgical team and wound VAC was placed. On discharge opted not to continue wound VAC since patient transitioned to hospice in order to avoid pain. Patient received bllod transfusions and plateletpheresis while hospitalized. Patient complained of a relentless cough. Chest x-ray was ordered which was suggestive of a right lobe infiltrate. It was confirmed through CTA of the chest. Patient was placed on meropenem as per ID recommendation. He was placed on nebulizer treatment and IV steroids due to history of COPD. Despite he continued with cough. We placed patient on fentanyl patch since that he complained of pain in his stomach and chest and due to cough. Patient's medical condition did not improve despite intervention which included fentanyl patch, scopolamine patch, antitussive, nebulizer treatment, steroids IV. Concern was possibility of pulmonary involvement due to leukemia. Patient developed acute respiratory failure which required oxygen supplementation. Repeat chest x-ray showed a left lower lobe infiltrate. At this point in time family was approached regarding hospice. Dr. Schneider had been following up patient and kindly talked to the family who then agreed for patient to go for hospice care. Patient was therefore discharged on hospice. Physical Exam Vital Signs: Temp Pulse Resp BP Pulse Ox 98.3 F 66 20 117/55 L 93 08/30/17 03:27 08/30/17 03:27 08/30/17 03:27 08/30/17 03:27 08/30/17 03:27 Intake & Output 08/29/17 08/30/17 08/31/17 06:59 06:59 06:59 Intake Total 785 764 Output Total 550 1000 Balance 235 -236 Weight 90.2 kg 87.9 kg General appearance: PRESENT: cooperative, mild distress, obese Head exam: PRESENT: atraumatic, normocephalic Eye exam: PRESENT: conjunctiva pale, EOMI, PERRLA Ear exam: PRESENT: normal external ear exam Mouth exam: PRESENT: moist Neck exam: PRESENT: full ROM. ABSENT: JVD, lymphadenopathy, tenderness Respiratory exam: PRESENT: decreased breath sounds, rhonchi Cardiovascular exam: PRESENT: irregular rhythm. ABSENT: diastolic murmur, systolic murmur Vascular exam: PRESENT: pallor GI/Abdominal exam: PRESENT: normal bowel sounds, soft. ABSENT: tenderness Extremities exam: PRESENT: full ROM. ABSENT: tenderness Musculoskeletal exam: ABSENT: ambulatory Neurological exam: PRESENT: alert, awake, oriented to person, oriented to place , oriented to time, oriented to situation, CN II-XII grossly intact Psychiatric exam: PRESENT: appropriate affect, normal mood Skin exam: PRESENT: pallor Results Laboratory Results: 08/29/17 04:49 08/29/17 04:49 08/29/17 04:49 WBC 22.5 H RBC 3.09 L Hgb 9.1 L Hct 28.1 L MCV 91 MCH 29.3 MCHC 32.2 RDW 18.4 H Plt Count 35 L D Impressions: Lower Extremity CT 08/16/17 14:56 IMPRESSION: There are changes in the medial aspect of the head of the 1st metatarsal concerning for osteomyelitis. Guidance Fluoroscopy 08/17/17 00:00 IMPRESSION: SUCCESSFUL PLACEMENT OF A 5 FR DUAL LUMEN 44 CM PICC IN THE LEFT BASILIC VEIN. Interventional Vascular Procedure 08/17/17 00:00 IMPRESSION: SUCCESSFUL PLACEMENT OF A 5 FR DUAL LUMEN 44 CM PICC IN THE LEFT BASILIC VEIN. PICC Line Insertion 08/17/17 11:03 IMPRESSION: SUCCESSFUL PLACEMENT OF A 5 FR DUAL LUMEN 44 CM PICC IN THE LEFT BASILIC VEIN. Chest CT 08/28/17 00:00 IMPRESSION: 1. Bilateral scattered airspace opacities predominantly in a dependent location. This is progressed from the comparison study. This is concerning for bilateral pneumonia with aspiration as a consideration. Continued radiographic follow-up recommended. 2. Small bilateral pleural effusions. 3. Coronary artery atherosclerosis. This exam was performed according to our departmental dose-optimization program, which includes automated exposure control, adjustment of the mA and/or kV according to patient size and/or use of iterative reconstruction technique. Chest X-Ray 08/28/17 00:00 IMPRESSION: Recurrent left lower lobe atelectasis or infiltrate since 2017. Qualifiers - * PATEINT BEING DISCHARGED WITH ANY OF THE FOLLOWING DIAGNOSIS?: No
== END 2017-08-30 12:18 | disposition hospice, home (50) | DRG 871 ==
LOC: ER 13:53 → EH 17:04 → 3N 20:59
PROVIDERS: ADMIT Emergency Medicine; ATTEND Emergency Medicine
PROC: 30233N1 Transfusion of Nonautologous Red Blood Cells into Peripheral Vein, Percutaneous Approach (ICD-10-PCS; 2017-08-16)
PROC: 02HV33Z Insertion of Infusion Device into Superior Vena Cava, Percutaneous Approach (ICD-10-PCS; 2017-08-17)
PROC: B518ZZA Fluoroscopy of Superior Vena Cava, Guidance (ICD-10-PCS; 2017-08-17)
PROC: B548ZZA Ultrasonography of Superior Vena Cava, Guidance (ICD-10-PCS; 2017-08-17)
PROC: 30233R1 Transfusion of Nonautologous Platelets into Peripheral Vein, Percutaneous Approach (ICD-10-PCS; 2017-08-17)
PROC: 0HBNXZZ Excision of Left Foot Skin, External Approach (ICD-10-PCS; principal; 2017-08-17 12:00)
PROC: 30233N1 Transfusion of Nonautologous Red Blood Cells into Peripheral Vein, Percutaneous Approach (ICD-10-PCS; 2017-08-19)
PROC: 30233R1 Transfusion of Nonautologous Platelets into Peripheral Vein, Percutaneous Approach (ICD-10-PCS; 2017-08-22)
PROC: 30233R1 Transfusion of Nonautologous Platelets into Peripheral Vein, Percutaneous Approach (ICD-10-PCS; 2017-08-28)
DX: A41.9 Sepsis, unspecified organism (principal); L02.612 Cutaneous abscess of left foot; J18.1 Lobar pneumonia, unspecified organism; J96.00 Acute respiratory failure, unspecified whether with hypoxia or hypercapnia; C92.00 Acute myeloblastic leukemia, not having achieved remission; D61.9 Aplastic anemia, unspecified; D46.9 Myelodysplastic syndrome, unspecified; Z66 Do not resuscitate; E46 Unspecified protein-calorie malnutrition; E87.1 Hypo-osmolality and hyponatremia; D69.6 Thrombocytopenia, unspecified; E86.0 Dehydration; E87.6 Hypokalemia; E78.00 Pure hypercholesterolemia, unspecified; I10 Essential (primary) hypertension; K21.9 Gastro-esophageal reflux disease without esophagitis; N40.0 Benign prostatic hyperplasia without lower urinary tract symptoms; R19.7 Diarrhea, unspecified; R05 Cough; M1A.9XX1 Chronic gout, unspecified, with tophus (tophi); B95.1 Streptococcus, group B, as the cause of diseases classified elsewhere; Z60.2 Problems related to living alone; Z68.27 Body mass index [BMI] 27.0-27.9, adult; Z79.899 Other long term (current) drug therapy
CPT/HCPCS: 01470; 36415; 36430; 36569; 71045; 71046; 71250; 76937; 77001; 80048; 80053; 80202; 82565; 82803; 82962; 83605; 83735; 84100; 85025; 85610; 86850; 86900; 86901; 86920; 87040; 87070; 87075; 87077; 87186; 87205; 93005; 93010; 93306; 94640; 94667; 96365; 96368; 99291; A6266; G8978-GP; G8979-GP; G8987-GO; G8988-GO; J0744; J1642; J1940; J2185; J2250; J2543; J2704; J2920; J3010; J3370; J3475; J3480; J3490; J7030; J7060; J7620; P9016; P9035; S0028

== ENCOUNTER 2017-09-12 11:56 | Observation (INO) | payer MEDICARE, OTHER ==
[2017-09-12] MEDS ORDERED: NORMAL SALINE 500 ML IV ONE (12:09)
--- NOTE | 2017-09-12 12:27 | RADIOLOGY REPORT (SQ) ---
EXAM DESCRIPTION: CHEST SINGLE VIEW COMPLETED DATE/TIME: 09/12/2017 12:17 pm REASON FOR STUDY: cp COMPARISON: 08/28/2017 CT and chest radiographs EXAM PARAMETERS: NUMBER OF VIEWS: One view. TECHNIQUE: Single frontal radiographic view of the chest acquired. RADIATION DOSE: NA LIMITATIONS: None. FINDINGS: LUNGS AND PLEURA: Re- demonstration of multifocal airspace opacities, slightly progressed in the study interval. No pneumothorax. No pleural effusion. MEDIASTINUM AND HILAR STRUCTURES: No masses. Contour normal. HEART AND VASCULAR STRUCTURES: Heart normal in size. Normal vasculature. BONES: No acute findings. HARDWARE: None in the chest. OTHER: No other significant finding. IMPRESSION: Re- demonstration of multi lobar pneumonia, slightly progressed in the study interval. TECHNICAL DOCUMENTATION: JOB ID: [id number] [employer]- All Rights Reserved Reading location - IP/workstation name: [email or web address]
--- NOTE | 2017-09-12 13:08 | ER Document Report ---
ED General - General Chief Complaint: Chest Pain Stated Complaint: CHEST PAIN Time Seen by Provider: 09/12/17 12:01 Notes: Patient presents with left-sided constant nonpleuritic chest pain for about 1 day in the setting of ongoing shortness of breath. Patient has end-stage myelodysplastic syndrome with anemia, gets palliative transfusions, was recently admitted for pneumonia and sepsis and is now on home hospice. He wears oxygen at home. Apparently complained of chest pain today so they called his linen controller who wanted him evaluated in the hospital, with his consent. TRAVEL OUTSIDE OF THE [place] IN LAST 30 DAYS: No - Related Data Allergies/Adverse Reactions: ceftriaxone Allergy (Severe, Verified 09/12/17 12:25) Anaphylaxis adenosine * [adenosine] Allergy (Verified 09/12/17 12:25) Passed out Past Medical History - Social History Smoking Status: Smoker,Current Status Unk Chew tobacco use (# tins/day): No Frequency of alcohol use: None Drug Abuse: None Family History: CAD Patient has suicidal ideation: No Patient has homicidal ideation: No - Past Medical History Cardiac Medical History: Reports: Hx Hypercholesterolemia, Hx Hypertension Denies: Hx Congestive Heart Failure, Hx Coronary Artery Disease, Hx DVT, Hx Heart Attack, Hx Pulmonary Embolism Pulmonary Medical History: Reports: Hx COPD, Hx Pneumonia - pseudomonas Denies: Hx Asthma, Hx Bronchitis, Hx Sleep Apnea Neurological Medical History: Reports: 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 Denies: Hx Cerebrovascular Accident, Hx Migraine Endocrine Medical History: Denies: Hx Diabetes Mellitus Type 1, Hx Diabetes Mellitus Type 2, Hx Hyperthyroidism, Hx Hypothyroidism Renal/ Medical History: Reports: Hx Benign Prostatic Hyperplasia. 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 Denies: Hx Open Heart Surgery, Hx Pacemaker - Immunizations Hx Diphtheria, Pertussis, Tetanus Vaccination: Yes Hx Pneumococcal Vaccination: 05/11/12 Review of Systems - Review of Systems Notes: REVIEW OF SYSTEMS GEN: Weakness weight loss ENT: Denies sore throat, nasal discharge, ear pain EYES: Denies blurry vision, eye pain, discharge CV: Denies chest pain, palpitations, edema RESP: Cough shortness of breath GI: Denies abdominal pain, nausea, vomiting, diarrhea MSK: Denies joint pain/swelling, edema, SKIN: Denies rash, skin lesions LYMPH: Denies swollen glands/lymph nodes NEURO: Denies headache, focal weakness or numbness, dizziness PSYCH: Denies depression, suicidal or homicidal ideation PHYSICAL EXAMINATION General: Weak and emaciated, acutely ill Head: Atraumatic, normocephalic ENT: Mouth normal, oropharynx moist, no exudates or tonsillar enlargement Eyes: Conjunctiva normal, pupils equal, lids normal Neck: No JVD, supple, no guarding CVS: Normal rate, regular rhythm, no murmurs Resp: No resp distress, equal breath sounds with left greater than right basilar crackles GI: Nondistended, soft, no tenderness to palpation, no rebound or guarding Ext: No deformities, no edema, normal range of motion in upper and lower ext Back: No CVA or midline TTP Skin: No rash, warm Lymphatic: No lymphadeopathy noted Neuro: Awake, alert. Face symmetric. GCS 15. Physical Exam - Vital signs Vitals: Temp 97.9 F 09/12/17 12:09 Course - Re-evaluation Re-evalutation: 09/12/17 13:57 Patient with end-stage myelodysplastic syndrome, hematogenous osteomyelitis and pneumonia currently being treated at home for sepsis with hospice, on antibiotics and oxygen comes to the ED for chest pain. Prehospital strip shows either SVT or A. fib which converted to sinus tachycardia with diltiazem. In the ED he is requiring his baseline amount of oxygen and looks weak but generally comfortable. I had an extensive discussion with him, as well as his , and Dr. Larisa Trujillo who is acting as his hospice and primary care doctor. I also spoke with the hospice his differential includes A. fib dehydration pneumonia and sepsis nurse. She stated that the patient was to be evaluated in the ED. The patient tells me it is within his wishes to be treated and admitted if we find something that needs that., Symptomatically anemia Patient was given the second half of a liter of fluid which was started prehospital. ECG here shows sinus tachycardia. X-ray shows slightly worsening infiltrates and bibasilar areas left greater than right consistent with worsening pneumonia. Labs were delayed but are pending. 09/12/17 14:54 Patient presents with ongoing tachycardia and increased oxygen requirement. Worsening anemia. Worsening pneumonia. Give antibiotics. Give fluids. Patient was discussed with Dr. Pizano for admission. This is within the patient's goals of care. - Vital Signs Vital signs: Temp Pulse Resp BP Pulse Ox 97.9 F 19 121/66 98 09/12/17 12:09 09/12/17 13:01 09/12/17 13:00 09/12/17 13:01 - Laboratory Result Diagrams: 09/12/17 13:36 09/12/17 13:36 Laboratory results interpreted by me: 09/12/17 09/12/17 13:36 13:36 RBC 2.24 L Hgb 6.7 L Hct 20.5 L RDW 18.8 H Plt Count 17 L* Seg Neuts % (Manual) 34 L Monocytes % (Manual) 37 H Metamyelocytes % 1 H Myelocytes % 1 H Immature Leukocytes % 8 H Abs Monocytes (Manual) 3.8 H Potassium 3.5 L Calcium 7.5 L - Diagnostic Test Radiology reviewed: Image reviewed, Reports reviewed - EKG Interpretation by Me EKG shows normal: Sinus rhythm Rate: Tachycardia Rhythm: SVT When compared to previous EKG there are: No significant change Critical Care Note - Critical Care Note Total time excluding time spent on procedures (mins): 35 Comments: The above patient is critically ill. Not including procedures, but including direct re-evaluations, speaking with patient and/or consultants, interpreting results, and documenting, I spent the total amount of minute listed listed above on critical care time Discharge - Discharge Clinical Impression: SVT (supraventricular tachycardia), Pneumonia Condition: Fair Disposition: ADMITTED INPATIENT Admitting Provider: Hospitalist Unit Admitted: Telemetry
[2017-09-12] MEDS ORDERED: LEVOFLOXACIN 750 MG/D5W RTU 750 MG/150 ML RTUPB IV SCH (14:00)
[2017-09-12] MEDS ORDERED: VANCOMYCIN HCL INJ 1000 MG VIAL IV ONE (14:00)
[2017-09-12 14:17] LABS: HEMATOCRIT 20.5 % (37.9-51.0); MEAN CORPUSCULAR HEMOGLOBIN 29.8 pg (27.0-33.4); MEAN CORPUSCULAR HGB CONC 32.6 g/dL (32.0-36.0); MEAN CORPUSCULAR VOLUME 92 fl (80-97); RED BLOOD COUNT 2.24 10^6/uL (4.35-5.55); RED CELL DISTRIBUTION WIDTH 18.8 % (11.5-14.0); WHITE BLOOD COUNT 10.2 10^3/uL (4.0-10.5)
[2017-09-12 14:23] LABS: ANION GAP 10 (5-19); BLOOD UREA NITROGEN 17 mg/dL (7-20); CALCIUM 7.5 mg/dL (8.4-10.2); CARBON DIOXIDE 27 mmol/L (22-30); CHLORIDE 104 mmol/L (98-107); GLUCOSE 99 mg/dL (75-110); POTASSIUM 3.5 mmol/L (3.6-5.0); SODIUM 141.4 mmol/L (137-145)
[2017-09-12 14:40] LABS: HEMOGLOBIN 6.7 g/dL (13.5-17.0)
[2017-09-12 14:43] LABS: PLATELET COUNT 17 10^3/uL (150-450)
[2017-09-12 14:49] LABS: ABSOLUTE LYMPHOCYTES# (MANUAL) 1.8 10^3/uL (0.5-4.7); ABSOLUTE MONOCYTES # (MANUAL) 3.8 10^3/uL (0.1-1.4); ABSOLUTE NEUTROPHILS# (MANUAL) 3.7 10^3/uL (1.7-8.2); BASOPHILS % (MANUAL) 0 % (0-2); EOSINOPHILS % (MANUAL) 1 % (0-6); IMMATURE MONONUCLEAR% (MANUAL) 8 % (0); LYMPHOCYTES % (MANUAL) 16 % (13-45); METAMYELOCYTES % (MANUAL) 1 % (0); MONOCYTES % (MANUAL) 37 % (3-13); MYELOCYTES % (MANUAL) 1 % (0); NUCLEATED RED BLOOD CELLS 3 /100 WBC (0); SEGMENTED NEUTROPHILS % (MAN) 34 % (42-78); TOTAL CELLS COUNTED 100
[2017-09-12 14:50] LABS: ANISOCYTOSIS 2+; OVALOCYTES SLIGHT; PLATELET COMMENT DECREASED; POIKILOCYTOSIS SLIGHT; POLYCHROMASIA 1+; SCHISTOCYTES SLIGHT
[2017-09-12] MEDS ORDERED: ACETAMINOPHEN 325 MG TABLET PO PRN (15:41)
[2017-09-12] MEDS ORDERED: OXYCODONE-ACETAMINOPHEN 5-325 MG TABLET PO PRN (15:41)
[2017-09-12] MEDS ORDERED: ONDANSETRON HCL INJ/PF 4 MG/2 ML SDV IV PRN (15:41)
[2017-09-12] MEDS ORDERED: MAGNESIUM HYDROXIDE SUSP 30 ML UDCUP PO PRN (15:41)
[2017-09-12] MEDS ORDERED: TEMAZEPAM 7.5 MG CAPSULE PO PRN (15:41)
[2017-09-12] MEDS ORDERED: HALOPERIDOL 1 MG TABLET PO PRN (15:48)
[2017-09-12] MEDS ORDERED: CHLORPHEN P STIREX PO PRN (15:48)
[2017-09-12] MEDS ORDERED: HYDROCODONE PO PRN (15:48)
[2017-09-12] MEDS ORDERED: [UNRECOGNIZED DRUG - OTHER] PO PRN (15:48)
[2017-09-12] MEDS ORDERED: LORAZEPAM 0.5 MG TABLET PO PRN (15:48)
[2017-09-12] MEDS ORDERED: NITROGLYCERIN 0.4 MG/TAB 25 TAB/BOTTLE SL PRN (15:48)
[2017-09-12] MEDS ORDERED: ALBUTEROL SULFATE 0.083% NEB 2.5 MG/3 ML AMPUL NEB PRN (15:48)
--- NOTE | 2017-09-12 16:17 | PDOC H&P ---
History of Present Illness Admission Date/PCP: 09/12/17 15:40 Patient complains of: chest pain History of Present Illness: DINA JOSHUA is a 82 year old male with a history of myelodysplastic syndrome , AML, hypertension, and SVT who presented to the emergency department by medic with a chief complaint of chest pain. This pain occurred early this morning. It was relieved with sublingual nitroglycerin that was given to him by his tinsmith helper, Mariely. His pain was worse when he takes deep breaths. It was not associated with nausea, vomiting, diaphoresis, or shortness of breath. He did not report palpitations. When EMS arrived, he was noted to be in SVT. His heart rate was in the 140s. He was treated with IV diltiazem, subsequent decrease in his heart rate. In the emergency department, his heart rate has been in the low 100s. He has been asymptomatic. Given his multiple comorbidities, particularly his myelodysplastic syndrome, he is under the care of hospice at home. However, he requested for agreed to be admitted overnight for IV fluids, control of his heart rate. He is DNR/DNI. He is not requesting a transfusion. His oncologist has already told him that he would not be receiving more blood products. Past Medical History Cardiac Medical History: Reports: Hyperlipidema, Hypertension Denies: Congestive Heart Failure, Coronary Artery Disease, DVT, Myocardial Infarction, Pulmonary Embolism Pulmonary Medical History: Reports: Chronic Obstructive Pulmonary Disease (COPD) , Pneumonia - pseudomonas Denies: Asthma, Bronchitis, Sleep Apnea Neurological Medical History: Reports: Seizures - CHILD Denies: Migraine Endocrine Medical History: Denies: Diabetes Mellitus Type 1, Diabetes Mellitus Type 2, Hyperthyroidism, Hypothyroidism Malignancy Medical History: Reports: Leukemia - Acute myeloid leukemia GI Medical History: Reports: Gastroesophageal Reflux Disease Denies: Cirrhosis, Hepatitis, Hiatal Hernia Musculoskeltal Medical History: 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 Psychiatric Medical History: Denies: Depression Hematology: Reports: Anemia, Bleeding Tendencies Denies: Sickle Cell Disease Infectious Medical History: Denies: Clostridium Difficile, Methicillin-Resistant Staph Aureus Past Surgical History Past Surgical History: Reports: Appendectomy, Cardiac Catheterization, Orthopedic Surgery Denies: Pacemaker Social History Information Source: Parent Smoking Status: Smoker,Current Status Unk Frequency of Alcohol Use: None Hx Recreational Drug Use: No Drugs: None Hx Prescription Drug Abuse: No - Advance Directive Resuscitation Status: Do Not Resuscitate Family History Family History: CAD Parental Family History Reviewed: No Children Family History Reviewed: No Sibling(s) Family History Reviewed.: No Medication/Allergy Home Medications: Abhr Suppository 1 ea RC Q4HP PRN 09/12/17 Acetaminophen [Tylenol 650 mg Supp] 650 mg [place] Q4HP PRN 09/12/17 Albuterol Sulfate [Albuterol Sulfate 2.5mg/3 mL] 1 vial IH RTQ4HP PRN 09/12/17 Alfuzosin HCl [Uroxatral] 10 mg PO DAILY 09/12/17 Allopurinol [Zyloprim 300 mg Tablet] 300 mg PO QHS 09/12/17 Amlodipine Besylate [Norvasc 10 mg Tablet] 10 mg PO DAILY 09/12/17 Bisacodyl [Dulcolax 5 Mg Tablet] 5 mg PO BID 09/12/17 Cyanocobalamin (Vitamin B-12) [Vitamin B-12 1000 Mcg Tablet] 1 tab PO DAILY 09/26 Fentanyl [Duragesic 50 Mcg/Hr Transdermal Patch] 1 each TD Q3D 09/12/17 Finasteride [Proscar 5 mg Tablet] 5 mg PO DAILY 09/12/17 Furosemide [Lasix 40 mg Tablet] 40 mg PO Q12HP PRN 09/12/17 Gabapentin [Neurontin 300 mg Capsule] 300 mg PO Q8 09/12/17 Haloperidol [Haldol 1 Mg Tablet] 1 mg PO Q4HP PRN 09/12/17 Hydrocodone/Chlorphen P-Stirex [Tussionex Pennkinetic Susp] 5 ml PO Q12HP PRN Hyoscyamine Sulfate [Levsin-Sl] 0.125 mg SL Q4HP PRN 09/12/17 Lisinopril [Prinivil 10 mg Tablet] 10 mg PO DAILY 09/12/17 Lorazepam [Ativan 0.5 mg Tablet] 0.5 mg PO Q4HP PRN 09/12/17 Metoprolol Tartrate [Lopressor 50 mg Tablet] 50 mg PO Q12 09/12/17 Montelukast Sodium [Singulair 10 mg Tablet] 10 mg PO Q2D@2200 09/12/17 Morphine Sulfate 5 mg PO Q1HP PRN 09/12/17 Nitroglycerin [Nitrostat 0.4 mg (1/150 Gr) Tabs 25/Bottle] 1 tab SL Q5MP PRN 09/26 Oxycodone HCl [Oxy-Ir 5 mg Tablet] 5 mg PO Q8HP PRN 09/12/17 Pantoprazole Sodium [Protonix] 40 mg PO Q6AM 09/12/17 Polyethylene Glycol 3350 [Miralax Powder 17 gm/Packet] 1 packet PO Q2D 09/12/17 Prochlorperazine [Compazine] 25 mg RC Q12HP PRN 09/12/17 Sertraline HCl [Zoloft 50 mg Tablet] 50 mg PO DAILY 09/12/17 Allergies/Adverse Reactions: ceftriaxone Allergy (Severe, Verified 09/12/17 12:25) Anaphylaxis adenosine * [adenosine] Allergy (Verified 09/12/17 12:25) Passed out Review of Systems Constitutional: PRESENT: weakness Cardiovascular: PRESENT: chest pain. ABSENT: dyspnea on exertion Gastrointestinal: ABSENT: abdominal pain, constipation, diarrhea, hematemesis, hematochezia, nausea, vomiting Musculoskeletal: ABSENT: joint swelling Neurological: ABSENT: abnormal gait, abnormal speech, confusion, dizziness, focal weakness, syncope Psychiatric: ABSENT: anxiety, depression, homidical ideation, suicidal ideation Physical Exam Vital Signs: Temp Pulse Resp BP Pulse Ox 97.9 F 19 121/66 98 09/12/17 12:09 09/12/17 13:01 09/12/17 13:00 09/12/17 13:01 General appearance: PRESENT: no acute distress, well-developed, well-nourished Head exam: PRESENT: atraumatic, normocephalic Eye exam: PRESENT: EOMI, PERRLA Mouth exam: PRESENT: moist, neck supple Neck exam: ABSENT: carotid bruit, JVD, lymphadenopathy, thyromegaly Respiratory exam: PRESENT: rales - bases, symmetrical, unlabored Cardiovascular exam: PRESENT: irregular rhythm, tachycardia GI/Abdominal exam: PRESENT: normal bowel sounds, soft. ABSENT: distended, guarding, mass, organolmegaly, rebound, tenderness Musculoskeletal exam: PRESENT: ambulatory Neurological exam: PRESENT: alert, awake, oriented to person, oriented to place , oriented to time, oriented to situation, CN II-XII grossly intact. ABSENT: motor sensory deficit Psychiatric exam: PRESENT: appropriate affect, normal mood. ABSENT: homicidal ideation, suicidal ideation Skin exam: PRESENT: dry, intact, warm, other - Left foot is wrapped d/t previous surgery. ABSENT: cyanosis, rash Results Impressions: Chest X-Ray 09/12/17 12:01 IMPRESSION: Re- demonstration of multi lobar pneumonia, slightly progressed in the study interval. Assessment & Plan - Diagnosis (1) SVT (supraventricular tachycardia) Is this a current diagnosis for this admission?: Yes Plan: He has a history of supraventricular tachycardia. He is currently on metoprolol 50 mg twice daily. He did not get morning meds today. I will continue metoprolol 50 mg twice daily. Because his blood pressure is on the lower end of normal, I will not start his other BP medications. If his BP improves, I will consider addding diltiazem. He needs supplemental K. I will check magnesium. Continue IVFs. We discussed the possibility of needing DCCV. He and daughter did not want "shocks". That's when they informed me that he has a DNR. (2) HTN (hypertension) Qualifiers: Hypertension type: essential hypertension Qualified Code(s): I10 - Essential (primary) hypertension Is this a current diagnosis for this admission?: Yes Plan: see above. (3) MDS (myelodysplastic syndrome) Is this a current diagnosis for this admission?: Yes Plan: Stable. NO transfusions. (4) AML (acute myeloid leukemia) Qualifiers: Leukemia Active/Remission status: without remission Qualified Code(s): C92.00 - Acute myeloblastic leukemia, not having achieved remission Plan: Stable. This may be the etiology of his persistent pulmonary infiltrates. (5) DNR (do not resuscitate) Is this a current diagnosis for this admission?: Yes (6) Pancytopenia Is this a current diagnosis for this admission?: Yes - Time Time Spent: Greater than 70 Minutes Medications reviewed and adjusted accordingly: Yes Anticipated discharge: Home Within: within 48 hours - Inpatient Certification Based on my medical assessment, after consideration of the patient's comorbidities, presenting symptoms, or acuity I expect that the services needed warrant INPATIENT care.: Yes I certify that my determination is in accordance with my understanding of Medicare's requirements for reasonable and necessary INPATIENT services [42 CFR 412.3e].: Yes Medical Necessity: Failure to Improve With Outpatient Therapy, Need Close Monitoring Due to Risk of Patient Decompensation, Need For IV Fluids
[2017-09-12] MEDS: 1/2 NORMAL SALINE 1,000 ML IV PRN (16:55)
[2017-09-12] MEDS ORDERED: METOPROLOL TARTRATE 50 MG TABLET PO ONE (17:00)
[2017-09-12] MEDS: BISACODYL 5 MG TABEC PO SCH (18:58)
[2017-09-12] MEDS: POTASSIUM CHLORIDE 10 MEQ TABLET.SA PO SCH (20:23)
[2017-09-12] MEDS: METOPROLOL TARTRATE 50 MG TABLET PO SCH (21:55)
[2017-09-12] MEDS: GABAPENTIN 300 MG CAPSULE PO SCH (21:56)
[2017-09-12] MEDS ORDERED: MONTELUKAST SODIUM 10 MG TABLET PO SCH (22:00)
[2017-09-12] MEDS ORDERED: ALLOPURINOL 300 MG TABLET PO SCH (22:00)
--- NOTE | 2017-09-12 23:10 | EKG REPORT ---
SEVERITY:- ABNORMAL ECG - SINUS TACHYCARDIA PROBABLE INFERIOR INFARCT, AGE INDETERMINATE LATERAL LEADS ARE ALSO INVOLVED : Confirmed by: Hanane Sears 12-Sep-2017 23:09:35
[2017-09-13] MEDS: POTASSIUM CHLORIDE 10 MEQ TABLET.SA PO SCH ×2 (00:08→04:01)
[2017-09-13] MEDS: 1/2 NORMAL SALINE 1,000 ML IV PRN ×2 (04:01→10:43)
[2017-09-13] MEDS ORDERED: LANSOPRAZOLE 30 MG TAB.RAP.DR PO SCH (06:00)
[2017-09-13] MEDS: GABAPENTIN 300 MG CAPSULE PO SCH (06:04)
[2017-09-13 06:15] LABS: HEMATOCRIT 20.7 % (37.9-51.0); MEAN CORPUSCULAR HEMOGLOBIN 29.7 pg (27.0-33.4); MEAN CORPUSCULAR HGB CONC 32.7 g/dL (32.0-36.0); MEAN CORPUSCULAR VOLUME 91 fl (80-97); RED BLOOD COUNT 2.28 10^6/uL (4.35-5.55); RED CELL DISTRIBUTION WIDTH 18.9 % (11.5-14.0)
[2017-09-13 06:21] LABS: HEMOGLOBIN 6.8 g/dL (13.5-17.0)
[2017-09-13 06:24] LABS: ANION GAP 6 (5-19); BLOOD UREA NITROGEN 17 mg/dL (7-20); CALCIUM 8.1 mg/dL (8.4-10.2); CARBON DIOXIDE 28 mmol/L (22-30); CHLORIDE 106 mmol/L (98-107); GLUCOSE 92 mg/dL (75-110); POTASSIUM 4.3 mmol/L (3.6-5.0); SODIUM 139.6 mmol/L (137-145)
[2017-09-13 06:48] LABS: PLATELET COUNT 15 10^3/uL (150-450)
[2017-09-13] MEDS ORDERED: HYOSCYAMINE SULFATE 0.125 MG TABLET SL PRN (07:09)
[2017-09-13] MEDS ORDERED: ONDANSETRON HCL INJ/PF 4 MG/2 ML SDV IV PRN (08:30)
[2017-09-13] MEDS ORDERED: POLYETHYLENE GLYCOL 3350 POWDER 17 GM/1 PACKET PO SCH (10:00)
[2017-09-13] MEDS ORDERED: CYANOCOBALAMIN (VITAMIN B-12) 1,000 MCG TABLET PO SCH (10:00)
[2017-09-13] MEDS ORDERED: TAMSULOSIN HCL 0.4 MG CAP.SR.24H PO SCH (10:00)
[2017-09-13] MEDS ORDERED: FINASTERIDE 5 MG TABLET PO SCH (10:00)
[2017-09-13] MEDS ORDERED: SERTRALINE HCL 50 MG TABLET PO SCH (10:00)
[2017-09-13] MEDS: BISACODYL 5 MG TABEC PO SCH (10:53)
[2017-09-13] MEDS: METOPROLOL TARTRATE 50 MG TABLET PO SCH (10:54)
--- NOTE | 2017-09-13 11:04 | PDOC DISCHARGE SUMMARY ---
General - Admit/Disc Date/PCP Admission Date/Primary Care Provider: 09/12/17 15:40 Discharge Date: 09/13/17 - Discharge Diagnosis (1) SVT (supraventricular tachycardia) Is this a current diagnosis for this admission?: Yes (2) HTN (hypertension) Is this a current diagnosis for this admission?: Yes (3) MDS (myelodysplastic syndrome) Is this a current diagnosis for this admission?: Yes (5) DNR (do not resuscitate) Is this a current diagnosis for this admission?: Yes (6) Pancytopenia Is this a current diagnosis for this admission?: Yes - Additional Information Resuscitation Status: Do Not Resuscitate Discharge Diet: Regular Discharge Activity: Activity As Tolerated Home Medications: Abhr Suppository 1 ea RC Q4HP PRN 09/12/17 Acetaminophen [Tylenol 650 mg Supp] 650 mg [place] Q4HP PRN 09/12/17 Albuterol Sulfate [Albuterol Sulfate 2.5mg/3 mL] 1 vial IH RTQ4HP PRN 09/12/17 Alfuzosin HCl [Uroxatral] 10 mg PO DAILY 09/12/17 Allopurinol [Zyloprim 300 mg Tablet] 300 mg PO QHS 09/12/17 Bisacodyl [Dulcolax 5 mg Tablet] 5 mg PO BID 09/12/17 Cyanocobalamin (Vitamin B-12) [Vitamin B-12 1000 mcg Tablet] 1 tab PO DAILY 09/26 Fentanyl [Duragesic 50 Mcg/Hr Transdermal Patch] 1 each TD Q3D 09/12/17 Finasteride [Proscar 5 mg Tablet] 5 mg PO DAILY 09/12/17 Furosemide [Lasix 40 mg Tablet] 40 mg PO Q12HP PRN 09/12/17 Gabapentin [Neurontin 300 mg Capsule] 300 mg PO Q8 09/12/17 Haloperidol [Haldol 1 mg Tablet] 1 mg PO Q4HP PRN 09/12/17 Hydrocodone/Chlorphen P-Stirex [Tussionex Pennkinetic Susp] 5 ml PO Q12HP PRN Hyoscyamine Sulfate [Levsin-Sl] 0.125 mg SL Q4HP PRN 09/12/17 Lorazepam [Ativan 0.5 mg Tablet] 0.5 mg PO Q4HP PRN 09/12/17 Metoprolol Tartrate [Lopressor 50 mg Tablet] 50 mg PO Q12 09/12/17 Montelukast Sodium [Singulair 10 mg Tablet] 10 mg PO Q2D@2200 09/12/17 Morphine Sulfate 5 mg PO Q1HP PRN 09/12/17 Nitroglycerin [Nitrostat 0.4 mg (1/150 Gr) Tabs 25/Bottle] 1 tab SL Q5MP PRN 09/26 Oxycodone HCl [Oxy-Ir 5 mg Tablet] 5 mg PO Q8HP PRN 09/12/17 Pantoprazole Sodium [Protonix] 40 mg PO Q6AM 09/12/17 Polyethylene Glycol 3350 [Miralax Powder 17 gm/Packet] 1 packet PO Q2D 09/12/17 Prochlorperazine [Compazine] 25 mg RC Q12HP PRN 09/12/17 Sertraline HCl [Zoloft 50 mg Tablet] 50 mg PO DAILY 09/12/17 Acetaminophen [Tylenol 325 mg Tablet] 650 mg PO Q4HP PRN tablet 09/13/17 History of Present Illness History of Present Illness: DINA JOSHUA is a 82 year old male with a history of myelodysplastic syndrome , AML, hypertension, and SVT who presented to the emergency department by medic with a chief complaint of chest pain. This pain occurred early this morning. It was relieved with sublingual nitroglycerin that was given to him by his career developer, Mariely. His pain was worse when he takes deep breaths. It was not associated with nausea, vomiting, diaphoresis, or shortness of breath. He did not report palpitations. When EMS arrived, he was noted to be in SVT. His heart rate was in the 140s. He was treated with IV diltiazem, subsequent decrease in his heart rate. In the emergency department, his heart rate has been in the low 100s. He has been asymptomatic. Given his multiple comorbidities, particularly his myelodysplastic syndrome, he is under the care of hospice at home. However, he requested for agreed to be admitted overnight for IV fluids, control of his heart rate. He is DNR/DNI. He is not requesting a transfusion. His oncologist has already told him that he would not be receiving more blood products. Hospital Course Hospital Course: He was admitted overnight. He received IVFs and supplemental K. He did not have any further episodes of SVT. His K was corrected. His hospital stay was uneventful. Physical Exam Vital Signs: Temp Pulse Resp BP Pulse Ox 97.8 F 71 20 114/60 95 09/13/17 08:15 09/13/17 08:15 09/13/17 08:15 09/13/17 08:15 09/13/17 08:15 Intake & Output 09/12/17 09/13/17 09/14/17 06:59 06:59 06:59 Intake Total 250 Balance 250 General appearance: PRESENT: no acute distress, cooperative, well-developed, well-nourished Eye exam: PRESENT: EOMI, PERRLA Neck exam: ABSENT: carotid bruit, JVD, lymphadenopathy, thyromegaly Respiratory exam: PRESENT: clear to auscultation jane. ABSENT: rales, rhonchi, wheezes Cardiovascular exam: PRESENT: RRR. ABSENT: diastolic murmur, rubs, systolic murmur GI/Abdominal exam: PRESENT: normal bowel sounds, soft. ABSENT: distended, guarding, mass, organolmegaly, rebound, tenderness Neurological exam: PRESENT: alert, awake, oriented to person, oriented to place , oriented to time, oriented to situation, CN II-XII grossly intact. ABSENT: motor sensory deficit Psychiatric exam: PRESENT: appropriate affect, normal mood. ABSENT: homicidal ideation, suicidal ideation Results Laboratory Results: 09/13/17 05:42 09/13/17 05:42 09/13/17 09/13/17 05:42 05:42 WBC 9.0 RBC 2.28 L Hgb 6.8 L Hct 20.7 L MCV 91 MCH 29.7 MCHC 32.7 RDW 18.9 H Plt Count 15 L* Sodium 139.6 Potassium 4.3 Chloride 106 Carbon Dioxide 28 Anion Gap 6 BUN 17 Creatinine 0.77 Est GFR ( Amer) > 60 Est GFR (Non-Af Amer) > 60 Glucose 92 Calcium 8.1 L Impressions: Chest X-Ray 09/12/17 12:01 IMPRESSION: Re- demonstration of multi lobar pneumonia, slightly progressed in the study interval. Qualifiers - * PATEINT BEING DISCHARGED WITH ANY OF THE FOLLOWING DIAGNOSIS?: No Plan Time Spent: Greater than 30 Minutes - 35 minutes
[2017-09-13 13:51] VITALS: BP 104/52
[2017-09-15] MEDS ORDERED: FENTANYL 50 MCG/HR PATCH.TD72 TD SCH (10:00)
== END 2017-09-13 13:35 | disposition home health service (06) ==
LOC: ER 11:56 → INTOOBSV 15:40 → EH 15:40 → 3S 09-13 08:03
PROVIDERS: ADMIT Family Medicine; ATTEND Family Medicine
DX: I47.1 Supraventricular tachycardia (principal); D61.818 Other pancytopenia; D46.9 Myelodysplastic syndrome, unspecified; J18.9 Pneumonia, unspecified organism; C92.00 Acute myeloblastic leukemia, not having achieved remission; I10 Essential (primary) hypertension; Z72.0 Tobacco use; Z66 Do not resuscitate
CPT/HCPCS: 93005; 99291; 36415 ×2; 87040; 83735; 84100; 85025; 85027; 80048 ×2; 84484; 83605; 71045; 93010; G0378 ×3; A9270 ×15; J3490; J3370; J1956